=== PATIENT | female | born 1940 | race Caucasian/White ===

== ENCOUNTER 2023-04-19 15:47 | Outpatient (REF) | payer MEDICARE, SELFPAY ==
--- OUTSIDE RECORDS SUMMARY | 2023-04-19 15:51 | XMS_ITS | Continuity of Care Document ---
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 Discharge Disposition: Home or Self Care Attending Physician: KAILEY Mason Allergies, Adverse Reactions, Alerts Substance Reaction Severity Status Adhesive Bandage Rash Moderate Active copper containing compounds Rash Mild Active Dust Unknown Active Bee Stings Unknown Unknown Active Assessment and Plan Future Appointments Immunizations Given and Recorded Vaccine Date Status Refusal Reason pneumococcal 13-valent conjugate vaccine 1 08/27/21 Recorded pneumococcal 13-valent conjugate vaccine 2 09/28/15 Recorded SARS-CoV-2 (COVID-19) mRNA-1273 vaccine 3 04/09/21 Recorded zoster vaccine, inactivated 05/07/20 Recorded zoster vaccine, inactivated 4 02/20/20 Recorded influenza, unspecified formulation 5 03/19/20 Marcello rded influenza virus vaccine, inactivated 03/19/19 Marcello rded tetanus/diphth/pertuss (Tdap) adult/adol 09/28/15 Recorded zoster vaccine live 6 10/02/12 Recorded pneumococcal 23-polyvalent vaccine 7 09/27/12 Marcello rded pneumococcal 23-polyvalent vaccine 8 2/16/06 Marcello rded Novel [id number], all formulation 9 06/03/09 Recorded Td(adult) unspecified formulation 11/04/08 Recorde d 1Result Comment: Unit: Unknown 2Result Comment: Unit: Unknown 3Result Comment: Unit: Unknown 4Result Comment: Unit: Unknown 5Result Comment: Unit: Unknown 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: [employer] 6Result Comment: Unit: Unknown 7Result Comment: Unit: Unknown 8Result Comment: Unit: Unknown 9Result Comment: Unit: Unknown Medications amLODIPine 10 mg oral tablet 10 mg = 1 tab, Oral, Daily, # 90 tab, 3 Refill(s), Pharmacy: [facility] #[id number], 162.56, cm, 07/15/22 17:52:00 EST, Height/Length Dosing, 95.71, kg, 07/15/22 17:52:00 EST, Weight Dosing Start Date: 08/18/22 Stop Date: 08/13/23 Status: Ordered aspirin 81 mg oral delayed release tablet 81 mg = 1 tab, Oral, Daily, PRN stroke prevention, # 90 tab, 0 Refill(s) Start Date: 07/20/22 Stop Date: 10/18/22 Status: Ordered atenolol 50 mg oral tablet 50 mg = 1 tab, Oral, Daily, # 90 tab, 0 Refill(s) Start Date: 06/05/22 Stop Date: 09/03/22 Status: Ordered atorvastatin 80 mg oral tablet See Instructions, take 1 tablet by mouth Once a day at supper for cholesterol, # 90 tab, 3 Refill(s), Pharmacy: [facility] #[id number], 165, cm, 01/12/23 7:52:00 EDT, Height/Length Dosing, 94, kg, 01/12/23 7:52:00 EDT, Weight Dosing Start Date: 01/18/23 Status: Ordered Bd Pen Needle/Milena/Ultra-Fine/32g X 4mm Mis Embe Bd Pen Needle/Milena/Ultra-Fine/32g X 4mm Mis Embe, See Instructions, use one needle once daily, # 100 unknown unit, 3 Refill(s), Pharmacy: [facility] #[id number], E11.9, KX, 165.1, cm, 10/26/22 10:20:00 EDT, Height/Length Dosing, 93.44, kg, 10/26/22 10:20:00 EDT, Weight Dosing Start Date: 12/08/22 Status: Ordered Centrum Silver oral tablet 1 tab, Oral, Daily, # 90 tab, 0 Refill(s) Start Date: 09/03/22 Stop Date: 12/02/22 Status: Ordered clopidogrel 75 mg oral tablet See Instructions, take one tablet by mouth one time daily, # 90 tab, 3 Refill(s), Pharmacy: [facility] #[id number], 162.56, cm, 07/15/22 17:52:00 EST, Height/Length Dosing, 95.71, kg, 07/15/22 17:52:00 EST, Weight Dosing Start Date: 10/25/22 Status: Ordered colchicine 0.6 mg oral tablet 1/2 tab, Oral, Daily, PRN not specified, # 45 tab, 0 Refill(s) Start Date: 09/03/22 Stop Date: 12/02/22 Status: Ordered DME Oxygen Therapy pt uses as needed for ALMARAZ@ 2lpm, Supply, See instructions, # 1 EA, 0 Refill(s) Start Date: 10/26/22 Status: Ordered DULoxetine 60 mg oral delayed release capsule 60 mg = 1 cap, Oral, Daily, # 90 cap, 3 Refill(s), Pharmacy: [facility] #[id number], 162.56, cm, 07/15/22 17:52:00 EST, Height/Length Dosing, 95.71, kg, 07/15/22 17:52:00 EST, Weight Dosing Start Date: 07/25/22 Stop Date: 07/20/23 Status: Ordered furosemide 20 mg oral tablet 20 mg = 1 tab, Oral, BID, # 180 tab, 0 Refill(s) Start Date: 06/05/22 Stop Date: 09/03/22 Status: Ordered gabapentin 400 mg oral capsule 400 mg = 1 cap, Oral, TID, # 270 cap, 0 Refill(s) Start Date: 06/05/22 Stop Date: 12/02/22 Status: Ordered Glucagon Emergency Kit for Low Blood Sugar 1 mg injection See Instructions, 0 Refill(s) Start Date: 09/03/22 Status: Ordered GoLYTELY oral powder for reconstitution 240 mL, Oral, every 10 min, # 4,000 mL, 0 Refill(s), Pharmacy: [facility] #[id number], 163, cm, 06/11/22 9:55:00 EST, Height/Length Dosing, 93.89, kg, 06/11/22 9:55:00 EST, Weight Dosing Start Date: 07/12/22 Stop Date: 07/13/22 Status: Ordered lactulose 10 g/15 mL oral syrup See Instructions, PRN as needed for constipation, 15-30 mL Oral Daily 30 days, # 500 mL, 3 Refill(s), Pharmacy: [facility], 163, cm, 06/11/22 9:55:00 EST, Height/Length Dosing, 93.89, kg,06/11/22 9:55:00 EST, Weight Dosing Start Date: 06/24/22 Status: Ordered Lantus Solostar Pen 100 units/mL subcutaneous solution 28 units, Subcutaneous, Daily, # 3 mL, 0 Refill(s) Start Date: 10/24/22 Status: Ordered lisinopril 40 mg oral tablet 40 mg = 1 tab, Oral, every evening, # 90 tab, 3 Refill(s), Pharmacy: [id number], 163, cm, 06/11/22 9:55:00 EST, Height/Length Dosing, 93.89, kg, 06/11/22 9:55:00 EST, Weight Dosing Start Date: 07/11/22 Stop Date: 07/06/23 Status: Ordered MetFORMIN (Eqv-Glucophage XR) 500 mg oral tablet, extended release See Instructions, TAKE ONE TABLET BY MOUTH TWICE DAILY, # 180 tab, 3 Refill(s), Pharmacy: [facility] #[id number], 162.56, cm, 07/15/22 17:52:00 EST, Height/Length Dosing, 95.71, kg, 07/15/22 17:52:00 EST, Weight Dosing Start Date: 08/24/22 Status: Ordered nitroglycerin 0.3 mg sublingual tablet See Instructions, 0 Refill(s) Start Date: 09/03/22 Status: Ordered OneTouch Delica Lanceta Fine - Miscellaneous OneTouch Delica Lanceta Fine - Miscellaneous, Supply, See instructions, # 1 EA, 0 Refill(s) Start Date: 09/03/22 Status: Ordered ONETOUCH ULTRA STRP ONETOUCH ULTRA STRP, See Instructions, Check blood glucose bid and as needed, # 200 strip, 0 Refill(s) Start Date: 06/05/22 Status: Ordered OneTouch Ultra Blue - Strip OneTouch Ultra Blue - Strip, Supply, See instructions, # 1 EA, 0 Refill(s) Start Date: 09/03/22 Status: Ordered Oxygen Therapy 2 liters by nasal cannula continuous concentrator / portable gas Start Date: 09/09/2020, Notes: Dx codes : R06.81 and Z86.73, Supply, See instructions, # 1 EA, 0 Refill(s) Start Date: 09/03/22 Status: Ordered PEN NEEDLES MIS [id number] PEN NEEDLES MIS [id number], See Instructions, BID with insulin, 0 Refill(s) Start Date: 06/05/22 Status: Ordered ProAir HFA 90 mcg/inh inhalation aerosol 2 puffs, Inhale, every 6 hr, PRN as needed for wheezing, # 8.5 g, 0 Refill(s) Start Date: 09/03/22 Status: Ordered traZODone 100 mg oral tablet 100 mg = 1 tab, Oral, every night at bedtime, # 90 tab, 0 Refill(s) Start Date: 06/05/22 Stop Date: 09/02/22 Status: Ordered Tylenol Extra Strength 500 mg oral tablet 500 mg = 1 tab, Oral, every 6 hr, PRN not specified, # 360 tab, 0 Refill(s) Start Date: 09/03/22 Stop Date: 12/02/22 Status: Ordered Problem List Condition Confirmation Course Effective Dates Status H ealth Status Informant Change in bowel habit Confirmed Active Anal fissure Confirmed Active Atypical chest pain Confirmed Active Bilateral sensory hearing loss Confirmed Active Carpal tunnel syndrome of right wrist Confirmed Active Cervical spondylosis with radiculopathy Confirmed Active Chronic kidney disease, stage 3 unspecified Confirmed Active Stage 3 chronic kidney disease Confirmed Active Chronic pain Confirmed Active Colonic polyp Confirmed Active Full incontinence of feces Confirmed Active Constipation Confirmed Active Deafness in right ear Confirmed Active Depression Confirmed Active Diverticulitis Confirmed Active Diverticulosis of colon Confirmed Active Dyspnea on exertion 1 Confirmed Active Lesion of ear Confirmed Active Other fatigue Confirmed Active H/O: gout Confirmed Active Headache Confirmed Active Hematochezia Confirmed Active High cholesterol Confirmed Active Hx of ischemic left MCA stroke Confirmed Active History of operative procedure on knee Confirmed Active History of polyp of colon Confirmed Active History of ear surgery Confirmed Active HTN (hypertension) Confirmed Active Cerumen impaction Confirmed Active Cognitive impairment Confirmed Active Stool incontinence Confirmed Active Insomnia Confirmed Active Kidney disease Confirmed Active Long-term current use of insulin Confirmed Active Lumbar post-laminectomy syndrome Confirmed Active Failed back syndrome of lumbar spine Confirmed Active Lumbosacral spondylosis without myelopathy Confirmed Active 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 Osteoarthritis of right knee joint Confirmed Active Otorrhea of right ear Confirmed Active Polyneuropathy due to type 2 diabetes mellitus Confirmed Active Situational depression Confirmed Active Transient neurological symptoms Confirmed Active Type 2 diabetes mellitus Confirmed Active Type 2 diabetes mellitus with hypoglycemia Confirmed Active Uncontrolled type 2 diabetes mellitus with hyperglycemia Confirmed Active UI (urinary incontinence) Confirmed Active Vitamin D deficiency Confirmed Active Word finding difficulty Confirmed Active 1home O2 for ALMARAZ Procedures Procedure Date Related Diagnosis Body Site Status Colonoscopy Biopsy 1 11/02/22 Comp leted Colonoscopy 01/20/19 Completed Back class 2 Completed Bladder care 3 Completed Mastoidectomy Completed Surgery 4 Completed Surgical manipulation of joint of knee Completed 1auto-populated from documented surgical case 2surgery lower back 3surgery 4shoulder and elbow Social History Social History Type Response Tobacco Never tobacco user T obacco Use:. Sex Physician Outpatient Note * KAILEY Mason: PERFORM, MODIFY, MODIFY Gil Escobar, PA: MODIFY, MODIFY Gil Escobar, PA: MODIFY, MODIFY Gil Escobar, PA: MODIFY Garima Lira: MODIFY, MODIFY Garima Lira: MODIFY Event Display: Office Clinic Note Physician Authored Date: [id number] MICHELLE HOLLEY :1940 Age:82 years Sex:Female Visit Date:02/09/2023 Primary Care Physician: Wilmar Licea DO Chief Complaint Established- Recheck ear, path results History of Present Illness Established patient in the office today to have her biopsy site checked and review pathology results. Patient was given results over the phone. 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 She was still having?? pain after the biopsy.?? She has history of mastoid surgery of the right ear and is here today for??debridement of the mastoid??cavity. Patient notesthat she is still having some pain and it is tender to the touch. She notes it is a bit better though. Patient notes no drainage and has no major concerns but would like it checked today. Patient notes that the helix is healing well but slowly. Review of Systems Negative for: no new cardiac, respiratory, GI, , hematologic, neurologic, psychological, allergic, traumatic or endocrine problems except as listed above Physical Exam GENERAL APPEARANCE:??The patient is awake, alert, and oriented and in no acute distress, Appears nutritionally sound, Healthy in appearance, Voice is strong, with no stridor or stertor, Handling secretions without difficulty.?PSYCH:??affect normal, good eye contact, oriented to person, oriented to place, oriented to time.?NEURO:??CN's II-XII grossly intact, Gait is normal,?HEENT:??The patient is normocephalic with a normal facies with cranial nerves 2 through 12 bilaterally equal and intact. Pupils are equal and reactive to light with extraocular movements bilaterally equal and intact. There is no proptosis or enophthalmos,??EARS:, Ear exam reveals normal appearing pinna bilaterally. Mastoids are normal to palpation and nontender bilaterally. the ext ernal canal are patent following removal of cerumen and debris with scant otorrhea posteriorly on the right s/p mastoid wall down surgery, with left TM's mobile with no evidence of middle ear fluid, middle ear masses, or retraction pockets.?NECK:??There is no palpable lymphadenopathy.?HEART:??regular rate and rhythm.?LUNGS:??clear to auscultation bilaterally, no wheezes/rhonchi/rales.?SKIN:??biopsy site left antihelix without evidence of infection healing by secondary intention. No recurrence. ?MUSCULOSKELETAL:??normal gait and station.?? Procedure A combination of otoscope and operative microscope were used to debride the right external auditorycanal and mastoid bowl??with forceps ,day hook and suction as needed secondary to otorrhea/debris. This was performed in order to complete the physical exam and provide proper visualization of the tympanic membrane and middle ear structures. All debris was removed without incident. There were no complications Assessment/Plan 1.??Cerumen impaction??H61.20 Significant??of the right??mastoid bowl which was treated today with cerumenectomy and application of boric acid following??cerumen removal and removal of otorrhea debris.?? Counseled on dry ear precautions. ??Follow-up in 3 months and sooner as needed. 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 Counseled on avoiding sleeping on the side.?? She does note that pain has been improving with time.?? We will recheck in 3 months at time for recheck of mastoid bowl. Problem List/Past Medical History Ongoing Anal fissure Atypical chest pain Bilateral sensory hearing loss Carpal tunnel syndrome of right wrist Cerumen impaction Cervical spondylosis with radiculopathy Change in bowel habit Chronic kidney disease, stage 3 unspecified Chronic pain Cognitive impairment Colonic polyp Constipation Deafness in right ear Depression Diverticulitis Diverticulosis of colon Dyspnea on exertion Failed back syndrome of lumbar spine Full incontinence of feces H/O: gout Headache Hematochezia High cholesterol History of ear surgery History of operative procedure on knee History of polyp of colon HTN (hypertension) Hx of ischemic left MCA stroke Insomnia Kidney disease Lesion of ear Long-term current use of insulin Lumbar post-laminectomy syndrome Lumbosacral spondylosis without myelopathy Mixed conductive AND sensorineural hearing loss Osteoarthritis of right knee joint Other fatigue Otorrhea of right ear Polyneuropathy due to type 2 diabetes mellitus Situational depression Stage 3 chronic kidney disease Stool incontinence Transient neurological symptoms Type 2 diabetes mellitus Type 2 diabetes mellitus with hypoglycemia UI (urinary incontinence) Uncontrolled type 2 diabetes mellitus with hyperglycemia Vitamin D deficiency Word finding difficulty Historical Acute ischemic left MCA stroke Acute renal failure superimposed on stage 3 chronic kidney disease Carpal tunnel syndrome Cervical radiculopathy Cervical radiculopathy Disorder of cervical spine History of vitamin D deficiency Other chronic pain Type 2 diabetes mellitus with unspecified complications Procedure/Surgical History ???Colonoscopy Biopsy (11/02/2022)???Colonoscopy (01/21/2019)???Back class???Bladder care???Mastoidectomy???Surgery???Surgical manipulation of joint of knee Medications amLODIPine 10 mg oral tablet, 10 mg= 1 tab, Oral, Daily, 3 refills aspirin 81 mg oral delayed release tablet, 81 mg= 1 tab, Oral, Daily, PRN atenolol 50 mg oral tablet, 50 mg= 1 tab, Oral, Daily atorvastatin 80 mg oral tablet, See Instructions, 3 refills Bd Pen Needle/Milena/Ultra-Fine/32g X 4mm Mis Embe, See Instructions, 3 refills Centrum Silver oral tablet, 1 tab, Oral, Daily clopidogrel 75 mg oral tablet, See Instructions, 3 refills colchicine 0.6 mg oral tablet, 1/2 tab, Oral, Daily, PRN DME Oxygen Therapy, See instructions DULoxetine 60 mg oral delayed release capsule, 60 mg= 1 cap, Oral, Daily, 3 refills furosemide 20 mg oral tablet, 20 mg= 1 tab, Oral, BID gabapentin 400 mg oral capsule, 400 mg= 1 cap, Oral, TID Glucagon Emergency Kit for Low Blood Sugar 1 mg injection, See Instructions GoLYTELY oral powder for reconstitution, 240 mL, Oral, every 10 min lactulose 10 g/15 mL oral syrup, See Instructions, PRN, 3 refills Lantus Solostar Pen 100 units/mL subcutaneous solution, 28 units, Subcutaneous, Daily lisinopril 40 mg oral tablet, 40 mg= 1 tab, Oral, every evening, 3 refills MetFORMIN (Eqv-Glucophage XR) 500 mg oral tablet, extended release, See Instructions nitroglycerin 0.3 mg sublingual tablet, See Instructions OneTouch Delica Lanceta Fine - Miscellaneous, See instructions ONETOUCH ULTRA STRP, See Instructions OneTouch Ultra Blue - Strip, See instructions Oxygen Therapy, See instructions PEN NEEDLES MIS [id number], See Instructions ProAir HFA 90 mcg/inh inhalation aerosol, 2 puffs, Inhale, every 6 hr, PRN traZODone 100 mg oral tablet, 100 mg= 1 tab, Oral, every night at bedtime Tylenol Extra Strength 500 mg oral tablet, 500 mg= 1 tab, Oral, every 6 hr, PRN Allergies Adhesive Bandage??(Rash) copper containing compounds??(Rash) Bee Stings??(Unknown) Dust Social History Alcohol Current, 1-2 times per week Electronic Cigarette/Vaping Electronic Cigarette Use: Never. Substance Use Never Tobacco Never tobacco user Tobacco Use:. Family History Cancer: Mother. Cardiovascular disease: Father. Diabetes mellitus: Sister. Hypertension: Father. Ovarian cancer: Mother. Stroke: Sister. 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: [employer] zoster vaccine, inactivated 02/20/2020 Recorded Comments : Unit: Unknown influenza virus vaccine, inactivated 03/19/2019 Recorded tetanus/diphth/pertuss (Tdap) adult/adol 09/28/2015 Recorded pneumococcal 13-valent conjugate vaccine 09/28/2015 Recorded Comments : Unit: Unknown zoster vaccine live 10/02/2012 Recorded Comments : Unit: Unknown pneumococcal 23-polyvalent vaccine 09/27/2012 Recorded Comments : Unit: Unknown Novel [id number], all formulation 06/03/2009 Recorded Comments : Unit: Unknown Td(adult) unspecified formulation 11/04/2008 Recorded pneumococcal 23-polyvalent vaccine 07/21/2005 Recorded Comments : Unit: Unknown Electronically Signed on 02/09/23 02:32 PM KAILEY Mason Patient Care team information Care Team Personnel Name: Wilmar Licea DO Position: Physician Member Role: Primary Care Physician Address: Address: [address] [place] [id number] [place] Care Team Related Persons Name: DAVE DOWNING Address: Home
--- OUTSIDE RECORDS SUMMARY | 2023-04-19 15:51 | XMS_ITS | Continuity of Care Document ---
Author Name Unknown Organization [facility] Address [address] [place] [id number] Care Team Providers Care Repair Clerk Name Role Phone Keo Cruz DO Primary Care Physician Encounter [facility] NBR [id number] Date(s): 07/15/22 - 07/16/[address] [address] Encounter Diagnosis Constipation(Discharge Diagnosis) - 07/16/22 Hematochezia(Discharge Diagnosis) - 07/16/22 Discharge Disposition: Home or Self Care Attending Physician: Navjot Boswell APRN Admitting Physician: Navjot Boswell APRN Allergies, Adverse Reactions, Alerts No Known Medication Allergies Substance Reaction Severity Status Adhesive Bandage Unknown Unknown Active Bee Stings Unknown Unknown Active Dust Unknown Active Functional Status 07/16/22 Lunch Percent 100 07/16/22 Personal Care Provided Other: pt was inc ontinent of stool, helped her clean up and change. 07/16/22 Activity Status ADL Other: resting 07/16/22 Breakfast Percent 100 07/15/22 Living Environment No Living Environmen t Information Available Lives In Single level home Living Situation Home independently Home Barriers None 07/15/22 Current Home Treatments Oxygen therapy ADLs Minimal assistance Home Equipment Cane Recent Travel History No recent travel Other exposure to Infectious Disease Non e Immunizations Given and Recorded Vaccine Date Status [...] 09/27/12 Marcello rded pneumococcal 23-polyvalent vaccine 8 07/21/05 Marcello rded Novel [id number], all formulation 9 06/03/09 Recorded Td(adult) unspecified formulation 11/04/08 Recorde d 1Result Comment: Unit: Unknown 2Result Comment: Unit: Unknown 3Result Comment: Unit: Unknown 4Result Comment: Unit: Unknown 5Result Comment: Unit: Unknown 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[employer] 6Result Comment: Unit: Unknown 7Result Comment: Unit: Unknown 8Result Comment: Unit: Unknown 9Result Comment: Unit: Unknown Medications amLODIPine 5 mg oral tablet 5 mg = 1 tab, Oral, Daily, # 90 tab, 3 Refill(s), Pharmacy: [facility] #[id number], 163, cm, 06/11/22 9:55:00 EST, Height/Length Dosing, 93.89, kg, 06/11/22 9:55:00 EST, Weight Dosing Start Date: 07/11/22 Stop Date: 07/06/23 Status: Ordered atenolol 50 mg oral tablet 50 mg = 1 tab, Oral, Daily, # 90 tab, 0 Refill(s) Start Date: 06/05/22 Stop Date: 09/03/22 Status: Ordered atorvastatin 80 mg oral tablet 80 mg = 1 tab, Oral, Daily, take 1 tablet by mouth Once a day at supper for cholesterol, X 90 days,# 90 tab, 09/03/22 8:59:00 EDT Start Date: 06/05/22 Stop Date: 09/03/22 Status: Ordered clopidogrel 75 mg oral tablet 75 mg = 1 tab, Oral, Daily, 0 Refill(s) Start Date: 07/16/22 Status: Ordered DULoxetine 60 mg oral delayed release capsule 60 mg = 1 cap, Oral, Daily, X 90 days, # 90 cap, 09/03/22 8:59:00 EDT Start Date: 06/05/22 Stop Date: 09/03/22 Status: Ordered furosemide 20 mg oral tablet 20 mg = 1 tab, Oral, BID, # 180 tab, 0 Refill(s) Start Date: 06/05/22 Stop Date: 09/03/22 Status: Ordered gabapentin 400 mg oral capsule 400 mg = 1 cap, Oral, TID, # 120 cap, 0 Refill(s) Start Date: 06/05/22 Status: Ordered GoLYTELY oral powder for reconstitution 240 mL, Oral, every 10 min, # 4,000 mL, 0 Refill(s), Pharmacy: [facility] #[id number], 163, cm, 06/11/22 9:55:00 EST, Height/Length Dosing, 93.89, kg, 06/11/22 9:55:00 EST, Weight Dosing Start Date: 07/12/22 Stop Date: 07/13/22 Status: Ordered indomethacin 50 mg oral capsule 50 mg = 1 cap, Oral, TID, with food or milk, # 90 cap, 0 Refill(s), Pharmacy: [facility] #[id number], 163, cm, 06/11/22 9:55:00 EST, Height/Length Dosing, 93.89, kg, 06/11/22 9:55:00 EST, Weight Dosing Start Date: 07/07/22 Stop Date: 08/06/22 Status: Ordered lactulose 10 g/15 mL oral syrup See Instructions, PRN as needed for constipation, 15-30 mL Oral Daily 30 days, # 500 mL, 3 Refill(s), Pharmacy: [facility], 163, cm, 06/11/22 9:55:00 EST, Height/Length Dosing, 93.89, kg,06/11/22 9:55:00 EST, Weight Dosing Start Date: 06/24/22 Status: Ordered Lantus Solostar Pen 100 units/mL subcutaneous solution 32 units =, Subcutaneous, Daily, X 90 days, # 15 mL, 09/03/22 8:59:00 EDT Start Date: 06/05/22 Stop Date: 09/03/22 Status: Ordered lisinopril 40 mg oral tablet 40 mg = 1 tab, Oral, every evening, # 90 tab, 3 Refill(s), Pharmacy: [facility] #[id number], 163, cm, 06/11/22 9:55:00 EST, Height/Length Dosing, 93.89, kg, 06/11/22 9:55:00 EST, Weight Dosing Start Date: 07/11/22 Stop Date: 07/06/23 Status: Ordered MetFORMIN (Eqv-Glucophage XR) 500 mg oral tablet, extended release 500 mg = 1 tab, Oral, BID, # 180 tab, 0 Refill(s) Start Date: 06/05/22 Stop Date: 09/03/22 Status: Ordered ONETOUCH ULTRA STRP ONETOUCH ULTRA STRP, See Instructions, Check blood glucose bid and as needed, # 200 strip, 0 Refill(s) Start Date: 06/05/22 Status: Ordered PEN NEEDLES MIS [id number] PEN NEEDLES MIS [id number], See Instructions, BID with insulin, 0 Refill(s) Start Date: 06/05/22 Status: Ordered traZODone 100 mg oral tablet 100 mg = 1 tab, Oral, every night at bedtime, # 90 tab, 0 Refill(s) Start Date: 06/05/22 Stop Date: 09/02/22 Status: Ordered Mental Status 07/15/22 Eye Opening Response Yoko Spontaneous ly Best Verbal Response Yoko Oriented Best Motor Response [place] Obeys comman ds [place] Coma Score 15 Problem List Condition Confirmation Course Effective Dates Status H ealth Status Informant Change in bowel habit Confirmed Active Atypical chest pain Confirmed Active Bilateral sensory hearing loss Confirmed Active Carpal tunnel syndrome of right wrist Confirmed Active Cervical spondylosis with radiculopathy Confirmed Active Chronic kidney disease, stage 3 unspecified Confirmed Active Chronic pain Confirmed Active Constipation Confirmed Active Constipation Confirmed Active Deafness in right ear Confirmed Active Diverticulitis Confirmed Active H/O: gout Confirmed Active Hematochezia Confirmed Active Hx of ischemic left MCA stroke Confirmed Active History of operative procedure on knee Confirmed Active History of polyp of colon Confirmed Active HTN (hypertension) Confirmed Active Cognitive impairment Confirmed Active Stool incontinence Confirmed Active Insomnia Confirmed Active Long-term current use of insulin Confirmed Active Lumbar post-laminectomy syndrome Confirmed Active Lumbosacral spondylosis without myelopathy Confirmed Active 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 Osteoarthritis of right knee joint Confirmed Active Otorrhea of right ear Confirmed Active Transient neurological symptoms Confirmed Active Type 2 diabetes mellitus Confirmed Active UI (urinary incontinence) Confirmed Active Vitamin D deficiency Confirmed Active Word finding difficulty Confirmed Active Procedures Procedure Date Related Diagnosis Body Site Status Colonoscopy 01/20/19 Completed Back class 1 Completed Bladder care 2 Completed Mastoidectomy Completed Surgery 3 Completed Surgical manipulation of joint of knee Completed 1surgery lower back 2surgery 3shoulder and elbow Results Laboratory List Name Date Basic Metabolic Panel (BMP) 07/16/22 CBC w/ Diff 07/16/22 Automated Diff 07/16/22 SARS-CoV-2 (COVID-19) PCR (GeneXpert) 03/27 Urinalysis Microscopic 07/15/22 Urinalysis with Microscopic if Indicated 07/15/22 BNP 07/15/22 CBC w/ Diff 07/15/22 Comprehensive Metabolic Panel (CMP) 07/15 Troponin-I 07/15/22 Automated Diff 07/15/22 Most recent to oldest [Reference Range]: 1 2 WBC [4.8-10.8 K/mcL] 9.1 K/mcL (07/16/22 5:21 AM) 10.0 K/mcL (07/15/22 6:07 PM) RBC [4.20-6.10 Million/mcL] 3.51 Million /mcL *LOW* (07/16/22 5:21 AM) 3.92 Million/mcL *LOW* (07/15/22 6:07 PM) Neutro Auto [42.2-75.2 %] 59.0 % (07/16/22 5:21 AM) 59.7 % (07/15/22 6:07 PM) Lymph Auto [20.5-51.1 %] 31.0 % (07/16/22 5:21 AM) 30.7 % (07/15/22 6:07 PM) [place] Auto [1.7-9.3 %] 7.0 % (07/16/22 5:21 AM) 6.8 % (07/15/22 6:07 PM) Basophil Auto [0.0-0.8 %] 0.3 % (07/16/22 5:21 AM) 0.4 % (07/15/22 6:07 PM) BUN [8-26 mg/dL] 42 mg/dL *HI* (07/16/22 5:28 AM) 47 mg/dL *HI* (07/15/22 6:07 PM) UA Color [Yellow] Yellow (07/15/22 6:18 PM) UA WBC [0-3] 0-3 (07/15/22 6:18 PM) Glucose Level [74-106 mg/dL] 159 mg/dL *HI* (2/11/23 5:28 AM) 88 mg/dL (07/15/22 6:07 PM) Potassium Level [3.5-5.1 mmol/L] 4.5 mmo l/L (07/16/22 AM) 4.5 mmol/L (07/15/22 6:07 PM) Baso Absolute [0.0-0.2 K/mcL] 0.0 K/mcL (07/16/22: AM) 0.0 K/mcL (07/15/22 6:07 PM) MCV [80.0-99.0 fL] 96.6 fL (07/16/22: AM) 94.4 fL (07/15/22 6:07 PM) UA Urobilinogen [0.2] 0.2 (07/15/22:18 PM) UA Bili [Negative] Negative (07/15/22 6:18 PM) UA Ketones [Negative] Negative (07/15/22 6:18 PM) AST [15-41 IntlUnit/L] 18 IntlUnit/L (07/15/22 6:07 PM) ALT [14-54 IntlUnit/L] 17 IntlUnit/L (07/15/22 6:07 PM) MCHC [32.0-36.0 g/dL] 33.0 g/dL (07/16/22: AM) 33.8 g/dL (07/15/22 6:07 PM) Osmolality [275-295 mOsm/kg] 291 mOsm/kg (07/16/22: AM) 289 mOsm/kg (07/15/22 6:07 PM) Troponin-I [<=0.05 ng/mL] 0.01 ng/mL (07/15/22 6:07 PM) Sodium Level [134-143 mmol/L] 139 mmol/L (07/16/22: AM) 139 mmol/L (07/15/22 6:07 PM) UA RBC [0-3] 0-3 (07/15/22 6:18 PM) UA Leuk Est [Negative] Trace *ABN* (07/15/22 6:18 PM) Lymph Absolute [1.2-3.4 K/mcL] 2.8 K/mcL (2/11/23 5:21 AM) 3.1 K/mcL (07/15/22 6:07 PM) UA Nitrite [Negative] Negative (07/15/22 6:18 PM) UA Glucose [Negative] Negative (07/15/22 6:18 PM) Hct [37.0-52.0 %] 33.9 % *LOW* (07/16/22 5:21 AM) 37.0 % (07/15/22 6:07 PM) UA Bacteria Rare *NA* (07/15/22 6:18 PM) Calcium Level [8.9-10.3 mg/dL] 8.5 mg/dL *LOW* (07/16/22 5:28 AM) 9.0 mg/dL (07/15/22 6:07 PM) [place] Absolute [0.1-0.6 K/mcL] 0.6 K/mcL (07/16/22 5:21 AM) 0.7 K/mcL *HI* (07/15/22 6:07 PM) Albumin Level [3.5-5.0 g/dL] 3.4 g/dL *LOW* (07/15/22 6:07 PM) Protein Total [6.5-8.1 g/dL] 6.5 g/dL (07/15/22 6:07 PM) UA Protein [Negative] Negative (07/15/22 6:18 PM) MCH [27.0-31.0 pg] 31.9 pg *HI* (07/16/22 5:21 AM) 31.9 pg *HI* (07/15/22 6:07 PM) Neutro Absolute [1.4-6.5 K/mcL] 5.4 K/mc L (07/16/22 5:21 AM) 6.0 K/mcL (07/15/22 6:07 PM) Bilirubin Total [0.2-1.2 mg/dL] 0.5 mg/d L (07/15/22 6:07 PM) Hgb [12.0-18.0 g/dL] 11.2 g/dL *LOW* (07/16/22 5:21 AM) 12.5 g/dL (07/15/22 6:07 PM) Alk Phos [38-130 IntlUnit/L] 87 IntlUnit /L (07/15/22 6:07 PM) UA Blood [Negative] Trace *ABN* (07/15/22 6:18 PM) MPV [7.4-10.4 fL] 10.4 fL (07/16/22 5:21 AM) 10.2 fL (07/15/22 6:07 PM) UA Spec Grav 1.015 *NA* (07/15/22 6:18 PM) Platelets [130-400 K/mcL] 197 K/mcL (07/16/22 5:21 AM) 227 K/mcL (07/15/22 6:07 PM) CO2 [22-32 mmol/L] 29 mmol/L (07/16/22 5:28 AM) 27 mmol/L (07/15/22 6:07 PM) Eos Absolute [0.0-0.2 K/mcL] 0.2 K/mcL (07/16/22 5:21 AM) 0.2 K/mcL (07/15/22 6:07 PM) UA Squam Epithelial [0-3] 0-3 (07/15/22 6:18 PM) UA pH 6.00 *NA* (07/15/22 6:18 PM) BNP [<=100 pg/mL] 72 pg/mL (07/15/22 6:07 PM) UA Appear [Clear] Clear (07/15/22 6:18 PM) Chloride Level [98-111 mmol/L] 103 mmol/ L (07/16/22 5:28 AM) 101 mmol/L (07/15/22 6:07 PM) RDW-CV [11.5-14.5 %] 12.5 % (07/16/22 5:21 AM) 12.3 % (07/15/22 6:07 PM) A/G Ratio 1.1 *NA* (07/15/22 6:07 PM) BUN/Creat Ratio [8.0-20.0] 31.6 *HI* (07/16/22 5:28 AM) 36.7 *HI* (07/15/22 6:07 PM) Globulin 3.1 *NA* (07/15/22 6:07 PM) Imm Gran Absolute 0.04 *NA* (07/16/22 5:21 AM) 0.02 *NA* (07/15/22 6:07 PM) Imm Gran Auto [0.0-0.5 %] 0.4 % (07/16/22 5:21 AM) 0.2 % (07/15/22 6:07 PM) UA Culture Ind?. [No] No (07/15/22 6:18 PM) Urine Srce Clean Catch (07/15/22 6:18 PM) SARS-CoV-2 (COVID-19) PCR (G eneXpert) [Negative] Negative (07/15/22 7:51 PM) Creatinine Level [0.44-1.00 mg/dL] 1.33 mg/dL *HI* (07/16/22 5:28 AM) 1.28 mg/dL *HI* (07/15/22 6:07 PM) Employed in healthcare? No *NA* (07/15/22 7:51 PM) Symptomatic as defined by CDC? Unknown *NA* (07/15/22 7:51 PM) Hospitalized due to COVID-19? No *NA* (07/15/22 7:51 PM) In ICU? No *NA* (07/15/22 7:51 PM) Group care resident? No *NA* (07/15/22 7:51 PM) status? Not *NA* (07/15/22 7:51 PM) Anion Gap [3.0-12.0] 7.0 (07/16/22 5:28 AM) 11.0 (07/15/22 6:07 PM) Eos, Auto [0.00-3.00 %] 2.30 % (07/16/22 5:21 AM) 2.20 % (07/15/22 6:07 PM) eGFR CKD-EPI [>=60 mL/min/1.73 m2] 40 mL /min/1.73 m2 *LOW* (07/16/22 5:28 AM) 42 mL/min/1.73 m2 *LOW* (07/15/22 6:07 PM) Radiology Reports * Exam Date Time Procedure Performing Provider Status 07/15/22 6:30 PM XR Chest 1 View Ruba Kapoor; Aut h (Verified) Notes: (XR Chest 1 View) Reason For Exam: dyspnea XR Chest 1 View EXAM DESCRIPTION: XR Chest 1 View 07/15/2022 INDICATION: DYSPNEA COMPARISON: 2020 IMPRESSION: Clear lungs with no focal infiltrate or pulmonary edema. Stable minimal scarring in the left lung base. Stable dense nodule in the right lower lung field without significant change from studies dating back to 03/28/2020 consistent with benign etiology, likely granuloma Normal cardiomediastinal contour. No significant pleural effusion or pneumothorax. JOB #: [id number] Final Signed by: Alverto Xiao MD Signed (Electronic Signature): 07/16/2022 9:31 am Vital Signs Most recent to oldest [Reference Range]: 1 2 3 Temperature Temporal Artery [36-38 Deg C] 37.3 Deg C (07/16/22 12:02 PM) 36.7 Deg C (07/16/22 7:38 AM) 36.7 Deg C (07/16/22 4:23 AM) Temperature Temporal Artery (DegF) [97.3-100 Deg F] 99.14 Deg F (07/16/22 12:02 PM) 98.06 Deg F (07/16/22 7:38 AM) 98.06 Deg F (07/16/22 4:23 AM) Peripheral Pulse Rate [60-100 bpm] 64 bpm (07/16/22 4:23 AM) 69 bpm (07/15/22 8:56 PM) 67 bpm (07/15/22 5:38 PM) Heart Rate Monitored [60-100 bpm] 71 bpm (07/16/22 12:02 PM) 63 bpm (07/16/22 7:38 AM) Respiratory Rate [12-24 br/min] 18 br/min (07/16/22 12:02 PM) 16 br/min (07/16/22 7:38 AM) 16 br/min (07/16/22 4:23 AM) Blood Pressure [90-140/60-90 mmHg] 155/60mmHg *HI* (07/16/22 12:26 PM) 195/86mmHg *HI* (07/16/22 12:02 PM) 159/76mmHg *HI* (07/16/22 7:38 AM) Mean Arterial Pressure, Cuff [65-140 mmHg] 92 mmHg (07/16/22 12:26 PM) 122 mmHg (07/16/22 12:02 PM) 104 mmHg (07/16/22 7:38 AM) Blood Pressure Location Right arm (07/15/22 8:56 PM) Blood Pressure Method Automatic (07/15/22 8:56 PM) Weight Dosing 95.71 kg (07/15/22 5:52 PM) Weight Estimated 95.71 kg (07/15/22 5:38 PM) Height/Length Dosing 162.560 cm (07/15/22 5:52 PM) Height/Length Estimated 162.560 cm (07/15/22 5:38 PM) Social History Social History Type Response Tobacco Never tobacco user T obacco Use:. Sex Hospital Discharge Instructions Patient Education 07/16/2022 09:44:47 Chronic Constipation Chronic Constipation Chronic constipation is a condition in which a person has three or fewer bowel movements a week, for 3 months or longer. This condition is especially common in older adults. What are the causes? Causes of chronic constipation may include: ??? Not drinking enough fluid, eating enough food or fiber, or getting enough physical activity. ??? . ??? A tear in the anus (anal fissure). ??? Blockage in the bowel (bowel obstruction). ??? Narrowing of the bowel (bowel stricture). ??? Having a long-term medical condition, such as: ??? Diabetes, hypothyroidism, or iron-deficiency anemia. ??? Stroke or spinal cord injury. ??? Multiple sclerosis or Parkinson's disease. ??? Colon cancer. ??? Dementia. ??? Inflammatory bowel disease (IBD), outward collapse of the rectum (rectal prolapse), or hemorrhoids. ??? Taking certain medicines, including: ??? Narcotics. These are a certain type of prescription pain medicine. ??? Antacids or iron supplements. ??? Water pills (diuretics). ??? Certain blood pressure medicines. ??? Anti-seizure medicines. ??? Antidepressants. ??? Medicines for Parkinson's disease. Other causes of this condition may include: ??? Stress. ??? Problems in the nerves and muscles that control the movement of stool. ??? Weak or impaired pelvic floor muscles. What increases the risk? You may be at higher risk for chronic constipation if: ??? You are older than age 70. ??? You are female. ??? You live in a long-term care facility. ??? You have a long-term disease. ??? You have a mental health disorder or eating disorder. What are the signs or symptoms? The main symptom of chronic constipation is having three or fewer bowel movements a week for several weeks. Other signs and symptoms may vary from person to person. These include: ??? Pushing hard (straining) to pass stool, or having hard or lumpy stools. ??? Painful bowel movements. ??? Having lower abdominal discomfort, such as cramps or bloating. ??? Being unable to have a bowel movement when you feel the urge, or feeling like you still need topass stool after a bowel movement. ??? Feeling that you have something in your rectum that is blocking or preventing bowel movements. ??? Seeing blood on the toilet paper or in your stool. ??? Worsening confusion (in older adults). How is this diagnosed? This condition may be diagnosed based on: ??? Your symptoms and medical history. You will be asked about your symptoms, lifestyle, diet, and any medicines that you are taking. ??? A physical exam. ??? Your abdomen will be examined. ??? A digital rectal exam may be done. For this exam, a health care provider places a lubricated, gloved finger into the rectum. ??? Tests to check for any underlying causes of your constipation. These may be ordered if you havebleeding in your rectum, weight loss, or a family history of colon cancer. In these cases, you may have: ??? Imaging studies of the colon. These may include X-ray, ultrasound, or a CT scan. ??? Blood tests. ??? A procedure to examine the inside of your colon (colonoscopy). ??? More specialized tests to check: ??? Whether your anal sphincter works well. This is a ring-shaped muscle that controls the closing of the anus. ??? How well food moves through your colon. ??? Tests to measure the nerve signal in your pelvic floor muscles (electromyography). How is this treated? Treatment for chronic constipation depends on the cause. Most often, treatment starts with: ??? Being more active and getting regular exercise. ??? Drinking more fluids. ??? Adding fiber to your diet. Sources of fiber include fruits, vegetables, whole grains, and fibersupplements. ??? Using medicines such as stool softeners or medicines that increase contractions in your digestive system (pro-motility agents). ??? Training your pelvic muscles with biofeedback. ??? Surgery, if there is obstruction. Treatment may also include: ??? Stopping or changing some medicines if they cause constipation. ??? Using a fiber supplement (bulk laxative) or stool softener. ??? Using a prescription laxative. This works by absorbing water into your colon (osmotic laxative). You may also need to see a specialist who treats conditions of the digestive system (recording studio internship). Follow these instructions at home: Medicines ??? Take idur-kys-fenwwnt and prescription medicines only as told by your health care provider. ??? If you are taking a laxative, take it as told by your health care provider. Eating and drinking ??? Eat a balanced diet that includes enough fiber. Ask your health care provider to recommend a diet that is right for you. ??? Drink clear fluids, especially water. Avoid drinking alcohol, caffeine, and soda. These can make constipation worse. ??? Drink enough fluid to keep your urine pale yellow. General instructions ??? Get some physical activity every day. Ask your health care provider what activities are safe for you. ??? Get colon cancer screenings as told by your health care provider. ??? Keep all follow-up visits as told by your health care provider. This is important. Contact a health care provider if you have: ??? Three or fewer bowel movements a week. ??? Stools that are hard or lumpy. ??? Blood on the toilet paper or in your stool after you have a bowel movement. ??? Unexplained weight loss. ??? Rectum (rectal) pain. ??? Stool leakage. ??? Nausea or vomiting. Get help right away if you have: ??? Rectal bleeding or you pass blood clots. ??? Severe rectal pain. ??? Body tissue that pushes out (protrudes) from your anus. ??? Severe pain or bloating (distension) in your abdomen. ??? Vomiting that you cannot control. Summary ??? Chronic constipation is a condition in which a person has three or fewer bowel movements a week, for 3 months or longer. ??? You may have a higher risk for this condition if you are an older adult, you are female, or youhave a long-term disease. ??? Treatment for this condition depends on the cause. Most treatments for chronic constipation include adding fiber to your diet, drinking more fluids, and getting more physical activity. You may also need to treat any underlying medical conditions or stop or change certain medicines if they cause constipation. ??? If lifestyle changes do not relieve constipation, your health care provider may recommend taking a laxative. This information is not intended to replace advice given to you by your health care provider. Make sure you discuss any questions you have with your health care provider. Document Revised: 04/08/2020 Document Reviewed: 04/08/2020 Elsevier Patient Education ?? 2021 [employer]. Follow Up Care 07/15/2022 17:38:50 With:Keo Cruz DO Address: [address] [place] [id number] When:1 month Discharge instructions * Geni Boyce: PERFORM Event Display: Discharge Instructions Authored Date: [id number] LEWIS MICHELLE HUBBARD :1940 Age:81 years Sex:Female Visit Date:07/15/2022 Primary Care Physician: Keo Cruz DO Hospital Discharge Instructions We would like to thank you for allowing us to assist you with your healthcare needs. The following includes patient education materials and information regarding your injury/illness. After you leave the hospital, you may get your health information including your test results, physician notes and discharge information by accessing your Patient Portal. Your Next Steps Follow Up Appointments Follow Up with??Keo Cruz DO When:??Within 1 month Where: [address] [place] [address] [phone] The Following Equipment Has Been Ordered for You Home Equipment - Cane The Following Treatments Have Been Arranged for You Current Home Treatments - Oxygen therapy Medications What How Much When Why Instructions Next Dose Changed clopidogrel (clopidogrel 75 mg oral tablet) 1 tab Oral (given by mouth) Every day Changed lisinopril (lisinopril 40 mg oral tablet) 1 tab Oral (given by mouth) Every evening Duration: 90 Days Unchanged amLODIPine (amLODIPine 5 mg oral tablet) 1 tab Oral (given by mouth) Every day Duration: 90 Days Unchanged atenolol (atenolol 50 mg oral tablet) 1 tab Oral (given by mouth) Every day Duration: 90 Days Unchanged atorvastatin (atorvastatin 80 mg oral tablet) 1 tab Oral (given by mouth) Every day Duration: 90 Days take 1 tablet by mouth Once a day at supper for cholesterol ?? Unchanged DULoxetine (DULoxetine 60 mg oral delayed release capsule) 1 Capsules Oral (given by mouth) Every day Duration: 90 Days Unchanged furosemide (furosemide 20 mg oral tablet) 1 tab Oral (given by mouth) 2 times a day Duration: 90 Days Unchanged gabapentin (gabapentin 400 mg oral capsule) 1 Capsules Oral (given by mouth) 3 times a day Unchanged indomethacin (indomethacin 50 mg oral capsule) 1 Capsules Oral (given by mouth) 3 times a day Gout Duration: 30 Days with food or milk ?? Unchanged insulin glargine (Lantus Solostar Pen 100 units/ mL subcutaneous solution) 32 Units Subcutaneous (under the skin) Every day Duration: 90 Days Unchanged lactulose (lactulose 10 g/ 15 mL oral syrup) See instructions 15-30 mL Oral Daily 30 days, As needed for as needed for constipation ?? Unchanged metFORMIN (MetFORMIN (Eqv-Glucophage XR) 500 mg oral tablet, extended release) 1 tab Oral (given by mouth) 2 times a day Duration: 90 Days Unchanged Other Prescription (ONETOUCH ULTRA STRP) See instructions Check blood glucose bid and as needed ?? Unchanged Other Prescription (PEN NEEDLES MIS [id number]) See instructions BID with insulin ?? Unchanged polyethylene glycol 3350 with electrolytes (GoLYTELY oral powder for reconstitution) 240 Milliliters Oral (given by mouth) Every 10 minutes Diverticulitis Constipation Hematochezia Change in bowel habit Duration: 1 Days Unchanged traZODone (traZODone 100 mg oral tablet) 1 tab Oral (given by mouth) Every night at bedtime Duration: 90 Days ?? What How Much When Comments Stop Taking ciprofloxacin (Cipro 500 mg oral tablet) 1 tab Oral (given by mouth) Every 12 hours Duration: 10 Days Stop Taking metroNIDAZOLE (metroNIDAZOLE 500 mg oral tablet) 1 tab Oral (given by mouth) 3 times a day Duration: 10 Days Your Summary Your Care Team Admitting Physician - Navjot Boswell APRN Attending Physician - Navjot Boswell APRN Primary Care Physician - Keo Cruz, DO Your Diagnosis Constipation Hematochezia Problems Ongoing - Any problem that you are currently receiving treatment for. Atypical chest pain Bilateral sensory hearing loss Carpal tunnel syndrome of right wrist Cervical spondylosis with radiculopathy Change in bowel habit Chronic kidney disease, stage 3 unspecified Chronic pain Cognitive impairment Constipation Constipation Deafness in right ear Diverticulitis H/O: gout Hematochezia History of operative procedure on knee History of polyp of colon HTN (hypertension) Hx of ischemic left MCA stroke Insomnia Long-term current use of insulin Lumbar post-laminectomy syndrome Lumbosacral spondylosis without myelopathy Mixed conductive AND sensorineural hearing loss Osteoarthritis of right knee joint Otorrhea of right ear Stool incontinence Transient neurological symptoms Type 2 diabetes mellitus UI (urinary incontinence) Vitamin D deficiency Word finding difficulty Historical - Any problem that you are no longer receiving treatment for. Acute renal failure superimposed on stage 3 chronic kidney disease Carpal tunnel syndrome Cervical radiculopathy Cervical radiculopathy Disorder of cervical spine History of vitamin D deficiency Other chronic pain Sensory hearing loss, bilateral Spondylosis of lumbosacral region without myelopathy or radiculopathy Type 2 diabetes mellitus with unspecified complications Tests Performed/Pending Automated Diff BMP BNP CBC w/ Diff CMP SARS-CoV-2 (COVID-19) PCR (GeneXpert) Troponin-I Urinalysis Microscopic Urinalysis with Microscopic if Indicated XR Chest 1 View Discharge Vitals Temperature??(Temporal Artery) 98.1 ??F (36.7 ??C) Heart Rate??(Monitored) 63 Respiratory Rate?? 16 Blood Pressure?? 159/76?? Height?? 64.00 in (162.560 cm) Weight??(Estimated) 211.04 lb (95.71 kg) Allergies Adhesive Bandage??(Unknown) Bee Stings??(Unknown) Dust No Known Medication Allergies Education Materials Chronic Constipation Chronic constipation is a condition in which a person has three or fewer bowel movements a week, for 3 months or longer. This condition is especially common in older adults. What are the causes? Causes of chronic constipation may include: ? Not drinking enough fluid, eating enough food or fiber, or getting enough physical activity. ? . ? A tear in the anus (anal fissure). ? Blockage in the bowel (bowel obstruction). ? Narrowing of the bowel (bowel stricture). ? Having a long-term medical condition, such as: ? Diabetes, hypothyroidism, or iron-deficiency anemia. ? Stroke or spinal cord injury. ? Multiple sclerosis or Parkinson's disease. ? Colon cancer. ? Dementia. ? Inflammatory bowel disease (IBD), outward collapse of the rectum (rectal prolapse), or hemorrhoids. ? Taking certain medicines, including: ? Narcotics. These are a certain type of prescription pain medicine. ? Antacids or iron supplements. ? Water pills (diuretics). ? Certain blood pressure medicines. ? Anti-seizure medicines. ? Antidepressants. ? Medicines for Parkinson's disease. Other causes of this condition may include: ? Stress. ? Problems in the nerves and muscles that control the movement of stool. ? Weak or impaired pelvic floor muscles. What increases the risk? You may be at higher risk for chronic constipation if: ? You are older than age 70. ? You are female. ? You live in a long-term care facility. ? You have a long-term disease. ? You have a mental health disorder or eating disorder. What are the signs or symptoms? The main symptom of chronic constipation is having three or fewer bowel movements a week for several weeks. Other signs and symptoms may vary from person to person. These include: ? Pushing hard (straining) to pass stool, or having hard or lumpy stools. ? Painful bowel movements. ? Having lower abdominal discomfort, such as cramps or bloating. ? Being unable to have a bowel movement when you feel the urge, or feeling like you still need to pass stool after a bowel movement. ? Feeling that you have something in your rectum that is blocking or preventing bowel movements. ? Seeing blood on the toilet paper or in your stool. ? Worsening confusion (in older adults). How is this diagnosed? This condition may be diagnosed based on: ? Your symptoms and medical history. You will be asked about your symptoms, lifestyle, diet, and any medicines that you are taking. ? A physical exam. ? Your abdomen will be examined. ? A digital rectal exam may be done. For this exam, a health care provider places a lubricated, gloved finger into the rectum. ? Tests to check for any underlying causes of your constipation. These may be ordered if you have bleeding in your rectum, weight loss, or a family history of colon cancer. In these cases, you may have: ? Imaging studies of the colon. These may include X-ray, ultrasound, or a CT scan. ? Blood tests. ? A procedure to examine the inside of your colon (colonoscopy). ? More specialized tests to check: ? Whether your anal sphincter works well. This is a ring-shaped muscle that controls the closing of the anus. ? How well food moves through your colon. ? Tests to measure the nerve signal in your pelvic floor muscles (electromyography). How is this treated? Treatment for chronic constipation depends on the cause. Most often, treatment starts with: ? Being more active and getting regular exercise. ? Drinking more fluids. ? Adding fiber to your diet. Sources of fiber include fruits, vegetables, whole grains, and fiber supplements. ? Using medicines such as stool softeners or medicines that increase contractions in your digestive system (pro-motility agents). ? Training your pelvic muscles with biofeedback. ? Surgery, if there is obstruction. Treatment may also include: ? Stopping or changing some medicines if they cause constipation. ? Using a fiber supplement (bulk laxative) or stool softener. ? Using a prescription laxative. This works by absorbing water into your colon (osmotic laxative). You may also need to see a specialist who treats conditions of the digestive system (recording studio internship). Follow these instructions at home: Medicines ? Take [id number] and prescription medicines only as told by your health care provider. ? If you are taking a laxative, take it as told by your health care provider. Eating and drinking ? Eat a balanced diet that includes enough fiber. Ask your health care provider to recommend a diet that is right for you. ? Drink clear fluids, especially water. Avoid drinking alcohol, caffeine, and soda. These can make constipation worse. ? Drink enough fluid to keep your urine pale yellow. General instructions ? Get some physical activity every day. Ask your health care provider what activities are safe for you. ? Get colon cancer screenings as told by your health care provider. ? Keep all follow-up visits as told by your health care provider. This is important. Contact a health care provider if you have: ? Three or fewer bowel movements a week. ? Stools that are hard or lumpy. ? Blood on the toilet paper or in your stool after you have a bowel movement. ? Unexplained weight loss. ? Rectum (rectal) pain. ? Stool leakage. ? Nausea or vomiting. Get help right away if you have: ? Rectal bleeding or you pass blood clots. ? Severe rectal pain. ? Body tissue that pushes out (protrudes) from your anus. ? Severe pain or bloating (distension) in your abdomen. ? Vomiting that you cannot control. Summary ? Chronic constipation is a condition in which a person has three or fewer bowel movements a week, for 3 months or longer. ? You may have a higher risk for this condition if you are an older adult, you are female, or you have a long-term disease. ? Treatment for this condition depends on the cause. Most treatments for chronic constipation includeadding fiber to your diet, drinking more fluids, and getting more physical activity. You may also need to treat any underlying medical conditions or stop or change certain medicines if they cause constipation. ? If lifestyle changes do not relieve constipation, your health care provider may recommend taking a laxative. This information is not intended to replace advice given to you by your health care provider. Make sure you discuss any questions you have with your health care provider. Document Revised: 04/08/2020 Document Reviewed: 04/08/2020 Elsevier Patient Education ?? 2021 [employer] Patient Name:MICHELLE HOLLEY I have received this information and my questions have been answered. Patient/Squeak Rattle And Leak Repairer Name: Patient/Squeak Rattle And Leak Repairer Signature: Relationship to Patient: Witness Name/Signature: Date: Electronically Signed on: 07/16/2022 11:00 ESTSigned by:AF Physician Emergency department Note * Manuel Mckeon MD: PERFORM Event Display: ED Note Physician Authored Date: [id number] MICHELLE HOLLEY :1940 Age:81 years Sex:Female Visit Date:07/15/2022 Primary Care Physician: Keo Cruz DO Basic Information Time Seen: Manuel Mckeon MD / 07/15/2022 17:44 Chief Complaint Generalized fatigue w/ SOB and dark stools for 3 days. History Of Present Illness: Patient states that she has been feeling fatigued for several weeks. ??She??states that she was constipated??for the past week but then 3 days after laxatives did have??a large bowel movement but then??began to note some??darkness to the stool. ??She??denies any abdominal pain denies fever chills cough??dysuria??or any other problems other than the??weakness. ??She also states that there has beensome increased??shortness of breath with exertion. ??She does wear oxygen at home??as needed but has been using a little more than usual. Review of Systems: Review of systems negative other than that stated above Physical Exam Vitals & Measurements T:??36.6?C ??(Temporal Artery)?? HR:??67??(Peripheral)?? RR:??18?? BP:??173/73?? SpO2:??95%?? HT:??162.560??cm?? WT:??95.71??kg??(Estimated)?? O2 Flow Rate:??0?? General: Alert and oriented, well nourished, no acute distress. Eye: PERRL, EOMI, normal conjunctiva. HENT: Normocephalic,??normal hearing, moist oral mucosa, no scleral icterus, . Neck: Supple, non-tender, no carotid bruits, no JVD, no lymphadenopathy. No rigidity Lungs: Clear to auscultation and percussion, non-labored respiration. Heart: Normal rate, regular rhythm, no murmur, gallop or edema. Abdomen: Soft, non-tender, non-distended, normal bowel sounds, no masses. ??Hemoccult??as per nursehas??quite positive but stool is not??black but rather??dark brown. ??No active bleeding Musculoskeletal: Normal range of motion and strength, no tenderness or swelling. Skin: Skin is warm, dry and appropriate for ethnicity, no rashes or lesions. Neurologic: Awake, alert and oriented X4, CN II-XII intact. Psychiatric: Cooperative, appropriate mood and affect. Procedure No Qualifying Data Reexamination/Reevaluation Patient remains hemodynamically stable with blood pressure of 166/80 on last??evaluation. ??She is still resting comfortably. ??No active bleeding.?? Patient has been given IV fluids. ??Protonix was also given??I told her she does have evidence of dehydration??but??her hemoglobin is stable since blood work from about a month ago. ??I recommended??hydration overnight and repeated??blood counts??overnight. ??Patient agreed??and I spoke with hospitalist and patient was admitted Assessment/Plan Ordered: Sodium Chloride 0.9% 1,000 mL, Total Volume (mL): 1,000, 1,000 mL, Soln-IV, IV, 250 mL/hr, Order Duration: 30 days, Start Date: 07/15/22 19:18:00 EST, Stop Date: 08/14/22 19:17:00 EDT, 95.71 kg, Populate Charting Weight From Order, 2.08, m2 SARS-CoV-2 (COVID-19) PCR (GeneXpert), Nasal Swab, Stat Collect, 07/15/22 19:18:00 EST, Once, Nursecollect, Print Label, No, Unknown, No, No, No, Not XR Chest 1 View, 07/15/22 18:01:00 EST, Stat, Reason: dyspnea, Transport Mode: Stretcher Medication Reconciliation Unchanged amLODIPine (amLODIPine 5 mg oral tablet)1 tab Oral (given by mouth) every day for 90 Days. Refills:3. ?? atenolol (atenolol 50 mg oral tablet)1 tab Oral (given by mouth) every day for 90 Days. ?? atorvastatin (atorvastatin 80 mg oral tablet)1 tab Oral (given by mouth) every day for 90 Days. take 1 tablet by mouth Once a day at supper for cholesterol. ?? ciprofloxacin (Cipro 500 mg oral tablet)1 tab Oral (given by mouth) every 12 hours for 10 Days. Refills: 0. ?? clopidogrel (clopidogrel 75 mg oral tablet)1 tab Oral (given by mouth) every day for 90 Days. ?? DULoxetine (DULoxetine 60 mg oral delayed release capsule)1 Capsules Oral (given by mouth) every day for 90 Days. ?? furosemide (furosemide 20 mg oral tablet)1 tab Oral (given by mouth) 2 times a day for 90 Days. ?? gabapentin (gabapentin 400 mg oral capsule)1 Capsules Oral (given by mouth) 3 times a day. ?? indomethacin (indomethacin 50 mg oral capsule)1 Capsules Oral (given by mouth) 3 times a day for 30Days. with food or milk. Refills: 0. ?? insulin glargine (Lantus Solostar Pen 100 units/mL subcutaneous solution)32 Units Subcutaneous (under the skin) every day for 90 Days. ?? lactulose (lactulose 10 g/15 mL oral syrup)15-30 mL Oral Daily 30 days; as needed as needed for constipation. Refills: 3. ?? lisinopril (lisinopril 40 mg oral tablet)1 tab Oral (given by mouth) every day for 90 Days. Refills: 3. ?? metFORMIN (MetFORMIN (Eqv-Glucophage XR) 500 mg oral tablet, extended release)1 tab Oral (given by mouth) 2 times a day for 90 Days. ?? metroNIDAZOLE (metroNIDAZOLE 500 mg oral tablet)1 tab Oral (given by mouth) 3 times a day for 10 Days. Refills: 0. ?? Other Prescription (LignolUCH ULTRA STRP)Check blood glucose bid and as needed. ?? Other Prescription (PEN NEEDLES MIS [id number])BID with insulin. ?? polyethylene glycol 3350 with electrolytes (GoLYTELY oral powder for reconstitution)240 MillilitersOral (given by mouth) every 10 minutes for 1 Days. Refills: 0. ?? traZODone (traZODone 100 mg oral tablet)1 tab Oral (given by mouth) every night at bedtime for 90 Days. Problem List/Past Medical History Ongoing Atypical chest pain Bilateral sensory hearing loss Carpal tunnel syndrome of right wrist Cervical spondylosis with radiculopathy Change in bowel habit Chronic kidney disease, stage 3 unspecified Chronic pain Cognitive impairment Constipation Deafness in right ear Diverticulitis H/O: gout Hematochezia History of operative procedure on knee History of polyp of colon HTN (hypertension) Hx of ischemic left MCA stroke Insomnia Long-term current use of insulin Lumbar post-laminectomy syndrome Lumbosacral spondylosis without myelopathy Mixed conductive AND sensorineural hearing loss Osteoarthritis of right knee joint Otorrhea of right ear Stool incontinence Transient neurological symptoms Type 2 diabetes mellitus UI (urinary incontinence) Vitamin D deficiency Word finding difficulty Historical Acute renal failure superimposed on stage 3 chronic kidney disease Carpal tunnel syndrome Cervical radiculopathy Cervical radiculopathy Constipation Disorder of cervical spine History of vitamin D deficiency Other chronic pain Sensory hearing loss, bilateral Spondylosis of lumbosacral region without myelopathy or radiculopathy Type 2 diabetes mellitus with unspecified complications Procedure/Surgical History ???Colonoscopy (01/21/2019)???Back class???Bladder care???Mastoidectomy???Surgery???Surgical manipulation of joint of knee Medication Administration Given Sodium Chloride 0.9%, 1000 mL, IV Protonix, 40 mg, IV Push Allergies Adhesive Bandage??(Unknown) Bee Stings??(Unknown) Dust No Known Medication Allergies Social History Alcohol Current, 1-2 times per week Electronic Cigarette/Vaping Electronic Cigarette Use: Never. Substance Use Never Tobacco Never tobacco user Tobacco Use:. Family History Cancer: Mother. Cardiovascular disease: Father. Hypertension: Father. Daughter: History is negative Daughter: History is negative Son: History is negative Diagnostic Results ECG Sinus rhythm at 66 without acute changes Diagnostic Study Interpretation: Chest x-ray negative for any acute process Lab Results CBC and Differential?? LATEST RESULTS?? HISTORICAL RESULTS?? WBC?? 07/15/22 18:07?? 10.0?? 06/11/22?? 7.6?? RBC?? 07/15/22 18:07?? 3.92 ??Low?? 06/11/22?? 4.20?? Hgb?? 07/15/22 18:07?? 12.5?? 06/11/22?? 12.9?? Hct?? 07/15/22 18:07?? 37.0?? 06/11/22?? 40.5?? MCV?? 07/15/22 18:07?? 94.4?? 06/11/22?? 96.4?? MCH?? 07/15/22 18:07?? 31.9 ??High?? 06/11/22?? 30.7?? MCHC?? 07/15/22 18:07?? 33.8?? 06/11/22?? 31.9 ??Low?? RDW-CV?? 07/15/22 18:07?? 12.3?? 06/11/22?? 12.3?? Platelets?? 07/15/22 18:07?? 227?? 06/11/22?? 334?? MPV?? 07/15/22 18:07?? 10.2?? 06/11/22?? 9.3?? Neutro Auto?? 07/15/22 18:07?? 59.7?? 06/11/22?? 66.0?? Lymph Auto?? 07/15/22 18:07?? 30.7?? 06/11/22?? 23.7?? [place] Auto?? 07/15/22 18:07?? 6.8?? 06/11/22?? 7.3?? Eos, Auto?? 07/15/22 18:07?? 2.20?? 06/11/22?? 2.20?? Basophil Auto?? 07/15/22 18:07?? 0.4?? 06/11/22?? 0.5?? Imm Gran Auto?? 07/15/22 18:07?? 0.2?? 06/11/22?? 0.3?? Neutro Absolute?? 07/15/22 18:07?? 6.0?? 06/11/22?? 5.0?? Lymph Absolute?? 07/15/22 18:07?? 3.1?? 06/11/22?? 1.8?? [place] Absolute?? 07/15/22 18:07?? 0.7 ??High?? 06/11/22?? 0.6?? Eos Absolute?? 07/15/22 18:07?? 0.2?? 06/11/22?? 0.2?? Baso Absolute?? 07/15/22 18:07?? 0.0?? 06/11/22?? 0.0?? Imm Gran Absolute?? 07/15/22 18:07?? 0.02?? 06/11/22?? 0.02? Routine Chemistry?? LATEST RESULTS?? HISTORICAL RESULTS?? Sodium Level?? 07/15/22 18:07?? 139?? 06/11/22?? 133 ??Low?? Potassium Level?? 07/15/22 18:07?? 4.5?? 06/11/22?? 4.2?? Chloride Level?? 07/15/22 18:07?? 101?? 06/11/22?? 99?? CO2?? 07/15/22 18:07?? 27?? 06/11/22?? 25?? Alk Phos?? 07/15/22 18:07?? 87?? 06/11/22?? 68?? AST?? 07/15/22 18:07?? 18?? 06/11/22?? 47 ??High?? ALT?? 07/15/22 18:07?? 17?? 06/11/22?? 62 ??High?? BUN?? 07/15/22 18:07?? 47 ??High?? 06/11/22?? 23?? Glucose Level?? 07/15/22 18:07?? 88?? 06/11/22?? 188 ??High?? Creatinine Level?? 07/15/22 18:07?? 1.28 ??High?? 06/11/22?? 1.32 ??High?? BUN/Creat Ratio?? 07/15/22 18:07?? 36.7 ??High?? 06/11/22?? 17.4?? Calcium Level?? 07/15/22 18:07?? 9.0?? 06/11/22?? 9.0?? Protein Total?? 07/15/22 18:07?? 6.5?? 06/11/22?? 6.8?? Albumin Level?? 07/15/22 18:07?? 3.4 ??Low?? 06/11/22?? 3.5?? Globulin?? 07/15/22 18:07?? 3.1?? 06/11/22?? 3.3?? A/G Ratio?? 07/15/22 18:07?? 1.1?? 06/11/22?? 1.1?? Bilirubin Total?? 07/15/22 18:07?? 0.5?? 06/11/22?? 0.5?? Anion Gap?? 07/15/22 18:07?? 11.0?? 06/11/22?? 9.0?? Osmolality?? 07/15/22 18:07?? 289?? 06/11/22?? 275?? eGFR CKD-EPI?? 07/15/22 18:07?? 42 ??Low? Cardiac Isoenzymes?? LATEST RESULTS?? Troponin-I?? 07/15/22 18:07?? 0.01?? BNP?? 07/15/22 18:07?? 72? UA Macroscopic?? LATEST RESULTS?? Urine Srce?? 07/15/22 18:18?? Clean Catch?? UA Color?? 07/15/22 18:18?? Yellow?? UA Appear?? 07/15/22 18:18?? Clear?? UA Glucose?? 07/15/22 18:18?? Negative?? UA Bili?? 07/15/22 18:18?? Negative?? UA Ketones?? 07/15/22 18:18?? Negative?? UA Spec Grav?? 07/15/22 18:18?? 1.015?? UA Blood?? 07/15/22 18:18?? Trace Abnormal?? UA pH?? 07/15/22 18:18?? 6.00?? UA Protein?? 07/15/22 18:18?? Negative?? UA Urobilinogen?? 07/15/22 18:18?? 0.2?? UA Nitrite?? 07/15/22 18:18?? Negative?? UA Leuk Est?? 07/15/22 18:18?? Trace Abnormal?? UA Culture Ind?.?? 07/15/22 18:18?? No? UA Microscopic?? LATEST RESULTS?? UA WBC?? 07/15/22 18:18?? 0-3?? UA RBC?? 07/15/22 18:18?? 0-3?? UA Squam Epithelial?? 07/15/22 18:18?? 0-3?? UA Bacteria?? 07/15/22 18:18?? Rare? Electronically Signed on 07/15/22 08:24 PM Manuel Mckeon MD History and physical note * Navjot Elbert, AUTO BODY REPAIRMAN: PERFORM, MODIFY, MODIFY, MODIFY, MODIFY Event Display: History and Physical Authored Date: [id number] LEWIS MICHELLE HUBBARD :1940 Age:81 years Sex:Female Visit Date:07/15/2022 Primary Care Physician: Keo Cruz DO Chief Complaint Generalized fatigue w/ SOB and dark stools for 3 days. History of Present Illness 81 yr old female with pmhx of COPD on 2lpm O2 baseline, HTN, DM2, rectal bleed, no hx of GI bleed, CVA on plavix coming in for worsening fatigue and dark stools x 3 days. Pt had been constipated for about a week and has been prescribed miralax and lactulose. She had CT of the abdomen in May 2022 showing diverticulitis with no abscess or perforation was tx with abx,. Last month was seen at ED for constipation sent home with miralax and advised Gi consult. GI tele consult jun 24 2022 and follow up jul 12, pt on lactulose prn and miralax?? noted with daily bm, diverticulitis improved, no abd pain, no melena but with hematochezia still ongoing. Patient had a colonoscopy in??2018 showing??extensiv e left-sided diverticulosis??and internal hemorrhoids. GI advised pt for rpt colonoscopy but has not been scheduled yet. Pt thinks GI office will call. At the ED, provider did note positive guiac test with rectal exam, stool is brown, no melena. She was given 1 liter bolus of LR. Other labs: wbc 10, Hgb 12.5, Hct 37, plt 227, Na, 139 K 4.5, BUN 47, Crea 1.28, gluc 88 trop 0.01,UA negative for UTI. Pt denies fever, chills, nausea, vomiting , chest pain, YOUNG, lightheadedness, sob, abd pain, anxiety Review of Systems Constitutional: No fevers, chills, sweats Eye: No recent visual problems ENT: No ear pain, nasal congestion, sore throat Respiratory: No shortness of breath, cough Cardiovascular: No Chest pain, palpitations, syncope Gastrointestinal: No nausea, vomiting, soft stools Genitourinary: No hematuria Samir/Lymph: Negative for bruising tendency, swollen lymph glands Endocrine: Negative for excessive thirst, excessive hunger Musculoskeletal: No back pain, neck pain, joint pain, muscle pain, decreased range of motion Integumentary: No rash, pruritus, abrasions Neurologic: Alert & oriented X 4 Psychiatric: No anxiety Physical Exam Vitals & Measurements T:??36.6?C ??(Temporal Artery)?? HR:??67??(Peripheral)?? RR:??18?? BP:??173/73?? SpO2:??95%?? HT:??162.560??cm?? WT:??95.71??kg??(Estimated)?? O2 Flow Rate:??0?? General: Alert and oriented, well nourished,?No??acute distress Eye: PERRL, EOMI,?Normal??conjunctiva HENT: Normocephalic, atraumatic Neck:?No??lymphadenopathy Lungs:??Clear??to auscultation ,?Non-labored?? respiration Heart:?Normal?? rate,?Regular??rhythm Abdomen: Soft, non-tender, non-distended,?Normal?? bowel sounds,?? Musculoskeletal:?Normal?? range of motion and strength,?No??tenderness,?No??swelling Skin: Skin is warm, dry and pink,?No??rashes,?No??lesions Neurologic: Awake, alert and oriented X4, CN II-XII intact Psychiatric: Cooperative, appropriate mood and affect Assessment/Plan Ordered: amLODIPine, 5 mg = 1 tab, Oral, Tab, Daily, First Dose: 07/16/22 9:00:00 EST, Routine atenolol, 50 mg = 2 tab, Oral, Tab, Daily, First Dose: 07/16/22 9:00:00 EST, Routine atorvastatin, 80 mg = 4 tab, Oral, Tab, Daily, First Dose: 07/16/22 9:00:00 EST, Routine clopidogrel, 75 mg = 1 tab, Oral, Tab, Daily, First Dose: 07/16/22 9:00:00 EST, Routine gabapentin, 400 mg = 1 cap, Oral, Cap, TID, First Dose: 07/15/22 21:00:00 EST, Routine insulin glargine, 32 units = 0.32 mL, Subcutaneous, Soln, Daily, First Dose: 07/16/22 9:00:00 EST, Routine lisinopril, 40 mg = 2 tab, Oral, Tab, Daily, First Dose: 07/16/22 9:00:00 EST, Routine metFORMIN, 500 mg = 1 tab, Oral, Tab-ER, BID, First Dose: 07/15/22 21:00:00 EST, Routine ondansetron, 4 mg = 2 mL, IV Push, Vial, every 6 hr for 30 days, PRN nausea/vomiting, First Dose: 07/15/22 20:09:00 EST, Stop Date: 08/14/22 20:08:00 EDT, Physician Stop, Routine traZODone, 100 mg = 2 tab, Oral, Tab, every night at bedtime, First Dose: 07/15/22 21:00:00 EST, Routine Basic Metabolic Panel, Blood, Routine, 07/16/22 5:00:00 EST, Once, Lab Collect CBC w/ Diff, Blood, Routine, 07/16/22 5:00:00 EST, Once, Lab Collect Diet Order, 07/15/22:03:00 EST, Regular Oxygen Therapy, SpO2 goal 92% or greater, Stop date 07/15/22 20:03:00 EST Patient Condition, 07/15/22:03:00 EST, Condition Guarded PSO Place in Observation, Observation, Observation, 07/15/22:01:00 EST, 07/15/22::00 EST, 07/15/22:01:00 EST, 2 midnights or more Resuscitation Status, 07/15/22 20:03:00 EST, Full Code Up ad Becka, 07/15/22:03:00 EST, Constant Order, at nurse's discretion Vital Signs, 07/15/22 20:03:00 EST, every 4 hr ([facility]) 1. Dark brown stools-- admit patient to med surgical floor observation.??rule out GI bleed though pt has no melena. might still be from hemorrhoids(?) ? Patient also on plavix daily had CVA about 2 yrs ago. continue current medication. check cbcin am. ?? 2. HTN- continue??amlodipine, atenolol. will hold lisinopril and lasix for elevated creatinine ?? 3. JONN- crea 1.2 was 0.99 in??May 2022. ? holding lasix and lisinopril, avoid nephrotoxic agents ??had fluid bolus in ED 1 Liter LR and about 250 -300 cc NS. ??encourage po fluid intake. ?4. DM2-? cont home?? lantus and metformin ? regular diet for now ?? 5. constipation recurrent- now appears resolved with daily bm though pt still saying she fills she??had only had small amts of multiple soft stools and feels she hasnt really emptied yet.??holding laxatives and stool softeners for now. ?? 6. DVT prophylaxis: on plavix ?? 7. code status: full code Problem List/Past Medical History Ongoing Atypical chest pain Bilateral sensory hearing loss Carpal tunnel syndrome of right wrist Cervical spondylosis with radiculopathy Change in bowel habit Chronic kidney disease, stage 3 unspecified Chronic pain Cognitive impairment Constipation Deafness in right ear Diverticulitis H/O: gout Hematochezia History of operative procedure on knee History of polyp of colon HTN (hypertension) Hx of ischemic left MCA stroke Insomnia Long-term current use of insulin Lumbar post-laminectomy syndrome Lumbosacral spondylosis without myelopathy Mixed conductive AND sensorineural hearing loss Osteoarthritis of right knee joint Otorrhea of right ear Stool incontinence Transient neurological symptoms Type 2 diabetes mellitus UI (urinary incontinence) Vitamin D deficiency Word finding difficulty Historical Acute renal failure superimposed on stage 3 chronic kidney disease Carpal tunnel syndrome Cervical radiculopathy Cervical radiculopathy Constipation Disorder of cervical spine History of vitamin D deficiency Other chronic pain Sensory hearing loss, bilateral Spondylosis of lumbosacral region without myelopathy or radiculopathy Type 2 diabetes mellitus with unspecified complications Procedure/Surgical History ???Colonoscopy (01/21/2019)???Back class???Bladder care???Mastoidectomy???Surgery???Surgical manipulation of joint of knee Medications Inpatient amLODIPine, 5 mg= 1 tab, Oral, Daily atenolol, 50 mg= 2 tab, Oral, Daily atorvastatin, 80 mg= 4 tab, Oral, Daily clopidogrel, 75 mg= 1 tab, Oral, Daily gabapentin, 400 mg= 1 cap, Oral, TID insulin glargine, 32 units= 0.32 mL, Subcutaneous, Daily lisinopril, 40 mg= 2 tab, Oral, Daily metFORMIN, 500 mg= 1 tab, Oral, BID ondansetron, 4 mg= 2 mL, IV Push, every 6 hr, PRN Sodium Chloride 0.9% 1,000 mL, 1000 mL, IV traZODone, 100 mg= 2 tab, Oral, every night at bedtime Home amLODIPine 5 mg oral tablet, 5 mg= 1 tab, Oral, Daily, 3 refills atenolol 50 mg oral tablet, 50 mg= 1 tab, Oral, Daily atorvastatin 80 mg oral tablet, 80 mg= 1 tab, Oral, Daily Cipro 500 mg oral tablet, 500 mg= 1 tab, Oral, every 12 hr clopidogrel 75 mg oral tablet, 75 mg= 1 tab, Oral, Daily DULoxetine 60 mg oral delayed release capsule, 60 mg= 1 cap, Oral, Daily furosemide 20 mg oral tablet, 20 mg= 1 tab, Oral, BID gabapentin 400 mg oral capsule, 400 mg= 1 cap, Oral, TID GoLYTELY oral powder for reconstitution, 240 mL, Oral, every 10 min indomethacin 50 mg oral capsule, 50 mg= 1 cap, Oral, TID lactulose 10 g/15 mL oral syrup, See Instructions, PRN, 3 refills Lantus Solostar Pen 100 units/mL subcutaneous solution, 32 units, Subcutaneous, Daily lisinopril 40 mg oral tablet, 40 mg= 1 tab, Oral, Daily, 3 refills MetFORMIN (Eqv-Glucophage XR) 500 mg oral tablet, extended release, 500 mg= 1 tab, Oral, BID metroNIDAZOLE 500 mg oral tablet, 500 mg= 1 tab, Oral, TID ONETOUCH ULTRA STRP, See Instructions PEN NEEDLES MIS [id number], See Instructions traZODone 100 mg oral tablet, 100 mg= 1 tab, Oral, every night at bedtime Allergies Adhesive Bandage??(Unknown) Bee Stings??(Unknown) Dust No Known Medication Allergies Social History Alcohol Current, 1-2 times per week Electronic Cigarette/Vaping Electronic Cigarette Use: Never. Substance Use Never Tobacco Never tobacco user Tobacco Use:. Family History Cancer: Mother. Cardiovascular disease: Father. Hypertension: Father. 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: [employer] zoster vaccine, inactivated 02/20/2020 Recorded Comments : Unit: Unknown influenza virus vaccine, inactivated 03/19/2019 Recorded tetanus/diphth/pertuss (Tdap) adult/adol 09/28/2015 Recorded pneumococcal 13-valent conjugate vaccine 09/28/2015 Recorded Comments : Unit: Unknown zoster vaccine live 10/02/2012 Recorded Comments : Unit: Unknown pneumococcal 23-polyvalent vaccine 09/27/2012 Recorded Comments : Unit: Unknown Novel [id number], all formulation 06/03/2009 Recorded Comments : Unit: Unknown Td(adult) unspecified formulation 11/04/2008 Recorded pneumococcal 23-polyvalent vaccine 07/21/2005 Recorded Comments : Unit: Unknown Electronically Signed on 07/16/22 06:27 AM Navjot Boswell APRN Discharge summary * Wu Blanca MD: MODIFY, PERFORM Event Display: Discharge Summary Authored Date: [id number] MICHELLE HOLLEY :1940 Age:81 years Sex:Female Visit Date:07/15/2022 Primary Care Physician: Keo Cruz, DO Hospital Course 81-year-old female dealing with constipation for prolonged. ??On MiraLAX??lactulose??presented with??continued constipation and some concern for dark tarry stools.?? She was admitted observation to monitor vital signs as well as any??tarry stools or??significant drop in her hemoglobin. ?? 1??concern for GI bleed?she has no evidence after??negative observation of having a significant gastrointestinal bleed with no hypotension no tarry stools no bowel movements.?? Her hemoglobin dropped one-point but this is in the setting of??a bolus??of IV fluids in the emergency department.?? At this point??she does not appear to be having a significant GI bleed and can be safely discharged home. ?? #2 chronic constipation?she will continue her home regimen of??as needed lactulose MiraLAX Corinna have instructed her to try to add a little bit of citrus food as??well is??a lot of spinach and other green leafy vegetables. ?? She is working with gastroenterology and is??tentatively scheduled to have a colonoscopy in the near term. ?? We did not make any changes to her home medications. ??Note there is a little bit of??uncertainty whether she is taking Plavix or a different blood thinner??but either way it is a weekend and it is hard to figure this out with certainty and we are not changing any of her medicines or writing the new prescription or stopping any of her home. Physical Exam Vitals & Measurements T:??36.7?C ??(Temporal Artery)?? TMIN:??36.5?C ??(Temporal Artery)?? TMAX:??36.7?C ??(Temporal Artery)?? HR:??63??(Monitored)?? RR:??16?? BP:??159/76?? SpO2:??95%?? HT:??162.560??cm?? WT:??95.71??kg??(Estimated)?? Pain Score:??6?? O2 Flow Rate:??2?? O2 Therapy:??Nasal cannula?? General:??Alert and oriented, well nourished, No acute distress Eye:??PERRL, EOMI, normal conjunctiva Lungs:??Clear to auscultation and percussion, Non-labored respiration Heart:??Normal rate, Normal rhythm, No murmur, No gallop Abdomen:??Soft, non-tender, non-distended, normal bowel sounds, no masses Left inner labia area with small??half centimeter area??healing ulceration without surrounding infection no pus no abscess??very minimally tender. Medications Inpatient amLODIPine, 5 mg= 1 tab, Oral, Daily atenolol, 50 mg= 2 tab, Oral, Daily atorvastatin, 80 mg= 4 tab, Oral, Daily clopidogrel, 75 mg= 1 tab, Oral, Daily gabapentin, 400 mg= 1 cap, Oral, TID insulin detemir, 32 units= 0.32 mL, Subcutaneous, Daily metFORMIN, 500 mg= 1 tab, Oral, BID MiraLax, 17 g= 1 EA, Oral, Once ondansetron, 4 mg= 2 mL, IV Push, every 6 hr, PRN traZODone, 100 mg= 2 tab, Oral, every night at bedtime Tylenol, 500 mg= 1 tab, Oral, every 6 hr, PRN Home amLODIPine 5 mg oral tablet, 5 mg= 1 tab, Oral, Daily, 3 refills atenolol 50 mg oral tablet, 50 mg= 1 tab, Oral, Daily atorvastatin 80 mg oral tablet, 80 mg= 1 tab, Oral, Daily DULoxetine 60 mg oral delayed release capsule, 60 mg= 1 cap, Oral, Daily furosemide 20 mg oral tablet, 20 mg= 1 tab, Oral, BID gabapentin 400 mg oral capsule, 400 mg= 1 cap, Oral, TID GoLYTELY oral powder for reconstitution, 240 mL, Oral, every 10 min indomethacin 50 mg oral capsule, 50 mg= 1 cap, Oral, TID lactulose 10 g/15 mL oral syrup, See Instructions, PRN, 3 refills Lantus Solostar Pen 100 units/mL subcutaneous solution, 32 units, Subcutaneous, Daily lisinopril 40 mg oral tablet, 40 mg= 1 tab, Oral, every evening, 3 refills MetFORMIN (Eqv-Glucophage XR) 500 mg oral tablet, extended release, 500 mg= 1 tab, Oral, BID ONETOUCH ULTRA STRP, See Instructions PEN NEEDLES MIS [id number], See Instructions traZODone 100 mg oral tablet, 100 mg= 1 tab, Oral, every night at bedtime Procedure/Surgical History ???Colonoscopy (01/21/2019)???Back class???Bladder care???Mastoidectomy???Surgery???Surgical manipulation of joint of knee Social History Alcohol Current, 1-2 times per week Electronic Cigarette/Vaping Electronic Cigarette Use: Never. Substance Use Never Tobacco Never tobacco user Tobacco Use:. Discharge Plan 1.??Constipation??K59.00 Ordered: Discharge Patient, 07/16/22 10:44:00 EST ?? 2.??Hematochezia??K92.1 Ordered: Discharge Patient, 07/16/22 10:44:00 EST ?? Orders: Tylenol, 500 mg = 1 tab, Oral, Tab, every 6 hr for 30 days, PRN pain, First Dose: 07/16/22 9:38:00 EST, Stop Date: 08/15/22 9:37:00 EDT, Physician Stop, Routine insulin detemir, 32 units = 0.32 mL, Subcutaneous, Soln, Daily, First Dose: 07/16/22 9:00:00 EST lisinopril 40 mg oral tablet, 40 mg = 1 tab, Oral, every evening, # 90 tab, 3 Refill(s), Pharmacy: [facility] #[id number], 163, cm, 06/11/22 9:55:00 EST, Height/Length Dosing, 93.89, kg, 06/11/22 9:55:00 EST, Weight Dosing MiraLax, 17 g = 1 EA, Oral, Powder-Recon, Once, First Dose: 07/16/22 10:00:00 EST, Stop Date: 07/16/22 10:00:00 EST, Physician Stop, Routine All Diagnoses This Visit Constipation Hematochezia Patient Education Chronic Constipation Follow Up With When Contact Information Keo Cruz DO Within 1 month [address] [place] [address] [phone] Additional Instructions: Medication Reconciliation Changed lisinopril (lisinopril 40 mg oral tablet)1 tab Oral (given by mouth) every evening for 90 Days. Refills: 3. ?? Unchanged amLODIPine (amLODIPine 5 mg oral tablet)1 tab Oral (given by mouth) every day for 90 Days. Refills:3. ?? atenolol (atenolol 50 mg oral tablet)1 tab Oral (given by mouth) every day for 90 Days. ?? atorvastatin (atorvastatin 80 mg oral tablet)1 tab Oral (given by mouth) every day for 90 Days. take 1 tablet by mouth Once a day at supper for cholesterol. ?? DULoxetine (DULoxetine 60 mg oral delayed release capsule)1 Capsules Oral (given by mouth) every day for 90 Days. ?? furosemide (furosemide 20 mg oral tablet)1 tab Oral (given by mouth) 2 times a day for 90 Days. ?? gabapentin (gabapentin 400 mg oral capsule)1 Capsules Oral (given by mouth) 3 times a day. ?? indomethacin (indomethacin 50 mg oral capsule)1 Capsules Oral (given by mouth) 3 times a day for 30Days. with food or milk. Refills: 0. ?? insulin glargine (Lantus Solostar Pen 100 units/mL subcutaneous solution)32 Units Subcutaneous (under the skin) every day for 90 Days. ?? lactulose (lactulose 10 g/15 mL oral syrup)15-30 mL Oral Daily 30 days; as needed as needed for constipation. Refills: 3. ?? metFORMIN (MetFORMIN (Eqv-Glucophage XR) 500 mg oral tablet, extended release)1 tab Oral (given by mouth) 2 times a day for 90 Days. ?? Other Prescription (Junk4Junk ULTRA STRP)Check blood glucose bid and as needed. ?? Other Prescription (PEN NEEDLES MIS [id number])BID with insulin. ?? polyethylene glycol 3350 with electrolytes (GoLYTELY oral powder for reconstitution)240 MillilitersOral (given by mouth) every 10 minutes for 1 Days. Refills: 0. ?? traZODone (traZODone 100 mg oral tablet)1 tab Oral (given by mouth) every night at bedtime for 90 Days. ?? Discontinued ciprofloxacin (Cipro 500 mg oral tablet)1 tab Oral (given by mouth) every 12 hours for 10 Days. Refills: 0. ?? clopidogrel (clopidogrel 75 mg oral tablet)1 tab Oral (given by mouth) every day for 90 Days. ?? metroNIDAZOLE (metroNIDAZOLE 500 mg oral tablet)1 tab Oral (given by mouth) 3 times a day for 10 Days. Refills: 0. Electronically Signed on 07/16/22 12:01 PM Wu Blanca MD XR Chest Single view * Alverto Xiao MD: VERIFY, VERIFY Event Display: Report EXAM DESCRIPTION: XR Chest 1 View 07/15/2022 INDICATION: DYSPNEA COMPARISON: 2020 IMPRESSION: Clear lungs with no focal infiltrate or pulmonary edema. Stable minimal scarring in the left lung base. Stable dense nodule in the right lower lung field without significant change from studies dating back to 03/28/2020 consistent with benign etiology, likely granuloma Normal cardiomediastinal contour. No significant pleural effusion or pneumothorax. JOB #: [id number] Final Signed by: Alverto Xiao MD Signed (Electronic Signature): 07/16/2022 9:31 am Patient Care team information Care Team Personnel Name: Keo Cruz DO Position: Physician Member Role: Primary Care Physician Address: Address: [address] [place], [place] [id number] [place] Name: Manuel Mckeon MD Position: Physician Member Role: ED Physician Address: Address: [address] [place] [address] [place] Name: Michell Del Real Position: Nurse Member Role: ED Nurse Care Team Related Persons Name: DAVE DOWNING
--- OUTSIDE RECORDS SUMMARY | 2023-04-19 15:51 | XMS_ITS | Continuity of Care Document ---
Author Name Unknown Organization [facility] Ambulatory Clinics Address [address] [place] [address] Care Team Providers Care Refrigeration Service Technician Name Role Phone Bianca Morris Primary Care Physician [phone] Encounter [facility] FIN NBR [id number] Date(s): 09/28/22 - 09/28/22 [facility] Ambulatory Clinics [address], [place] [address] Encounter Diagnosis Chronic kidney disease, stage 3 unspecified(Discharge Diagnosis) - 09/27/22 HTN (hypertension)(Discharge Diagnosis) - 09/27/22 Discharge Disposition: Home or Self Care Attending Physician: Bianca Morris APRN Allergies, Adverse Reactions, Alerts No Known Medication Allergies Substance Reaction Severity Status Adhesive Bandage Unknown Unknown Active Bee Stings Unknown Unknown Active Dust Unknown Active Assessment and Plan Future Appointments Functional Status 09/28/22 Other exposure to Infectious Disease Non e [...] 23-polyvalent vaccine 8 07/21/05 Marcello rded Novel [id number], all formulation 9 06/03/09 Recorded Td(adult) unspecified formulation 11/04/08 Recorde d 1Result Comment: Unit: Unknown 2Result Comment: Unit: Unknown 3Result Comment: Unit: Unknown 4Result Comment: Unit: Unknown 5Result Comment: Unit: Unknown 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: [employer] 6Result Comment: Unit: Unknown 7Result Comment: Unit: Unknown 8Result Comment: Unit: Unknown 9Result Comment: Unit: Unknown Medications amLODIPine 10 mg oral tablet 10 mg = 1 tab, Oral, Daily, # 90 tab, 3 Refill(s), Pharmacy: [facility] #[id number], 162.56, cm, 07/15/22 17:52:00 EST, [...] 80 mg = 1 tab, Oral, Daily, # 90 tab, 0 Refill(s) Start Date: 09/28/22 Status: Ordered Centrum Silver oral tablet 1 tab, Oral, Daily, # 90 tab, 0 Refill(s) Start Date: 09/03/22 Stop Date: 12/02/22 Status: Ordered ciprofloxacin 500 mg oral tablet 20 EA, TAKE ONE TABLET BY MOUTH EVERY TWELVE HOURS, 0 Refill(s) Start Date: 09/03/22 Status: Ordered clopidogrel 75 mg oral tablet 75 mg = 1 tab, Oral, Daily, # 90 tab, 0 Refill(s) Start Date: 07/16/22 Stop Date: 12/02/22 Status: Ordered colchicine 0.6 mg oral tablet 1/2 tab, Oral, Daily, PRN not specified, # 45 tab, 0 Refill(s) Start Date: 09/03/22 Stop Date: 12/02/22 Status: Ordered docusate sodium 250 mg oral capsule 250 mg = 1 cap, Oral, BID, PRN as needed for constipation, # 20 cap, 0 Refill(s) Start Date: 07/20/22 Stop Date: 08/19/22 Status: Ordered DULoxetine 60 mg oral delayed release capsule 60 mg = 1 cap, Oral, Daily, # 90 cap, 3 Refill(s), Pharmacy: [facility] #[id number], 162.56, cm, 07/15/22 17:52:00 EST, [...] min, # 4,000 mL, 0 Refill(s), Pharmacy: [facility] #[id number], 163, cm, 06/11/22 9:55:00 EST, Height/Length Dosing, 93.89, kg, 06/11/22 9:55:00 EST, Weight Dosing Start Date: 07/12/22 Stop Date: 07/13/22 Status: Ordered indomethacin 50 mg oral capsule 50 mg = 1 cap, Oral, TID, with food or milk, # 90 cap, 0 Refill(s), Pharmacy: [facility] #[id number], 163, cm, 06/11/22 9:55:00 EST, Height/Length Dosing, 93.89, kg, 06/11/22 9:55:00 EST, Weight Dosing Start Date: 07/07/22 Stop Date: 08/06/22 Status: Ordered lactulose 10 g/15 mL oral syrup See Instructions, PRN as needed for constipation, 15-30 mL Oral Daily 30 days, # 500 mL, 3 Refill(s), Pharmacy: [facility], 163, cm, 06/11/22 9:55:00 EST, Height/Length Dosing, 93.89, kg,06/11/22 9:55:00 EST, Weight Dosing Start Date: 06/24/22 Status: Ordered lisinopril 40 mg oral tablet 40 mg = 1 tab, Oral, every evening, # 90 tab, 3 Refill(s), Pharmacy: [facility] #[id number], 163, cm, 06/11/22 9:55:00 EST, Height/Length Dosing, 93.89, kg, 06/11/22 9:55:00 EST, Weight Dosing Start Date: 07/11/22 Stop Date: 07/06/23 Status: Ordered MetFORMIN (Eqv-Glucophage XR) 500 mg oral tablet, extended release See Instructions, TAKE ONE TABLET BY MOUTH TWICE DAILY , # 180 tab, 3 Refill(s), Pharmacy: [facility] #[id number], 162.56, cm, 07/15/22 17:52:00 EST, Height/Length Dosing, 95.71, kg, 07/15/22 17:52:00 EST, Weight Dosing Start Date: 08/24/22 Status: Ordered metroNIDAZOLE 500 mg oral tablet 30 EA, TAKE ONE TABLET BY MOUTH THREE TIMES DAILY, 0 Refill(s) Start Date: 09/03/22 Status: Ordered nitroglycerin 0.3 mg sublingual tablet [...] Date: 09/03/22 Status: Ordered PEN NEEDLES MIS [id number] PEN NEEDLES MIS [id number], See Instructions, BID with insulin, 0 Refill(s) [...] Date: 09/03/22 Stop Date: 12/02/22 Status: Ordered Vitamin D3 2000 intl units oral tablet 50 mcg = 1 tab, Oral, Daily, # 100 tab, 0 Refill(s) Start Date: 07/20/22 Stop Date: 08/19/22 Status: Ordered Problem List Condition Confirmation Course [...] disease Confirmed Active Chronic pain Confirmed Active Full incontinence of feces Confirmed Active Constipation Confirmed Active Constipation Confirmed Active Deafness in right ear Confirmed Active Depression Confirmed Active Diverticulitis Confirmed Active H/O: gout Confirmed Active Headache Confirmed Active Hematochezia Confirmed Active High cholesterol Confirmed Active Hx of ischemic left MCA stroke Confirmed Active History of operative procedure on knee Confirmed Active History of polyp of colon Confirmed Active History of ear surgery Confirmed Active HTN (hypertension) Confirmed Active Cognitive impairment Confirmed Active Stool incontinence Confirmed Active Insomnia Confirmed Active Acute ischemic left MCA stroke Confirmed Active Kidney disease Confirmed Active Long-term current use of insulin Confirmed Active Lumbar post-laminectomy syndrome Confirmed Active Failed back syndrome of lumbar spine Confirmed Active Lumbosacral spondylosis without myelopathy Confirmed Active 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 Osteoarthritis of right knee joint Confirmed Active Otorrhea of right ear Confirmed Active Situational depression Confirmed Active Transient neurological symptoms Confirmed Active Type 2 diabetes mellitus Confirmed Active Uncontrolled type 2 diabetes mellitus [...] 1surgery lower back 2surgery 3shoulder and elbow Vital Signs Most recent to oldest [Reference Range]: 1 Temperature Temporal Artery [36-38 Deg C ] 36.2 Deg C (09/28/22 10:50 AM) Peripheral Pulse Rate [60-100 bpm] 70 bp m (09/28/22 10:50 AM) Blood Pressure [90-140/60-90 mmHg] 128/6 4mmHg (09/28/22 10:50 AM) Weight 92.8 kg (09/28/22 10:50 AM) Weight Measured (lbs) 204.589 lb (09/28/22 10:50 AM) Social History Social History Type Response Tobacco Never tobacco user T obacco Use:. Sex Patient Care team information Care Team Personnel Name: Bianca Morris APRN Position: Physician Member Role: Primary Care Physician Address: Address: [address] [place] [address] [address] Care Team Related Persons Name: DAVE DOWNING Address: Home
--- OUTSIDE RECORDS SUMMARY | 2023-04-19 15:51 | XMS_ITS | Continuity of Care Document ---
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 Name Role Phone Wilmar Lieca DO Primary Care Physician [phone] [facility] NBR [phone] Date(s): 02/15/23 - 02/15/23 [facility] Ambulatory Clinics [address], [place] [address] Encounter Diagnosis Cloudy urine(Discharge Diagnosis) - 02/15/23 Dysuria(Discharge Diagnosis) - 02/15/23 Urge incontinence of urine(Discharge Diagnosis) - 02/15/23 Discharge Disposition: Home or Self Care Attending Physician: Perla Still PA-C Allergies, Adverse Reactions, Alerts Substance Reaction Severity Status Adhesive Bandage Rash Moderate Active Bee Stings Unknown Unknown Active copper containing compounds Rash Mild Active Dust Unknown Active Assessment and Plan Future Appointments Functional Status 02/15/23 Other exposure to Infectious Disease Non e [...] 23-polyvalent vaccine 8 07/21/05 Marcello rded Novel [id number], all formulation 9 06/03/09 Recorded Td(adult) unspecified formulation 6/2/09 Recorde d 1Result Comment: Unit: Unknown 2Result Comment: Unit: Unknown 3Result Comment: Unit: Unknown 4Result Comment: Unit: Unknown 5Result Comment: Unit: Unknown 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: [employer] 6Result Comment: Unit: Unknown 7Result Comment: Unit: Unknown 8Result Comment: Unit: Unknown 9Result Comment: Unit: Unknown Medications amLODIPine 10 mg oral tablet 10 mg = 1 tab, Oral, Daily, # 90 tab, 3 Refill(s), Pharmacy: [id number], 162.56, cm, 07/15/22 17:52:00 EST, [...] cholesterol, # 90 tab, 3 Refill(s), Pharmacy: [facility] #[id number], 165, cm, 01/12/23 7:52:00 EDT, Height/Length Dosing, 94, kg, 01/12/23 7:52:00 EDT, Weight Dosing Start Date: 01/18/23 Status: Ordered Bd Pen Needle/Milena/Ultra-Fine/32g X 4mm Mis Embe Bd Pen Needle/Milena/Ultra-Fine/32g X 4mm Mis Embe, See Instructions, use one needle once daily, # 100 unknown unit, 3 Refill(s), Pharmacy: [facility] #[id number], E11.9, KX, 165.1, cm, 10/26/22 10:20:00 EDT, Height/Length Dosing, 93.44, kg, 10/26/22 10:20:00 EDT, Weight Dosing Start Date: 12/08/22 Status: Ordered Centrum Silver oral tablet 1 tab, Oral, Daily, # 90 tab, 0 Refill(s) Start Date: 09/03/22 Stop Date: 12/02/22 Status: Ordered cephalexin 500 mg oral capsule 500 mg = 1 cap, Oral, every 8 hr, # 15 cap, 0 Refill(s), Pharmacy: [id number], 165, cm, 01/12/23 7:52:00 EDT, Height/Length Dosing, 94, kg, 01/12/23 7:52:00 EDT, Weight Dosing Start Date: 02/16/23 Stop Date: 02/21/23 Status: Ordered clopidogrel 75 mg oral tablet See Instructions, take one tablet by mouth one time daily, # 90 tab, 3 Refill(s), Pharmacy: [id number], 162.56, cm, 07/15/22 17:52:00 EST, [...] Daily, # 90 cap, 3 Refill(s), Pharmacy: [id number], 162.56, cm, 07/15/22 17:52:00 EST, [...] min, # 4,000 mL, 0 Refill(s), Pharmacy: [id number], 163, cm, 06/11/22 9:55:00 EST, Height/Length Dosing, 93.89, kg, 06/11/22 9:55:00 EST, Weight Dosing Start Date: 07/12/22 Stop Date: 07/13/22 Status: Ordered lactulose 10 g/15 mL oral syrup See Instructions, PRN as needed for constipation, 15-30 mL Oral Daily 30 days, # 500 mL, 3 Refill(s), Pharmacy: [facility], 163, cm, 06/11/22 9:55:00 EST, Height/Length Dosing, 93.89, kg,06/11/22 9:55:00 EST, Weight Dosing Start Date: 06/24/22 Status: Ordered Lantus Solostar Pen 100 units/mL subcutaneous solution 28 units, Subcutaneous, Daily, # 3 mL, 0 Refill(s) Start Date: 10/24/22 Status: Ordered lisinopril 40 mg oral tablet 40 mg = 1 tab, Oral, every evening, # 90 tab, 3 Refill(s), Pharmacy: [id number], 163, cm, 06/11/22 9:55:00 EST, Height/Length Dosing, 93.89, kg, 06/11/22 9:55:00 EST, Weight Dosing Start Date: 07/11/22 Stop Date: 07/06/23 Status: Ordered MetFORMIN (Eqv-Glucophage XR) 500 mg oral tablet, extended release See Instructions, TAKE ONE TABLET BY MOUTH TWICE DAILY, # 180 tab, 3 Refill(s), Pharmacy: [id number], 162.56, cm, 07/15/22 17:52:00 EST, [...] Date: 09/03/22 Status: Ordered PEN NEEDLES MIS [id number] PEN NEEDLES MIS [id number], See Instructions, BID with insulin, 0 Refill(s) [...] 2 diabetes mellitus with hyperglycemia Confirmed Active Urge incontinence of urine Confirmed Active UI (urinary incontinence) Confirmed Active [...] 2surgery lower back 3surgery 4shoulder and elbow Results Most recent to oldest [Reference Range]: 1 Protein Urine Dipstick POC Negative (02/15/23 11:34 AM) Ketones Urine Dipstick POC Negative (02/15/23 11:34 AM) Leukocytes Urine Dipstick Small (02/15/23 11:34 AM) Nitrite Urine Dipstick Negative (02/15/23 11:34 AM) Urobilinogen Urine Dipstick 0.2 mg/dl (02/15/23 11:34 AM) pH Urine Dipstick 6.5 (02/15/23 11:34 AM) Blood Urine Dipstick Negative (02/15/23 11:34 AM) Specific [place] Urine Dipstick 1.015 (02/15/23 11:34 AM) Bilirubin Urine Dipstick Negative (02/15/23 11:34 AM) Glucose Urine Dipstick Negative (02/15/23 11:34 AM) Urine Color Urine Dipstick Yellow (02/15/23 11:34 AM) Urine Appearance Urine Dipstick Slightly cloudy (02/15/23 11:34 AM) Vital Signs Most recent to oldest [Reference Range]: 1 Peripheral Pulse Rate [60-100 bpm] 107 b pm *HI* (02/15/23 11:20 AM) Blood Pressure [90-140/60-90 mmHg] 130/6 0mmHg (02/15/23 11:20 AM) Weight 92.7 kg (02/15/23 11:20 AM) Weight Measured (lbs) 204.368 lb (02/15/23 11:20 AM) Social History Social History Type Response Tobacco Never tobacco user T obacco Use:. Sex Physician Outpatient Note * Perla Still PA-C: PERFORM Event Display: Office Clinic Note Physician Authored Date: [id number] LEWIS KELLY HUBBARD :1940 Age:82 years Sex:Female Visit Date:02/15/2023 Primary Care Physician: Wilmar Licea DO Chief Complaint cloudy urine/kidney disease, sometimes lower bladder hurts, today urine was not as cloudy. History of Present Illness Kelly is an 82 year old female with urge incontinence with 1 week of burning with urination, pelvic pressure, cloudy urine, low back pain. Improvement in symptoms with increased water intake.??No hematuria, nausea, vomiting, dizziness, vaginal itching/odor/discharge. Last UTI > 1 year ago. No new medications. No recent antibiotics. Hx hysterectomy with bladder sling, did not improve her urinary incontinence. Has not tried any medications in the past. Review of Systems No fever, chills, abdominal pain, vomiting, diarrhea. Physical Exam Vitals & Measurements HR:??107??(Peripheral)?? BP:??130/60?? SpO2:??93%?? WT:??92.7??kg?? Appears stated age, pleasant, reliable historian. Normal heart rate. Lung sounds are clear. Abdomen is soft, non-tender, no rebound or guarding. No CVA tenderness. Medical Decision Making: Acute urinary symptoms: 82-year-old female??with??incontinence??experiencing acute urinary symptoms.?? Vital signs stable, afebrile without systemic symptoms. ??Urinalysis positive for small leukocytes, pending urine culture.?? She wishes??to defer empiric antibiotics until culture returns. DDx: bladder calculus, neoplasm, dehydration. Assessment/Plan 1.??Cloudy urine??R82.90 Urinalysis positive for small leukocytes.?? Pending urine culture. I did offer??to start??empiric antibiotics but she had declined, wishes??to wait for urine culture to return. We will choose antibiotic based on sensitivity - cephalexin would be appropriate with renal dosing. Ordered: Urine Culture, Urine, Routine collect, RT - Routine, 02/15/23, Once, Nurse collect, Cloudy urine, Order for future visit, Not Required ?? 2.??Dysuria??R30.0 ?? 3.??Urge incontinence of urine??N39.41 Chronic. Wears pads. ?? 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: [employer] Pasteur zoster vaccine, inactivated 02/20/2020 Recorded Comments : Unit: Unknown influenza virus vaccine, inactivated 03/19/2019 Recorded tetanus/diphth/pertuss (Tdap) adult/adol 09/28/2015 Recorded pneumococcal 13-valent conjugate vaccine 09/28/2015 Recorded Comments : Unit: Unknown zoster vaccine live 10/02/2012 Recorded Comments : Unit: Unknown pneumococcal 23-polyvalent vaccine 09/27/2012 Recorded Comments : Unit: Unknown Novel [id number], all formulation 06/03/2009 Recorded Comments : Unit: Unknown Td(adult) unspecified formulation 11/04/2008 Recorded pneumococcal 23-polyvalent vaccine 07/21/2005 Recorded Comments : Unit: Unknown Lab Results Test Name Test Result Date/Time Urine Color Urine Dipstick Yellow 02/15/2023 11:34 EDT Urine Appearance Urine Dipstick Slightly cloudy 02/15/2023 11:34 EDT pH Urine Dipstick 6.5 02/15/2023 11:34 EDT Specific [place] Urine Dipstick 1.015 02/15/2023 11:34 EDT Blood Urine Dipstick Negative 02/15/2023 11:34 EDT Protein Urine Dipstick POC Negative 02/15/2023 11:34 EDT Nitrite Urine Dipstick Negative 02/15/2023 11:34 EDT Leukocytes Urine Dipstick 1+ Small 02/15/2023 11:34 EDT Bilirubin Urine Dipstick Negative 02/15/2023 11:34 EDT Urobilinogen Urine Dipstick 0.2 mg/dl 02/15/2023 11:34 EDT Ketones Urine Dipstick POC Negative 02/15/2023 11:34 EDT Glucose Urine Dipstick Negative 02/15/2023 11:34 EDT Electronically Signed on 02/15/23 12:06 PM Perla Still PA-C Patient Care team information Care Team Personnel Name: Wilmar Licea DO Position: Physician Member Role: Primary Care Physician Address: Address: [address] [place] [id number] [place] Care Team Related Persons Name: DAVE DOWNING
--- OUTSIDE RECORDS SUMMARY | 2023-04-19 15:51 | XMS_ITS | Continuity of Care Document ---
Author Name Unknown Address [address] [place] [address] Phone [facility] Address [address] [place] [address] Phone Care Team Providers Care Mill Tender Name Role Phone SOLEDAD Mcintyre Attending Provider [phone] Care Teams Visit Care Team Team Status: Inactive Member Role Status Dates Talha Mcintyre DPM Attending Provider Active Chief Complaint and Reason for Visit Chief Complaint 1 year DM f/u Reason for Visit Diabetes with neurol ogic complications Hallux rigidus of left foot Onychodystrophy Encounter for comprehensive diabetic foot examination, type 2 diabetes mellitus Muscle weakness of lower extremity Allergies, Adverse Reactions, Alerts Allergen Type Severity Reaction Last Updated Verified Status adhesive tape Allergy Unknown - January 03, 2023 2:09pm Ye s Active XX Bee Venom Allergy Unknown - January 03, 2023 2:09pm Yes Active dust Allergy Unknown - January 03, 2023 2:09pm No Active Social History Smoking Status Status Start Date End Date Date of Observa tion Unknown if ever smoked Augus t 2022 11:35am Additional Data Assigned Sex Female Family History Relationship Condition Age at Onset Recorded Date/T jannet Other or Unknown Hypertension Unknown Heart disease Unknown Problems Active Problems Medical Problem Onset Date Status Onychodystrophy Active Hallux rigidus of left foot Acti ve Encounter for comprehensive diabetic foot examination, type 2 diabetes mellitus Active Diabetes with neurologic complications Active Gout Active Hearing loss Active Muscle weakness of lower extremity Active High cholesterol Active Depression Active Rash and nonspecific skin eruption Active Fibromyalgia Active Kidney disease Active Hypertension Active Inactive/Resolved Problems Medical Problem Onset Date Status Carpal tunnel syndrome Resolved Chronic pain Resolved Generalized headaches Resolved Arthritis Resolved History of surgery Resolved Small bowel problem Resolved Medications Medication Status Dose Units Route Directions Qty Days St art Date End Date Instructions Acetaminophen (Tylenol Extra Strength) 500 mg tablet Active 500 MG PO Q6H January 05, 2021 12:00am Atenolol Active 50 MG PO daily January 05, 2021 12:00am Atorvastatin Active 40 MG PO daily 2020 12:00am [id number] Acid-Lutein (Centrum Silver) 400-250 mcg tablet,chewab le Active 1 TAB PO daily January 05, 2021 12:00am Glucagon Hcl (Glucagon (Hcl) Emergency Kit) 1 mg recon soln Active 1 MG SC Q20M January 05, 2021 12:00am until target blood sugar attained Gabapentin Active 400 MG PO 3 times p er day January 05, 2021 12:00am Psyllium Husk (Metamucil) 3.4 gram/5.4 gram powder Active 1 tbsp PO daily January 05, 2021 12:00am mix into at least 8 oz of water or juice before administering Nitroglycerin Active 0.3 MG SL Q5M Jan 12:00am do not exceed 3 doses per episode Albuterol Sulfate (Proair Hfa) 90 mcg/actuation HFA aerosol inhaler Active 1 INH INHALATI ON Once January 05, 2021 12:00am Trazodone Active 100 MG PO daily January 05, 2021 12:00am Aspirin (Ecotrin) 325 mg tablet,delaye d release (DR/EC) Active 325 MG PO daily January 05, 2021 12:00am Clopidogrel Active 75 MG PO daily 2020 12:00am Lisinopril Active 40 MG PO daily January 05, 2021 12:00am Insulin Glargine (Lantus Solostar U-100 Insulin) 100 unit/mL (3 mL) insulin pen Active 32 UNIT SC daily January 05, 2021 12:00am Metformin Active 1000 MG PO daily January 05, 2021 12:00am Duloxetine Active 60 MG PO daily January 05, 2021 12:00am Relevant Diagnostic Tests and/or Laboratory Data Diagnostic Imaging Reports Author Talha [facility] January 03, 2023 2:37pm Report Date/Time January 03, 2023 2:[address] [address] Podiatry Clinic Note 01/03/23 Patient Name: MICHELLE HOLLEY Date of : 1940 Age: 82 F Record #: [id number] Acct: [id number] Loc: W.NONRHCPO Visit Provider: Talha Mcintyre DPM Assessment and Plan (1) Onychodystrophy: L60.3 - Nail dystrophy Reduced today. (2) Diabetes with neurologic complications: Diabetes mellitus type: type 2 Diabetes mellitus watermaster insulin use: with retirement use Diabetes mellitus complication detail: with polyneuropathy Qualified Code(s): E11.42 - Type 2 diabetes mellitus with diabetic polyneuropathy; Z79.4 - [facility] (current) use of insulin E11.49 - Type 2 diabetes mellitus with other diabetic neurological complication Advise twice a day foot inspection. Be careful on uneven ground. Recommend walking stick/cane/trekking pole to provide added stability. (3) Hallux rigidus of left foot: M20.22 - Hallux rigidus, left foot Long-standing condition. Consistent with degenerative joint disease. Likely gout-related. (4) Muscle weakness of lower extremity: M62.81 - Muscle weakness (generalized) We reviewed this condition. Trip and fall risk. Please be careful. Recommend cane/walking stick to assist. (5) Encounter for comprehensive diabetic foot examination, type 2 diabetes mellitus: E11.9 - Type 2 diabetes mellitus without complications Pt's feet were examined today. Diabetic footcare was discussed with pt in detailand questions were answered. Pt advised on proper foot wear and protection and to inspect feet daily. Pt also advised to not attempt self tx in event of injury, infection, etc. and to call with any questions or concerns. Follow Up: 6 months at patient's request Patient Details Height 5 ft 4 in 01/03/23 Weight 207 lb 01/03/23 Body Mass Index (BMI) 35.5 01/03/23 HPI This very pleasant 82-year-old diabetic patient presents for annual diabetic foot exam. She has some instability of gait. Some numbness in her feet as wellas some weakness left lower extremity. She has tried to trim her own nails periodically. Loss of hearing in right ear. Intake Visit reasons: 1 year DM f/u Patient type: Established Fall Risk assessment done in last 365 days?: No Is the patient able to participate in the Fall Risk Assessment?: Patient is able to participate - Assessment: patient has not fallen in last year, feels unsteady when standing/walking, doesn't worry about falling - RESULTS: Moderate Fall Risk No Data to Display Nurse/MA Note: pt states she is here for annual DM foot exam pt states she is well pt states no concerns Allergies/Adverse Reactions adhesive tape Allergy (Unknown, Verified 01/03/23 14:09) - XX Bee Venom Allergy (Unknown, Verified 01/03/23 14:09) - dust Allergy (Unknown, Uncoded 01/03/23 14:09) - Home Medications acetaminophen 500 mg tablet (Tylenol Extra Strength) 500 mg PO Q6H PRN 01/05/21 [History Confirmed 01/03/23] albuterol sulfate 90 mcg/actuation aerosol inhaler (ProAir HFA) 1 inhalation(s) inhalation ONCE 01/05/21 [History Confirmed 01/03/23] aspirin 325 mg tablet,delayed release (Ecotrin) 325 mg PO DAILY 01/05/21 [History Confirmed 01/03/23] atenolol 50 mg tablet 50 mg PO DAILY 01/05/21 [History Confirmed 01/03/23] atorvastatin 40 mg tablet 40 mg PO DAILY 01/05/21 [History Confirmed 01/03/23] clopidogrel 75 mg tablet 75 mg PO DAILY 01/05/21 [History Confirmed 01/03/23] duloxetine 60 mg capsule,delayed release 60 mg PO DAILY 01/05/21 [History Confirmed 01/03/23] gabapentin 400 mg capsule 400 mg PO TID 01/05/21 [History Confirmed 01/03/23] glucagon HCl 1 mg solution for injection (Glucagon (HCl) Emergency Kit) 1 mg subcut Q20M PRN 01/05/21 [History Confirmed 01/03/23] insulin glargine 100 unit/mL (3 mL) subcutaneous pen (Lantus Solostar U-100 Insulin) 32 unit subcut DAILY 01/05/21 [History Confirmed 01/03/23] lisinopril 40 mg tablet 40 mg PO DAILY 01/05/21 [History Confirmed 01/03/23] metformin 1,000 mg tablet 1,000 mg PO DAILY 01/05/21 [History Confirmed 01/03/23] multivit with min-folic acid-lutein 400 mcg-250 mcg chewable tablet (Centrum Silver) 1 tab PO DAILY 01/05/21 [History Confirmed 01/03/23] nitroglycerin 0.3 mg sublingual tablet 0.3 mg sublingual Q5M PRN 01/05/21 [History Confirmed 01/03/23] psyllium husk 3.4 gram/5.4 gram oral powder (Metamucil) 1 tbsp PO DAILY 01/05/21[History Confirmed 01/03/23] trazodone 100 mg tablet 100 mg PO DAILY 01/05/21 [History Confirmed 01/03/23] Vital Signs 01/03/23 14:10 Height 5 ft 4 in Weight 207 lb Body Mass Index (BMI) 35.5 Temperature 98 F Pulse 65 Respiratory Rate 18 Blood Pressure 147/74 H Pulse Oximetry (%) 98 Provider Reviewed Vital Signs? Yes Recommended Changes Based on High Blood Pressure lifestyle PCP referral BMI Screening overweight, high plan-ref Past Patient History Active Problems (Updated 01/04/22 @ 10:19 by Talha Mcintyre DPM) Encounter for comprehensive diabetic foot examination, type 2 diabetes mellitus Muscle weakness of lower extremity Fibromyalgia (Acute) Kidney disease (Acute) Hearing loss (Acute) High cholesterol (Acute) Hypertension (Acute) Depression (Acute) Rash and nonspecific skin eruption (Acute) Onychodystrophy (Acute) Diabetes with neurologic complications (Acute) Gout (Acute) Hallux rigidus of left foot (Acute) Medical History (Updated 01/04/22 @ 10:19 by Talha Mcintyre DPM) Arthritis Carpal tunnel syndrome Chronic pain Generalized headaches Small bowel problem Surgical History (Updated 01/05/21 @ 09:31 by Michelle Barron) History of surgery mastoid bladder surgeries (several) right shoulder arthroscopy Left knee arthroplasty Right TKA lower back surgery Cataract removal Lens implant right elbow x2 Family History (Updated 01/05/21 @ 09:32 by Michelle Barron) Family/Other Hypertension Heart disease Social History Tobacco Use: never Review of Systems alert and oriented, hypertension, rash, diabetes, neuropathy, hallux rigidus left, fibromyalgia, cannot hear out of right ear, gout left first MTPJ Physical Examination Vascular examination reveals +1/4 DP left and 0/4 right. +1/4 PT right and 0/4 left, capillary filling times of less than 3 seconds, varicosities are noted. Neurological examination reveals a loss of protective sensation as measured by Madison Kendra monofilament. She can feel the filament intermittently left but not consistently. More consistent right. She does have a history of low back surgery with a history of radiating pain down her left leg. Her back continues to be symptomatic periodically. Integumentary examination reveals skin temperature and color to be within normallimits as is elasticity. There is some digital hair growth. Multiple nails are thickened and dystrophic as well as elongated. Orthopedic examination reveals normal ranges of motion with the exception of decreased LEFT first MTPJ dorsiflexion. Muscle strength is intact right and mildly diminished on the left. Constitutional Alert and oriented. Diabetic Exam Hgb A1c: No Data to Display Data Reviewed Laboratory No Data to Display Coding Level of Care Code OV, EST. TIME BASED, 20-29 MIN Total minutes spent (including non [id number] time) on DOS: 25 Diagnoses Onychodystrophy L60.3 Diabetes with neurologic complications E11.42; Z79.4 Diabetes mellitus type: type 2 Diabetes mellitus retirement insulin use: with watermaster use Diabetes mellitus complication detail: with polyneuropathy Hallux rigidus of left foot M20.22 Muscle weakness of lower extremity M62.81 Encounter for comprehensive diabetic foot examination, type 2 diabetes mellitus E11.9 Recorded by: Talha Mcintyre DPM <Electronically signed by Talha Mcintyre DPM> 01/03/23 0321 CC: ~ Vital Signs Vital Reading Result Reference Range Collection Date/Time Height 64 [in_i] January 03 2:10pm Weight 207.00 [lb_av] January 03 023 2:10pm Body Temperature 98 [degF] 97.6-99.6 [place] 1st, 2023 2:10pm Heart Rate 65 /min 60-100 January 03 2:10pm Respiratory rate 18 /min 12-18 January 03, 2023 2:10pm Oxygen saturation by Pulse oximetry 98 % 92-100 January 03, 2023 2:1 0pm BP Systolic 147 mm[Hg] 90-130 January 03 2:10pm BP Diastolic 74 mm[Hg] 70-80 January 03 2:10pm BMI (Body Mass Index) 35.5 kg/m2 January 03, 2023 2:10pm Insurance Providers Guarantor MICHELLE HUBBARD Address [address] [facility] [address] Contact Info. Home Phone: Payer Policy Id Coverage Id Subscriber's Name Subscriber Id Effective Date Expiration Date MEDICARE [facility] [id number] MICHELLE HUBBARD [id number] SELF PAY Self N/A Encounters Encounter Location(s) Arrival/Admit Date Discharge/Depart Date Provider(s) Departed Physician/Prov ider Office Visit [facility] Pod[facility]ry [facility] January 03, 2023 2:00pm January 03, 2023 2:38pm Talha Mcintyre DPM Recent Diagnosis Onset Date Diabetes with neurologic complications Hallux rigidus of left foot Onychodystrophy Encounter for comprehensive diabetic foot examination, type 2 diabetes mellitus Muscle weakness of lower extremity Assessments Diagnosis Onset Date Resolution Status Diabetes with neurologic complications acute Hallux rigidus of left foot acute Onychodystrophy acute Encounter for comprehensive diabetic foot examination, type 2 diabetes mellitus no neactive Muscle weakness of lower extremity noneactive Plan of Treatment Author Talha Mcintyre [facility] Authored January 03, 2023 2:3 6pm Reduced today. Advise twice a day foot inspection. Be careful on uneven ground. Recommend walking stick/cane/trekking pole to provide added stability. Long-standing condition. Consistent with degenerative joint disease. Likely gout-related. We reviewed this condition. Trip and fall risk. Please be careful. Recommend cane/walking stick to assist. Pt's feet were examined today. Diabetic footcare was discussed with pt in detail and questions were answered. Pt advised on proper foot wear and protection and to inspect feet daily. Pt also advised to not attempt self tx in event of injury, infection, etc. and to call with any questions or concerns. Future Tests Future scheduled test information is unavailable Pending Tests Pending diagnostic test information is unavailable Future Visits Future appointment information is unavailable Referrals to Other Providers Referral information is unavailable Future Procedures Future procedure information is unavailable Future Medications Future medication information is unavailable Patient Instructions Patient instructions are unavailable
--- OUTSIDE RECORDS SUMMARY | 2023-04-19 15:51 | XMS_ITS | Continuity of Care Document ---
Author Name Unknown Organization [facility] Ambulatory Clinics Address [address] [place] [address] Care Team Providers Care Community Ambassador Name Role Phone Wilmar Licea DO Primary Care Physician Encounter [facility] NBR [id number] Date(s): 01/17/23 - 01/17/23 [facility] Ambulatory Clinics [address], [place] [address] Encounter Diagnosis Lesion of ear(Discharge Diagnosis) - 01/17/23 Cerumen impaction(Discharge Diagnosis) - 01/17/23 Discharge Disposition: Home or Self Care Attending [...] 23-polyvalent vaccine 8 07/21/05 Marcello rded Novel [id number], all formulation 9 06/03/09 Recorded Td(adult) unspecified formulation 11/04/08 Recorde d 1Result Comment: Unit: Unknown 2Result Comment: Unit: Unknown 3Result Comment: Unit: Unknown 4Result Comment: Unit: Unknown 5Result Comment: Unit: Unknown 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: [employer] 6Result Comment: Unit: Unknown 7Result Comment: Unit: Unknown 8Result Comment: Unit: Unknown 9Result Comment: Unit: Unknown Medications amLODIPine 10 mg oral tablet 10 mg = 1 tab, Oral, Daily, # 90 tab, 3 Refill(s), Pharmacy: [facility] #[id number], 162.56, cm, 07/15/22 17:52:00 EST, [...] at supper for cholesterol, # 90 tab, 0 Refill(s), Pharmacy: [facility] #[id number], 162.56, cm, 07/15/22 17:52:00 EST, Height/Length Dosing, 95.71, kg, 07/15/22 17:52:00 EST, Weight Dosing Start Date: 10/18/22 Status: Ordered Bd Pen Needle/Milena/Ultra-Fine/32g X 4mm Mis Embe Bd Pen Needle/Milena/Ultra-Fine/32g X 4mm Mis Embe, See Instructions, use one needle once daily, # 100 unknown unit, 3 Refill(s), Pharmacy: [facility] #[id number], E11.9, KX, 165.1, cm, 10/26/22 [...] daily, # 90 tab, 3 Refill(s), Pharmacy: [facility] #[id number], 162.56, cm, 07/15/22 17:52:00 EST, [...] Daily, # 90 cap, 3 Refill(s), Pharmacy: [facility] #[id number], 162.56, cm, 07/15/22 17:52:00 EST, [...] min, # 4,000 mL, 0 Refill(s), Pharmacy: [facility] #[id number], 163, cm, 06/11/22 9:55:00 EST, Height/Length Dosing, 93.89, kg, 06/11/22 9:55:00 EST, Weight Dosing Start Date: 07/12/22 Stop Date: 07/13/22 Status: Ordered lactulose 10 g/15 mL oral syrup See Instructions, PRN as needed for constipation, 15-30 mL Oral Daily 30 days, # 500 mL, 3 Refill(s), Pharmacy: [facility], 163, cm, 06/11/22 9:55:00 EST, Height/Length Dosing, 93.89, kg,06/11/22 9:55:00 EST, Weight Dosing Start Date: 06/24/22 Status: Ordered Lantus Solostar Pen 100 units/mL subcutaneous solution 28 units, Subcutaneous, Daily, # 3 mL, 0 Refill(s) Start Date: 10/24/22 Status: Ordered lisinopril 40 mg oral tablet 40 mg = 1 tab, Oral, every evening, # 90 tab, 3 Refill(s), Pharmacy: [facility] #[id number], 163, cm, 06/11/22 9:55:00 EST, Height/Length Dosing, 93.89, kg, 06/11/22 9:55:00 EST, Weight Dosing Start Date: 07/11/22 Stop Date: 07/06/23 Status: Ordered MetFORMIN (Eqv-Glucophage XR) 500 mg oral tablet, extended release See Instructions, TAKE ONE TABLET BY MOUTH TWICE DAILY, # 180 tab, 3 Refill(s), Pharmacy: [facility] #[id number], 162.56, cm, 07/15/22 17:52:00 EST, [...] Date: 09/03/22 Status: Ordered PEN NEEDLES MIS [id number] PEN NEEDLES MIS [id number], See Instructions, BID with insulin, 0 Refill(s) [...] 2surgery lower back 3surgery 4shoulder and elbow Vital Signs Most recent to oldest [Reference Range]: 1 Blood Pressure [90-140/60-90 mmHg] 100/6 2mmHg (01/17/23 11:13 AM) Social History Social History Type Response Tobacco Never tobacco user T obacco Use:. Sex Physician Outpatient Note * KAILEY Mason: PERFORM Event Display: Office Clinic Note Physician Authored Date: [id number] KELLY HOLLEY :1940 Age:82 years Sex:Female Visit Date:01/17/2023 Primary Care Physician: Wilmar Licea DO Chief Complaint lesion on left ear, cerumen impaction History of Present Illness Kelly is an 82-year-old female presenting the office with chief complaint of nonhealing skin lesion of the left antihelix. ??Is been present for couple of months. ??It is painful when she sleeps on that side.?? She did have a prior tick bite above this??which led to??your exam where this was notedby primary care. ??Has failed to improve with topical antibiotic. ??She would also like her ears examined for cerumen. 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 Denies any ear pain at this time. Review of Systems Fatigue?? Negative.?? Fever?? Negative.?? Weight Loss?? Negative.?? .?? Hoarseness?? Negative.? Cough?? Negative.??Rashes?? Negative.?? Eczema?? Negative.?? Headaches?? Negative.?? Thyroid Problems?? Negative.? Environmental allergies?? Negative.?? Hay Fever?? Negative.?? Reflux?? Negative.?? Physical Exam Vitals & Measurements BP:??100/62?? GENERAL APPEARANCE:??The patient is awake, alert, and oriented and in no acute distress, Appears nutritionally sound,?? Voice is strong, with no stridor or [...] and nontender bilaterally. the ext ernal canal on the left is pain following cerumenectomy, on the right the canal??is wide and there is??postsurgical changes consistent with canal wall down mastoidectomy??there is remaining hard crusting??along the bowl without any evidence of otorrhea,? left TM's mobile with no evidence of middle ear fluid, middle ear masses, or retraction pockets.??NOSE:, The inferior turbinates are within normal limits, The middle meati are unremarkable with no polyps, masses or purulent discharge,?NECK:??There is no palpable lymphadenopathy.?HEART:??regular rate and rhythm.?LUNGS:??clear to auscultation bilaterally, no wheezes/rhonchi/rales.?SKIN:??Nonhealing??skin lesion of the left antihelix photodocumented. ?MUSCULOSKELETAL:??normal gait and station.?? Procedure A combination of otoscope and operative microscope were used to debride the external auditory canalwith forceps, day hook and suction as needed secondary to??left-sided complete impaction. This was performed in order to complete the physical exam and provide proper visualization of the tympanic membrane and middle ear structures. All cerumen was removed without incident. There were no complications. Surgery Consent??There was a full discussion of all treatment options including conservative management, second opinion and surgical intervention. The patient and or family has opted to proceed with surgical intervention. We have discussed risks and complications as it relates to the procedure and postoperative period, including but not limited to those listed on the consent. All of their questions were answered, consent was reviewed and signed. There is no history of any bleeding disorders or anesthesia complications. We will proceed..?PFP Shave Excision??with derma blade ? Location: ()??Left antihelix ? Size: (0.8 cm) ?Prep:??Betadine used to prep site.?Consent:??The procedure was discussed, risks and complications explained and consent obtained.?Procedure:??Shave excision was performed, hemostasis was achieved and no complications.? Discharge Instructions:??Keep area moist with ointment and clean, follow up in seven days for pathology.?? Medical Decision Making: There was a full discussion of all treatment options including conservative management, second opinion and surgical intervention. The patient and or family has opted to proceed with surgical intervention. We have discussed risks and complications as it relates to the procedure and postoperative period, including but not limited to those listed on the consent. All of their questions were answered,consent was reviewed and signed. There is no history of any bleeding disorders or anesthesia complications. We will proceed. Assessment/Plan 1.??Lesion of ear??H93.90 Nonhealing skin lesion of the left ear concerning for skin cancer. ??This was biopsied today in theoffice as above.?? Postbiopsy care instructions were reviewed and provided.?? Consent for possible need for OR surgery with either wedge excision or skin grafting was also reviewed??and signed.?? We will follow- up in??2 weeks for recheck right ear??for debridement of mastoid??cavity??and review pathology at that time. 2.??Cerumen impaction??H61.20 Cerumenectomy of the left ear successful. Images 2023-01-17 11:11:48 Problem List/Past Medical History Ongoing Anal fissure [...] Daily atorvastatin 80 mg oral tablet, See Instructions Bd Pen Needle/Milena/Ultra-Fine/32g X 4mm Mis Embe, [...] Oxygen Therapy, See instructions PEN NEEDLES MIS [id number], See Instructions ProAir HFA 90 mcg/inh inhalation [...] formulation 03/19/2020 Recorded Comments : Unit: Unknown 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: [employer] zoster vaccine, inactivated 02/20/2020 Recorded Comments : Unit: Unknown influenza virus vaccine, inactivated 03/19/2019 Recorded tetanus/diphth/pertuss (Tdap) adult/adol 09/28/2015 Recorded pneumococcal 13-valent conjugate vaccine 09/28/2015 Recorded Comments : Unit: Unknown zoster vaccine live 10/02/2012 Recorded Comments : Unit: Unknown pneumococcal 23-polyvalent vaccine 09/27/2012 Recorded Comments : Unit: Unknown Novel [id number]-[id number], all formulation 06/03/2009 Recorded Comments : Unit: Unknown Td(adult) unspecified formulation 11/04/2008 Recorded pneumococcal 23-polyvalent vaccine 07/21/2005 Recorded Comments : Unit: Unknown Electronically Signed on 01/17/23 11:53 AM KAILEY Mason Patient Care team information Care Team Personnel Name: Wilmar Licea DO Position: Physician Member Role: Primary Care Physician Address: Address: [address] [place] [id number] [place] Care Team Related Persons Name: DAVE DOWNING Address: Home
--- OUTSIDE RECORDS SUMMARY | 2023-04-19 15:51 | XMS_ITS | Continuity of Care Document ---
Author Name Unknown Organization [facility] Ambulatory Clinics Address [address] [place] [address] Care Team Providers Care Mixologist Name Role Phone Bianca Morris Primary Care Physician [phone] Encounter [facility] NBR [id number] Date(s): 07/20/22 - 07/20/22 [facility] Ambulatory Clinics [address] [place], [place] [address] Discharge Disposition: Home or Self Care Attending Physician: Wilmar Licea DO Allergies, Adverse Reactions, Alerts No Known Medication Allergies Substance Reaction Severity Status Adhesive Bandage Unknown Unknown Active Bee Stings Unknown Unknown Active Dust Unknown Active Immunizations Given and Recorded Vaccine Date Status [...] 23-polyvalent vaccine 8 07/21/05 Marcello rded Novel [id number]-[id number], all formulation 9 06/03/09 Recorded Td(adult) unspecified formulation 11/04/08 Recorde d 1Result Comment: Unit: Unknown 2Result Comment: Unit: Unknown 3Result Comment: Unit: Unknown 4Result Comment: Unit: Unknown 5Result Comment: Unit: Unknown 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: [employer] 6Result Comment: Unit: Unknown 7Result Comment: Unit: Unknown 8Result Comment: Unit: Unknown 9Result Comment: Unit: Unknown Medications amLODIPine 5 mg oral tablet 5 mg = 1 tab, Oral, Daily, # 90 tab, 3 Refill(s), Pharmacy: [facility] #[id number], 163, cm, 06/11/22 9:55:00 EST, Height/Length Dosing, 93.89, kg, 06/11/22 9:55:00 EST, Weight Dosing Start Date: 07/11/22 Stop Date: 07/06/23 Status: Ordered aspirin 81 mg oral delayed [...] 0 Refill(s) Start Date: 07/16/22 Status: Ordered docusate sodium 250 mg oral [...] min, # 4,000 mL, 0 Refill(s), Pharmacy: [facility] #[id number], 163, cm, 06/11/22 9:55:00 EST, Height/Length Dosing, 93.89, kg, 06/11/22 9:55:00 EST, Weight Dosing Start Date: 07/12/22 Stop Date: 07/13/22 Status: Ordered indomethacin 50 mg oral capsule 50 mg = 1 cap, Oral, TID, with food or milk, # 90 cap, 0 Refill(s), Pharmacy: [facility] #[id number], 163, cm, 06/11/22 9:55:00 EST, Height/Length Dosing, 93.89, kg, 06/11/22 9:55:00 EST, Weight Dosing Start Date: 07/07/22 Stop Date: 08/06/22 Status: Ordered lactulose 10 g/15 mL oral syrup See Instructions, PRN as needed for constipation, 15-30 mL Oral Daily 30 days, # 500 mL, 3 Refill(s), Pharmacy: [facility], 163, cm, 06/11/22 9:55:00 [...] evening, # 90 tab, 3 Refill(s), Pharmacy: [facility] #[id number], 163, cm, 06/11/22 9:55:00 EST, [...] Date: 06/05/22 Status: Ordered PEN NEEDLES MIS [id number] PEN NEEDLES MIS [id number], See Instructions, BID with insulin, 0 Refill(s) Start Date: 06/05/22 Status: Ordered traZODone 100 mg oral tablet 100 mg = 1 tab, Oral, every night at bedtime, # 90 tab, 0 Refill(s) Start Date: 06/05/22 Stop Date: 09/02/22 Status: Ordered Vitamin D3 2000 intl units [...] Range]: 1 Peripheral Pulse Rate [60-100 bpm] 74 bp m (07/20/22 11:15 AM) Blood Pressure [90-140/60-90 mmHg] 150/6 2mmHg *HI* (07/20/22 11:15 AM) Social History Social History Type Response Tobacco Never tobacco user T obacco Use:. Sex Patient Care team information Care Team Personnel Name: Bianca Morris APRN Position: Physician Member Role: Primary Care Physician Address: Address: [address] [place] [address] [place] [address]- Care Team Related Persons Name: DAVE DOWNING
--- OUTSIDE RECORDS SUMMARY | 2023-04-19 15:52 | XMS_ITS | Continuity of Care Document ---
Author Name Unknown Organization [facility] Address [address] [place] [address] Care Team Providers Care Gynecologist Name Role Phone Bianca Morris Primary Care Physician Encounter [facility] NBR [id number] Date(s): 09/28/22 - 09/28/[address] [address]- Discharge Disposition: Home or Self Care Attending Physician: Bianca Morris APRN Admitting Physician: Bianca Morris APRN Allergies, Adverse Reactions, [...] 23-polyvalent vaccine 8 07/21/05 Marcello rded Novel [id number]-[id number], all formulation 9 06/03/09 Recorded Td(adult) unspecified formulation 11/04/08 Recorde d 1Result Comment: Unit: Unknown 2Result Comment: Unit: Unknown 3Result Comment: Unit: Unknown 4Result Comment: Unit: Unknown 5Result Comment: Unit: Unknown 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: [employer] 6Result Comment: Unit: Unknown 7Result Comment: Unit: Unknown 8Result Comment: Unit: Unknown 9Result Comment: Unit: Unknown Medications amLODIPine 10 mg oral tablet 10 mg = 1 tab, Oral, Daily, # 90 tab, 3 Refill(s), Pharmacy: [facility] #[id number], 162.56, cm, 07/15/22 17:52:00 EST, [...] Daily, # 90 cap, 3 Refill(s), Pharmacy: [facility] #[id number], 162.56, cm, 07/15/22 17:52:00 EST, [...] min, # 4,000 mL, 0 Refill(s), Pharmacy: [facility] #[id number], 163, cm, 06/11/22 9:55:00 EST, Height/Length Dosing, 93.89, kg, 06/11/22 9:55:00 EST, Weight Dosing Start Date: 07/12/22 Stop Date: 07/13/22 Status: Ordered indomethacin 50 mg oral capsule 50 mg = 1 cap, Oral, TID, with food or milk, # 90 cap, 0 Refill(s), Pharmacy: [facility] #[id number], 163, cm, 06/11/22 9:55:00 EST, Height/Length Dosing, 93.89, kg, 06/11/22 9:55:00 EST, Weight Dosing Start Date: 07/07/22 Stop Date: 08/06/22 Status: Ordered lactulose 10 g/15 mL oral syrup See Instructions, PRN as needed for constipation, 15-30 mL Oral Daily 30 days, # 500 mL, 3 Refill(s), Pharmacy: [facility], 163, cm, 06/11/22 9:55:00 EST, Height/Length Dosing, 93.89, kg,06/11/22 9:55:00 EST, Weight Dosing Start Date: 06/24/22 Status: Ordered lisinopril 40 mg oral tablet 40 mg = 1 tab, Oral, every evening, # 90 tab, 3 Refill(s), Pharmacy: [facility] #[id number], 163, cm, 06/11/22 9:55:00 EST, Height/Length Dosing, 93.89, kg, 06/11/22 9:55:00 EST, Weight Dosing Start Date: 07/11/22 Stop Date: 07/06/23 Status: Ordered MetFORMIN (Eqv-Glucophage XR) 500 mg oral tablet, extended release See Instructions, TAKE ONE TABLET BY MOUTH TWICE DAILY , # 180 tab, 3 Refill(s), Pharmacy: [facility] #[id number], 162.56, cm, 07/15/22 17:52:00 EST, [...] Date: 09/03/22 Status: Ordered PEN NEEDLES MIS [id number] PEN NEEDLES MIS [id number], See Instructions, BID with insulin, 0 Refill(s) [...] and elbow Results Laboratory List Name Date Comprehensive Metabolic Panel 09/28/22 Hgb A1c (Hemoglobin A1C) 09/28/22 Most recent to oldest [Reference Range]: 1 BUN [8-26 mg/dL] 25 mg/dL (09/28/22 11:59 AM) Glucose Level [74-106 mg/dL] 104 mg/dL (09/28/22 11:59 AM) Potassium Level [3.5-5.1 mmol/L] 4.3 mmo l/L (09/28/22 11:59 AM) AST [15-41 IntlUnit/L] 19 IntlUnit/L (09/28/22 11:59 AM) ALT [14-54 IntlUnit/L] 22 IntlUnit/L (09/28/22 11:59 AM) Osmolality [275-295 mOsm/kg] 277 mOsm/kg (09/28/22 11:59 AM) Sodium Level [134-143 mmol/L] 136 mmol/L (09/28/22 11:59 AM) Calcium Level [8.9-10.3 mg/dL] 9.3 mg/dL (09/28/22 11:59 AM) Albumin Level [3.5-5.0 g/dL] 3.7 g/dL (09/28/22 11:59 AM) Protein Total [6.5-8.1 g/dL] 7.0 g/dL (09/28/22 11:59 AM) Bilirubin Total [0.2-1.2 mg/dL] 0.5 mg/d L (09/28/22 11:59 AM) Alk Phos [38-130 IntlUnit/L] 109 IntlUni t/L (09/28/22 11:59 AM) CO2 [22-32 mmol/L] 32 mmol/L (09/28/22 11:59 AM) eAvg Glucose 151 *NA* (09/28/22 11:59 AM) Chloride Level [98-111 mmol/L] 97 mmol/L *LOW* (09/28/22 11:59 AM) A/G Ratio 1.1 *NA* (09/28/22 11:59 AM) BUN/Creat Ratio [8.0-20.0] 22.1 *HI* (09/28/22 11:59 AM) Globulin 3.3 *NA* (09/28/22 11:59 AM) Hgb A1c Percent [4.0-6.0 %] 6.9 % *HI* (09/28/22 11:59 AM) .Hb 13.6 g/dL *NA* (09/28/22 11:59 AM) .Hgb A1c 0.7 g/dL *NA* (09/28/22 11:59 AM) Creatinine Level [0.44-1.00 mg/dL] 1.13 mg/dL *HI* (09/28/22 11:59 AM) Anion Gap [3.0-12.0] 7.0 (09/28/22 11:59 AM) eGFR CKD-EPI [>=60 mL/min/1.73 m2] 48 mL /min/1.73 m2 *LOW* (09/28/22 11:59 AM) Social History Social History Type Response Tobacco Never tobacco user T obacco Use:. Sex Patient Care team information Care Team Personnel Name: Bianca Morris APRN Position: Physician Member Role: Primary Care Physician Address: Address: [address] [place] [address] [address] [place] [id number] Care Team Related Persons Name: SALINA, DAVE Address: Home
--- OUTSIDE RECORDS SUMMARY | 2023-04-19 15:52 | XMS_ITS | Continuity of Care Document ---
Author Name Unknown Organization [facility] Ambulatory Clinics Address [address] [place] [address] Care Team Providers Care Stacker Tender Name Role Phone Keo Cruz DO Primary Care Physician Encounter [facility] [facility] NBR [id number] Date(s): 06/07/22 - 06/07/22 [facility] Ambulatory Clinics [address] [place], [place] [address] Encounter Diagnosis Diverticulitis(Discharge Diagnosis) - 06/07/22 Constipation in female(Discharge Diagnosis) - 06/07/22 Discharge Disposition: Home or Self Care Attending Physician: Keo Cruz DO Allergies, Adverse Reactions, Alerts No Known Medication Allergies Substance Reaction Severity Status Adhesive Bandage Unknown Unknown Active Bee Stings Unknown Unknown Active Dust Unknown Active Functional Status 06/07/22 Family Member Travel History No recent t ravel Recent Travel History No recent travel Other [...] 23-polyvalent vaccine 8 07/21/05 Marcello rded Novel [id number], all formulation 9 06/03/09 Recorded Td(adult) unspecified formulation 11/04/08 Recorde d 1Result Comment: Unit: Unknown 2Result Comment: Unit: Unknown 3Result Comment: Unit: Unknown 4Result Comment: Unit: Unknown 5Result Comment: Unit: Unknown Cooker Cleaner: [employer] 6Result Comment: Unit: Unknown 7Result Comment: Unit: Unknown 8Result Comment: Unit: Unknown 9Result Comment: Unit: Unknown Medications amLODIPine 5 mg oral tablet 5 mg = 1 tab, Oral, Daily, X 90 days, # 90 tab, 09/03/22 8:59:00 EDT Start Date: 06/05/22 Stop Date: 09/03/22 Status: Ordered atenolol 50 mg oral tablet [...] Date: 06/05/22 Stop Date: 09/03/22 Status: Ordered Cipro 500 mg oral tablet 500 mg = 1 tab, Oral, every 12 hr, # 20 tab, 0 Refill(s), Pharmacy: [facility] #[id number], 162.65, cm, 05/30/22 8:22:00 EST, Height/Length Dosing, 97.52, kg, 05/30/22 8:23:00 EST, Weight Dosing Start Date: 05/30/22 Stop Date: 06/09/22 Status: Ordered clopidogrel 75 mg oral tablet 75 mg = 1 tab, Oral, Daily, # 90 tab, 0 Refill(s) Start Date: 06/05/22 Stop Date: 09/03/22 Status: Ordered DULoxetine 60 mg oral delayed [...] 0 Refill(s) Start Date: 06/05/22 Status: Ordered Lantus Solostar Pen 100 units/mL subcutaneous solution 32 units =, Subcutaneous, Daily, X 90 days, # 15 mL, 09/03/22 8:59:00 EDT Start Date: 06/05/22 Stop Date: 09/03/22 Status: Ordered lisinopril 40 mg oral tablet 40 mg = 1 tab, Oral, Daily, # 90 tab, 0 Refill(s) Start Date: 06/05/22 Status: Ordered MetFORMIN (Eqv-Glucophage XR) 500 mg oral tablet, extended release 500 mg = 1 tab, Oral, BID, # 180 tab, 0 Refill(s) Start Date: 06/05/22 Stop Date: 09/03/22 Status: Ordered metroNIDAZOLE 500 mg oral tablet 500 mg = 1 tab, Oral, TID, # 30 tab, 0 Refill(s), Pharmacy: [facility] #[id number], 162.65, cm, 05/30/22 8:22:00 EST, Height/Length Dosing, 97.52, kg, 05/30/22 8:23:00 EST, Weight Dosing Start Date: 05/30/22 Stop Date: 06/09/22 Status: Ordered ONETOUCH ULTRA STRP ONETOUCH ULTRA STRP, See Instructions, Check blood glucose bid and as needed, # 200 strip, 0 Refill(s) Start Date: 06/05/22 Status: Ordered PEN NEEDLES MIS [id number] PEN NEEDLES MIS [id number], See Instructions, BID with insulin, 0 Refill(s) Start Date: 06/05/22 Status: Ordered traZODone 100 mg oral tablet 100 mg = 1 tab, Oral, every night at bedtime, # 90 tab, 0 Refill(s) Start Date: 06/05/22 Stop Date: 09/02/22 Status: Ordered Problem List Condition Confirmation Course Effective Dates Status H ealth Status Informant Atypical chest pain Confirmed Active Bilateral sensory hearing loss Confirmed Active Carpal tunnel syndrome of right wrist Confirmed Active Cervical spondylosis with radiculopathy Confirmed Active Chronic kidney disease, stage 3 unspecified Confirmed Active Chronic pain Confirmed Active Constipation Confirmed Active Deafness in right ear Confirmed Active Diverticulitis Confirmed Active H/O: gout Confirmed Active Hx of ischemic left MCA [...] Confirmed Active Word finding difficulty Confirmed Active Vital Signs Most recent to oldest [Reference Range]: 1 Temperature Temporal Artery [36-38 Deg C ] 36.3 Deg C (06/07/22 11:24 AM) Peripheral Pulse Rate [60-100 bpm] 73 bp m (06/07/22 11:24 AM) Respiratory Rate [12-24 br/min] 18 br/mi n (06/07/22 11:24 AM) Blood Pressure [90-140/60-90 mmHg] 134/6 6mmHg (06/07/22 11:24 AM) Weight 94.2 kg (06/07/22 11:24 AM) Weight Measured (lbs) 207.675 lb (06/07/22 11:24 AM) Social History Social History Type Response Tobacco Never tobacco user T obacco Use:. Sex Physician Outpatient Note * Keo Cruz DO: PERFORM Event Display: Office Clinic Note Physician Authored Date: [id number] MICHELLE HOLLEY :1940 Age:81 years Sex:Female Visit Date:06/07/2022 Primary Care Physician: Keo Cruz DO Chief Complaint ER f/u diverticulitis Additional Information still having pain despite abx , still not having BM History of Present Illness 81-year-old female coming in today with constipation.?? She was seen on 05/30/[address] showed diverticulitis as well as significant mount of stool in the large bowel..?? She was given MiraLAX which has produced only a small amount of feces.?? She has been eating regular food.?? She did nottry an enema.?? She is not in a lot of pain but she is uncomfortable.?? Patient states with stool she is able to get out is dark brown almost black Review of Systems Constitutional: No fevers, chills, sweats Respiratory: No shortness of breath, cough Cardiovascular: No Chest pain, palpitations, syncope Gastrointestinal: No nausea, vomiting, diarrhea,painful lower abd Integumentary: No rash, pruritus, abrasions Neurologic: Alert & oriented X 4 Psychiatric: No anxiety, depression Physical Exam Vitals & Measurements T:??36.3?C ??(Temporal Artery)?? HR:??73??(Peripheral)?? RR:??18?? BP:??134/66?? SpO2:??94%?? WT:??94.2??kg?? General: Alert and oriented, well nourished, no acute distress. Lungs: Clear to auscultation and percussion, non-labored respiration. Heart: Normal rate, regular rhythm, no murmur, gallop or edema. Abdomen: Soft,??Tender with palpation of the large intestine, normal bowel sounds, no masses. Skin: Skin is warm, dry and appropriate for ethnicity, no rashes or lesions. Neurologic: Awake, alert and oriented X4, CN II-XII intact. Psychiatric: Cooperative, appropriate mood and affect. Assessment/Plan Constipation in female??K59.00 Diverticulitis??K57.92 Diverticulitis ?Referred to GI Constipation ?Liquid/soft diet ?Increase water intake to least 48 ounces per day ?Can consider a fleets enema ? Call us on Monday to see how she is doing ?? Patient agrees with plan Problem List/Past Medical History Ongoing Atypical chest pain Bilateral sensory hearing loss Carpal tunnel syndrome of right wrist Cervical spondylosis with radiculopathy Chronic kidney disease, stage 3 unspecified Chronic pain Cognitive impairment Constipation Deafness in right ear Diverticulitis H/O: gout History of operative procedure on knee History [...] Type 2 diabetes mellitus with unspecified complications Medications amLODIPine 5 mg oral tablet, 5 mg= 1 tab, Oral, Daily atenolol 50 mg oral tablet, 50 mg= [...] capsule, 400 mg= 1 cap, Oral, TID Lantus Solostar Pen 100 units/mL subcutaneous solution, 32 units, Subcutaneous, Daily lisinopril 40 mg oral tablet, 40 mg= 1 tab, Oral, Daily MetFORMIN (Eqv-Glucophage XR) 500 mg oral tablet, extended release, 500 mg= 1 tab, Oral, BID metroNIDAZOLE 500 mg oral tablet, 500 mg= 1 tab, Oral, TID ONETOUCH ULTRA STRP, See Instructions PEN NEEDLES MIS [id number], See Instructions traZODone 100 mg oral tablet, 100 mg= 1 tab, Oral, every night at bedtime Allergies Adhesive Bandage??(Unknown) Bee Stings??(Unknown) Dust No Known Medication Allergies Social History Electronic Cigarette/Vaping Electronic Cigarette Use: Never. Tobacco Never tobacco user Tobacco Use:. Immunizations Vaccine Date Status pneumococcal 13-valent conjugate vaccine 08/27/2021 Recorded Comments : Unit: Unknown SARS-CoV-2 (COVID-19) mRNA-1273 vaccine 04/09/2021 Recorded Comments : Unit: Unknown zoster vaccine, inactivated 05/07/2020 Recorded influenza, unspecified formulation 03/19/2020 Recorded Comments : Unit: Unknown Cooker Cleaner: Sanofi Pasteur zoster vaccine, inactivated 02/20/2020 Recorded Comments : Unit: Unknown influenza virus vaccine, inactivated 03/19/2019 Recorded tetanus/diphth/pertuss (Tdap) adult/adol 09/28/2015 Recorded pneumococcal 13-valent conjugate vaccine 09/28/2015 Recorded Comments : Unit: Unknown zoster vaccine live 10/02/2012 Recorded Comments : Unit: Unknown pneumococcal 23-polyvalent vaccine 09/27/2012 Recorded Comments : Unit: Unknown Novel [id number], all formulation 06/03/2009 Recorded Comments : Unit: Unknown Td(adult) unspecified formulation 11/04/2008 Recorded pneumococcal 23-polyvalent vaccine 07/21/2005 Recorded Comments : Unit: Unknown Electronically Signed on 06/07/22 12:35 PM Keo Cruz DO Patient Care team information Personnel Name: Keo Cruz DO Address: Address: [address] [place] [id number]
--- OUTSIDE RECORDS SUMMARY | 2023-04-19 15:52 | XMS_ITS | Continuity of Care Document ---
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) - 03/09/23 Stage 3 chronic kidney disease(Discharge Diagnosis) - 03/09/23 Constipation(Discharge Diagnosis) - 03/09/23 Discharge Disposition: Home or Self Care Attending Physician: Wilmar Licea DO Allergies, Adverse Reactions, Alerts Substance Reaction Severity Status Adhesive Bandage Rash Moderate Active Bee Stings Unknown Unknown Active Dust Unknown Active copper containing compounds Rash Mild Active Assessment and Plan Future Appointments Future Scheduled Tests Laboratory* Comprehensive Metabolic Panel 09/08/23 * Lipid Panel 09/08/23 * Hgb A1c 09/08/23 Functional Status 03/09/23 Other exposure to Infectious Disease Non e [...] 23-polyvalent vaccine 8 07/21/05 Marcello rded Novel [id number], all formulation 9 06/03/09 Recorded Td(adult) unspecified formulation 11/04/08 Recorde d 1Result Comment: Unit: Unknown 2Result Comment: Unit: Unknown 3Result Comment: Unit: Unknown 4Result Comment: Unit: Unknown 5Result Comment: Unit: Unknown Press Set Up: [facility] 6Result Comment: Unit: Unknown 7Result Comment: Unit: Unknown 8Result Comment: Unit: Unknown 9Result Comment: Unit: Unknown Medications amLODIPine 5 mg oral tablet 5 mg = 1 tab, Oral, Daily, # 90 tab, 0 Refill(s) Start Date: 03/09/23 Status: Ordered aspirin 81 mg oral delayed [...] cholesterol, # 90 tab, 3 Refill(s), Pharmacy: [facility] #[id number], 165, cm, 01/12/23 7:52:00 EDT, Height/Length Dosing, 94, kg, 01/12/23 7:52:00 EDT, Weight Dosing Start Date: 01/18/23 Status: Ordered Bd Pen Needle/Milena/Ultra-Fine/32g X 4mm Mis Embe Bd Pen Needle/Milena/Ultra-Fine/32g X 4mm Mis Embe, See Instructions, use one needle once daily, # 100 unknown unit, 3 Refill(s), Pharmacy: [facility] #[id number], E11.9, KX, 165.1, cm, 10/26/22 10:20:00 EDT, Height/Length Dosing, 93.44, kg, 10/26/22 10:20:00 EDT, Weight Dosing Start Date: 12/08/22 Status: Ordered calcitriol 0.25 mcg oral capsule 0.25 mcg = 1 cap, Oral, Daily, # 30 cap, 0 Refill(s) Start Date: 03/09/23 Status: Ordered Centrum Silver oral tablet 1 tab, Oral, Daily, # 90 tab, 0 Refill(s) Start Date: 09/03/22 Stop Date: 12/02/22 Status: Ordered clopidogrel 75 mg oral tablet See Instructions, take one tablet by mouth one time daily, # 90 tab, 3 Refill(s), Pharmacy: [facility] #[id number], 162.56, cm, 07/15/22 17:52:00 EST, [...] Daily, # 90 cap, 3 Refill(s), Pharmacy: [facility] #[id number], 162.56, cm, 07/15/22 17:52:00 EST, Height/Length Dosing, 95.71, kg, 07/15/22 17:52:00 EST, Weight Dosing Start Date: 07/25/22 Stop Date: 07/20/23 Status: Ordered furosemide 20 mg oral tablet 20 mg = 1 tab, Oral, BID, # 180 tab, 0 Refill(s) Start Date: 06/05/22 Stop Date: 09/03/22 Status: Ordered gabapentin 400 mg oral capsule 400 mg = 1 cap, Oral, TID, # 90 cap, 0 Refill(s), Pharmacy: [facility] #[id number], 165, cm, 01/12/23 7:52:00 EDT, Height/Length Dosing, 94, kg, 01/12/23 7:52:00 EDT, Weight Dosing Start Date: 03/06/23 Status: Ordered Glucagon Emergency Kit for Low Blood Sugar 1 mg injection See Instructions, 0 Refill(s) Start Date: 09/03/22 Status: Ordered GoLYTELY oral powder for reconstitution 240 mL, Oral, every 10 min, # 4,000 mL, 0 Refill(s), Pharmacy: [facility] #[id number], 163, cm, 06/11/22 9:55:00 EST, Height/Length Dosing, 93.89, kg, 06/11/22 9:55:00 EST, Weight Dosing Start Date: 07/12/22 Stop Date: 07/13/22 Status: Ordered lactulose 10 g/15 mL oral syrup See Instructions, PRN as needed for constipation, 15-30 mL Oral Daily 30 days, # 500 mL, 3 Refill(s), Pharmacy: [facility], 163, cm, 06/11/22 9:55:00 EST, Height/Length Dosing, 93.89, kg,06/11/22 9:55:00 EST, Weight Dosing Start Date: 06/24/22 Status: Ordered Lantus Solostar Pen 100 units/mL subcutaneous solution 28 units, Subcutaneous, Daily, # 3 mL, 0 Refill(s) Start Date: 10/24/22 Status: Ordered lisinopril 40 mg oral tablet 40 mg = 1 tab, Oral, every evening, # 90 tab, 3 Refill(s), Pharmacy: [facility] #[id number], 163, cm, 06/11/22 9:55:00 EST, Height/Length Dosing, 93.89, kg, 06/11/22 9:55:00 EST, Weight Dosing Start Date: 07/11/22 Stop Date: 07/06/23 Status: Ordered MetFORMIN (Eqv-Glucophage XR) 500 mg oral tablet, extended release See Instructions, TAKE ONE TABLET BY MOUTH TWICE DAILY, # 180 tab, 3 Refill(s), Pharmacy: [facility] #[id number], 162.56, cm, 07/15/22 17:52:00 EST, [...] Date: 09/03/22 Status: Ordered PEN NEEDLES MIS [id number] PEN NEEDLES MIS [id number], See Instructions, BID with insulin, 0 Refill(s) Start Date: 06/05/22 Status: Ordered ProAir HFA 90 mcg/inh inhalation aerosol 2 puffs, Inhale, every 6 hr, PRN as needed for wheezing, # 8.5 g, 0 Refill(s) Start Date: 09/03/22 Status: Ordered traZODone 100 mg oral tablet 100 mg = 1 tab, Oral, every night at bedtime, # 90 tab, 4 Refill(s), Pharmacy: [facility] #[id number],165, cm, 01/12/23 7:52:00 EDT, Height/Length Dosing, 94, kg, 01/12/23 7:52:00 EDT, Weight Dosing Start Date: 03/09/23 Status: Ordered Tylenol Extra Strength 500 mg [...] recent to oldest [Reference Range]: 1 Temperature Tympanic [36.6-37.9 Deg C] 3 7.1 Deg C (03/09/23 10:52 AM) Peripheral Pulse Rate [60-100 bpm] 62 bp m (03/09/23 10:52 AM) Blood Pressure [90-140/60-90 mmHg] 118/5 8mmHg (03/09/23 10:52 AM) Weight 92.1 kg (03/09/23 10:52 AM) Weight Measured (lbs) 203.046 lb (03/09/23 10:52 AM) Social History Social History Type Response Tobacco Never tobacco user T obacco Use:. Sex Hospital Discharge Instructions Follow Up Care 12/08/2022 11:30:05 With:Wilmar Licea DO Address: [address] [place] [phone] When:6 Months Physician Outpatient Note * Wilmar Licea DO: PERFORM Event Display: Office Clinic Note Physician Authored Date: [id number] LEWIS MICHELLE HUBBARD :1940 Age:82 years Sex:Female Visit Date:03/09/2023 Primary Care Physician: Wilmar Licea DO Chief Complaint PC- Med f/u Additional Information Problems with bowels History of Present Illness Patient is a 82-year-old female who comes in today for follow-up. Endocrine: Sees Dr. Briggs.?? Taking medication as prescribed. ??Feels that her sugars have been reasonably well controlled. Cardiovascular: Taking medication as prescribed, except for her amlodipine. ??According to the bottle??that she has with her at the visit she is taking the 5 mg tablet??once a day.?? According to ourmed list and previous telephone encounters??we had titrated her amlodipine up to 10 mg.?? She insists that she is taking??the dose??according to the bottle is here at the visit.?? It looks like this 5 mg??dose was??dispensed in January. GI:??Continues to struggle with constipation. ??Has seen GI.?? Has had lactulose at home, but does not take it??when she has to go out because she is worried about??accidents. Review of Systems See HPI otherwise negative. Physical Exam Vitals & Measurements T:??37.1?C ??(Tympanic)?? HR:??62??(Peripheral)?? BP:??118/58?? SpO2:??90%?? WT:??92.1??kg?? General: Alert and oriented, well nourished,?No??acute distress Lungs: Clear to auscultation and percussion,?Non-labored?? respiration Heart:?Normal? rate,?Regular??rhythm,?No??murmur,?No??gallop,?No??edema Abdomen: Soft, non-tender, non-distended,?Normal? bowel sounds,?No??masses Musculoskeletal:?Normal? range of motion and strength,?No??tenderness,?No??swelling Psychiatric: Cooperative, appropriate mood and affect Assessment/Plan 1.??HTN (hypertension)??I10 Blood pressure today is good. ??We need to clarify??what dose of amlodipine she is actually taking because there seems to be some discrepancy with??the med list??compared to what was dispensed in January by the pharmacy.?? We will send a message to care management to touch base with the patient thisafternoon??to better clarify??where she is at.?? Bottom line, what ever she is taking right now??appears to be??the correct dose??to keep her blood pressure well controlled. Ordered: Comprehensive Metabolic Panel, Blood, Routine, *Est. 0424 +/- 28 days, Once, Lab Collect, HTN (hypertension) Type 2 diabetes mellitus Stage 3 chronic kidney disease, Order for future visit Lipid Panel, Blood, Routine, *Est. 0424 +/- 28 days, Once, Lab Collect, HTN (hypertension) Type 2 diabetes mellitus, Order for future visit ?? 2.??Type 2 diabetes mellitus??E11.9 Last A1c was okay. ??We will continue current regimen. Ordered: Comprehensive Metabolic Panel, Blood, Routine, *Est. 0424 +/- 28 days, Once, Lab Collect, HTN (hypertension) Type 2 diabetes mellitus Stage 3 chronic kidney disease, Order for future visit Hgb A1c, Blood, Routine, *Est. 04/24 +/- 28 days, Once, Lab Collect, Type 2 diabetes mellitus, Order for future visit Lipid Panel, Blood, Routine, *Est. 04/24 +/- 28 days, Once, Lab Collect, HTN (hypertension) Type 2 diabetes mellitus, Order for future visit ?? 3.??Polyneuropathy due to type 2 diabetes mellitus??E11.42 Continue current regimen. ?? 4.??Stage 3 chronic kidney disease??N18.30 Recheck labs prior to next visit. Ordered: Comprehensive Metabolic Panel, Blood, Routine, *Est. 09/08/23 +/- 28 days, Once, Lab Collect, HTN (hypertension) Type 2 diabetes mellitus Stage 3 chronic kidney disease, Order for future visit ?? 5.??Constipation??K59.00 We discussed her constipation. ??No abdominal pain or fever.?? We will try and get back on her bowel regimen??if her schedule will permit. ?? Orders: traZODone 100 mg oral tablet, 100 mg = 1 tab, Oral, every night at bedtime, # 90 tab, 4 Refill(s), Pharmacy: [facility] #[id number], 165, cm, 01/12/23 7:52:00 EDT, Height/Length Dosing, 94, kg, 237:52:00 EDT, Weight Dosing Future Orders Comprehensive Metabolic Panel, Blood, Routine, *Est. 09/08/23 +/- 28 days, Once, Lab Collect, HTN (hypertension) Type 2 diabetes mellitus Stage 3 chronic kidney disease, Order for future visit Hgb A1c, Blood, Routine, *Est. 09/07/24 +/- 28 days, Once, Lab Collect, Type 2 diabetes mellitus, Order for future visit Lipid Panel, Blood, Routine, *Est. 09/08/23 +/- 28 days, Once, Lab Collect, HTN (hypertension) Type 2 diabetes mellitus, Order for future visit Follow Up Instructions With When Contact Information Wilmar Licea, DO Within 6 Months [address] [place] [address] Additional Instructions: Problem List/Past Medical History Ongoing Anal fissure [...] Oxygen Therapy, See instructions PEN NEEDLES MIS [id number], See Instructions ProAir HFA 90 mcg/inh inhalation aerosol, 2 puffs, Inhale, every 6 hr, PRN traZODone 100 mg oral tablet, 100 mg= 1 tab, Oral, every night at bedtime, 4 refills Tylenol Extra Strength 500 mg oral tablet, [...] formulation 03/19/2020 Recorded Comments : Unit: Unknown Press Set Up: San[employer] P[employer]ur zoster vaccine, inactivated 02/20/2020 Recorded Comments : Unit: Unknown influenza virus vaccine, inactivated 03/19/2019 Recorded tetanus/diphth/pertuss (Tdap) adult/adol 09/28/2015 Recorded pneumococcal 13-valent conjugate vaccine 09/28/2015 Recorded Comments : Unit: Unknown zoster vaccine live 10/02/2012 Recorded Comments : Unit: Unknown pneumococcal 23-polyvalent vaccine 09/27/2012 Recorded Comments : Unit: Unknown Novel [id number], all formulation 06/03/2009 Recorded Comments : Unit: Unknown Td(adult) unspecified formulation 11/04/2008 Recorded pneumococcal 23-polyvalent vaccine 07/21/2005 Recorded Comments : Unit: Unknown Electronically Signed on 03/09/23 12:21 PM Wilmar Licea DO Patient Care team information Care Team Personnel Name: Wilmar Licea DO Position: Physician Member Role: Primary Care Physician Address: Address: [address] [place] [phone] [place] Care Team Related Persons Name: DAVE DOWNING
--- OUTSIDE RECORDS SUMMARY | 2023-04-19 15:52 | XMS_ITS | Continuity of Care Document ---
Author Name Unknown [facility] [address] [place] [address] Encounter LTTL_WA FIN NBR [id number] Date(s): 05/30/22 - 05/30/22 [facility] [address] [place], [place] [address] Encounter Diagnosis Diverticulitis(Discharge Diagnosis) - 05/30/22 Discharge Disposition: Home or Self Care Attending Physician: Wilmar Rodarte MD Admitting Physician: Wilmar Rodarte MD Allergies, Adverse Reactions, Alerts No Known Medication Allergies Assessment and Plan Extracted from: Title:Clinical Document Author:Manuel Mckeon MD Date:05/30/22 Patient originally seen by Edu Rodarte. CT of abdomen pelvis comes back showing diverticulitis without perforation or abscess. There is large stool in the abdomen as well. No sign of obstruction. Patient states that Tylenol that she was given has helped with the pain. She will be discharged with diverticulitis and was prescribed Cipro and Flagyl. She will continue MiraLAX for constipation per the nurse here states that she did pass several small bowel movements. Patient will follow-up with regular doctor to ensure improvement within a week and return for worsening symptoms Functional Status 05/30/22 Family Member Travel History No recent t ravel Recent Travel History No recent travel Other exposure to Infectious Disease Non e Medications Cipro 500 mg oral tablet 500 mg = 1 tab, Oral, every 12 hr, # 20 tab, 0 Refill(s), Pharmacy: [id number], 162.65, cm, 05/30/22 8:22:00 EST, Height/Length Dosing, 97.52, kg, 05/30/22 8:23:00 EST, Weight Dosing Start Date: 05/30/22 Stop Date: 06/09/22 Status: Ordered metroNIDAZOLE 500 mg oral tablet 500 mg = 1 tab, Oral, TID, # 30 tab, 0 Refill(s), Pharmacy: [id number], 162.65, cm, 05/30/22 8:22:00 EST, Height/Length Dosing, 97.52, kg, 05/30/22 8:23:00 EST, Weight Dosing Start Date: 05/30/22 Stop Date: 06/09/22 Status: Ordered Mental Status 05/30/22 Eye Opening Response Talmage Spontaneous ly Best Verbal Response Yoko Oriented Best Motor Response Talmage Obeys comman ds Talmage Coma Score 15 Results Laboratory List Name Date Automated Diff 05/30/22 CBC w/ Diff 05/30/22 Comprehensive Metabolic Panel (CMP) 05/06 11/24 Most recent to oldest [Reference Range]: 1 WBC [4.8-10.8 K/mcL] 16.0 K/mcL *HI* (05/30/22 8:34 AM) RBC [4.20-6.10 Million/mcL] 4.37 Million /mcL (05/30/22 8:34 AM) Neutro Auto [42.2-75.2 %] 77.5 % *HI* (05/30/22 8:34 AM) Lymph Auto [20.5-51.1 %] 14.5 % *LOW* (05/30/22 8:34 AM) Essex Auto [1.7-9.3 %] 7.1 % (05/30/22 8:34 AM) Basophil Auto [0.0-0.8 %] 0.2 % (05/30/22 8:34 AM) BUN [8-26 mg/dL] 25 mg/dL (05/30/22 8:34 AM) Glucose Level [74-106 mg/dL] 191 mg/dL *HI* (05/30/22 8:34 AM) Potassium Level [3.5-5.1 mmol/L] 4.4 mmo l/L (05/30/22 8:34 AM) Baso Absolute [0.0-0.2 K/mcL] 0.0 K/mcL (05/30/22 8:34 AM) MCV [80.0-99.0 fL] 95.7 fL (05/30/22 8:34 AM) AST [15-41 IntlUnit/L] 34 IntlUnit/L (05/30/22 8:34 AM) ALT [14-54 IntlUnit/L] 35 IntlUnit/L (05/30/22 8:34 AM) MCHC [32.0-36.0 g/dL] 33.0 g/dL (05/30/22 8:34 AM) Osmolality [275-295 mOsm/kg] 278 mOsm/kg (05/30/22 8:34 AM) Sodium Level [134-143 mmol/L] 134 mmol/L (05/30/22 8:34 AM) Lymph Absolute [1.2-3.4 K/mcL] 2.3 K/mcL (05/30/22 8:34 AM) Hct [37.0-52.0 %] 41.8 % (05/30/22 8:34 AM) Calcium Level [8.9-10.3 mg/dL] 9.4 mg/dL (05/30/22 8:34 AM) Essex Absolute [0.1-0.6 K/mcL] 1.1 K/mcL *HI* (05/30/22 8:34 AM) Albumin Level [3.5-5.0 g/dL] 3.4 g/dL *LOW* (05/30/22 8:34 AM) Protein Total [6.5-8.1 g/dL] 7.4 g/dL (05/30/22 8:34 AM) MCH [27.0-31.0 pg] 31.6 pg *HI* (05/30/22 8:34 AM) Neutro Absolute [1.4-6.5 K/mcL] 12.4 K/m cL *HI* (05/30/22 8:34 AM) Bilirubin Total [0.2-1.2 mg/dL] 0.9 mg/d L (05/30/22 8:34 AM) Hgb [12.0-18.0 g/dL] 13.8 g/dL (05/30/22 8:34 AM) Alk Phos [38-130 IntlUnit/L] 87 IntlUnit /L (05/30/22 8:34 AM) MPV [7.4-10.4 fL] 9.8 fL (05/30/22 8:34 AM) Platelets [130-400 K/mcL] 285 K/mcL (05/30/22 8:34 AM) CO2 [22-32 mmol/L] 25 mmol/L (05/30/22 8:34 AM) Eos Absolute [0.0-0.2 K/mcL] 0.0 K/mcL (05/30/22 8:34 AM) eGFR Non-AA 57 *NA* (05/30/22 8:34 AM) eGFR AA 57 *NA* (05/30/22 8:34 AM) Chloride Level [98-111 mmol/L] 97 mmol/L *LOW* (05/30/22 8:34 AM) RDW-CV [11.5-14.5 %] 12.3 % (05/30/22 8:34 AM) A/G Ratio 0.8 *NA* (05/30/22 8:34 AM) BUN/Creat Ratio [8.0-20.0] 25.3 *HI* (05/30/22 8:34 AM) Globulin 4.0 *NA* (05/30/22 8:34 AM) Imm Gran Absolute 0.07 *NA* (05/30/22 8:34 AM) Imm Gran Auto [0.0-0.5 %] 0.4 % (05/30/22 8:34 AM) Creatinine Level [0.44-1.00 mg/dL] 0.99 mg/dL (05/30/22 8:34 AM) Anion Gap [3.0-12.0] 12.0 (05/30/22 8:34 AM) Eos, Auto [0.00-3.00 %] 0.30 % (05/30/22 8:34 AM) Radiology Reports * Exam Date Time Procedure Performing Provider Status 05/30/22 10:[address] Abdomen and Pelvi s w/ Contrast Hanna Ivan; Auth (Verified) Notes: (CT Abdomen and Pelvis w/ Contrast) Reason For Exam: abdominal pain CT Abdomen and Pelvis w/ Contrast PROCEDURE INFORMATION: Exam: CT Abdomen And Pelvis With Contrast Exam date and time: 05/30/2022 9:47 AM Age: 81 years old Clinical indication: Patient HX: PT C/O constipation & left-sided pain, PT only having small diarrhea 4-5times a day; Additional info: Abdominal pain TECHNIQUE: Imaging protocol: Computed tomography of the abdomen and pelvis with contrast. Radiation optimization: All CT scans at this facility use at least one of these dose optimization techniques: automated exposure control; mA and/or kV adjustment per patient size (includes targeted exams where dose is matched to clinical indication); or iterative reconstruction. Contrast material: [id number]; Contrast volume: 100 ml; Contrast route: INTRAVENOUS (IV); COMPARISON: CT ABD/PELVIS WO CONTRAST 03/28/2020 10:48 AM FINDINGS: Lungs: Mild atelectasis within the lung bases Pleural spaces: Pleural calcifications right hemithorax Liver: Mild nodularity of the liver is present. Correlate regarding risk factors for hepatocellular disease. Gallbladder and bile ducts: Normal. No calcified stones. No ductal dilation. Pancreas: Normal. No ductal dilation. Spleen: Normal. No splenomegaly. Adrenal glands: Normal. No mass. Kidneys and ureters: Mild prominence of the collecting system bilaterally. No obstructing calculus. Stomach and bowel: Periampullary diverticulum. Large amount of stool throughout the large bowel. Appendix: The appendix is not visualized. Intraperitoneal space: Unremarkable. No free air. No significant fluid collection. Vasculature: Calcification of the aorta. Lymph nodes: Unremarkable. No enlarged lymph nodes. Urinary bladder: Unremarkable as visualized. Reproductive: Unremarkable as visualized. Bones/joints: Degenerative changes are present within the spine. Soft tissues: Inflammatory changes, rather extensive, in the soft tissues of the pelvis with a thickened sigmoid colon. Numerous diverticula. Diverticulitis. IMPRESSION: 1. Inflammatory changes, rather extensive, in the soft tissues of the pelvis with a thickened sigmoid colon. Numerous diverticula. Diverticulitis. No free air. No abscess. 2. Large amount of stool throughout the large bowel. THIS DOCUMENT HAS BEEN ELECTRONICALLY SIGNED BY MICK GOMEZ MD on 05/30/2022 10:41 AM Final Signed by: Mick Gomez MD Signed (Electronic Signature): 05/30/2022 10:41 am Vital Signs Most recent to oldest [Reference Range]: 1 Temperature Tympanic [36.6-37.9 Deg C] 3 6.5 Deg C *LOW* (05/30/22 8:04 AM) Peripheral Pulse Rate [60-100 bpm] 109 b pm *HI* (05/30/22 8:04 AM) Respiratory Rate [12-24 br/min] 17 br/mi n (05/30/22 8:04 AM) Blood Pressure [90-140/60-90 mmHg] 159/9 1mmHg *HI* (05/30/22 8:04 AM) Weight 97.52 kg (05/30/22 8:04 AM) Weight Dosing 97.52 kg (05/30/22 8:23 AM) Height 162.650 cm (05/30/22 8:04 AM) Height/Length Dosing 162.650 cm (05/30/22 8:22 AM) Body Mass Index 37.000 kg/m2 (05/30/22 8:04 AM) Social History Social History Type Response Tobacco Never tobacco user T obacco Use:. Sex Hospital Discharge Instructions Patient Education 05/30/2022 09:57:07 Diverticulitis Diverticulitis Diverticulitis is infection or inflammation of small pouches (diverticula) in the colon that form due to a condition called diverticulosis. Diverticula can trap stool (feces) and bacteria, causing infection and inflammation. Diverticulitis may cause severe stomach pain and diarrhea. It may lead to tissue damage in the colon that causes bleeding or blockage. The diverticula may also burst (rupture) and cause infected stool to enter other areas of the abdomen. What are the causes? This condition is caused by stool becoming trapped in the diverticula, which allows bacteria to grow in the diverticula. This leads to inflammation and infection. What increases the risk? You are more likely to develop this condition if you have diverticulosis. The risk increases if you: ??? Are overweight or obese. ??? Do not get enough exercise. ??? Drink alcohol. ??? Use tobacco products. ??? Eat a diet that has a lot of red meat such as beef, pork, or lazo. ??? Eat a diet that does not include enough fiber. High-fiber foods include fruits, vegetables, beans, nuts, and whole grains. ??? Are over 40 years of age. What are the signs or symptoms? Symptoms of this condition may include: ??? Pain and tenderness in the abdomen. The pain is normally located on the left side of the abdomen, but it may occur in other areas. ??? Fever and chills. ??? Nausea. ??? Vomiting. ??? Cramping. ??? Bloating. ??? Changes in bowel routines. ??? Blood in your stool. How is this diagnosed? This condition is diagnosed based on: ??? Your medical history. ??? A physical exam. ??? Tests to make sure there is nothing else causing your condition. These tests may include: ??? Blood tests. ??? Urine tests. ??? CT scan of the abdomen. How is this treated? Most cases of this condition are mild and can be treated at home. Treatment may include: ??? Taking uwfo-vbv-tpcdjck pain medicines. ??? Following a clear liquid diet. ??? Taking antibiotic medicines by mouth. ??? Resting. More severe cases may need to be treated at a hospital. Treatment may include: ??? Not eating or drinking. ??? Taking prescription pain medicine. ??? Receiving antibiotic medicines through an IV. ??? Receiving fluids and nutrition through an IV. ??? Surgery. When your condition is under control, your health care provider may recommend that you have a colonoscopy. This is an exam to look at the entire large intestine. During the exam, a lubricated, bendable tube is inserted into the anus and then passed into the rectum, colon, and other parts of the large intestine. A colonoscopy can show how severe your diverticula are and whether something else may be causing your symptoms. Follow these instructions at home: Medicines ??? Take suxc-ubw-uegvnoi and prescription medicines only as told by your health care provider. These include fiber supplements, probiotics, and stool softeners. ??? If you were prescribed an antibiotic medicine, take it as told by your health care provider. Donot stop taking the antibiotic even if you start to feel better. ??? Ask your health care provider if the medicine prescribed to you requires you to avoid driving or using machinery. Eating and drinking ??? Follow a full liquid diet or another diet as directed by your health care provider. ??? After your symptoms improve, your health care provider may tell you to change your diet. He or she may recommend that you eat a diet that contains at least 25 grams (25 g) of fiber daily. Fiber makes it easier to pass stool. Healthy sources of fiber include: ??? Berries. One cup contains 4???8 grams of fiber. ??? Beans or lentils. One-half cup contains 5???8 grams of fiber. ??? Green vegetables. One cup contains 4 grams of fiber. ??? Avoid eating red meat. General instructions ??? Do not use any products that contain nicotine or tobacco, such as cigarettes, e-cigarettes, andchewing tobacco. If you need help quitting, ask your health care provider. ??? Exercise for at least 30 minutes, 3 times each week. You should exercise hard enough to raise your heart rate and break a sweat. ??? Keep all follow-up visits as told by your health care provider. This is important. You may needto have a colonoscopy. Contact a health care provider if: ??? Your pain does not improve. ??? Your bowel movements do not return to normal. Get help right away if: ??? Your pain gets worse. ??? Your symptoms do not get better with treatment. ??? Your symptoms suddenly get worse. ??? You have a fever. ??? You vomit more than one time. ??? You have stools that are bloody, black, or tarry. Summary ??? Diverticulitis is infection or inflammation of small pouches (diverticula) in the colon that form due to a condition called diverticulosis. Diverticula can trap stool (feces) and bacteria, causing infection and inflammation. ??? You are at higher risk for this condition if you have diverticulosis and you eat a diet that does not include enough fiber. ??? Most cases of this condition are mild and can be treated at home. More severe cases may need mohamud treated at a hospital. ??? When your condition is under control, your health care provider may recommend that you have an exam called a colonoscopy. This exam can show how severe your diverticula are and whether something else may be causing your symptoms. ??? Keep all follow-up visits as told by your health care provider. This is important. This information is not intended to replace advice given to you by your health care provider. Make sure you discuss any questions you have with your health care provider. Document Revised: 03/02/2020 Document Reviewed: 03/02/2020 [employer] Patient Education ?? 2021 [employer]. Physician Emergency department Note * Manuel Mckeon MD: PERFORM Event Display: ED Note Physician Authored Date: [id number] Patient originally seen by Dr. Rodarte. CT of abdomen pelvis comes back showing diverticulitis without perforation or abscess. There is large stool in the abdomen as well. No sign of obstruction. Patient states that Tylenol that she was given has helped with the pain. She will be discharged with diverticulitis and was prescribed Cipro and Flagyl. She will continue MiraLAX for constipation per thenurse here states that she did pass several small bowel movements. Patient will follow-up with regular doctor to ensure improvement within a week and return for worsening symptoms Electronically Signed on 05/30/22 04:09 PM Manuel Mckeon MD * Wilmar Rodarte MD: PERFORM Event Display: ED Note Physician Authored Date: [id number] LEWIS MICHELLE HUBBARD :1940 Age:81 years Sex:Female Visit Date:05/30/2022 Basic Information Time Seen: Wilmar Rodarte MD / 05/30/2022 09:12 Chief Complaint presents c/o constipation - LQ ABD pain, per pt passing soft ??stools 4-5 times a day . uses miralax, stool softnes and pill form miralax daily . Unown daily medications- no list History Of Present Illness: 1 week of progressive abdominal discomfort??and elderly woman who denies past abdominal??surgical history of any kind.?? Eating okay, denies anorexia or vomiting, has diffuse abdominal discomfort associated with??scant watery stool; subjectively she feels like she is constipated. ??Has a history of??diabetes and hypertension.?? Denies passing any blood having any black stool, having measured fevers.?? No chest pain no shortness of breath??no exercise intolerance.?? Points to her mid and lower abdomen??bilaterally.?? She has tried??stool softeners and MiraLAX without relief. Review of Systems: Constitutional: [No fevers, chills, sweats] Eye: [No acute visual complaints] ENT: [No ear pain, nasal congestion, sore throat] Respiratory: [No shortness of breath, cough] Cardiovascular: [No Chest pain or palpitations] Gastrointestinal: [No nausea, vomiting. No blooding or melena. ??Scant stool mostly liquid??subjectively feels constipated] Genitourinary: [No dysuria or hematuria] Musculoskeletal: [No acute back pain, neck pain, joint pain, muscle pain, decreased range of motion] Integumentary: [No rash, pruritus, abrasions] Neurologic: [No focal sensory or motor complaints. Denies syncope] ? Physical Exam: General: [Beset older woman??alert and oriented, well nourished, there is uncomfortable].?? Eye: [PERRL, EOMI, normal conjunctiva]. HENT: [Normocephalic, normal hearing, moist oral mucosa, no scleral icterus, no nasal discharge].?? Neck: [Ranging neck, normal inspection].?? Lungs: [Clear to auscultation, non-labored respiration, no tachypnea].?? Heart: [Normal rate, regular rhythm, no murmur, gallop or edema]. Abdomen: [Protuberant, diffuse tenderness on exam mostly lower abdomen bilaterally, nonperitoneal].?? Musculoskeletal: [Normal range of motion and strength, no tenderness or swelling]. Skin: [Skin is warm, dry and pink, no rashes or lesions]. Neurologic: [Awake, alert and oriented X4, normal tone, moving all extremities with good strength].[Ambulation intact]. Psychiatric: [Cooperative, appropriate mood and affect]. Physical Exam Vitals & Measurements T:??36.5?C ??(Tympanic)?? HR:??109??(Peripheral)?? RR:??17?? BP:??159/91?? SpO2:??94%?? HT:??162.650??cm?? WT:??97.52??kg?? BMI:??37.000?? Procedure No Qualifying Data Assessment/Plan Labs ordered CT scan abdomen pelvis with IV contrast; signed out to next attending??pending disposition. ??Patient written for IV Tylenol 1 g pending??imaging and lab results. Ordered: Comprehensive Metabolic Panel, Blood, Stat, 05/30/22 8:50:00 EST, Once, Nurse collect CT Abdomen and Pelvis w/ Contrast, 05/30/22 9:06:00 EST, Stat, Reason: abdominal pain, Transport Mode: Stretcher Problem List/Past Medical History Ongoing No qualifying data Historical No qualifying data Allergies No Known Medication Allergies Social History Electronic Cigarette/Vaping Electronic Cigarette Use: Never. Tobacco Never tobacco user Tobacco Use:. Lab Results CBC and Differential?? LATEST RESULTS?? WBC?? 05/30/22 08:34?? 16.0 ??High?? RBC?? 05/30/22 08:34?? 4.37?? Hgb?? 05/30/22 08:34?? 13.8?? Hct?? 05/30/22 08:34?? 41.8?? MCV?? 05/30/22 08:34?? 95.7?? MCH?? 05/30/22 08:34?? 31.6 ??High?? MCHC?? 05/30/22 08:34?? 33.0?? RDW-CV?? 05/30/22 08:34?? 12.3?? Platelets?? 05/30/22 08:34?? 285?? MPV?? 05/30/22 08:34?? 9.8?? Neutro Auto?? 05/30/22 08:34?? 77.5 ??High?? Lymph Auto?? 05/30/22 08:34?? 14.5 ??Low?? [place] Auto?? 05/30/22 08:34?? 7.1?? Eos, Auto?? 05/30/22 08:34?? 0.30?? Basophil Auto?? 05/30/22 08:34?? 0.2?? Imm Gran Auto?? 05/30/22 08:34?? 0.4?? Neutro Absolute?? 05/30/22 08:34?? 12.4 ??High?? Lymph Absolute?? 05/30/22 08:34?? 2.3?? [place] Absolute?? 05/30/22 08:34?? 1.1 ??High?? Eos Absolute?? 05/30/22 08:34?? 0.0?? Baso Absolute?? 05/30/22 08:34?? 0.0?? Imm Gran Absolute?? 05/30/22 08:34?? 0.07? Routine Chemistry?? LATEST RESULTS?? Sodium Level?? 05/30/22 08:34?? 134?? Potassium Level?? 05/30/22 08:34?? 4.4?? Chloride Level?? 05/30/22 08:34?? 97 ??Low?? CO2?? 05/30/22 08:34?? 25?? Glucose Level?? 05/30/22 08:34?? 191 ??High?? Calcium Level?? 05/30/22 08:34?? 9.4?? Anion Gap?? 05/30/22 08:34?? 12.0? Electronically Signed on 05/30/22 09:39 AM Wilmar Rodarte MD Emergency department Discharge instructions * Manuel Mckeon MD: PERFORM Event Display: ED Discharge Information Authored Date: [id number] LEWIS MICHELLE HUBBARD :1940 Age:81 years Sex:Female Visit Date:05/30/2022 Discharge Instructions We would like to thank you for allowing us to assist you with your healthcare needs. The following includes patient education materials and information regarding your injury/illness. Diagnosis from Today's Visit Diverticulitis Discharge Vitals Temperature??(Tympanic) 97.7 ??F (36.5 ??C) Heart Rate??(Peripheral) 109 Respiratory Rate?? 17 Blood Pressure?? 159/91?? Height?? 64.04 in (162.650 cm) Weight?? 215.03 lb (97.52 kg) BMI?? 37.000 Allergies No Known Medication Allergies What to Do Next Instructions from Your Care Team Cipro and Flagyl as prescribed. ??Dvpl-pit-ihbmuuu medicine for pain. ??Stay hydrated. ??Use MiraLAX for??constipation. ??Follow-up with regular doctor within 1 week to ensure improvement and return to ED for worsening symptoms You were treated today on an emergency basis; it may be herman to contact your primary care provider to notify them of your visit today. You may have been referred to your regular doctor or a specialist, please follow up as instructed. If your condition worsens or you can't get in to see the doctor, contact the Emergency Department. Medications What How Much When Instructions Next Dose New ciprofloxacin (Cipro 500 mg oral tablet) 1 tab Oral (given by mouth) Every 12 hours Duration: 10 Days Pickup at [id number] New metroNIDAZOLE (metroNIDAZOLE 500 mg oral tablet) 1 tab Oral (given by mouth) 3 times a day Duration: 10 Days Pickup at [id number] Pharmacy Information [id number]: [address], [place] [id number] [phone] Education Materials Diverticulitis Diverticulitis is infection or inflammation of small pouches (diverticula) in the colon that form due to a condition called diverticulosis. Diverticula can trap stool (feces) and bacteria, causing infection and inflammation. Diverticulitis may cause severe stomach pain and diarrhea. It may lead to tissue damage in the colon that causes bleeding or blockage. The diverticula may also burst (rupture) and cause infected stool to enter other areas of the abdomen. What are the causes? This condition is caused by stool becoming trapped in the diverticula, which allows bacteria to grow in the diverticula. This leads to inflammation and infection. What increases the risk? You are more likely to develop this condition if you have diverticulosis. The risk increases if you: ? Are overweight or obese. ? Do not get enough exercise. ? Drink alcohol. ? Use tobacco products. ? Eat a diet that has a lot of red meat such as beef, pork, or lazo. ? Eat a diet that does not include enough fiber. High-fiber foods include fruits, vegetables, beans, nuts, and whole grains. ? Are over 40 years of age. What are the signs or symptoms? Symptoms of this condition may include: ? Pain and tenderness in the abdomen. The pain is normally located on the left side of the abdomen, but it may occur in other areas. ? Fever and chills. ? Nausea. ? Vomiting. ? Cramping. ? Bloating. ? Changes in bowel routines. ? Blood in your stool. How is this diagnosed? This condition is diagnosed based on: ? Your medical history. ? A physical exam. ? Tests to make sure there is nothing else causing your condition. These tests may include: ? Blood tests. ? Urine tests. ? CT scan of the abdomen. How is this treated? Most cases of this condition are mild and can be treated at home. Treatment may include: ? Taking wmiq-cij-jchyqnb pain medicines. ? Following a clear liquid diet. ? Taking antibiotic medicines by mouth. ? Resting. More severe cases may need to be treated at a hospital. Treatment may include: ? Not eating or drinking. ? Taking prescription pain medicine. ? Receiving antibiotic medicines through an IV. ? Receiving fluids and nutrition through an IV. ? Surgery. When your condition is under control, your health care provider may recommend that you have a colonoscopy. This is an exam to look at the entire large intestine. During the exam, a lubricated, bendable tube is inserted into the anus and then passed into the rectum, colon, and other parts of the large intestine. A colonoscopy can show how severe your diverticula are and whether something else may be causing your symptoms. Follow these instructions at home: Medicines ? Take ewml-pmb-wtutwur and prescription medicines only as told by your health care provider. These include fiber supplements, probiotics, and stool softeners. ? If you were prescribed an antibiotic medicine, take it as told by your health care provider. Do notstop taking the antibiotic even if you start to feel better. ? Ask your health care provider if the medicine prescribed to you requires you to avoid driving or using machinery. Eating and drinking ? Follow a full liquid diet or another diet as directed by your health care provider. ? After your symptoms improve, your health care provider may tell you to change your diet. He or she may recommend that you eat a diet that contains at least 25 grams (25 g) of fiber daily. Fiber makesit easier to pass stool. Healthy sources of fiber include: ? Berries. One cup contains 4???8 grams of fiber. ? Beans or lentils. One-half cup contains 5???8 grams of fiber. ? Green vegetables. One cup contains 4 grams of fiber. ? Avoid eating red meat. General instructions ? Do not use any products that contain nicotine or tobacco, such as cigarettes, e- cigarettes, and chewing tobacco. If you need help quitting, ask your health care provider. ? Exercise for at least 30 minutes, 3 times each week. You should exercise hard enough to raise your heart rate and break a sweat. ? Keep all follow-up visits as told by your health care provider. This is important. You may need to have a colonoscopy. Contact a health care provider if: ? Your pain does not improve. ? Your bowel movements do not return to normal. Get help right away if: ? Your pain gets worse. ? Your symptoms do not get better with treatment. ? Your symptoms suddenly get worse. ? You have a fever. ? You vomit more than one time. ? You have stools that are bloody, black, or tarry. Summary ? Diverticulitis is infection or inflammation of small pouches (diverticula) in the colon that form due to a condition called diverticulosis. Diverticula can trap stool (feces) and bacteria, causing infection and inflammation. ? You are at higher risk for this condition if you have diverticulosis and you eat a diet that does not include enough fiber. ? Most cases of this condition are mild and can be treated at home. More severe cases may need to be treated at a hospital. ? When your condition is under control, your health care provider may recommend that you have an examcalled a colonoscopy. This exam can show how severe your diverticula are and whether something elsemay be causing your symptoms. ? Keep all follow-up visits as told by your health care provider. This is important. This information is not intended to replace advice given to you by your health care provider. Make sure you discuss any questions you have with your health care provider. Document Revised: 03/02/2020 Document Reviewed: 03/02/2020 Elsevier Patient Education ?? 2021 [employer] Tests Performed Radiology CT Abdomen and Pelvis w/ Contrast 05/30/2022 10:41 EST Medications and Immunizations Administered Given acetaminophen, 1000 mg, IV Piggyback Lab Test Name Test Result Date/Time WBC 16.0 K/mcL 05/30/2022 08:34 EST RBC 4.37 Million/mcL 05/30/2022 08:34 EST Hgb 13.8 g/dL 05/30/2022 08:34 EST Hct 41.8 % 05/30/2022 08:34 EST MCV 95.7 fL 05/30/2022 08:34 EST MCH 31.6 pg 05/30/2022 08:34 EST MCHC 33.0 g/dL 05/30/2022 08:34 EST RDW-CV 12.3 % 05/30/2022 08:34 EST Platelets 285 K/mcL 05/30/2022 08:34 EST MPV 9.8 fL 05/30/2022 08:34 EST Neutro Auto 77.5 % 05/30/2022 08:34 EST Lymph Auto 14.5 % 05/30/2022 08:34 EST [place] Auto 7.1 % 05/30/2022 08:34 EST Eos, Auto 0.30 % 05/30/2022 08:34 EST Basophil Auto 0.2 % 05/30/2022 08:34 EST Imm Gran Auto 0.4 % 05/30/2022 08:34 EST Neutro Absolute 12.4 K/mcL 05/30/2022 08:34 EST Lymph Absolute 2.3 K/mcL 05/30/2022 08:34 EST [place] Absolute 1.1 K/mcL 05/30/2022 08:34 EST Eos Absolute 0.0 K/mcL 05/30/2022 08:34 EST Baso Absolute 0.0 K/mcL 05/30/2022 08:34 EST Imm Gran Absolute 0.07 05/30/2022 08:34 EST Sodium Level 134 mmol/L 05/30/2022 08:34 EST Potassium Level 4.4 mmol/L 05/30/2022 08:34 EST Chloride Level 97 mmol/L 05/30/2022 08:34 EST CO2 25 mmol/L 05/30/2022 08:34 EST Alk Phos 87 IntlUnit/L 05/30/2022 08:34 EST AST 34 IntlUnit/L 05/30/2022 08:34 EST ALT 35 IntlUnit/L 05/30/2022 08:34 EST BUN 25 mg/dL 05/30/2022 08:34 EST Glucose Level 191 mg/dL 05/30/2022 08:34 EST Creatinine Level 0.99 mg/dL 05/30/2022 08:34 EST BUN/Creat Ratio 25.3 05/30/2022 08:34 EST eGFR AA 57 05/30/2022 08:34 EST eGFR Non-AA 57 05/30/2022 08:34 EST Calcium Level 9.4 mg/dL 05/30/2022 08:34 EST Protein Total 7.4 g/dL 05/30/2022 08:34 EST Albumin Level 3.4 g/dL 05/30/2022 08:34 EST Globulin 4.0 05/30/2022 08:34 EST A/G Ratio 0.8 05/30/2022 08:34 EST Bilirubin Total 0.9 mg/dL 05/30/2022 08:34 EST Anion Gap 12.0 05/30/2022 08:34 EST Osmolality 278 mOsm/kg 05/30/2022 08:34 EST Patient/Mine Safety Engineer Signature Patient Name:MICHELLE HOLLEY I have received this information and my questions have been answered. Patient/Mine Safety Engineer Name: Patient/Mine Safety Engineer Signature: Relationship to Patient: Witness Name/Signature: Date: Electronically Signed on: 05/30/2022 10:57 ESTSigned by:ALISSA CT Abdomen and Pelvis W contrast IV * Mick Gomez MD: VERIFY, VERIFY Event Display: Report PROCEDURE INFORMATION: Exam: CT Abdomen And Pelvis With Contrast Exam date and time: 05/30/2022 9:47 AM Age: 81 years old Clinical indication: Patient HX: PT C/O constipation & left-sided pain, PT only having small diarrhea 4-5times a day; Additional info: Abdominal pain TECHNIQUE: Imaging protocol: Computed tomography of the abdomen and pelvis with contrast. Radiation optimization: All CT scans at this facility use at least one of these dose optimization techniques: automated exposure control; mA and/or kV adjustment per patient size (includes targeted exams where dose is matched to clinical indication); or iterative reconstruction. Contrast material: [id number]; Contrast volume: 100 ml; Contrast route: INTRAVENOUS (IV); COMPARISON: CT ABD/PELVIS WO CONTRAST 03/28/2020 10:48 AM FINDINGS: Lungs: Mild atelectasis within the lung bases Pleural spaces: Pleural calcifications right hemithorax Liver: Mild nodularity of the liver is present. Correlate regarding risk factors for hepatocellular disease. Gallbladder and bile ducts: Normal. No calcified stones. No ductal dilation. Pancreas: Normal. No ductal dilation. Spleen: Normal. No splenomegaly. Adrenal glands: Normal. No mass. Kidneys and ureters: Mild prominence of the collecting system bilaterally. No obstructing calculus. Stomach and bowel: Periampullary diverticulum. Large amount of stool throughout the large bowel. Appendix: The appendix is not visualized. Intraperitoneal space: Unremarkable. No free air. No significant fluid collection. Vasculature: Calcification of the aorta. Lymph nodes: Unremarkable. No enlarged lymph nodes. Urinary bladder: Unremarkable as visualized. Reproductive: Unremarkable as visualized. Bones/joints: Degenerative changes are present within the spine. Soft tissues: Inflammatory changes, rather extensive, in the soft tissues of the pelvis with a thickened sigmoid colon. Numerous diverticula. Diverticulitis.
--- OUTSIDE RECORDS SUMMARY | 2023-04-19 15:52 | XMS_ITS | Continuity of Care Document ---
Author Name Unknown Organization [facility] Ambulatory [facility] Address [address] [place] [address] Care Team Providers Care Summer Law Associate Name Role Phone Wilmar Licea DO Primary Care Physician [phone] Encounter [facility] NBR [id number] Date(s): 01/16/23 - 01/16/23 [facility] [address] [place], [place] [address] Encounter Diagnosis Tick bite of left ear(Discharge Diagnosis) - 01/13/23 Bitten or stung by nonvenomous insect and other nonvenomous arthropods, initial encounter(Discharge Diagnosis) - 01/13/23 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) - 01/16/23 Skin lesion of left ear(Discharge Diagnosis) - 01/16/23 Encounter for follow-up examination after completed treatment for conditions other than malignant neoplasm(Final) - Insect bite (nonvenomous) of left ear, subsequent encounter(Final) - Bitten or stung by nonvenomous insect and other nonvenomous arthropods, subsequent encounter(Final) - Disorder of left external ear, unspecified(Final) - Unspecified hearing loss, right ear(Final) - Other [facility] (current) drug therapy(Final) - Discharge Disposition: Home or Self Care Attending Physician: Lamar Lemon MD Allergies, Adverse Reactions, Alerts Substance Reaction Severity Status Adhesive Bandage Rash Moderate Active Bee Stings Unknown Unknown Active copper containing compounds Rash Mild Active Dust Unknown Active Assessment and Plan Future Appointments Functional Status 01/16/23 Other exposure to Infectious Disease Non e Immunizations Given and Recorded Vaccine Date Status Refusal Reason pneumococcal 13-valent conjugate vaccine 1 08/27/21 Recorded pneumococcal 13-valent conjugate vaccine 2 09/28/15 Recorded SARS-CoV-2 (COVID-19) mRNA-1273 vaccine 3 04/09/21 Recorded zoster vaccine, inactivated 12/3/20 Recorded zoster vaccine, inactivated 4 02/20/20 Recorded influenza, unspecified formulation 5 03/19/20 Marcello rded influenza virus vaccine, inactivated 03/19/19 Marcello rded tetanus/diphth/pertuss (Tdap) adult/adol 09/28/15 Recorded zoster vaccine live 6 10/02/12 Recorded pneumococcal 23-polyvalent vaccine 7 09/27/12 Marcello rded pneumococcal 23-polyvalent vaccine 8 07/21/05 Marcello rded Novel [id number], all formulation 9 06/03/09 Recorded Td(adult) unspecified formulation 11/04/08 Recorde d 1Result Comment: Unit: Unknown 2Result Comment: Unit: Unknown 3Result Comment: Unit: Unknown 4Result Comment: Unit: Unknown 5Result Comment: Unit: Unknown Health Unit Supervisor: yuilop SL 6Result Comment: Unit: Unknown 7Result Comment: Unit: Unknown 8Result Comment: Unit: Unknown 9Result Comment: Unit: Unknown Medications amLODIPine 10 mg oral tablet 10 mg = 1 tab, Oral, Daily, # 90 tab, 3 Refill(s), Pharmacy: [id number], 162.56, cm, 07/15/22 17:52:00 EST, [...] cholesterol, # 90 tab, 0 Refill(s), Pharmacy: [id number], 162.56, cm, 07/15/22 17:52:00 EST, Height/Length Dosing, 95.71, kg, 07/15/22 17:52:00 EST, Weight Dosing Start Date: 10/18/22 Status: Ordered Bd Pen Needle/Milena/Ultra-Fine/32g X 4mm Mis Embe Bd Pen Needle/Milena/Ultra-Fine/32g X 4mm Mis Embe, See Instructions, use one needle once daily, # 100 unknown unit, 3 Refill(s), Pharmacy: [id number], E11.9, KX, 165.1, cm, 10/26/22 [...] daily, # 90 tab, 3 Refill(s), Pharmacy: [id number], 162.56, cm, 07/15/22 17:52:00 EST, [...] Daily, # 90 cap, 3 Refill(s), Pharmacy: [id number], 162.56, cm, 07/15/22 17:52:00 EST, [...] min, # 4,000 mL, 0 Refill(s), Pharmacy: [id number], 163, cm, 06/11/22 9:55:00 EST, Height/Length Dosing, 93.89, kg, 06/11/22 9:55:00 EST, Weight Dosing Start Date: 07/12/22 Stop Date: 07/13/22 Status: Ordered lactulose 10 g/15 mL oral syrup See Instructions, PRN as needed for constipation, 15-30 mL Oral Daily 30 days, # 500 mL, 3 Refill(s), Pharmacy: [facility], 163, cm, 06/11/22 9:55:00 EST, Height/Length Dosing, 93.89, kg,06/11/22 9:55:00 EST, Weight Dosing Start Date: 06/24/22 Status: Ordered Lantus Solostar Pen 100 units/mL subcutaneous solution 28 units, Subcutaneous, Daily, # 3 mL, 0 Refill(s) Start Date: 10/24/22 Status: Ordered lisinopril 40 mg oral tablet 40 mg = 1 tab, Oral, every evening, # 90 tab, 3 Refill(s), Pharmacy: [id number], 163, cm, 06/11/22 9:55:00 EST, Height/Length Dosing, 93.89, kg, 06/11/22 9:55:00 EST, Weight Dosing Start Date: 07/11/22 Stop Date: 07/06/23 Status: Ordered MetFORMIN (Eqv-Glucophage XR) 500 mg oral tablet, extended release See Instructions, TAKE ONE TABLET BY MOUTH TWICE DAILY, # 180 tab, 3 Refill(s), Pharmacy: [id number], 162.56, cm, 07/15/22 17:52:00 EST, [...] Date: 09/03/22 Status: Ordered PEN NEEDLES MIS [id number] PEN NEEDLES MIS [id number], See Instructions, BID with insulin, 0 Refill(s) [...] 1 Temperature Tympanic [36.6-37.9 Deg C] 3 6.7 Deg C (01/16/23 9:45 AM) Peripheral Pulse Rate [60-100 bpm] 64 bp m (01/16/23 9:45 AM) Respiratory Rate [12-24 br/min] 20 br/mi n (01/16/23 9:45 AM) Blood Pressure [90-140/60-90 mmHg] 128/7 2mmHg (01/16/23 9:45 AM) Weight 93.4 kg (01/16/23 9:45 AM) Weight Measured (lbs) 205.912 lb (01/16/23 9:45 AM) Social History Social History Type Response Tobacco Never tobacco user T obacco Use:. Sex Physician Outpatient Note * Lamar Lemon MD: PERFORM Event Display: Office Clinic Note Physician Authored Date: [id number] MICHELLE HOLLEY :1940 Age:82 years Sex:Female Visit Date:01/16/2023 Primary Care Physician: Wilmar Licea, DO Chief Complaint F/U tick bite above left ear, seen in ED Has a sore??on her left??ear that has been bothering her for a couple??months, but doesn't think it's related to the tick bite History of Present Illness Presents for ER follow-up. Seen in [facility] ER 01/12 for tick bite of her??left ear, given doxycycline 200 mg x1. She notes all over the weekend her left ear, scalp, and neck were itchy and swollen, but this is starting to get better. She had a bee sting on her left 2nd finger yesterday - used topical Benadryl and this has improved.She enjoys getting out in her garden - had been picking raspberries at the time of the bee sting sochose to keep picking them rather than going inside to apply ice. Did not have a severe allergic reaction at any point. Unrelated, for at least??the past month, she had had a sore on her left ear.??Has been using topical Neosporin on this without relief - she presumed this was an infection due to her diabetes (A1c 6.9% in 09/2022). She has been struggling to sleep, because she usually sleeps on her left side, and could not get comfortable to fall asleep (but would not wake her from sleep). She has chronic memory impairment, but notes she can remember and recite poems, etc. Uses a medication organizer. Review of Systems as per HPI Physical Exam Vitals & Measurements T:??36.7?C ??(Tympanic)?? HR:??64??(Peripheral)?? RR:??20?? BP:??128/72?? SpO2:??94%?? WT:??93.4??kg?? Gen: obese, well-appearing, in no acute distress, ambulates independently and steadily ENT: right ear deafness with post-op appearance of TM, left ear hearing reduced, left TM normal (scant, non-obstructive wax). Edentulous, full dentures. Neck: multiple enlarged and slightly tender lymph nodes in left anterior chain. Tenderness at rightangle of mandible. CV: regular rate and rhythm, no murmurs Resp: normal respiratory effort, lungs clear to auscultation bilaterally Skin: healing but still inflamed tick bite on scalp above left ear (under glasses), without discharge or spreading redness. Ulcerated lesion on middle of left external ear/pinna, tender to touch. Psych/MSE: attentive,??normal mood, appropriate affect Assessment/Plan 1.??Tick bite of left ear??S00.462A given doxycycline 200 mg x1 in ER / advised monitoring for Lyme symptoms (fever, malaise, joint pain, rash) - if developing any Lyme symptoms in the next 6 weeks,??would treat with doxycycline x14 days??and also test for Lyme 2.??Bitten or stung by nonvenomous insect and other nonvenomous arthropods, initial encounter??W57.XXXA bite site is healing, and itching and lymphadenopathy have already noticeably improved per patient 3.??Skin lesion of left ear??H61.92 painful lesion for at least 1 month, not healing, not improving with Neosporin concerning appearance for SCC of antihelix of mid left ear referral to ENT/plastic surgery for excision use Tylenol 500 mg + Tylenol PM together at bedtime to help manage pain (which is mainly when she is lying on her left side trying to get to sleep, otherwise only hurts when pressed) 4.??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 Concern for SCC, requesting evaluation and removal., Type: Evaluate and Treat, Start: 01/16/23, Urgent, Instructions: THUY - possible skin cancer on... Problem List/Past Medical History Ongoing Anal fissure [...] ischemic left MCA stroke Insomnia Kidney disease Long-term current use of insulin Lumbar post-laminectomy [...] hyperglycemia Vitamin D deficiency Word finding difficulty Procedure/Surgical History ???Colonoscopy Biopsy (11/02/2022)???Colonoscopy (01/21/2019)???Back class???Bladder [...] Oxygen Therapy, See instructions PEN NEEDLES MIS [id number], See Instructions ProAir HFA 90 mcg/inh inhalation [...] formulation 03/19/2020 Recorded Comments : Unit: Unknown Health Unit Supervisor: [employer] zoster vaccine, inactivated 02/20/2020 Recorded Comments : Unit: Unknown influenza virus vaccine, inactivated 03/19/2019 Recorded tetanus/diphth/pertuss (Tdap) adult/adol 09/28/2015 Recorded pneumococcal 13-valent conjugate vaccine 09/28/2015 Recorded Comments : Unit: Unknown zoster vaccine live 10/02/2012 Recorded Comments : Unit: Unknown pneumococcal 23-polyvalent vaccine 09/27/2012 Recorded Comments : Unit: Unknown Novel [id number], all formulation 06/03/2009 Recorded Comments : Unit: Unknown Td(adult) unspecified formulation 11/04/2008 Recorded pneumococcal 23-polyvalent vaccine 07/21/2005 Recorded Comments : Unit: Unknown Electronically Signed on 01/16/23 10:33 AM Lamar Lemon MD Patient Care team information Care Team Personnel Name: Wilmar Licea DO Position: Physician Member Role: Primary Care Physician Address: Address: [address] [place] [id number] [place] Care Team Related Persons Name: DAVE DOWNING Address: Home
--- OUTSIDE RECORDS SUMMARY | 2023-04-19 15:52 | XMS_ITS | Continuity of Care Document ---
Author Name Unknown Organization [facility] Address [address] [place] [address] Care Team Providers Care Inseamer Name Role Phone GrabieloliviaBianca Primary Care Physician Encounter [id number] [facility] NBR [id number] Date(s): 11/02/22 - 11/02/[address] [address]- Encounter Diagnosis Hematochezia(Discharge Diagnosis) - 11/02/22 History of diverticulitis(Discharge Diagnosis) - 11/02/22 Discharge Disposition: Home or Self Care Attending Physician: Maximino Zhao MD Admitting Physician: Maximino Zhao MD Referring Physician: Maximino Zhao MD Allergies, Adverse Reactions, Alerts Substance Reaction Severity Status Adhesive Bandage Rash Moderate Active Bee Stings Unknown Unknown Active copper containing compounds Rash Mild Active Dust Unknown Active Assessment and Plan Future Appointments Functional Status 11/02/22 ADLs Independent Family Member Travel History No recent t ravel Recent Travel History No recent travel Other exposure to Infectious Disease Non e 10/26/22 Living Situation Home independently Immunizations Given and Recorded Vaccine Date Status [...] 23-polyvalent vaccine 8 07/21/05 Marcello rded Novel [id number], all formulation 9 06/03/09 Recorded Td(adult) unspecified formulation 11/04/08 Recorde d 1Result Comment: Unit: Unknown 2Result Comment: Unit: Unknown 3Result Comment: Unit: Unknown 4Result Comment: Unit: Unknown 5Result Comment: Unit: Unknown 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 6Result Comment: Unit: Unknown 7Result Comment: Unit: Unknown 8Result Comment: Unit: Unknown 9Result Comment: Unit: Unknown Medications amLODIPine 10 mg oral tablet 10 mg = 1 tab, Oral, Daily, # 90 tab, 3 Refill(s), Pharmacy: [facility] #[id number], 162.56, cm, 07/15/22 17:52:00 EST, Height/Length Dosing, 95.71, kg, 07/15/22 17:52:00 EST, Weight Dosing Start Date: 08/18/22 Stop Date: 08/13/23 Status: Ordered amoxicillin 0 Refill(s) Start Date: 10/26/22 Status: Ordered aspirin 81 mg oral delayed [...] cholesterol, # 90 tab, 0 Refill(s), Pharmacy: [facility] #[id number], 162.56, cm, 07/15/22 17:52:00 EST, Height/Length Dosing, 95.71, kg, 07/15/22 17:52:00 EST, Weight Dosing Start Date: 10/18/22 Status: Ordered Centrum Silver oral tablet 1 tab, Oral, Daily, # 90 tab, 0 Refill(s) Start Date: 09/03/22 Stop Date: 12/02/22 Status: Ordered clopidogrel 75 mg oral tablet See Instructions, take one tablet by mouth one time daily, # 90 tab, 3 Refill(s), Pharmacy: [facility] #[id number], 162.56, cm, 07/15/22 17:52:00 EST, [...] Daily, # 90 cap, 3 Refill(s), Pharmacy: [facility] #[id number], 162.56, cm, 07/15/22 17:52:00 EST, [...] min, # 4,000 mL, 0 Refill(s), Pharmacy: [facility] #[id number], 163, cm, 06/11/22 9:55:00 EST, Height/Length Dosing, 93.89, kg, 06/11/22 9:55:00 EST, Weight Dosing Start Date: 07/12/22 Stop Date: 07/13/22 Status: Ordered lactulose 10 g/15 mL oral syrup See Instructions, PRN as needed for constipation, 15-30 mL Oral Daily 30 days, # 500 mL, 3 Refill(s), Pharmacy: [facility], 163, cm, 06/11/22 9:55:00 EST, Height/Length Dosing, 93.89, kg,06/11/22 9:55:00 EST, Weight Dosing Start Date: 06/24/22 Status: Ordered Lantus Solostar Pen 100 units/mL subcutaneous solution 28 units, Subcutaneous, Daily, # 3 mL, 0 Refill(s) Start Date: 10/24/22 Status: Ordered lisinopril 40 mg oral tablet 40 mg = 1 tab, Oral, every evening, # 90 tab, 3 Refill(s), Pharmacy: [facility] #[id number], 163, cm, 06/11/22 9:55:00 EST, Height/Length Dosing, 93.89, kg, 06/11/22 9:55:00 EST, Weight Dosing Start Date: 07/11/22 Stop Date: 07/06/23 Status: Ordered MetFORMIN (Eqv-Glucophage XR) 500 mg oral tablet, extended release See Instructions, TAKE ONE TABLET BY MOUTH TWICE DAILY , # 180 tab, 3 Refill(s), Pharmacy: [facility] #[id number], 162.56, cm, 07/15/22 17:52:00 EST, [...] Date: 09/03/22 Status: Ordered PEN NEEDLES MIS [id number] PEN NEEDLES MIS [id number], See Instructions, BID with insulin, 0 Refill(s) [...] Active Depression Confirmed Active Diverticulitis Confirmed Active Dyspnea on exertion 1 Confirmed Active Other fatigue Confirmed Active H/O: [...] 3 Temperature Temporal Artery [36-38 Deg C] 36.3 Deg C (11/02/22 9:00 AM) 36.3 Deg C (11/02/22 8:26 AM) 36.4 Deg C (11/02/22 6:57 AM) Temperature Temporal Artery (DegF) [97.3-100 Deg F] 97.34 Deg F (11/02/22 8:26 AM) Peripheral Pulse Rate [60-100 bpm] 57 bpm *LOW* (11/02/22 9:00 AM) 63 bpm (11/02/22 8:49 AM) 68 bpm (11/02/22 8:34 AM) Heart Rate Monitored [60-100 bpm] 68 bpm (11/02/22 6:57 AM) Respiratory Rate [12-24 br/min] 16 br/min (11/02/22 6:57 AM) Blood Pressure [90-140/60-90 mmHg] 135/94mmHg (11/02/22 9:00 AM) 176/67mmHg *HI* (11/02/22 8:49 AM) 137/68mmHg (11/02/22 8:34 AM) Mean Arterial Pressure, Cuff [65-140 mmHg] 108 mmHg (11/02/22 9:00 AM) 103 mmHg (11/02/22 8:49 AM) 91 mmHg (11/02/22 8:34 AM) Mean Arterial Pressure Cuff 104 mmHg (11/02/22 9:00 AM) 87 mmHg (11/02/22 8:34 AM) 90 mmHg (11/02/22 8:26 AM) Weight 93.440 kg (10/26/22 9:32 AM) Weight Dosing 93.440 kg (10/26/22 9:32 AM) Weight Estimated 95.71 kg (10/26/22 9:32 AM) Height 165.100 cm (10/26/22 9:32 AM) Height/Length Dosing 165.100 cm (10/26/22 9:32 AM) Social History Social History Type Response Tobacco Never tobacco user T obacco Use:. Sex Hospital Discharge Instructions Patient Education 11/02/2022 07:28:56 Anal Fissure, Adult Anal Fissure, Adult An anal fissure is a small tear or crack in the tissue of the anus. Bleeding from a fissure usuallystops on its own within a few minutes. However, bleeding will often occur again with each bowel movement until the fissure heals. What are the causes? This condition is usually caused by passing a large or hard stool (feces). Other causes include: ??? Constipation. ??? Frequent diarrhea. ??? Inflammatory bowel disease (Crohn's disease or ulcerative colitis). ??? Childbirth. ??? Infections. ??? Anal sex. What are the signs or symptoms? Symptoms of this condition include: ??? Bleeding from the rectum. ??? Small amounts of blood seen on your stool, on the toilet paper, or in the toilet after a bowel movement. The blood coats the outside of the stool and is not mixed with the stool. ??? Painful bowel movements. ??? Itching or irritation around the anus. How is this diagnosed? A health care provider may diagnose this condition by closely examining the anal area. An anal fissure can usually be seen with careful inspection. In some cases, a rectal exam may be performed, or ashort tube (anoscope) may be used to examine the anal canal. How is this treated? Initial treatment for this condition may include: ??? Taking steps to avoid constipation. This may include making changes to your diet, such as increasing your intake of fiber or fluid. ??? Taking fiber supplements. These supplements can soften your stool to help make bowel movements easier. Your health care provider may also prescribe a stool softener if your stool is hard. ??? Taking sitz baths. This may help to heal the tear. ??? Using medicated creams or ointments. These may be prescribed to lessen discomfort. Treatments that are sometimes used if initial treatments do not work well or if the condition is more severe may include: ??? Botulinum injection. ??? Surgery to repair the fissure. Follow these instructions at home: Eating and drinking ??? Avoid foods that may cause constipation, such as bananas, milk, and other dairy products. ??? Eat all fruits, except bananas. ??? Drink enough fluid to keep your urine pale yellow. ??? Eat foods that are high in fiber, such as beans, whole grains, and fresh fruits and vegetables. General instructions ??? Take sqen-hor-mghliov and prescription medicines only as told by your health care provider. ??? Use creams or ointments only as told by your health care provider. ??? Keep the anal area clean and dry. ??? Take sitz baths as told by your health care provider. Do not use soap in the sitz baths. ??? Keep all follow-up visits as told by your health care provider. This is important. Contact a health care provider if you have: ??? More bleeding. ??? A fever. ??? Diarrhea that is mixed with blood. ??? Pain that continues. ??? Ongoing problems that are getting worse rather than better. Summary ??? An anal fissure is a small tear or crack in the tissue of the anus. This condition is usually caused by passing a large or hard stool (feces). Other causes include constipation and frequent diarrhea. ??? Initial treatment for this condition may include taking steps to avoid constipation, such as increasing your intake of fiber or fluid. ??? Follow instructions for care as told by your health care provider. ??? Contact your health care provider if you have more bleeding or your problem is getting worse rather than better. ??? Keep all follow-up visits as told by your health care provider. This is important. This information is not intended to replace advice given to you by your health care provider. Make sure you discuss any questions you have with your health care provider. Document Revised: 11/01/2018 Document Reviewed: 11/01/2018 ensembli Patient Education ?? 2021 [facility]. 11/02/2022 07:28:54 Diverticulosis Diverticulosis Diverticulosis is a condition that develops when small pouches (diverticula) form in the wall of the large intestine (colon). The colon is where water is absorbed and stool (feces) is formed. The pouches form when the inside layer of the colon pushes through weak spots in the outer layers of the colon. You may have a few pouches or many of them. The pouches usually do not cause problems unless they become inflamed or infected. When this happens, the condition is called diverticulitis. What are the causes? The cause of this condition is not known. What increases the risk? The following factors may make you more likely to develop this condition: ??? Being older than age 60. Your risk for this condition increases with age. Diverticulosis is rare among people younger than age 30. By age 80, many people have it. ??? Eating a low-fiber diet. ??? Having frequent constipation. ??? Being overweight. ??? Not getting enough exercise. ??? Smoking. ??? Taking qsnn-qkl-xpyjcmp pain medicines, like aspirin and ibuprofen. ??? Having a family history of diverticulosis. What are the signs or symptoms? In most people, there are no symptoms of this condition. If you do have symptoms, they may include: ??? Bloating. ??? Cramps in the abdomen. ??? Constipation or diarrhea. ??? Pain in the lower left side of the abdomen. How is this diagnosed? Because diverticulosis usually has no symptoms, it is most often diagnosed during an exam for othercolon problems. The condition may be diagnosed by: ??? Using a flexible scope to examine the colon (colonoscopy). ??? Taking an X-ray of the colon after dye has been put into the colon (barium enema). ??? Having a CT scan. How is this treated? You may not need treatment for this condition. Your health care provider may recommend treatment toprevent problems. You may need treatment if you have symptoms or if you previously had diverticulitis. Treatment may include: ??? Eating a high-fiber diet. ??? Taking a fiber supplement. ??? Taking a live bacteria supplement (probiotic). ??? Taking medicine to relax your colon. Follow these instructions at home: Medicines ??? Take pzas-aep-dqusksr and prescription medicines only as told by your health care provider. ??? If told by your health care provider, take a fiber supplement or probiotic. Constipation prevention Your condition may cause constipation. To prevent or treat constipation, you may need to: ??? Drink enough fluid to keep your urine pale yellow. ??? Take rfxd-veu-dnzgmfe or prescription medicines. ??? Eat foods that are high in fiber, such as beans, whole grains, and fresh fruits and vegetables. ??? Limit foods that are high in fat and processed sugars, such as fried or sweet foods. General instructions ??? Try not to strain when you have a bowel movement. ??? Keep all follow-up visits as told by your health care provider. This is important. Contact a health care provider if you: ??? Have pain in your abdomen. ??? Have bloating. ??? Have cramps. ??? Have not had a bowel movement in 3 days. Get help right away if: ??? Your pain gets worse. ??? Your bloating becomes very bad. ??? You have a fever or chills, and your symptoms suddenly get worse. ??? You vomit. ??? You have bowel movements that are bloody or black. ??? You have bleeding from your rectum. Summary ??? Diverticulosis is a condition that develops when small pouches (diverticula) form in the wall of the large intestine (colon). ??? You may have a few pouches or many of them. ??? This condition is most often diagnosed during an exam for other colon problems. ??? Treatment may include increasing the fiber in your diet, taking supplements, or taking medicines. This information is not intended to replace advice given to you by your health care provider. Make sure you discuss any questions you have with your health care provider. Document Revised: 12/19/2019 Document Reviewed: 12/19/2019 ensembli Patient Education ?? 2021 [facility]. 11/02/2022 07:28:53 Colon Polyps Colon Polyps Colon polyps are tissue growths inside the colon, which is part of the large intestine. They are one of the types of polyps that can grow in the body. A polyp may be a round bump or a mushroom-shapedgrowth. You could have one polyp or more than one. Most colon polyps are noncancerous (benign). However, some colon polyps can become cancerous over time. Finding and removing the polyps early can help prevent this. What are the causes? The exact cause of colon polyps is not known. What increases the risk? The following factors may make you more likely to develop this condition: ??? Having a family history of colorectal cancer or colon polyps. ??? Being older than 45 years of age. ??? Being younger than 45 years of age and having a significant family history of colorectal canceror colon polyps or a genetic condition that puts you at higher risk of getting colon polyps. ??? Having inflammatory bowel disease, such as ulcerative colitis or Crohn's disease. ??? Having certain conditions passed from parent to child (hereditary conditions), such as: ??? Familial adenomatous polyposis (FAP). ??? Khalil syndrome. ??? Turcot syndrome. ??? Peutz???Jeghers syndrome. ??? MUTYH-associated polyposis (MAP). ??? Being overweight. ??? Certain lifestyle factors. These include smoking cigarettes, drinking too much alcohol, not getting enough exercise, and eating a diet that is high in fat and red meat and low in fiber. ??? Having had childhood cancer that was treated with radiation of the abdomen. What are the signs or symptoms? Many times, there are no symptoms. If you have symptoms, they may include: ??? Blood coming from the rectum during a bowel movement. ??? Blood in the stool (feces). The blood may be bright red or very dark in color. ??? Pain in the abdomen. ??? A change in bowel habits, such as constipation or diarrhea. How is this diagnosed? This condition is diagnosed with a colonoscopy. This is a procedure in which a lighted, flexible scope is inserted into the opening between the buttocks (anus) and then passed into the colon to examine the area. Polyps are sometimes found when a colonoscopy is done as part of routine cancer screening tests. How is this treated? This condition is treated by removing any polyps that are found. Most polyps can be removed during a colonoscopy. Those polyps will then be tested for cancer. Additional treatment may be needed depending on the results of testing. Follow these instructions at home: Eating and drinking ??? Eat foods that are high in fiber, such as fruits, vegetables, and whole grains. ??? Eat foods that are high in calcium and vitamin D, such as milk, cheese, yogurt, eggs, liver, fish, and broccoli. ??? Limit foods that are high in fat, such as fried foods and desserts. ??? Limit the amount of red meat, precooked or cured meat, or other processed meat that you eat, such as hot dogs, sausages, bryson, or meat loaves. ??? Limit sugary drinks. Lifestyle ??? Maintain a healthy weight, or lose weight if recommended by your health care provider. ??? Exercise every day or as told by your health care provider. ??? Do not use any products that contain nicotine or tobacco, such as cigarettes, e-cigarettes, andchewing tobacco. If you need help quitting, ask your health care provider. ??? Do not drink alcohol if: ??? Your health care provider tells you not to drink. ??? You are , may be , or are planning to become . ??? If you drink alcohol: ??? Limit how much you use to: ??? 0???1 drink a day for women. ??? 0???2 drinks a day for men. ??? Know how much alcohol is in your drink. In the [place] one drink equals one 12 oz bottle of beer (355 mL), one 5 oz glass of wine (148 mL), or one 1?? oz glass of hard liquor (44 mL). General instructions ??? Take gzlp-cxr-apqoeuf and prescription medicines only as told by your health care provider. ??? Keep all follow-up visits. This is important. This includes having regularly scheduled colonoscopies. Talk to your health care provider about when you need a colonoscopy. Contact a health care provider if: ??? You have new or worsening bleeding during a bowel movement. ??? You have new or increased blood in your stool. ??? You have a change in bowel habits. ??? You lose weight for no known reason. Summary ??? Colon polyps are tissue growths inside the colon, which is part of the large intestine. They are one type of polyp that can grow in the body. ??? Most colon polyps are noncancerous (benign), but some can become cancerous over time. ??? This condition is diagnosed with a colonoscopy. ??? This condition is treated by removing any polyps that are found. Most polyps can be removed during a colonoscopy. This information is not intended to replace advice given to you by your health care provider. Make sure you discuss any questions you have with your health care provider. Document Revised: 09/09/2020 Document Reviewed: 09/09/2020 ensembli Patient Education ?? 2021 [facility]. 11/02/2022 07:28:51 Colonoscopy, Adult, Care After Colonoscopy, Adult, Care After This sheet gives you information about how to care for yourself after your procedure. Your health care provider may also give you more specific instructions. If you have problems or questions, contact your health care provider. What can I expect after the procedure? After the procedure, it is common to have: ??? A small amount of blood in your stool for 24 hours after the procedure. ??? Some gas. ??? Mild cramping or bloating of your abdomen. Follow these instructions at home: Eating and drinking ??? Drink enough fluid to keep your urine pale yellow. ??? Follow instructions from your health care provider about eating or drinking restrictions. ??? Resume your normal diet as instructed by your health care provider. Avoid heavy or fried foods that are hard to digest. Activity ??? Rest as told by your health care provider. ??? Avoid sitting for a long time without moving. Get up to take short walks every 1???2 hours. This is important to improve blood flow and breathing. Ask for help if you feel weak or unsteady. ??? Return to your normal activities as told by your health care provider. Ask your health care provider what activities are safe for you. Managing cramping and bloating ??? Try walking around when you have cramps or feel bloated. ??? Apply heat to your abdomen as told by your health care provider. Use the heat source that your health care provider recommends, such as a moist heat pack or a heating pad. ??? Place a towel between your skin and the heat source. ??? Leave the heat on for 20???30 minutes. ??? Remove the heat if your skin turns bright red. This is especially important if you are unable to feel pain, heat, or cold. You may have a greater risk of getting burned. General instructions ??? If you were given a sedative during the procedure, it can affect you for several hours. Do not drive or operate machinery until your health care provider says that it is safe. ??? For the first 24 hours after the procedure: ??? Do not sign important documents. ??? Do not drink alcohol. ??? Do your regular daily activities at a slower pace than normal. ??? Eat soft foods that are easy to digest. ??? Take nqqg-rso-jcoftzq and prescription medicines only as told by your health care provider. ??? Keep all follow-up visits as told by your health care provider. This is important. Contact a health care provider if: ??? You have blood in your stool 2???3 days after the procedure. Get help right away if you have: ??? More than a small spotting of blood in your stool. ??? Large blood clots in your stool. ??? Swelling of your abdomen. ??? Nausea or vomiting. ??? A fever. ??? Increasing pain in your abdomen that is not relieved with medicine. Summary ??? After the procedure, it is common to have a small amount of blood in your stool. You may also have mild cramping and bloating of your abdomen. ??? If you were given a sedative during the procedure, it can affect you for several hours. Do not drive or operate machinery until your health care provider says that it is safe. ??? Get help right away if you have a lot of blood in your stool, nausea or vomiting, a fever, or increased pain in your abdomen. This information is not intended to replace advice given to you by your health care provider. Make sure you discuss any questions you have with your health care provider. Document Revised: 05/15/2020 Document Reviewed: 12/16/2019 ensembli Patient Education ?? 2021 [facility]. Discharge instructions * Kelly De La Cruz: PERFORM Event Display: Discharge Instructions Authored Date: [id number] LEWIS STEVIE KELLY Mauricio :1940 Age:82 years Sex:Female Visit Date:11/02/2022 Primary Care Physician: [facility] Discharge Instructions We would like to thank you for allowing us to assist you with your healthcare needs. The following includes patient education materials and information regarding your injury/illness. Your Next Steps Discharge Orders Discharge Patient Instructions, You may experience some gas cramps and abdominal bloating Discharge Patient Instructions, Cramping and abdominal bloating should subside in 1 hour or so Discharge Patient Instructions, Passing gas rectally and belching is normal Discharge Patient Instructions, A light first meal may feel better in your stomach Discharge Patient Instructions, You may resume your normal activity in 24 hours Discharge Patient Instructions, It is important that a responsible adult drive you home today Discharge Patient Instructions, Do not sign any contracts, make any major decisions, or drive or operate machinery for 24 hours Discharge Patient Instructions, You should not be responsible for the care of others Discharge Patient Instructions, Avoid alcohol, tranquilizers, sleeping pills, or cold medicines for24 hours Discharge Patient Instructions, Call or come to emergency department if having unusual pain or severe abdominal pain Discharge Patient Instructions, Call or come to emergency department if vomiting blood or having black bowel movements, rectal bleeding or passing blood clots Discharge Patient Instructions, Call or come to emergency department for dizziness Discharge Patient Instructions, Call or come to emergency department chest pain, or shortness of breath Discharge Patient Instructions, Call or come to emergency department for fever greater than 100 ??F Discharge Patient Instructions, Call with any additional questions or concerns Scheduled Future Appointments Monday 10:30 AM EDT ?? Medications What How Much When Why Instructions Next Dose Changed DME RESP Oxygen Therapy (DME Oxygen Therapy) See instructions pt uses as needed for ALMARAZ@ 2lpm ?? Unchanged acetaminophen (Tylenol Extra Strength 500 mg oral tablet) 1 tab Oral (given by mouth) Every 6 hours as needed for not specified Duration: 90 Days Unchanged albuterol (ProAir HFA 90 mcg/ inh inhalation aerosol) 2 Puffs Inhale (breathe in) Every 6 hours as needed for as needed for wheezing Unchanged amLODIPine (amLODIPine 10 mg oral tablet) 1 tab Oral (given by mouth) Every day Hypertension Duration: 90 Days Unchanged amoxicillin left eyelid infection Unchanged aspirin (aspirin 81 mg oral delayed release tablet) 1 tab Oral (given by mouth) Every day as needed for stroke prevention Duration: 90 Days Unchanged atenolol (atenolol 50 mg oral tablet) 1 tab Oral (given by mouth) Every day Duration: 90 Days Unchanged atorvastatin (atorvastatin 80 mg oral tablet) See instructions take 1 tablet by mouth Once a day at supper for cholesterol ?? Unchanged clopidogrel (clopidogrel 75 mg oral tablet) See instructions take one tablet by mouth one time daily ?? Unchanged colchicine (colchicine 0.6 mg oral tablet) 1/2 tab Oral (given by mouth) Every day as needed for not specified Duration: 90 Days Unchanged DULoxetine (DULoxetine 60 mg oral delayed release capsule) 1 Capsules Oral (given by mouth) Every day Duration: 90 Days Unchanged Durable Medical Equipment for Prescription (OneTouch Delica Lanceta Fine - Miscellaneous)See instructions Unchanged Durable Medical Equipment for Prescription (OneTouch Ultra Blue - Strip) See instructions Unchanged Durable Medical Equipment for Prescription (Oxygen Therapy) See instructions 2 liters by nasal cannula continuous concentrator / ??portable gas Start Date: 2020, Notes:Dr. Alexander Dx codes : R06.81 and Z86.73 ?? Unchanged furosemide (furosemide 20 mg oral tablet) 1 tab Oral (given by mouth) 2 times a day Duration: 90 Days Unchanged gabapentin (gabapentin 400 mg oral capsule) 1 Capsules Oral (given by mouth) 3 times a day Duration: 90 Days Unchanged glucagon (Glucagon Emergency Kit for Low Blood Sugar 1 mg injection) See instructions Unchanged insulin glargine (Lantus Solostar Pen 100 units/ mL subcutaneous solution) 28 Units Subcutaneous (under the skin) Every day Unchanged lactulose (lactulose 10 g/ 15 mL oral syrup) See instructions 15-30 mL Oral Daily 30 days, As needed for as needed for constipation ?? Unchanged lisinopril (lisinopril 40 mg oral tablet) 1 tab Oral (given by mouth) Every evening Duration: 90 Days Unchanged metFORMIN (MetFORMIN (Eqv-Glucophage XR) 500 mg oral tablet, extended release) See instructions TAKE ONE TABLET BY MOUTH TWICE DAILY ?? Unchanged multivitamin with minerals (Centrum Silver oral tablet) 1 tab Oral (given by mouth) Every day Duration: 90 Days Unchanged nitroglycerin (nitroglycerin 0.3 mg sublingual tablet) See instructions Unchanged Other Prescription (ONETOUCH ULTRA STRP) See instructions Check blood glucose bid and as needed ?? Unchanged Other Prescription (PEN NEEDLES MIS [id number]) See instructions BID with insulin ?? Unchanged polyethylene glycol 3350 with electrolytes (GoLYTELY oral powder for reconstitution) 240 Milliliters Oral (given by mouth) Every 10 minutes Diverticulitis Constipation Hematochezia Change in bowel habit Duration: 1 Days Unchanged traZODone (traZODone 100 mg oral tablet) 1 tab Oral (given by mouth) Every night at bedtime Duration: 90 Days Your Summary Your Care Team Admitting Physician - Cece GENAO, Maximino Attending Physician - Maximino Zhao MD Primary Care Physician - Bianca Morris Referring Physician - Cece GENAO, Maximino Your Diagnosis Hematochezia History of diverticulitis Problems Ongoing - Any problem that you are currently receiving treatment for. Acute ischemic left MCA stroke Atypical chest pain Bilateral sensory hearing loss Carpal tunnel syndrome of right wrist Cervical spondylosis with radiculopathy Change in bowel habit Chronic kidney disease, stage 3 unspecified Chronic pain Cognitive impairment Constipation Constipation Deafness in right ear Depression Diverticulitis Dyspnea on exertion Failed back syndrome of [...] Type 2 diabetes mellitus with unspecified complications Procedures Performed ???Colonoscopy Biopsy (11/02/2022) Discharge Vitals Temperature??(Temporal Artery) 97.3 ??F (36.3 ??C) Heart Rate??(Peripheral) 63 Respiratory Rate?? 16 Blood Pressure?? 176/67?? Allergies Adhesive Bandage??(Rash) copper containing compounds??(Rash) Bee Stings??(Unknown) Dust Education Materials Anal Fissure, Adult An anal fissure is a small tear or crack in the tissue of the anus. Bleeding from a fissure usuallystops on its own within a few minutes. However, bleeding will often occur again with each bowel movement until the fissure heals. What are the causes? This condition is usually caused by passing a large or hard stool (feces). Other causes include: ? Constipation. ? Frequent diarrhea. ? Inflammatory bowel disease (Crohn's disease or ulcerative colitis). ? Childbirth. ? Infections. ? Anal sex. What are the signs or symptoms? Symptoms of this condition include: ? Bleeding from the rectum. ? Small amounts of blood seen on your stool, on the toilet paper, or in the toilet after a bowel movement. The blood coats the outside of the stool and is not mixed with the stool. ? Painful bowel movements. ? Itching or irritation around the anus. How is this diagnosed? A health care provider may diagnose this condition by closely examining the anal area. An anal fissure can usually be seen with careful inspection. In some cases, a rectal exam may be performed, or ashort tube (anoscope) may be used to examine the anal canal. How is this treated? Initial treatment for this condition may include: ? Taking steps to avoid constipation. This may include making changes to your diet, such as increasing your intake of fiber or fluid. ? Taking fiber supplements. These supplements can soften your stool to help make bowel movements easier. Your health care provider may also prescribe a stool softener if your stool is hard. ? Taking sitz baths. This may help to heal the tear. ? Using medicated creams or ointments. These may be prescribed to lessen discomfort. Treatments that are sometimes used if initial treatments do not work well or if the condition is more severe may include: ? Botulinum injection. ? Surgery to repair the fissure. Follow these instructions at home: Eating and drinking ? Avoid foods that may cause constipation, such as bananas, milk, and other dairy products. ? Eat all fruits, except bananas. ? Drink enough fluid to keep your urine pale yellow. ? Eat foods that are high in fiber, such as beans, whole grains, and fresh fruits and vegetables. General instructions ? Take ufrh-cgk-ypbpjkt and prescription medicines only as told by your health care provider. ? Use creams or ointments only as told by your health care provider. ? Keep the anal area clean and dry. ? Take sitz baths as told by your health care provider. Do not use soap in the sitz baths. ? Keep all follow-up visits as told by your health care provider. This is important. Contact a health care provider if you have: ? More bleeding. ? A fever. ? Diarrhea that is mixed with blood. ? Pain that continues. ? Ongoing problems that are getting worse rather than better. Summary ? An anal fissure is a small tear or crack in the tissue of the anus. This condition is usually caused by passing a large or hard stool (feces). Other causes include constipation and frequent diarrhea. ? Initial treatment for this condition may include taking steps to avoid constipation, such as increasing your intake of fiber or fluid. ? Follow instructions for care as told by your health care provider. ? Contact your health care provider if you have more bleeding or your problem is getting worse ratherthan better. ? Keep all follow-up visits as told by your health care provider. This is important. This information is not intended to replace advice given to you by your health care provider. Make sure you discuss any questions you have with your health care provider. Document Revised: 11/01/2018 Document Reviewed: 11/01/2018 [employer] Patient Education ?? 2021 [employer] Diverticulosis Diverticulosis is a condition that develops when small pouches (diverticula) form in the wall of the large intestine (colon). The colon is where water is absorbed and stool (feces) is formed. The pouches form when the inside layer of the colon pushes through weak spots in the outer layers of the colon. You may have a few pouches or many of them. The pouches usually do not cause problems unless they become inflamed or infected. When this happens, the condition is called diverticulitis. What are the causes? The cause of this condition is not known. What increases the risk? The following factors may make you more likely to develop this condition: ? Being older than age 60. Your risk for this condition increases with age. Diverticulosis is rare among people younger than age 30. By age 80, many people have it. ? Eating a low-fiber diet. ? Having frequent constipation. ? Being overweight. ? Not getting enough exercise. ? Smoking. ? Taking qlpg-khv-hdydopw pain medicines, like aspirin and ibuprofen. ? Having a family history of diverticulosis. What are the signs or symptoms? In most people, there are no symptoms of this condition. If you do have symptoms, they may include: ? Bloating. ? Cramps in the abdomen. ? Constipation or diarrhea. ? Pain in the lower left side of the abdomen. How is this diagnosed? Because diverticulosis usually has no symptoms, it is most often diagnosed during an exam for othercolon problems. The condition may be diagnosed by: ? Using a flexible scope to examine the colon (colonoscopy). ? Taking an X-ray of the colon after dye has been put into the colon (barium enema). ? Having a CT scan. How is this treated? You may not need treatment for this condition. Your health care provider may recommend treatment toprevent problems. You may need treatment if you have symptoms or if you previously had diverticulitis. Treatment may include: ? Eating a high-fiber diet. ? Taking a fiber supplement. ? Taking a live bacteria supplement (probiotic). ? Taking medicine to relax your colon. Follow these instructions at home: Medicines ? Take mori-dlr-tbtjsfo and prescription medicines only as told by your health care provider. ? If told by your health care provider, take a fiber supplement or probiotic. Constipation prevention Your condition may cause constipation. To prevent or treat constipation, you may need to: ? Drink enough fluid to keep your urine pale yellow. ? Take pxfi-okg-sjndcpt or prescription medicines. ? Eat foods that are high in fiber, such as beans, whole grains, and fresh fruits and vegetables. ? Limit foods that are high in fat and processed sugars, such as fried or sweet foods. General instructions ? Try not to strain when you have a bowel movement. ? Keep all follow-up visits as told by your health care provider. This is important. Contact a health care provider if you: ? Have pain in your abdomen. ? Have bloating. ? Have cramps. ? Have not had a bowel movement in 3 days. Get help right away if: ? Your pain gets worse. ? Your bloating becomes very bad. ? You have a fever or chills, and your symptoms suddenly get worse. ? You vomit. ? You have bowel movements that are bloody or black. ? You have bleeding from your rectum. Summary ? Diverticulosis is a condition that develops when small pouches (diverticula) form in the wall of the large intestine (colon). ? You may have a few pouches or many of them. ? This condition is most often diagnosed during an exam for other colon problems. ? Treatment may include increasing the fiber in your diet, taking supplements, or taking medicines. This information is not intended to replace advice given to you by your health care provider. Make sure you discuss any questions you have with your health care provider. Document Revised: 12/19/2019 Document Reviewed: 12/19/2019 [employer] Patient Education ?? 2021 [employer] Colon Polyps Colon polyps are tissue growths inside the colon, which is part of the large intestine. They are one of the types of polyps that can grow in the body. A polyp may be a round bump or a mushroom-shapedgrowth. You could have one polyp or more than one. Most colon polyps are noncancerous (benign). However, some colon polyps can become cancerous over time. Finding and removing the polyps early can help prevent this. What are the causes? The exact cause of colon polyps is not known. What increases the risk? The following factors may make you more likely to develop this condition: ? Having a family history of colorectal cancer or colon polyps. ? Being older than 45 years of age. ? Being younger than 45 years of age and having a significant family history of colorectal cancer or colon polyps or a genetic condition that puts you at higher risk of getting colon polyps. ? Having inflammatory bowel disease, such as ulcerative colitis or Crohn's disease. ? Having certain conditions passed from parent to child (hereditary conditions), such as: ? Familial adenomatous polyposis (FAP). ? Khalil syndrome. ? Turcot syndrome. ? Peutz???Jeghers syndrome. ? MUTYH-associated polyposis (MAP). ? Being overweight. ? Certain lifestyle factors. These include smoking cigarettes, drinking too much alcohol, not gettingenough exercise, and eating a diet that is high in fat and red meat and low in fiber. ? Having had childhood cancer that was treated with radiation of the abdomen. What are the signs or symptoms? Many times, there are no symptoms. If you have symptoms, they may include: ? Blood coming from the rectum during a bowel movement. ? Blood in the stool (feces). The blood may be bright red or very dark in color. ? Pain in the abdomen. ? A change in bowel habits, such as constipation or diarrhea. How is this diagnosed? This condition is diagnosed with a colonoscopy. This is a procedure in which a lighted, flexible scope is inserted into the opening between the buttocks (anus) and then passed into the colon to examine the area. Polyps are sometimes found when a colonoscopy is done as part of routine cancer screening tests. How is this treated? This condition is treated by removing any polyps that are found. Most polyps can be removed during a colonoscopy. Those polyps will then be tested for cancer. Additional treatment may be needed depending on the results of testing. Follow these instructions at home: Eating and drinking ? Eat foods that are high in fiber, such as fruits, vegetables, and whole grains. ? Eat foods that are high in calcium and vitamin D, such as milk, cheese, yogurt, eggs, liver, fish, and broccoli. ? Limit foods that are high in fat, such as fried foods and desserts. ? Limit the amount of red meat, precooked or cured meat, or other processed meat that you eat, such as hot dogs, sausages, bryson, or meat loaves. ? Limit sugary drinks. Lifestyle ? Maintain a healthy weight, or lose weight if recommended by your health care provider. ? Exercise every day or as told by your health care provider. ? Do not use any products that contain nicotine or tobacco, such as cigarettes, e- cigarettes, and chewing tobacco. If you need help quitting, ask your health care provider. ? Do not drink alcohol if: ? Your health care provider tells you not to drink. ? You are , may be , or are planning to become . ? If you drink alcohol: ? Limit how much you use to: ? 0???1 drink a day for women. ? 0???2 drinks a day for men. ? Know how much alcohol is in your drink. In the [place] one drink equals one 12 oz bottle of beer (355mL), one 5 oz glass of wine (148 mL), or one 1?? oz glass of hard liquor (44 mL). General instructions ? Take srgc-wnz-elwqtfb and prescription medicines only as told by your health care provider. ? Keep all follow-up visits. This is important. This includes having regularly scheduled colonoscopies. Talk to your health care provider about when you need a colonoscopy. Contact a health care provider if: ? You have new or worsening bleeding during a bowel movement. ? You have new or increased blood in your stool. ? You have a change in bowel habits. ? You lose weight for no known reason. Summary ? Colon polyps are tissue growths inside the colon, which is part of the large intestine. They are one type of polyp that can grow in the body. ? Most colon polyps are noncancerous (benign), but some can become cancerous over time. ? This condition is diagnosed with a colonoscopy. ? This condition is treated by removing any polyps that are found. Most polyps can be removed during a colonoscopy. This information is not intended to replace advice given to you by your health care provider. Make sure you discuss any questions you have with your health care provider. Document Revised: 09/09/2020 Document Reviewed: 09/09/2020 [employer] Patient Education ?? 2021 [employer] Colonoscopy, Adult, Care After This sheet gives you information about how to care for yourself after your procedure. Your health care provider may also give you more specific instructions. If you have problems or questions, contact your health care provider. What can I expect after the procedure? After the procedure, it is common to have: ? A small amount of blood in your stool for 24 hours after the procedure. ? Some gas. ? Mild cramping or bloating of your abdomen. Follow these instructions at home: Eating and drinking ? Drink enough fluid to keep your urine pale yellow. ? Follow instructions from your health care provider about eating or drinking restrictions. ? Resume your normal diet as instructed by your health care provider. Avoid heavy or fried foods thatare hard to digest. Activity ? Rest as told by your health care provider. ? Avoid sitting for a long time without moving. Get up to take short walks every 1???2 hours. This isimportant to improve blood flow and breathing. Ask for help if you feel weak or unsteady. ? Return to your normal activities as told by your health care provider. Ask your health care provider what activities are safe for you. Managing cramping and bloating ? Try walking around when you have cramps or feel bloated. ? Apply heat to your abdomen as told by your health care provider. Use the heat source that your health care provider recommends, such as a moist heat pack or a heating pad. ? Place a towel between your skin and the heat source. ? Leave the heat on for 20???30 minutes. ? Remove the heat if your skin turns bright red. This is especially important if you are unable to feel pain, heat, or cold. You may have a greater risk of getting burned. General instructions ? If you were given a sedative during the procedure, it can affect you for several hours. Do not drive or operate machinery until your health care provider says that it is safe. ? For the first 24 hours after the procedure: ? Do not sign important documents. ? Do not drink alcohol. ? Do your regular daily activities at a slower pace than normal. ? Eat soft foods that are easy to digest. ? Take pzsd-kmc-lnjnkgr and prescription medicines only as told by your health care provider. ? Keep all follow-up visits as told by your health care provider. This is important. Contact a health care provider if: ? You have blood in your stool 2???3 days after the procedure. Get help right away if you have: ? More than a small spotting of blood in your stool. ? Large blood clots in your stool. ? Swelling of your abdomen. ? Nausea or vomiting. ? A fever. ? Increasing pain in your abdomen that is not relieved with medicine. Summary ? After the procedure, it is common to have a small amount of blood in your stool. You may also have mild cramping and bloating of your abdomen. ? If you were given a sedative during the procedure, it can affect you for several hours. Do not drive or operate machinery until your health care provider says that it is safe. ? Get help right away if you have a lot of blood in your stool, nausea or vomiting, a fever, or increased pain in your abdomen. This information is not intended to replace advice given to you by your health care provider. Make sure you discuss any questions you have with your health care provider. Document Revised: 05/15/2020 Document Reviewed: 12/16/2019 [employer] Patient Education ?? 2021 [facility]. Patient Name:KELLY HOLLEY I have received this information and my questions have been answered. 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 Physical Exam Well-developed well-nourished white female no acute distress Lungs: Clear to auscultation bilaterally Heart: Regular rhythm S1-S2 Abdomen: Soft nontender Assessment/Plan 1.??Hematochezia??K92.1 Colonoscopy today. 2.??History of diverticulitis??Z87.19 Problem List/Past Medical History Ongoing Acute ischemic left MCA stroke Atypical chest pain Bilateral sensory hearing loss Carpal tunnel syndrome of right wrist Cervical spondylosis with radiculopathy Change in bowel habit Chronic kidney disease, stage 3 unspecified Chronic pain Cognitive impairment Constipation Constipation Deafness in right ear Depression Diverticulitis Dyspnea on exertion Failed back syndrome of [...] manipulation of joint of knee Medications Inpatient No active inpatient medications Home amLODIPine 10 mg oral tablet, 10 mg= 1 tab, Oral, Daily, 3 refills amoxicillin aspirin 81 mg oral delayed release tablet, 81 mg= 1 tab, Oral, Daily, PRN atenolol 50 mg oral tablet, 50 mg= 1 tab, Oral, Daily atorvastatin 80 mg oral tablet, See Instructions Centrum Silver oral tablet, 1 tab, Oral, [...] Oxygen Therapy, See instructions PEN NEEDLES MIS [id number], See Instructions ProAir HFA 90 mcg/inh inhalation [...] formulation 03/19/2020 Recorded Comments : Unit: Unknown 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 [employer]: [employer] zoster vaccine, inactivated 02/20/2020 Recorded Comments : Unit: Unknown influenza virus vaccine, inactivated 03/19/2019 Recorded tetanus/diphth/pertuss (Tdap) adult/adol 09/28/2015 Recorded pneumococcal 13-valent conjugate vaccine 09/28/2015 Recorded Comments : Unit: Unknown zoster vaccine live 10/02/2012 Recorded Comments : Unit: Unknown pneumococcal 23-polyvalent vaccine 09/27/2012 Recorded Comments : Unit: Unknown Novel [id number], all formulation 06/03/2009 Recorded Comments : Unit: Unknown Td(adult) unspecified formulation 11/04/2008 Recorded pneumococcal 23-polyvalent vaccine 07/21/2005 Recorded Comments : Unit: Unknown Electronically Signed on 11/02/22 07:23 AM Maximino Zhao MD Patient Care team information Care Team Personnel Name: Bianca Morris Position: Physician Member Role: Primary Care Physician Address: Address: [address] [place] [address] [address] [place] [address]- Care Team Related Persons Name: DAVE DOWNING Address: Home
--- OUTSIDE RECORDS SUMMARY | 2023-04-19 15:52 | XMS_ITS | Continuity of Care Document ---
Author Name Unknown Organization [facility] Address [address] [place] [address] Care Team Providers Care Leather Whitener Name Role Phone Wilmar Licea DO Primary Care Physician Encounter [facility] NBR [id number] Date(s): 04/03/23 - 04/12/[address] [id number]- Encounter Diagnosis Right sided abdominal pain(Discharge Diagnosis) - 04/03/23 Small bowel obstruction(Discharge Diagnosis) - 04/03/23 JONN (acute kidney injury)(Discharge Diagnosis) - 04/03/23 Diabetes(Discharge Diagnosis) - 04/04/23 HTN (hypertension)(Discharge Diagnosis) - 04/04/23 H/O: gout(Discharge Diagnosis) - 04/04/23 Syncope(Discharge Diagnosis) - 04/10/23 Diarrhea(Discharge Diagnosis) - 04/10/23 Weakness(Discharge Diagnosis) - 04/10/23 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) - Acidosis, unspecified(Final) - Acute kidney failure, unspecified(Final) - Dehydration(Final) - Anorexia(Final) - Sensorineural hearing loss, bilateral(Final) - Essential (primary) hypertension(Final) - Unspecified urinary incontinence(Final) - Pure hypercholesterolemia, unspecified(Final) - Depression, unspecified(Final) - Atrial premature depolarization(Final) - Other disorders of plasma-protein metabolism, not elsewhere classified(Final) - Elevation of levels of liver transaminase levels(Final) - Orthostatic hypotension(Final) - 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) - custodial (current) use of aspirin(Final) - roasterman (current) use of insulin(Final) - Bee allergy status(Final) - Other nonmedicinal substance allergy status(Final) - Other specified postprocedural states(Final) - Personal history of transient ischemic attack (TIA), 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) - custodial (current) use of oral hypoglycemic drugs(Final) - Personal history of other diseases of the musculoskeletal system and connective tissue(Final) - 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) - Personal history of colonic polyps(Final) - Body mass index [BMI] 34.0-34.9, adult(Final) - Discharge Disposition: Discharge/Transfer to [facility] Attending Physician: Frankie Barrow MD Admitting Physician: Frankie Barrow MD Allergies, Adverse Reactions, Alerts Substance Reaction Severity Status Adhesive Bandage Rash Moderate Active Bee Stings Unknown Unknown Active copper containing compounds Rash Mild Active Dust Unknown Active Assessment and Plan Future Appointments Future Scheduled Tests Laboratory* Comprehensive Metabolic Panel 09/08/23 * Lipid Panel 09/08/23 * Hgb A1c 09/08/23 Functional Status 04/12/23 ADLs Minimal assistance Activity Status ADL Up to toilet, Bed in chair position, HOB elevated Assistive Device Walker Lunch Percent 85 Personal Care Provided Barrier cream, Diaper/Brief changed, Lotion, Partial bath 04/12/23 Breakfast Percent 80 04/11/23 Living Environment Home Environment *ADL: Independent Performed By: Francisco Moffett PT, DPT 04/10/2023 *Cognitive-Communication Skills: Independent Performed By: Francisco Moffett PT, DPT 04/10/2023 *Instrumental ADL: Independent Performed By: Francisco Moffett PT, DPT 04/10/2023 *Mobility: Independent Performed By: Francisco Moffett PT, DPT 04/10/2023 Devices/Equipment at Home: Oxygen Performed By: Cheryl Marie 04/05/2023 Special Services/Community Resources: None Performed By: Cheryl Marie 04/05/2023 Lives In: Single level home Performed By: Candace Stoner 04/03/2023 Lives With: Significant other Performed By: Candace Stoner 04/03/2023 Living Situation: Home independently Performed By: Candace Stoner 04/03/2023 Patient's Responsibilities: Caregiver for child/parent/spouse, Caregiver for pet, Driving, change management, Hobbies/Play/Sports, Home management, Housework, Laundry, Meal preparation, Shopping, Social participation, Yard work Performed By: Candace Stoner 04/03/2023 Lives In Single level home Lives With Significant other Living Situation Home independently Patient's Responsibilities Rehab Persona l ADL Prior ADL Status Independent Prior Mobility Status Independent Prior Instrumental ADL Level Independent Prior Cognitive-Communication Skills Ind ependent 04/10/23 Dinner Percent 75 Evening Snack Percent 100 04/07/23 Anti-Embolism Device Activity: In place Anti-Embolism Site Condition: No complic ations 04/06/23 Ambulation Patient Effort Fair 04/05/23 Home Equipment Oxygen 1 Special Services and Community Resources None 04/03/23 Home Barriers External stairs Patient's Responsibilities Caregiver for child/parent/spouse, Caregiver for pet, Driving, change management, Hobbies/Play/Sports, Home management, Housework, Laundry, Meal preparation, Shopping, Social participation, Yard work 04/03/23 Family Member Travel History No recent t ravel Recent Travel History No recent travel Other exposure to Infectious Disease Non e 1Result Comment: Pt has home oxygen 2L via nasal cannula 26/12 through [facility] Immunizations Given and Recorded Vaccine Date Status [...] 10/02/12 Recorded pneumococcal 23-polyvalent vaccine 7 09/27/12 Marecllo rded pneumococcal 23-polyvalent vaccine 8 07/21/05 Marcello rded Novel [id number], all formulation 9 06/03/09 Recorded Td(adult) unspecified formulation 11/04/08 Recorde d 1Result Comment: Unit: Unknown 2Result Comment: Unit: Unknown 3Result Comment: Unit: Unknown 4Result Comment: Unit: Unknown 5Result Comment: Unit: 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[employer] 6Result Comment: Unit: Unknown 7Result Comment: Unit: Unknown 8Result Comment: Unit: Unknown 9Result Comment: Unit: Unknown Medications amLODIPine 10 mg =, Oral, Daily Start Date: 04/03/23 Status: Ordered aspirin 81 mg oral delayed [...] tablet 80 mg = 1 tab, Oral, With Evening Meal, # 90 tab, 3 Refill(s), Pharmacy: [facility] #[id number], 165, cm, 01/12/23 7:52:00 EDT, Height/Length Dosing, 94, kg, 01/12/23 7:52:00 EDT, Weight Dosing Start Date: 01/18/23 Status: Ordered Bd Pen Needle/Milena/Ultra-Fine/32g X 4mm Mis Embe Bd Pen Needle/Milena/Ultra-Fine/32g X 4mm Mis Embe, See Instructions, use one needle once daily, # 100 unknown unit, 3 Refill(s), Pharmacy: [facility] #[id number], E11.9, KX, 165.1, cm, 10/26/22 [...] Daily, # 90 tab, 3 Refill(s), Pharmacy: [facility] #[id number], 162.56, cm, 07/15/22 17:52:00 EST, [...] Daily, # 90 cap, 3 Refill(s), Pharmacy: [facility] #[id number], 162.56, cm, 07/15/22 17:52:00 EST, [...] TID, # 90 cap, 0 Refill(s), Pharmacy: [facility] #[id number], 165, cm, 01/12/23 7:52:00 EDT, Height/Length Dosing, 94, kg, 01/12/23 7:52:00 EDT, Weight Dosing Start Date: 03/06/23 Status: Ordered Glucagon Emergency Kit for Low Blood Sugar 1 mg injection See Instructions, 0 Refill(s) Start Date: 09/03/22 Status: Ordered Lantus Solostar Pen 100 units/mL subcutaneous solution 28 units, Subcutaneous, Daily, # 3 mL, 0 Refill(s) Start Date: 10/24/22 Status: Ordered lisinopril 40 mg oral tablet 40 mg = 1 tab, Oral, every evening, # 90 tab, 3 Refill(s), Pharmacy: [facility] #[id number], 163, cm, 06/11/22 9:55:00 EST, Height/Length Dosing, 93.89, kg, 06/11/22 9:55:00 EST, Weight Dosing Start Date: 07/11/22 Stop Date: 07/06/23 Status: Ordered MetFORMIN (Eqv-Glucophage XR) 500 mg oral tablet, extended release 500 mg = 1 tab, Oral, BID, # 180 tab, 3 Refill(s), Pharmacy: [facility] #[id number], 162.56, cm, 07/15/22 17:52:00 EST, [...] Date: 09/03/22 Status: Ordered PEN NEEDLES MIS [id number] PEN NEEDLES MIS [id number], See Instructions, BID with insulin, 0 Refill(s) Start Date: 06/05/22 Status: Ordered ProAir HFA 90 mcg/inh inhalation aerosol 2 puffs, Inhale, every 6 hr, PRN as needed for wheezing, # 8.5 g, 0 Refill(s) Start Date: 09/03/22 Status: Ordered traZODone 100 mg oral tablet 100 mg = 1 tab, Oral, every night at bedtime, # 90 tab, 4 Refill(s), Pharmacy: [facility] #[id number],165, cm, 01/12/23 7:52:00 EDT, Height/Length Dosing, 94, kg, 01/12/23 7:52:00 EDT, Weight Dosing Start Date: 03/09/23 Status: Ordered Tylenol Extra Strength 500 mg oral tablet 500 mg = 1 tab, Oral, every 6 hr, PRN not specified, # 360 tab, 0 Refill(s) Start Date: 09/03/22 Stop Date: 12/02/22 Status: Ordered Mental Status 04/10/23 Eye Opening Response Yoko Spontaneous ly Best Verbal Response [place] Oriented Best Motor Response [place] Obeys comman ds Yoko Coma Score 15 Problem List Condition Confirmation [...] Procedure Date Related Diagnosis Body Site Status Laparascopy 1 04/07/23 Completed Colonoscopy Biopsy 2 11/02/22 Comp leted Colonoscopy 01/20/19 Completed Back class 3 Completed Bladder care 4 Completed Mastoidectomy Completed Surgery 5 Completed Surgical manipulation of joint of knee Completed 1auto-populated from documented surgical case 2auto-populated from documented surgical case 3surgery lower back 4surgery 5shoulder and elbow Results Laboratory List Name Date Glucose POCT 04/12/23 SARS-CoV-2 (COVID-19) PCR ([facility]) (C OVID 19 ([facility])) 04/12/23 Glucose POCT 04/12/23 Glucose POCT 04/12/23 Clostridium Difficile ([facility]) (C dif f ([facility])) 04/10/23 Urinalysis with Micro if Indicated and C ulture if Indicated 04/10/23 .Manual Differential (LTTL) 04/10/23 Blood Gas Venous 04/10/23 CBC w/ Diff 04/10/23 Troponin-I High Sensitivity 04/10/23 Comprehensive Metabolic Panel (CMP) 04/10 Troponin-I High Sensitivity 04/10/23 Basic Metabolic Panel (BMP) 04/09/23 Automated Diff 04/08/23 Basic Metabolic Panel (BMP) 04/08/23 CBC w/ Diff 04/08/23 Automated Diff 04/07/23 CBC w/ Diff 04/07/23 Automated Diff 04/06/23 Magnesium Level 04/06/23 CBC w/ Diff 04/05/23 Magnesium Level 04/05/23 Magnesium Level 04/04/23 Lactic Acid 04/03/23 Lactic Acid 04/03/23 Urinalysis Microscopic 04/03/23 Urinalysis with Micro if Indicated and C ulture if Indicated 04/03/23 Troponin-I High Sensitivity (High Sensit ivityTroponin-I) 04/03/23 BNP 04/03/23 Comprehensive Metabolic Panel (CMP) 03/07 Lactic Acid 04/03/23 Lipase Level 04/03/23 Most recent to oldest [Reference Range]: 1 2 3 WBC [4.8-10.8 K/mcL] 10.4 K/mcL (04/10/23 2:30 AM) 6.3 K/mcL (04/08/23 8:38 AM) 6.4 K/mcL (04/07/23 8:47 AM) RBC [4.20-5.40 Million/mcL] 4.13 Million/mcL *LOW* (04/10/23 2:30 AM) 4.13 Million/mcL *LOW* (04/08/23 8:38 AM) 4.30 Million/mcL (04/07/23 8:47 AM) Segs Man 57 *NA* (04/10/23 2:30 AM) Lymph Man [20.5-51.1 %] 14.0 % *LOW* (04/10/23 2:30 AM) Neutro Auto [42.2-75.2 %] 58.3 % (04/08/23 8:38 AM) 64.9 % (04/07/23 8:47 AM) 66.3 % (04/06/23 6:30 AM) Lymph Auto [20.5-51.1 %] 26.6 % (04/08/23 8:38 AM) 21.0 % (04/07/23 8:47 AM) 20.4 % *LOW* (04/06/23 6:30 AM) Dickenson Auto [1.7-9.3 %] 10.5 % *HI* (04/08/23 8:38 AM) 11.1 % *HI* (04/07/23 8:47 AM) 10.7 % *HI* (04/06/23 6:30 AM) Basophil Auto [0.0-0.8 %] 0.6 % (04/08/23 8:38 AM) 0.6 % (04/07/23 8:47 AM) 0.7 % (04/06/23 6:30 AM) Dickenson Man [1.7-9.3 %] 6.0 % (04/10/23 2:30 AM) Eos Man [0.00-3.00 %] 1.00 % (04/10/23 2:30 AM) BUN [8-26 mg/dL] 27 mg/dL *HI* (04/10/23 12:10 AM) 28 mg/dL *HI* (04/09/23 4:10 AM) 27 mg/dL *HI* (04/08/23 8:38 AM) Glucose POC 149 *NA* (04/12/23 2:57 PM) 189 *NA* (04/12/23 8:56 AM) 165 *NA* (04/12/23 3:01 AM) UA Color [Yellow] Yellow (04/10/23 4:20 AM) Yellow (04/03/23 10:23 AM) UA WBC [0-3] 0-3 (04/03/23 10:23 AM) Glucose Level [74-106 mg/dL] 147 mg/dL *HI* (04/10/23 12:10 AM) 129 mg/dL *HI* (04/09/23 4:10 AM) 115 mg/dL *HI* (04/08/23 8:38 AM) Lymph, Atyp Man 4 % *NA* (04/10/23 2:30 AM) Potassium Level [3.5-5.1 mmol/L] 3.8 mmol/L (04/10/23 12:10 AM) 3.6 mmol/L (04/09/23 4:10 AM) 4.0 mmol/L (04/08/23 8:38 AM) Baso Absolute [0.0-0.2 K/mcL] 0.0 K/mcL (04/08/23 8:38 AM) 0.0 K/mcL (04/07/23 8:47 AM) 0.0 K/mcL (04/06/23 6:30 AM) MCV [81.0-99.0 fL] 96.9 fL (04/10/23 2:30 AM) 97.6 fL (04/08/23 8:38 AM) 97.7 fL (04/07/23 8:47 AM) UA Urobilinogen [0.2] 0.2 (04/10/23 4:20 AM) 0.2 (04/03/23 10:23 AM) RBC Morph [Normal] Normal (04/10/23 2:30 AM) UA Hyal Cast [0-3] 0-3 (04/03/23 10:23 AM) UA Bili [Negative] Negative (04/10/23 4:20 AM) Negative (04/03/23 10:23 AM) CO2 Total Venous [22.0-26.0 mmol/L] 27.3 mmol/L *HI* (04/10/23 2:30 AM) UA Ketones [Negative] Negative (04/10/23 4:20 AM) Negative (04/03/23 10:23 AM) HCO3 Venous [22.0-29.0 mmol/L] 26.3 mmol/L (04/10/23 2:30 AM) AST [15-41 IntlUnit/L] 66 IntlUnit/L *HI* (04/10/23 12:10 AM) 25 IntlUnit/L (04/03/23 8:10 AM) ALT [14-54 IntlUnit/L] 74 IntlUnit/L *HI* (04/10/23 12:10 AM) 17 IntlUnit/L (04/03/23 8:10 AM) MCHC [32.0-37.0 g/dL] 32.8 g/dL (04/10/23 2:30 AM) 32.3 g/dL (04/08/23 8:38 AM) 32.1 g/dL (04/07/23 8:47 AM) Osmolality [275-295 mOsm/kg] 276 mOsm/kg (04/10/23 12:10 AM) 281 mOsm/kg (04/09/23 4:10 AM) 287 mOsm/kg (04/08/23 8:38 AM) Sodium Level [134-143 mmol/L] 134 mmol/L (04/10/23 12:10 AM) 137 mmol/L (04/09/23 4:10 AM) 141 mmol/L (04/08/23 8:38 AM) UA RBC [0-3] 0-3 (04/03/23 10:23 AM) UA Leuk Est [Negative] Negative (04/10/23 4:20 AM) Negative (04/03/23 10:23 AM) Lymph Absolute [1.2-3.4 K/mcL] 1.7 K/mcL (04/08/23 8:38 AM) 1.3 K/mcL (04/07/23 8:47 AM) 1.4 K/mcL (04/06/23 6:30 AM) UA Nitrite [Negative] Negative (04/10/23 4:20 AM) Negative (04/03/23 10:23 AM) UA Glucose [Negative] Negative (04/10/23 4:20 AM) Negative (04/03/23 10:23 AM) Hct [37.0-47.0 %] 40.0 % (04/10/23 2:30 AM) 40.3 % (04/08/23 8:38 AM) 42.0 % (04/07/23 8:47 AM) UA Bacteria [None Seen] 2+ *ABN* (04/03/23 10:23 AM) Lipase Level [18-51 unit/L] 22 unit/L 1 (04/03/23 8:10 AM) Calcium Level [8.9-10.3 mg/dL] 7.7 mg/dL *LOW* (04/10/23 12:10 AM) 7.8 mg/dL *LOW* (04/09/23 4:10 AM) 8.2 mg/dL *LOW* (04/08/23 8:38 AM) Dickenson Absolute [0.1-0.6 K/mcL] 0.7 K/mcL *HI* (04/08/23 8:38 AM) 0.7 K/mcL *HI* (04/07/23 8:47 AM) 0.8 K/mcL *HI* (04/06/23 6:30 AM) Albumin Level [3.5-5.0 g/dL] 2.4 g/dL *LOW* (04/10/23 12:10 AM) 3.4 g/dL *LOW* (04/03/23 8:10 AM) Protein Total [6.5-8.1 g/dL] 5.5 g/dL *LOW* (04/10/23 12:10 AM) 7.2 g/dL (04/03/23 8:10 AM) UA Protein [Negative] Trace *ABN* (04/10/23 4:20 AM) 100 *ABN* (04/03/23 10:23 AM) MCH [27.0-31.0 pg] 31.7 pg *HI* (04/10/23 2:30 AM) 31.5 pg *HI* (04/08/23 8:38 AM) 31.4 pg *HI* (04/07/23 8:47 AM) Magnesium Level [1.8-2.5 mg/dL] 2.0 mg/dL (04/06/23 6:30 AM) 2.4 mg/dL (04/05/23 5:58 AM) 1.7 mg/dL *LOW* (04/04/23 6:10 AM) Neutro Absolute [1.4-6.5 K/mcL] 3.6 K/mcL (04/08/23 8:38 AM) 4.1 K/mcL (04/07/23 8:47 AM) 4.7 K/mcL (04/06/23 6:30 AM) Bilirubin Total [0.2-1.2 mg/dL] 0.9 mg/dL (04/10/23 12:10 AM) 1.0 mg/dL (04/03/23 8:10 AM) Hgb [12.0-16.0 g/dL] 13.1 g/dL (04/10/23 2:30 AM) 13.0 g/dL (04/08/23 8:38 AM) 13.5 g/dL (04/07/23 8:47 AM) Alk Phos [38-130 IntlUnit/L] 121 IntlUnit/L (04/10/23 12:10 AM) 88 IntlUnit/L (04/03/23 8:10 AM) UA Blood [Negative] Negative (04/10/23:20 AM) Negative (04/03/23 10:23 AM) MPV [7.4-10.4 fL] 9.7 fL (04/10/23:30 AM) 9.8 fL (04/08/23 8:38 AM) 9.8 fL (04/07/23 8:47 AM) pCO2 Manuelito [42.0-53.0 mmHg] 33.0 mmHg *LOW* (04/10/23 2:30 AM) UA Mucous [None Seen] Present *ABN* (04/03/23 10: AM) Band Man 18 % *NA* (04/10/23 2:30 AM) UA Spec Grav [1.001-1.030] 1.020 (04/10/23 4:20 AM) >=1.030 *NA* (04/03/23 10:23 AM) Platelets [130-400 K/mcL] 253 K/mcL (04/10/23 2:30 AM) 218 K/mcL (04/08/23 8:38 AM) 228 K/mcL (04/07/23 8:47 AM) CO2 [22-32 mmol/L] 23 mmol/L (04/10/23 12:10 AM) 28 mmol/L (04/09/23 4:10 AM) 29 mmol/L (04/08/23 8:38 AM) Eos Absolute [0.0-0.2 K/mcL] 0.2 K/mcL (04/08/23 8:38 AM) 0.1 K/mcL (04/07/23 8:47 AM) 0.1 K/mcL (04/06/23 6:30 AM) Lactic Acid Lvl [0.5-2.2 mmol/L] 1.4 mmol/L (04/03/23 2:39 PM) 2.2 mmol/L (04/03/23 11:14 AM) 2.4 mmol/L *HI* (04/03/23 8:10 AM) UA Squam Epithelial [0-3] 0-3 (04/03/23 10:23 AM) UA pH [5.00-9.00] 5.50 (04/10/23 4:20 AM) 5.50 (04/03/23 10:23 AM) pH Manuelito [7.32-7.43 pH unit(s)] 7.51 pH unit(s) *HI* (04/10/23 2:30 AM) BNP [<=100 pg/mL] 171 pg/mL *HI* (04/03/23 8:10 AM) UA Appear [Clear] Clear (04/10/23 4:20 AM) Slightly Cloudy *ABN* (04/03/23 10:23 AM) Chloride Level [98-111 mmol/L] 104 mmol/L (04/10/23 12:10 AM) 103 mmol/L (04/09/23 4:10 AM) 103 mmol/L (04/08/23 8:38 AM) RDW-CV [11.5-14.5 %] 13.2 % (04/10/23 2:30 AM) 13.2 % (04/08/23 8:38 AM) 13.2 % (04/07/23 8:47 AM) A/G Ratio [1.0-2.5 g/dL] 0.8 g/dL *LOW* (04/10/23 12:10 AM) 0.9 g/dL *LOW* (04/03/23 8:10 AM) BUN/Creat Ratio [8.0-20.0] 30.0 *HI* (04/10/23 12:10 AM) 29.5 *HI* (04/09/23 4:10 AM) 31.4 *HI* (04/08/23 8:38 AM) Globulin [2.3-3.5 g/dL] 3.1 g/dL (04/10/23 12:10 AM) 3.8 g/dL *HI* (04/03/23 8:10 AM) Imm Gran Absolute [0.00-0.02 K/mcL] 0.01 K/mcL (04/08/23 8:38 AM) 0.01 K/mcL (04/07/23 8:47 AM) 0.01 K/mcL (04/06/23 6:30 AM) Imm Gran Auto [0.0-0.5 %] 0.2 % (04/08/23 8:38 AM) 0.2 % (04/07/23 8:47 AM) 0.1 % (04/06/23 6:30 AM) Toxigenic C.diff (C Diff/Epi)-[facility] NEGATIVE *NA* (04/10/23 4:20 AM) Slide Review Man Diff (04/10/23 2:30 AM) Not Indicated (04/08/23 8:38 AM) Not Indicated (04/05/23 5:58 AM) UA Culture Ind?. [No] Yes (04/03/23 10:23 AM) Urine Srce Clean Catch (04/10/23 4:20 AM) Clean Catch (04/03/23 10:23 AM) Abs Baso Man [0.0-0.2 K/mcL] 0.0 K/mcL (04/10/23 2:30 AM) Abs Eos Man [0.0-0.2 K/mcL] 0.1 K/mcL (04/10/23 2:30 AM) Abs Lymph Man [1.2-3.4 K/mcL] 1.5 K/mcL (04/10/23 2:30 AM) Abs Dickenson Man [0.1-0.6 K/mcL] 0.6 K/mcL (04/10/23 2:30 AM) Abs Neut Man [1.4-6.5 K/mcL] 7.8 K/mcL *HI* (04/10/23 2:30 AM) UA Trans Epi [None Seen] 0-3 *ABN* (04/03/23 10:23 AM) 027 (C Diff/Epi) -[facility] PRESUMPTIVE NEGATIVE *NA* (04/10/23 4:20 AM) SARS-CoV-2 (COVID-19) PCR ([facility]) [Negative] Negative (04/12/23 9:31 AM) Creatinine Level [0.44-1.00 mg/dL] 0.90 mg/dL (04/10/23 12:10 AM) 0.95 mg/dL (04/09/23 4:10 AM) 0.86 mg/dL (04/08/23 8:38 AM) Plt Estimation Normal (04/10/23 2:30 AM) Troponin-I HS [<=12 ng/L] 7 ng/L 2 (04/10/23 2:30 AM) 6 ng/L 3 (04/10/23 12:10 AM) 8 ng/L 4 (04/03/23 9:50 AM) Anion Gap [3.0-12.0] 7.0 (04/10/23 12:10 AM) 6.0 (04/09/23 4:10 AM) 9.0 (04/08/23 8:38 AM) Baso Man [0.0-0.8 %] 0.0 % (04/10/23 2:30 AM) Eos, Auto [0.00-3.00 %] 3.80 % *HI* (04/08/23 8:38 AM) 2.20 % (04/07/23 8:47 AM) 1.80 % (04/06/23 6:30 AM) eGFR CKD-EPI [>=60 mL/min/1.73 m2] 63 mL/min/1.73 m2 (04/10/23 2:30 AM) 59 mL/min/1.73 m2 *LOW* (04/09/23 4:10 AM) 67 mL/min/1.73 m2 (04/08/23 8:38 AM) 1Interpretive Data: Q-spsiwp-b-benzoquinone imine (meabolite of Acetaminophen) will generate erroneously low lipase results in samples for patients that have taken toxic doses of acetaminophen. 2Interpretive Data: [place] ACCESS high-sensitivity Troponin I (hsTNI) 99 percentile cutoffs forhealthy adults are 12 ng/L or less for females and 20 ng/L or less for males. SERIAL MEASUREMENT IS HIGHLY RECOMMENDED for the diagnosis or exclusion of Acute Coronary Syndromes(ACS). Please refer to the High-Sensitivity Troponin Algorithm 2022 for guidance. As with all markers of cardiac injury, elevations of hsTnI do not in and of themselves indicate thepresence of an ischemic mechanism. Many other disease states can be associated with elevations via mechanisms different from those that cause injury in patients with ACS. These include trauma (contusion, ablation, pacing); congestive heart failure; pulmonary embolism; kidney failure; and myocarditis. Clinical judgement is necessary to distinguish patients who have ischemic heart disease from those who do not. 3Interpretive Data: [place] ACCESS high-sensitivity Troponin I (hsTNI) 99 percentile cutoffs forhealthy adults are 12 ng/L or less for females and 20 ng/L or less for males. SERIAL MEASUREMENT IS HIGHLY RECOMMENDED for the diagnosis or exclusion of Acute Coronary Syndromes(ACS). Please refer to the High-Sensitivity Troponin Algorithm 2022 for guidance. As with all markers of cardiac injury, elevations of hsTnI do not in and of themselves indicate thepresence of an ischemic mechanism. Many other disease states can be associated with elevations via mechanisms different from those that cause injury in patients with ACS. These include trauma (contusion, ablation, pacing); congestive heart failure; pulmonary embolism; kidney failure; and myocarditis. Clinical judgement is necessary to distinguish patients who have ischemic heart disease from those who do not. 4Interpretive Data: [place] ACCESS high-sensitivity Troponin I (hsTNI) 99 percentile cutoffs forhealthy adults are 12 ng/L or less for females and 20 ng/L or less for males. SERIAL MEASUREMENT IS HIGHLY RECOMMENDED for the diagnosis or exclusion of Acute Coronary Syndromes(ACS). Please refer to the High-Sensitivity Troponin Algorithm 2022 for guidance. As with all markers of cardiac injury, elevations of hsTnI do not in and of themselves indicate thepresence of an ischemic mechanism. Many other disease states can be associated with elevations via mechanisms different from those that cause injury in patients with ACS. These include trauma (contusion, ablation, pacing); congestive heart failure; pulmonary embolism; kidney failure; and myocarditis. Clinical judgement is necessary to distinguish patients who have ischemic heart disease from those who do not. Orders for Microbiology Reports Name Date Urine Culture 04/03/23 Microbiology Reports TEST:Urine Culture STATUS:Auth (Verified) BODY SITE: SOURCE:Urine, Clean Catch COLLECTED DATE/TIME:04/03/23 10:23 AM FINAL REPORT >100,000 cfu/ml Klebsiella pneumoniae ORGANISM:Klebsiella pneumoniae Susceptibilty: Klebsiella pneumoniae Tested Drug LAVONNE Dilution LAVONNE Interpretati on Trimethoprim/Sulfa <=20 S Nitrofurantoin 64 I Gentamicin <=1 S Ertapenem <=0.5 S Ciprofloxacin <=0.25 S Ceftriaxone <=1 S Cefazolin <=4 S Ampicillin R Amoxicillin/Clavulanate <=2 S Radiology Reports * Exam Date Time Procedure Performing Provider Status 04/07/23 7:47 AM XR Abdomen 2 Views Fiordaliza Dos Santos; Auth (Verified) Notes: (XR Abdomen 2 Views) Reason For Exam: Gastrograffin Challenge XR Abdomen 2 Views EXAM DESCRIPTION: XR Abdomen 2 Views 04/07/2023 INDICATION: GASTROGRAFFIN CHALLENGE TECHNIQUE: AP supine and upright views of the abdomen were obtained following NG tube administration of 100 cc of Gastrografin for a Gastrografin challenge. COMPARISON: Flat and upright views of the abdomen from 04/05/2023 IMPRESSION: NG tube extends into the stomach region Multiple dilated loops of small bowel throughout the abdomen with scattered air-fluid levels consistent with mid-distal small bowel obstruction. Gastrografin opacification of multiple small bowel loops. No Gastrografin extension into the colon is identified. No evidence of free intraperitoneal air. Mild bilateral pleural effusions are suspected. JOB #: [id number] Final Signed by: Alverto Xiao MD Signed (Electronic Signature): 04/07/2023 8:22 am * Exam Date Time Procedure Performing Provider Status 04/05/23 11:21 AM XR Chest 1 View Suzette Williamson (Verified) Notes: (XR Chest 1 View) Reason For Exam: NG placement XR Chest 1 View EXAM DESCRIPTION: XR Chest 1 View 04/05/2023 INDICATION: NG PLACEMENT COMPARISON: 04/03/2023 IMPRESSION: NG tube extends into the distal stomach region. Reduced lung volumes consistent with expiratory technique. Mild bilateral interstitial infiltrates which may reflect interstitial pulmonary edema or interstitial pneumonitis. No focal consolidation Normal cardiomediastinal contour. No significant pleural effusion or pneumothorax. Dilated loops of small bowel in the upper abdomen as described on routine radiographs of the abdomen from earlier today. JOB #: [id number] Final Signed by: Alverto Xiao MD Signed (Electronic Signature): 04/05/2023 1:11 pm * Exam Date Time Procedure Performing Provider Status 04/05/23 8:27 AM XR Abdomen 2 Views DomainUser, Joyce ed; Auth (Verified) Notes: (XR Abdomen 2 Views) Reason For Exam: SBO XR Abdomen 2 Views EXAM DESCRIPTION: XR Abdomen 2 Views 04/05/2023 INDICATION: SBO COMPARISON: 04/04/2023 IMPRESSION: Multiple dilated loops of small bowel throughout the abdomen with air-fluid levels. No colonic dilatation. Findings are consistent with mid-distal small bowel obstruction. Degree of small-bowel dilatation appears slightly worse since prior study. No colonic dilatation. Gastrografin remains within the stomach and small bowel loops in the left mid abdomen without significant progression since Gastrografin small bowel challenge study from 04/04/2023. Right hemidiaphragm partly excluded from the upright view. No findings to suggest free intraperitoneal air. JOB #: [id number] Final Signed by: Alverto Xiao MD Signed (Electronic Signature): 04/05/2023 8:39 am * Exam Date Time Procedure Performing Provider Status 04/04/23 5:02 PM XR Small Bowel Follow Through Domain[employer] ser, Generated; Auth (Verified) Notes: (XR Small Bowel Follow Through) Reason For Exam: SBO XR Small Bowel Follow Through EXAM DESCRIPTION: XR Small Bowel Follow Through 04/04/2023 INDICATION: SBO TECHNIQUE: A Gastrografin small bowel challenge study was performed. AP radiographs of the abdomen were obtained approximately 6 hours following oral administration of 100 cc of Gastrografin. COMPARISON: CT abdomen/pelvis examination from 04/03/2023 IMPRESSION: Retained Gastrografin within the stomach with Gastrografin opacification of proximal and mid small bowel loops in the left mid abdomen. No Gastrografin identified in the colon. Multiple dilated loops of small bowel with air-fluid level formation consistent with mid-distal small bowel obstruction as described on recent CT examination. No colonic dilatation. JOB #: [id number] Final Signed by: Alverto Xiao MD Signed (Electronic Signature): 04/04/2023 5:04 pm * Exam Date Time Procedure Performing Provider Status 04/03/23 10:[address] Abdomen and Pelvi s w/ Contrast Diogo Arcos; Odette (Verified) Notes: (CT Abdomen and Pelvis w/ Contrast) Reason For Exam: right abd pain, diarrhea CT Abdomen and Pelvis w/ Contrast EXAM DESCRIPTION: CT Abdomen and Pelvis w/ Contrast 04/03/2023 INDICATION: RIGHT ABD PAIN, DIARRHEA TECHNIQUE: All CT scans at this facility use at least one of these dose optimization techniques: Automated exposure control; mA and/or kV adjustment per patient size (includes targeted exams where dose is matched to clinical indication); or iterative reconstruction. Technique: Axial CT images of the abdomen/pelvis with IV contrast administration 100 cc of Isovue-300 contrast was utilized COMPARISON: 06/11/2022 and 05/30/2022 FINDINGS: No focal hepatic lesion. Normal enhancement of the main hepatic veins and main portal vein. Normal spleen size without focal mass The gallbladder appears distended. Mild punctate gallbladder wall calcifications versus tiny gallstones. Adrenal glands and pancreas appear within normal limits No focal renal mass, hydronephrosis or perinephric fluid collection on either side No pelvic mass identified with apparent prior hysterectomy Normal caliber abdominal aorta with atherosclerotic calcifications No retroperitoneal adenopathy in the abdomen or pelvis. Multiple mildly dilated loops of small bowel in the mid-lower abdomen with scattered small bowel air-fluid levels consistent with mid-distal small bowel obstruction. Distal small bowel loops are nondilated with no colonic dilatation. Transition point appears to be in the lower mid abdomen. Mild free fluid in the abdomen and pelvis. No free air. Scattered colonic diverticula with no definite colonic mesenteric inflammatory stranding. Appendix not identified. The visualized lung bases are clear. No suspicious regional osseous lesions. IMPRESSION: Mid-distal small bowel obstruction. No free intraperitoneal air Mild ascites in the abdomen and pelvis. The gallbladder appears mildly distended. Mild punctate gallbladder wall calcifications versus tiny gallstones. JOB #: [id number] Final Signed by: Alverto Xiao MD Signed (Electronic Signature): 04/03/2023 10:29 am * Exam Date Time Procedure Performing Provider Status 04/03/23 8:47 AM XR Chest 2 Views [facility] (Verified) Notes: (XR Chest 2 Views) Reason For Exam: sob XR Chest 2 Views EXAM DESCRIPTION: XR Chest 2 Views 04/03/2023 INDICATION: SOB COMPARISON: 07/15/2022 IMPRESSION: No focal infiltrate or pulmonary edema with mild subsegmental atelectasis or scarring in the left lung base Normal cardiomediastinal contour. No pleural effusion or pneumothorax Spondylotic changes of the dorsal spine. Stable dense nodule in the right lung base most consistent with granuloma. JOB #: [id number] Final Signed by: Alverto Xiao MD Signed (Electronic Signature): 04/03/2023 8:50 am Vital Signs Most recent to oldest [Reference Range]: 1 2 3 Temperature Oral [35.8-37.3 Deg C] 36.7 Deg C (04/12/23 2:48 PM) 36.6 Deg C (04/12/23 7:55 AM) 36.8 Deg C (04/12/23 3:12 AM) Temperature Oral (DegF) [96.4-99.1 Deg F] 98.06 Deg F (04/12/23 2:48 PM) 98.42 Deg F (04/11/23 3:18 PM) Temperature Temporal Artery [36-38 Deg C] 36.3 Deg C (04/11/23 11:04 AM) 36.0 Deg C (04/11/23 7:59 AM) 35.9 Deg C *LOW* (04/11/23 3:25 AM) Temperature Temporal Artery (DegF) [97.3-100 Deg F] 97.34 Deg F (04/11/23 11:04 AM) 96.8 Deg F *LOW* (04/11/23 7:59 AM) 97.16 Deg F *LOW* (04/10/23 8:36 PM) Peripheral Pulse Rate [60-100 bpm] 80 bpm (04/12/23 2:48 PM) 92 bpm (04/12/23 7:55 AM) 78 bpm (04/12/23 3:12 AM) Heart Rate Monitored [60-100 bpm] 73 bpm (04/10/23 8:36 PM) 85 bpm (04/10/23 3:30 PM) 81 bpm (04/04/23 3:40 PM) Respiratory Rate [12-24 br/min] 20 br/min (04/12/23 2:48 PM) 20 br/min (04/12/23 7:55 AM) 20 br/min (04/12/23 3:12 AM) Blood Pressure [90-140/60-90 mmHg] 152/72mmHg *HI* (04/12/23 2:48 PM) 152/73mmHg *HI* (04/12/23 7:55 AM) 160/71mmHg *HI* (04/12/23 3:12 AM) Mean Arterial Pressure, Cuff [70-110 mmHg] 101 mmHg (04/12/23 3:12 AM) 90 mmHg (04/11/23 7:39 PM) 82 mmHg (04/11/23 11:04 AM) Mean Arterial Pressure Cuff 105 mmHg (04/07/23 5:45 PM) 105 mmHg (04/07/23 5:20 PM) 105 mmHg (04/07/23 5:10 PM) Blood Pressure Location Left arm (04/12/23 2:48 PM) Left arm (04/12/23 7:55 AM) Left arm (04/12/23 3:12 AM) Blood Pressure Method Automatic (04/12/23 2:48 PM) Automatic (04/12/23 7:55 AM) Automatic (04/12/23 3:12 AM) Oxygen Therapy Frequency Of Use LTC Continuous (04/12/23 2:48 PM) Continuous (04/12/23 1:25 PM) Continuous (04/12/23 7:55 AM) Weight 100.3 kg (04/12/23 4:58 AM) 99.9 kg (04/11/23 3:25 AM) 99.7 kg (04/10/23 6:52 AM) Weight Dosing 92.53 kg (04/03/23 8:27 AM) Height 165.1 cm (04/03/23 1:52 PM) 165.100 cm (04/03/23 7:49 AM) Height/Length Dosing 165.100 cm (04/03/23 8:27 AM) BSA Measured 2.07 m2 (04/03/23 1:52 PM) BSA Estimated 0 m2 (04/03/23 1:52 PM) Body Mass Index 34.34 kg/m2 (04/03/23 1:52 PM) 34.000 kg/m2 (04/03/23 7:49 AM) Social History Social History Type Response Tobacco Never tobacco user T obacco Use:. Sex Hospital Discharge Instructions Patient Education 04/12/2023 08:55:14 Bowel Obstruction Bowel Obstruction A bowel obstruction is a blockage in the small or large bowel. The bowel is also called the intestine. It is a long tube that connects the stomach to the anus. When a person eats and drinks, food andfluids go from the mouth to the stomach to the small bowel. This is where most of the nutrients in the food and fluids are absorbed. After the small bowel, material passes through the large bowel for further absorption until any leftover material leaves the body as stool (feces) through the anus during a bowel movement. A bowel obstruction will prevent food and fluids from passing through the bowel as they normally doduring digestion. The bowel can become partially or completely blocked. If this condition is not treated, it can be dangerous because the bowel could rupture. What are the causes? Common causes of this condition include: ??? Scar tissue in the body (adhesions) from previous surgery or treatment with high-energy X-rays (radiation). ??? Recent surgery. This may cause the movements of the bowel to slow down and cause food to block the intestine. ??? Inflammatory bowel disease, such as Crohn's disease or diverticulitis. ??? Growths or tumors. ??? A bulging organ or tissue (hernia). ??? Twisting of the bowel (volvulus). ??? A swallowed object (foreign body). ??? Slipping of a part of the bowel into another part (intussusception). What are the signs or symptoms? Symptoms of this condition include: ??? Pain in the abdomen. Depending on the degree of obstruction, pain may be: ??? Mild or severe. ??? Dull cramping or sharp pain. ??? In one area or in the entire abdomen. ??? Nausea and vomiting. Vomit may be greenish or a yellow bile color. ??? Bloating in the abdomen. ??? Constipation. ??? Being unable to pass gas. ??? Frequent belching. ??? Diarrhea. This may occur if the obstruction is partial and runny stool is able to leak around the obstruction. How is this diagnosed? This condition may be diagnosed based on: ??? A physical exam. ??? Your medical history. ??? Exams to look into the small intestine or the large intestine (endoscopy or colonoscopy). ??? Imaging tests of the abdomen or pelvis, such as X-ray or CT scan. ??? Blood or urine tests. How is this treated? Treatment for this condition depends on the cause and severity of the problem. Treatment may include: ??? Fluids and pain medicines that are given through an IV. Your health care provider may tell you not to eat or drink if you have nausea or vomiting. ??? A clear liquid diet. You may be asked to consume a clear liquid diet for several days. This allows the bowel to rest. ??? Placement of a small tube (nasogastric tube) through the nose, down the throat, and into the stomach. This may relieve pain, discomfort, and nausea by removing blocked air and fluids from the stomach. It can also help the obstruction clear up faster. ??? Surgery. This may be required if other treatments do not work. Surgery may be required for: ??? Bowel obstruction from a hernia. This can be an emergency procedure. ??? Scar tissue that causes frequent or severe obstructions. Follow these instructions at home: Medicines ??? Take txle-hlu-ljwoxgp and prescription medicines only as told by your health care provider. ??? If you were prescribed an antibiotic medicine, take it as told by your health care provider. Donot stop taking the antibiotic even if you start to feel better. General instructions ??? Follow instructions from your health care provider about eating and drinking restrictions. You may need to avoid solid foods and drink only clear liquids until your condition improves. ??? Return to your normal activities as told by your health care provider. Ask your health care provider what activities are safe for you. ??? Rest as told by your health care provider. ??? Avoid sitting for a long time without moving. Get up to take short walks every 1???2 hours. This is important to improve blood flow and breathing. Ask for help if you feel weak or unsteady. ??? Keep all follow-up visits. This is important. How is this prevented? After having a bowel obstruction, you are more likely to have another. You may do the following things to prevent another obstruction: ??? If you have a long-term (chronic) disease, pay attention to your symptoms and contact your health care provider if you have questions or concerns. ??? Avoid becoming constipated. You may need to take these actions to prevent or treat constipation: ??? Drink enough fluid to keep your urine pale yellow. ??? Take qpwd-efz-jihihpl or prescription medicines. ??? Eat foods that are high in fiber, such as beans, whole grains, and fresh fruits and vegetables. ??? Limit foods that are high in fat and processed sugars, such as fried or sweet foods. ??? Stay active. Exercise for 30 minutes or more, 5 or more days each week. Ask your health care provider which exercises are safe for you. ??? Avoid stress. Find ways to reduce stress, such as meditation, exercise, or taking time for activities that relax you. ??? Instead of eating three large meals each day, eat three small meals with three small snacks. ??? Work with a dietitian to make a healthy meal plan that works for you. ??? Do not use any products that contain nicotine or tobacco. These products include cigarettes, chewing tobacco, and vaping devices, such as e-cigarettes. If you need help quitting, ask your health care provider. Contact a health care provider if: ??? You have a fever. ??? You have chills. Get help right away if: ??? You have increased pain or cramping. ??? You vomit blood. ??? You have uncontrolled vomiting or nausea. ??? You cannot drink fluids because of vomiting or pain. ??? You become confused. ??? You begin feeling very thirsty (dehydrated). ??? You have severe bloating. ??? You feel extremely weak or you faint. Summary ??? A bowel obstruction is a blockage in the small or large bowel. ??? A bowel obstruction will prevent food and fluids from passing through the bowel as they normally do during digestion. ??? Treatment for this condition depends on the cause and severity of the problem. It may include fluids and pain medicines through an IV, a simple diet, a nasogastric tube, or surgery. ??? Follow instructions from your health care provider about eating restrictions. You may need to avoid solid foods and consume only clear liquids until your condition improves. This information is not intended to replace advice given to you by your health care provider. Make sure you discuss any questions you have with your health care provider. Document Revised: 07/04/2021 Document Reviewed: 07/04/2021 Elsevier Patient Education ?? 2022 [employer]. Follow Up Care 04/03/2023 07:49:22 With:Zach Lazo MD Address: [facility] [address] [place], [place] [id number]- When:05/10/2023 08:30:00 Discharge instructions * Zach Lazo MD: PERFORM Event Display: Discharge Instructions Authored Date: [id number] ARNOLD KELLY CEJA :1940 Age:82 years Sex:Female Visit Date:04/03/2023 Primary Care Physician: Wilmar Licea, Hospital Discharge Instructions We would like to thank you for allowing us to assist you with your healthcare needs. The following includes patient education materials and information regarding your injury/illness. Your Next Steps Instructions From Your Care Team Activity: ?Resume your usual activity. ?Lift no more than 10 pounds until your follow up appointment. ?? Diet: ?Advance to previous diet as tolerated. ?? Medications: ?Continue your regular medications ?Prescription given to patient:??none ?Last dose of pain ??medication given at hospital:?Over the counter medications: Tylenol and/or Ibuprofen every 6 hours when needed for pain. ?Last dose of over the counter medication given at the hospital: ?? Dressing: ?Your incision is closed with glue (derma herrera) DO NOT pick or scrub at it. ?Apply ice pack over dressing site for 20 mins on/20 mins off for the first several days. ?? Special Instructions: ?You may take a shower after 24 hours. ?No bathing, soaking or swimming for 2 weeks. ?You may drive after ALL pain medications are stopped. ?? YOU SHOULD CALL YOUR DOCTOR??AT ??FOR ANY OF THE FOLLOWING ?Fever of 101 or higher. ?Pain that does not lessen with the pain medication prescribed. ?Cloudy or foul smelling drainage from the incision. ?Redness, warmth and firmness around the incision. ?Increased numbness or tingling. ?Bleeding or continuous oozing that saturates the bandage and does not stop after applying pressure to incision for 20 minutes. ?Increased swelling of fingers or toes, or severe tightness of bandage not relieved with elevation of limb above the level of your heart. ?Pale blue or cold fingers/toes or nail beds as compared with the opposite side. ?? IF UNABLE TO REACH YOUR DOCTOR GO TO YOUR NEAREST EMERGENCY ROOM ?? Recommended Treatments for Opioid Induced Constipation ?? Dosage Schedule Drug Brand Names Dose Daily Senna-docusate 8.5-5mg per tablet Senokot 2 tablets by mouth 2 times per day (Hold for loose stool) As Needed Magnesium Hydroxide Milk of Magnesia 30mL by mouth 2 times per day as needed As Needed Polyethylene Glycol Miralax 17 grams dissolved in 8 ounces of water, juice or tea once daily as needed As Needed Bisacodyl?? Dulcolax 10mg by mouth once a day as needed for constipation As Needed Phosphate enema Fleet enema 120mL rectally once a day as needed for constipation As Needed Magnesium citrate ?? 150 to 300 mL (1.745g/30mL solution) by mouth once a day as needed for constipation ? Patient/Responsible constitution party signature:? Date/Time: ?? RN signature: ? Date/Time: ?? This document was electronically generated via computerized provider work order clerk (CPOE) by the ordering physician,??Zach Lazo MD Discharge Orders Discharge Activity Restrictions, No Heavy Lifting Discharge Bathing Instructions, okay to shower Scheduled Future Appointments Monday 10:30 AM EST ?? With: KAILEY Mason Where: [facility] Otolaryngology Status: Confirmed Follow Up Appointments Follow Up with??Zach Lazo MD When:??05/10/2023 09:30 AM EST Where: [facility] [address] [place] [id number] The Following Services Have Been Arranged for You Special Services and Community Resources - None Medications What How Much When Instructions Next Dose Changed atorvastatin (atorvastatin 80 mg oral tablet) 1 tab Oral (given by mouth) With Evening Meal Changed clopidogrel (clopidogrel 75 mg oral tablet) 1 tab Oral (given by mouth) Every day Changed metFORMIN (MetFORMIN (Eqv-Glucophage XR) 500 mg oral tablet, extended release) 1 tab Oral (given by mouth) 2 times a day Unchanged acetaminophen (Tylenol Extra Strength 500 mg oral tablet) 1 tab Oral (given by mouth) Every 6 hours as needed for not specified Duration: 90 Days Unchanged albuterol (ProAir HFA 90 mcg/ inh inhalation aerosol) 2 Puffs Inhale (breathe in) Every 6 hours as needed for as needed for wheezing Unchanged amLODIPine 10 Milligrams Oral (given by mouth) Every day Unchanged aspirin (aspirin 81 mg oral delayed release tablet) 1 tab Oral (given by mouth) Every day as needed for stroke prevention Duration: 90 Days Unchanged atenolol (atenolol 50 mg oral tablet) 1 tab Oral (given by mouth) Every day Duration: 90 Days Unchanged calcitriol (calcitriol 0.25 mcg oral capsule) 1 Capsules Oral (given by mouth) Every day Unchanged colchicine (colchicine 0.6 mg oral tablet) 1/2 tab Oral (given by mouth) Every day as needed for not specified Duration: 90 Days Unchanged DME RESP Oxygen Therapy (DME Oxygen Therapy) See instructions pt uses as needed for ALMARAZ@ 2lpm ?? Unchanged DULoxetine (DULoxetine 60 mg oral [...] by mouth) 3 times a day Unchanged glucagon (Glucagon Emergency Kit for Low Blood Sugar 1 mg injection) See instructions Unchanged insulin glargine (Lantus Solostar Pen 100 units/ mL subcutaneous solution) 28 Units Subcutaneous (under the skin) Every day Unchanged lisinopril (lisinopril 40 mg oral tablet) 1 tab Oral (given by mouth) Every evening Duration: 90 Days Unchanged multivitamin with minerals (Centrum Silver oral tablet) 1 tab Oral (given by mouth) Every day Duration: 90 Days Unchanged nitroglycerin (nitroglycerin 0.3 mg sublingual tablet) See instructions Unchanged Other Prescription (Bd Pen Needle/ Milena/ Ultra-Fine/ 32g X 4mm Mis Embe) See instructions use one needle once daily ?? Unchanged Other Prescription (ONETOUCH ULTRA STRP) See instructions Check blood glucose bid and as needed ?? Unchanged Other Prescription (PEN NEEDLES MIS [id number]) See instructions BID with insulin ?? Unchanged traZODone (traZODone 100 mg oral tablet) 1 tab Oral (given by mouth) Every night at bedtime Your Summary Your Care Team Admitting Physician - Frankie Barrow MD Attending Physician - Frankie Barrow MD Primary Care Physician - Wilmar Licea, DO Your Diagnosis Small bowel obstruction Right sided abdominal pain JONN (acute kidney injury) Diabetes HTN (hypertension) H/O: gout Syncope Diarrhea Weakness Problems Ongoing - Any problem that you are currently receiving treatment for. Anal fissure Atypical chest pain Bilateral sensory [...] are no longer receiving treatment for. Acute ischemic left MCA stroke Acute renal failure superimposed on stage 3 chronic kidney disease Carpal tunnel syndrome Cervical radiculopathy Cervical radiculopathy Disorder of cervical spine History of vitamin D deficiency Other chronic pain Type 2 diabetes mellitus with unspecified complications Procedures Performed ???Laparascopy (04/07/2023) Tests Performed/Pending .Manual Differential (LTTL) Automated Diff Blood Gas Venous BMP BNP C diff (GeneXpert) CBC w/ Diff CMP COVID 19 (GeneXpert)?-- Results Pending -- Glucose POCT High SensitivityTroponin-I Lactic Acid Lipase Level Magnesium Level Troponin-I High Sensitivity Urinalysis Microscopic Urinalysis with Micro if Indicated and Culture if Indicated CT Abdomen and Pelvis w/ Contrast XR Abdomen 2 Views XR Chest 1 View XR Chest 2 Views XR Small Bowel Follow Through Discharge Vitals Temperature??(Oral) 98.2 ??F (36.8 ??C) Heart Rate??(Peripheral) 78 Respiratory Rate?? 20 Blood Pressure?? 160/71?? Weight?? 221.16 lb (100.3 kg) Allergies Adhesive Bandage??(Rash) copper containing compounds??(Rash) Bee Stings??(Unknown) Dust Education Materials Bowel Obstruction A bowel obstruction is a blockage in the small or large bowel. The bowel is also called the intestine. It is a long tube that connects the stomach to the anus. When a person eats and drinks, food andfluids go from the mouth to the stomach to the small bowel. This is where most of the nutrients in the food and fluids are absorbed. After the small bowel, material passes through the large bowel for further absorption until any leftover material leaves the body as stool (feces) through the anus during a bowel movement. A bowel obstruction will prevent food and fluids from passing through the bowel as they normally doduring digestion. The bowel can become partially or completely blocked. If this condition is not treated, it can be dangerous because the bowel could rupture. What are the causes? Common causes of this condition include: ? Scar tissue in the body (adhesions) from previous surgery or treatment with high-energy X-rays (radiation). ? Recent surgery. This may cause the movements of the bowel to slow down and cause food to block the intestine. ? Inflammatory bowel disease, such as Crohn's disease or diverticulitis. ? Growths or tumors. ? A bulging organ or tissue (hernia). ? Twisting of the bowel (volvulus). ? A swallowed object (foreign body). ? Slipping of a part of the bowel into another part (intussusception). What are the signs or symptoms? Symptoms of this condition include: ? Pain in the abdomen. Depending on the degree of obstruction, pain may be: ? Mild or severe. ? Dull cramping or sharp pain. ? In one area or in the entire abdomen. ? Nausea and vomiting. Vomit may be greenish or a yellow bile color. ? Bloating in the abdomen. ? Constipation. ? Being unable to pass gas. ? Frequent belching. ? Diarrhea. This may occur if the obstruction is partial and runny stool is able to leak around the obstruction. How is this diagnosed? This condition may be diagnosed based on: ? A physical exam. ? Your medical history. ? Exams to look into the small intestine or the large intestine (endoscopy or colonoscopy). ? Imaging tests of the abdomen or pelvis, such as X-ray or CT scan. ? Blood or urine tests. How is this treated? Treatment for this condition depends on the cause and severity of the problem. Treatment may include: ? Fluids and pain medicines that are given through an IV. Your health care provider may tell you not to eat or drink if you have nausea or vomiting. ? A clear liquid diet. You may be asked to consume a clear liquid diet for several days. This allows the bowel to rest. ? Placement of a small tube (nasogastric tube) through the nose, down the throat, and into the stomach. This may relieve pain, discomfort, and nausea by removing blocked air and fluids from the stomach. It can also help the obstruction clear up faster. ? Surgery. This may be required if other treatments do not work. Surgery may be required for: ? Bowel obstruction from a hernia. This can be an emergency procedure. ? Scar tissue that causes frequent or severe obstructions. Follow these instructions at home: Medicines ? Take cahm-npf-fvypwnn and prescription medicines only as told by your health care provider. ? If you were prescribed an antibiotic medicine, take it as told by your health care provider. Do notstop taking the antibiotic even if you start to feel better. General instructions ? Follow instructions from your health care provider about eating and drinking restrictions. You may need to avoid solid foods and drink only clear liquids until your condition improves. ? Return to your normal activities as told by your health care provider. Ask your health care provider what activities are safe for you. ? Rest as told by your health care provider. ? Avoid sitting for a long time without moving. Get up to take short walks every 1???2 hours. This isimportant to improve blood flow and breathing. Ask for help if you feel weak or unsteady. ? Keep all follow-up visits. This is important. How is this prevented? After having a bowel obstruction, you are more likely to have another. You may do the following things to prevent another obstruction: ? If you have a long-term (chronic) disease, pay attention to your symptoms and contact your health care provider if you have questions or concerns. ? Avoid becoming constipated. You may need to take these actions to prevent or treat constipation: ? Drink enough fluid to keep your urine pale yellow. ? Take vkvk-erq-ptwkswl or prescription medicines. ? Eat foods that are high in fiber, such as beans, whole grains, and fresh fruits and vegetables. ? Limit foods that are high in fat and processed sugars, such as fried or sweet foods. ? Stay active. Exercise for 30 minutes or more, 5 or more days each week. Ask your health care provider which exercises are safe for you. ? Avoid stress. Find ways to reduce stress, such as meditation, exercise, or taking time for activities that relax you. ? Instead of eating three large meals each day, eat three small meals with three small snacks. ? Work with a dietitian to make a healthy meal plan that works for you. ? Do not use any products that contain nicotine or tobacco. These products include cigarettes, chewing tobacco, and vaping devices, such as e-cigarettes. If you need help quitting, ask your health careprovider. Contact a health care provider if: ? You have a fever. ? You have chills. Get help right away if: ? You have increased pain or cramping. ? You vomit blood. ? You have uncontrolled vomiting or nausea. ? You cannot drink fluids because of vomiting or pain. ? You become confused. ? You begin feeling very thirsty (dehydrated). ? You have severe bloating. ? You feel extremely weak or you faint. Summary ? A bowel obstruction is a blockage in the small or large bowel. ? A bowel obstruction will prevent food and fluids from passing through the bowel as they normally doduring digestion. ? Treatment for this condition depends on the cause and severity of the problem. It may include fluids and pain medicines through an IV, a simple diet, a nasogastric tube, or surgery. ? Follow instructions from your health care provider about eating restrictions. You may need to avoidsolid foods and consume only clear liquids until your condition improves. This information is not intended to replace advice given to you by your health care provider. Make sure you discuss any questions you have with your health care provider. Document Revised: 07/04/2021 Document Reviewed: 07/04/2021 [employer] Patient Education ?? 2022 [employer] Patient/[employer]orer [employer] Signature Patient Name:KELLY HOLLEY I have received this information and my questions have been answered. Patient/[employer] Name: Patient/[employer] Signature: Relationship to Patient: Witness Name/Signature: Date: Electronically Signed on: 04/12/2023 09:56 ESTSigned by:VIRGEN metrology manager Note * Verito Humphrey: PERFORM Event Display: Case Management Note Authored Date: [id number] EKG study * Event Display: Telemetry Strips Physician Emergency department Note * Maximino Muniz, DO: PERFORM Event Display: ED Note Physician Authored Date: [id number] ARNOLD KELLY CEJA :1940 Age:82 years Sex:Female Visit Date:04/03/2023 Primary Care Physician: Wilmar Licea DO 9:10 AM: Signout from overnight ED attending.?? In summary, this is an 82-year-old female who presents emergency department with persistent abdominal discomfort primarily right-sided and diarrhea.?? She for started with diarrhea on Monday and had multiple episodes of loose stool since then.?? She denies any hematochezia or melena.?? She describes pain diffusely in the right side of her abdomen which is ikzrgblc-cm-gehous.?? Her abdominal surgeries include hysterectomy, appendectomy, bladder sling, section.?? Laboratory results revealed an elevated white blood cell count with lactic acidosis.?? CT abdomen/pelvis is pending.?? Patient was treated with intravenous fluids, Zofran, and IV Tylenol. ?? CT abdomen/pelvis demonstrated findings concerning for middle-distal small bowel obstruction.?? No free intraperitoneal air.?? Mild ascites in the abdomen and pelvis was noted.?? The gallbladder was slightly distended with multiple gallbladder wall calcifications versus tiny gallstones. ?? Consulted with general surgery (Dr. Lazo) who accepted the patient to the surgical service.??Please see surgical admission history and physical examination. Electronically Signed on 04/03/23 08:16 PM Maximino Muniz, DO * Sinan Bee MD: PERFORM Event Display: ED Note Physician Authored Date: [id number] KELLY HOLLEY :1940 Age:82 years Sex:Female Visit Date:04/03/2023 Primary Care Physician: Wilmar Licea DO Basic Information Time Seen: Sinan Bee MD / 04/03/2023 08:45 Chief Complaint Diarrhea on Monday after fishing all day, felt okay Monday, Monday had multiple loose BM's. Has had nausea throughout the weekend and began vomiting this AM. Pt clutching RIGHT side of abdomen, reports cramping all over RIGHT side and into middle chest. History Of Present Illness: 82-year-old female presents the ER complaining of abdominal pain and diarrhea. ??The patient statesshe started with diarrhea on Monday??and had multiple episodes of loose stool since then.?? She says the stool was??not black or bloody.?? Abdominal pain has persisted and she developed nausea and vomiting over the past 24 hours. ??She now comes in for evaluation. ??She was the pain diffusely in the right side of her abdomen which is moderate to severe. ??Denies any chest pain, shortness of breath or cough. ??No urinary symptoms.?? She has not been able to keep down any fluids at home??and feels lightheaded and weak. ??No recent sick contacts. Review of Systems: CONSTITUTIONAL:??No fevers or chills. EYES:??No change in vision. ENT:??No sore throat. ??No headache. ??No neck pain. CARDIOVASCULAR:??No chest pain, palpitations or passing out episodes. RESPIRATORY:??No cough, shortness of breath or hemoptysis. :??No change in urination. SKIN:??No rash. NEUROLOGIC:??No focal numbness or weakness. LYMPH:??No swelling. ?? Review of systems otherwise as stated in HPI Physical Exam Vitals & Measurements T:??36.4?C ??(Oral)?? HR:??75??(Peripheral)?? RR:??18?? BP:??188/91?? SpO2:??96%?? HT:??165.100??cm?? WT:??92.53??kg?? BMI:??34.000?? O2 Therapy:??Room air?? GENERAL:??Awake and alert. ??Moderate discomfort. HEENT:??Normocephalic, atraumatic. ??Mucous membranes are dry. NECK:??Supple. ??Nontender. HEART:??Regular rate and rhythm. ??S1 and S2. LUNGS:??Clear to auscultation bilaterally. ??No respiratory distress. ABDOMEN:??Soft, moderate diffuse tenderness worse in the right upper and right lower quadrants.?? No guarding or rebound. BACK:??Normal to inspection and nontender. ??No CVA tenderness. EXTREMITIES:??Nontender and without edema. NEUROLOGIC:??Awake, alert, and oriented x3. ??Motor and sensory grossly intact. SKIN:??Warm and dry. VASCULAR:??Radial 2+ bilaterally. Medical Decision Making: Right-sided abdominal pain, diarrhea. ??The patient is afebrile nontoxic- appearing but??quite tender on abdominal exam. ??She appears significantly dehydrated as well. ??Laboratory studies have been sent and are notable for elevated white count and lactic acidosis.?? CT of the abdomen pelvis has been ordered and is pending.?? Treatment has been initiated with IV fluids, Zofran, and IV Tylenol.?? Differential is wide and includes diverticulitis and colitis. ??She has had previous appendectomy.??The patient will be signed at shift change to Dr. Muniz at 0900 for reevaluation and appropriatedisposition. Procedure No Qualifying Data Assessment/Plan 1.??Right sided abdominal pain??R10.9 Orders: Sodium Chloride 0.9% 1,000 mL, Total Volume (mL): 1,000, 1,000 mL, Soln-IV, IV Bolus, 999 mL/hr, Order Duration: 1 times, Start Date: 04/03/23 8:46:00 EDT, Stop Date: 04/03/23 9:45:00 EDT, 92.53 kg, Populate Charting Weight From Order, 2.06, m2 BNP, Blood, Stat, 04/03/23 8:26:00 EDT, Once, Nurse collect CT Abdomen and Pelvis w/ Contrast, 04/03/23 8:47:00 EDT, Stat, Reason: right abd pain, diarrhea, Transport Mode: Stretcher Lactic Acid, Blood, RT, 04/03/23 11:10:00 EDT, Once, Lab Collect Troponin-I High Sensitivity, Blood, Stat, 04/03/23 9:26:00 EDT, Once, Nurse collect Urinalysis with Micro if Indicated and Culture if Indicated, Urine, Stat Collect, 04/03/23 8:26:00 EDT, Once, Nurse collect, Print Label Medication Reconciliation Unchanged acetaminophen (Tylenol Extra Strength 500 mg oral tablet)1 tab Oral (given by mouth) every 6 hours as needed not specified for 90 Days. ?? albuterol (ProAir HFA 90 mcg/inh inhalation aerosol)2 Puffs Inhale (breathe in) every 6 hours as needed as needed for wheezing. ?? amLODIPine (amLODIPine 5 mg oral tablet)1 tab Oral (given by mouth) every day. ?? aspirin (aspirin 81 mg oral delayed release tablet)1 tab Oral (given by mouth) every day as needed stroke prevention for 90 Days. ?? atenolol (atenolol 50 mg oral tablet)1 tab Oral (given by mouth) every day for 90 Days. ?? atorvastatin (atorvastatin 80 mg oral tablet)take 1 tablet by mouth Once a day at supper for cholesterol. Refills: 3. ?? calcitriol (calcitriol 0.25 mcg oral capsule)1 Capsules Oral (given by mouth) every day. ?? clopidogrel (clopidogrel 75 mg oral tablet)take one tablet by mouth one time daily. Refills: 3. ?? colchicine (colchicine 0.6 mg oral tablet)1/2 tab Oral (given by mouth) every day as needed not specified for 90 Days. ?? DME RESP Oxygen Therapy (DME Oxygen Therapy)pt uses as needed for ALMARAZ@ 2lpm. ?? DULoxetine (DULoxetine 60 mg oral delayed release capsule)1 Capsules Oral (given by mouth) every day for 90 Days. Refills: 3. ?? Durable Medical Equipment for Prescription (OneTouch Delica Lanceta Fine - Miscellaneous)See instructions. ?? Durable Medical Equipment for Prescription (OneTouch Ultra Blue - Strip)See instructions. ?? Durable Medical Equipment for Prescription (Oxygen Therapy)See instructions. 2 liters by nasal cannula continuous concentrator / portable gas Start Date: 09/09/2020, Notes: Dr. Alexander NPI [id number] codes : R06.81 and Z86.73. ?? furosemide (furosemide 20 mg oral tablet)1 tab Oral (given by mouth) 2 times a day for 90 Days. ?? gabapentin (gabapentin 400 mg oral capsule)1 Capsules Oral (given by mouth) 3 times a day. Refills:0. ?? glucagon (Glucagon Emergency Kit for Low Blood Sugar 1 mg injection) ?? insulin glargine (Lantus Solostar Pen 100 units/mL subcutaneous solution)28 Units Subcutaneous (under the skin) every day. ?? lactulose (lactulose 10 g/15 mL oral syrup)15-30 mL Oral Daily 30 days; as needed as needed for constipation. Refills: 3. ?? lisinopril (lisinopril 40 mg oral tablet)1 tab Oral (given by mouth) every evening for 90 Days. Refills: 3. ?? metFORMIN (MetFORMIN (Eqv-Glucophage XR) 500 mg oral tablet, extended release)TAKE ONE TABLET BY MOUTH TWICE DAILY. Refills: 3. ?? multivitamin with minerals (Centrum Silver oral tablet)1 tab Oral (given by mouth) every day for 90Days. ?? nitroglycerin (nitroglycerin 0.3 mg sublingual tablet) ?? Other Prescription (Bd Pen Needle/Milena/Ultra-Fine/32g X 4mm Mis Embe)use one needle once daily. Refills: 3. ?? Other Prescription (ONETOUCH ULTRA STRP)Check blood glucose bid and as needed. ?? Other Prescription (PEN NEEDLES MIS [id number])BID with insulin. ?? polyethylene glycol 3350 with electrolytes (GoLYTELY oral powder for reconstitution)240 MillilitersOral (given by mouth) every 10 minutes for 1 Days. Refills: 0. ?? traZODone (traZODone 100 mg oral tablet)1 tab Oral (given by mouth) every night at bedtime. Refills: 4. Problem List/Past Medical History Ongoing Anal fissure [...] Given Sodium Chloride 0.9%, 1000 mL, IV Bolus acetaminophen, 1000 mg, IV Piggyback ondansetron, 4 mg, IV Push Allergies Adhesive Bandage??(Rash) copper containing compounds??(Rash) Bee Stings??(Unknown) Dust Social History Alcohol Current, 1-2 times per week Electronic Cigarette/Vaping Electronic Cigarette Use: Never. Substance Use Never Tobacco Never tobacco user Tobacco Use:. Family History Cancer: Mother. Cardiovascular disease: Father. Diabetes mellitus: Sister. Hypertension: Father. Ovarian cancer: Mother. Stroke: Sister. Daughter: History is negative Daughter: History is negative Son: History is negative Diagnostic Results XR Chest 2 Views 04/03/2023 08:52 EDT XR Chest 2 Views ?? 04/03/23 08:50:39 EXAM DESCRIPTION: XR Chest 2 Views ?? 04/03/2023 ?? INDICATION: SOB ?? COMPARISON: 07/15/2022 ?? IMPRESSION: No focal infiltrate or pulmonary edema with mild subsegmental atelectasis or scarring in the left lung base ?? Normal cardiomediastinal contour. ?? No pleural effusion or pneumothorax ?? Spondylotic changes of the dorsal spine. ?? Stable dense nodule in the right lung base most consistent with granuloma. ? JOB #: [id number] Electronically Signed By: ?? Signed By: Alverto Xiao MD ECG Normal sinus rhythm at 72. ??No acute injury pattern. Lab Results CBC and Differential?? LATEST RESULTS?? HISTORICAL RESULTS?? WBC?? 04/03/23 08:10?? 17.5 ??High?? 07/16/22?? 9.1?? RBC?? 04/03/23 08:10?? 5.14?? 07/16/22?? 3.51 ??Low?? Hgb?? 04/03/23 08:10?? 16.0?? 07/16/22?? 11.2 ??Low?? Hct?? 04/03/23 08:10?? 47.9 ??High?? 07/16/22?? 33.9 ??Low?? MCV?? 04/03/23 08:10?? 93.2?? 07/16/22?? 96.6?? MCH?? 04/03/23 08:10?? 31.1 ??High?? 07/16/22?? 31.9 ??High?? MCHC?? 04/03/23 08:10?? 33.4?? 07/16/22?? 33.0?? RDW-CV?? 04/03/23 08:10?? 12.7?? 07/16/22?? 12.5?? Platelets?? 04/03/23 08:10?? 321?? 07/16/22?? 197?? MPV?? 04/03/23 08:10?? 10.2?? 07/16/22?? 10.4?? Neutro Auto?? 04/03/23 08:10?? 83.1 ??High?? 07/16/22?? 59.0?? Lymph Auto?? 04/03/23 08:10?? 12.7 ??Low?? 07/16/22?? 31.0?? Dickenson Auto?? 04/03/23 08:10?? 3.3?? 07/16/22?? 7.0?? Eos, Auto?? 04/03/23 08:10?? 0.00?? 07/16/22?? 2.30?? Basophil Auto?? 04/03/23 08:10?? 0.2?? 07/16/22?? 0.3?? Imm Gran Auto?? 04/03/23 08:10?? 0.7 ??High?? 07/16/22?? 0.4?? Neutro Absolute?? 04/03/23 08:10?? 14.6 ??High?? 07/16/22?? 5.4?? Lymph Absolute?? 04/03/23 08:10?? 2.2?? 07/16/22?? 2.8?? Dickenson Absolute?? 04/03/23 08:10?? 0.6?? 07/16/22?? 0.6?? Eos Absolute?? 04/03/23 08:10?? 0.0?? 07/16/22?? 0.2?? Baso Absolute?? 04/03/23 08:10?? 0.0?? 07/16/22?? 0.0?? Imm Gran Absolute?? 04/03/23 08:10?? 0.13 ??High?? 07/16/22?? 0.04? Routine Chemistry?? LATEST RESULTS?? HISTORICAL RESULTS?? Sodium Level?? 04/03/23 08:10?? 138?? 09/28/22?? 136?? Potassium Level?? 04/03/23 08:10?? 4.4?? 09/28/22?? 4.3?? Chloride Level?? 04/03/23 08:10?? 103?? 09/28/22?? 97 ??Low?? CO2?? 04/03/23 08:10?? 22?? 09/28/22?? 32?? Alk Phos?? 04/03/23 08:10?? 88?? 09/28/22?? 109?? AST?? 04/03/23 08:10?? 25?? 09/28/22?? 19?? ALT?? 04/03/23 08:10?? 17?? 09/28/22?? 22?? BUN?? 04/03/23 08:10?? 27 ??High?? 09/28/22?? 25?? Glucose Level?? 04/03/23 08:10?? 222 ??High?? 09/28/22?? 104?? Creatinine Level?? 04/03/23 08:10?? 1.09 ??High?? 09/28/22?? 1.13 ??High?? BUN/Creat Ratio?? 04/03/23 08:10?? 24.8 ??High?? 09/28/22?? 22.1 ??High?? eGFR CKD-EPI?? 04/03/23 08:10?? 50 ??Low?? 09/28/22?? 48 ??Low?? Calcium Level?? 04/03/23 08:10?? 9.2?? 09/28/22?? 9.3?? Protein Total?? 04/03/23 08:10?? 7.2?? 09/28/22?? 7.0?? Albumin Level?? 04/03/23 08:10?? 3.4 ??Low?? 09/28/22?? 3.7?? Globulin?? 04/03/23 08:10?? 3.8 ??High?? 09/28/22?? 3.3?? A/G Ratio?? 04/03/23 08:10?? 0.9 ??Low?? 09/28/22?? 1.1?? Bilirubin Total?? 04/03/23 08:10?? 1.0?? 09/28/22?? 0.5?? Anion Gap?? 04/03/23 08:10?? 13.0 ??High?? 09/28/22?? 7.0?? Lactic Acid Lvl?? 04/03/23 08:10?? 2.4 ??High?? 06/11/22?? 1.9?? Lipase Level?? 04/03/23 08:10?? 22?? 06/11/22?? 30?? Osmolality?? 04/03/23 08:10?? 288?? 09/28/22?? 277? Cardiac Isoenzymes?? LATEST RESULTS?? Troponin-I HS?? 04/03/23 08:10?? 8? Electronically Signed on 04/03/23 09:27 AM Sinan Bee MD Nutrition and dietetics Progress note * Shelley Johnson: PERFORM Event Display: Nutrition Note Authored Date: [id number] Assessment and Monitoring Nutrition Follow Up ?? 82 yo F admit with abdominal pain and dx SBO on 04/03. Surgery last week laparoscopic ??lysis. has return of bowel function over the weekend and upgraded to Regular diet. reports weakness, may be discharged to short term rehab. appetite improving, ate some of breakfast, disliked some food but just some foods aren't tasting good to her. she has no pain/discomfort after eating. fair to good acceptance of ensure enlive. says it's too sweet- can try homemade shake. has less protein but may be more palatable. ordering pretty complete meals as well. enc good pos/fluids. no weight change noted. Monitoring Nutrition Goals ?? labs wnl skin w/o open areas weight maintainance Pos >75% of meals/supplements Nutrition Interventions Continue Regular diet with protein shakes enc good pos/fluids weights Anthropometrics/Estimated Needs Magxqm76.9 kg(Recorded: 04/11/2023 03:25 EST) Kcbjxi248.1 cm(Recorded: 04/03/2023 13:52 EDT) Body Mass Index34.34 kg/m2(Recorded: 04/03/2023 13:52 EDT) Reason for Visit abdominal pain Problem List/Past Medical History Ongoing Anal fissure [...] diabetes mellitus with unspecified complications Procedure/Surgical History ???Laparascopy (04/07/2023)???Colonoscopy Biopsy (11/02/2022)???Colonoscopy (01/21/2019)???Back class???Bladder care???Mastoidectomy???Surgery???Surgical manipulation of joint of knee Social History Alcohol Current, 1-2 times per week Electronic Cigarette/Vaping Electronic Cigarette Use: Never. Substance Use Never Tobacco Never tobacco user Tobacco Use:. Family History Cancer: Mother. Cardiovascular disease: Father. Diabetes mellitus: Sister. Hypertension: Father. Ovarian cancer: Mother. Stroke: Sister. Daughter: History is negative Daughter: History is negative Son: History is negative Diet Orders Diet Order, 04/10/23 11:32:00 EST, Regular Allergies Adhesive Bandage??(Rash) copper containing compounds??(Rash) Bee Stings??(Unknown) Dust Nutrition Lab Results Test Name Test Result Date/Time WBC 10.4 K/mcL 04/10/2023 02:30 EST Hgb 13.1 g/dL 04/10/2023 02:30 EST Hct 40.0 % 04/10/2023 02:30 EST MCV 96.9 fL 04/10/2023 02:30 EST Platelets 253 K/mcL 04/10/2023 02:30 EST Sodium Level 134 mmol/L 04/10/2023 00:10 EST Potassium Level 3.8 mmol/L 04/10/2023 00:10 EST Chloride Level 104 mmol/L 04/10/2023 00:10 EST CO2 23 mmol/L 04/10/2023 00:10 EST Alk Phos 121 IntlUnit/L 04/10/2023 00:10 EST ALT 74 IntlUnit/L 04/10/2023 00:10 EST BUN 27 mg/dL 04/10/2023 00:10 EST Glucose Level 147 mg/dL 04/10/2023 00:10 EST Creatinine Level 0.90 mg/dL 04/10/2023 00:10 EST Albumin Level 2.4 g/dL 04/10/2023 00:10 EST Bilirubin Total 0.9 mg/dL 04/10/2023 00:10 EST Magnesium Level 2.0 mg/dL 04/06/2023 06:30 EDT Medications Inpatient acetaminophen, 1000 mg= 100 mL, IV Piggyback, every 6 hr (dinesh) albuterol, 180 mcg= 2 puffs, Inhale, every 6 hr, PRN amLODIPine, 10 mg= 2 tab, Oral, Daily aspirin 81 mg oral delayed release tablet, 81 mg= 1 tab, Oral, Daily atenolol, 50 mg= 2 tab, Oral, Daily atorvastatin, 80 mg= 4 tab, Oral, With Evening Meal calcitriol 0.25 mcg oral capsule, 0.25 mcg= 1 cap, Oral, Daily Dextrose 50% injection, 25 g= 50 mL, IV Push, As Directed diphenoxylate-atropine 2.5 mg-0.025 mg oral tablet, 1 tab, Oral, Daily DULoxetine, 60 mg= 2 cap, Oral, Daily gabapentin, 400 mg= 1 cap, Oral, TID glucagon, 1 mg= 1 EA, Subcutaneous, As Directed heparin, 5000 units= 1 mL, Subcutaneous, every 12 hr insulin aspart Sliding Scale - Low Dose, Insulin Aspart Sliding Scale See Comments, Subcutaneous, every 6 hr naloxone, 0.1 mg= 0.25 mL, IV Push, every 5 min, PRN ondansetron, 4 mg= 1 tab, Oral, every 6 hr, PRN pantoprazole, 40 mg= 1 EA, IV Push, Daily traZODone, 100 mg= 2 tab, Oral, every evening Home amLODIPine, 10 mg, Oral, Daily aspirin 81 mg oral delayed release tablet, 81 mg= 1 tab, Oral, Daily, PRN atenolol 50 mg oral tablet, 50 mg= 1 tab, Oral, Daily atorvastatin 80 mg oral tablet, 80 mg= 1 tab, Oral, With Evening Meal, 3 refills Bd Pen Needle/Milena/Ultra-Fine/32g X 4mm Mis Embe, See Instructions, 3 refills calcitriol 0.25 mcg oral capsule, 0.25 mcg= 1 cap, Oral, Daily Centrum Silver oral tablet, 1 tab, Oral, Daily clopidogrel 75 mg oral tablet, 75 mg= 1 tab, Oral, Daily, 3 refills colchicine 0.6 mg oral tablet, [...] Blood Sugar 1 mg injection, See Instructions Lantus Solostar Pen 100 units/mL subcutaneous solution, 28 units, Subcutaneous, Daily lisinopril 40 mg oral tablet, 40 mg= 1 tab, Oral, every evening, 3 refills MetFORMIN (Eqv-Glucophage XR) 500 mg oral tablet, extended release, 500 mg= 1 tab, Oral, BID nitroglycerin 0.3 mg sublingual tablet, See Instructions OneTouch Delica Lanceta Fine - Miscellaneous, See instructions ONETOUCH ULTRA STRP, See Instructions OneTouch Ultra Blue - Strip, See instructions Oxygen Therapy, See instructions PEN NEEDLES MIS [id number], See Instructions ProAir HFA 90 mcg/inh inhalation aerosol, 2 puffs, Inhale, every 6 hr, PRN traZODone 100 mg oral tablet, 100 mg= 1 tab, Oral, every night at bedtime, 4 refills Tylenol Extra Strength 500 mg oral tablet, 500 mg= 1 tab, Oral, every 6 hr, PRN Electronically Signed on 04/11/23 11:38 AM Couture, Shelley * Couture, Shelley: PERFORM Event Display: Nutrition Note Authored Date: [id number] Assessment and Monitoring 82 yo F admit with abdominal pain. Dx: SBO. Continues to be NPO with??NGT with drainage. plan to goto OR today for exploratory surgery. Monitor for finding and if able to advance diet. may need artificial nutrition in unable to advance. has been ~ 5 days with NPO. on??IV LR. BS WNL,??on SSI.?Monitoring. ?? Diagnosis: ?? inadequate oral intake r/t inability to consume enough calories as evidenced by NPO status d/t SBO, N/V. Nutrition Goals ?? POs >75% of meals labs wnl skin w/o open areas advance diet as able No s/sx hyper,hypoglycemia ?? Nutrition Interventions ?? NPO w/ NG for decompression labs LR fluids Anthropometrics/Estimated Needs Utacym97.5 kg(Recorded: 04/07/2023 06:31 EDT) Tytkhx169.1 cm(Recorded: 04/03/2023 13:52 EDT) Body Mass Index34.34 kg/m2(Recorded: 04/03/2023 13:52 EDT) Reason for Visit abdominal pain Problem List/Past Medical History Ongoing Anal fissure [...] History is negative Son: History is negative Diet Orders Diet Order, 04/03/23 12:29:00 EDT, NPO, Okay for sips of water and ice chips Allergies Adhesive Bandage??(Rash) copper containing compounds??(Rash) Bee Stings??(Unknown) Dust Nutrition Lab Results Test Name Test Result Date/Time WBC 6.4 K/mcL 04/07/2023 08:47 EDT Hgb 13.5 g/dL 04/07/2023 08:47 EDT Hct 42.0 % 04/07/2023 08:47 EDT MCV 97.7 fL 04/07/2023 08:47 EDT Platelets 228 K/mcL 04/07/2023 08:47 EDT Sodium Level 141 mmol/L 04/07/2023 08:47 EDT Potassium Level 3.7 mmol/L 04/07/2023 08:47 EDT Chloride Level 98 mmol/L 04/07/2023 08:47 EDT CO2 32 mmol/L 04/07/2023 08:47 EDT Alk Phos 88 IntlUnit/L 04/03/2023 08:10 EDT ALT 17 IntlUnit/L 04/03/2023 08:10 EDT BUN 34 mg/dL 04/07/2023 08:47 EDT Glucose Level 123 mg/dL 04/07/2023 08:47 EDT Creatinine Level 1.04 mg/dL 04/07/2023 08:47 EDT Albumin Level 3.4 g/dL 04/03/2023 08:10 EDT Bilirubin Total 1.0 mg/dL 04/03/2023 08:10 EDT Magnesium Level 2.0 mg/dL 04/06/2023 06:30 EDT Medications Inpatient acetaminophen, 1000 mg= 100 mL, IV Piggyback, every 6 hr (dinesh) albuterol, 180 mcg= 2 puffs, Inhale, every 6 hr, PRN Ancef, 2 g= 50 mL, IV Piggyback, PREOP Dextrose 50% injection, 25 g= 50 mL, IV Push, As Directed glucagon, 1 mg= 1 EA, Subcutaneous, As Directed heparin, 5000 units= 1 mL, Subcutaneous, every 12 hr insulin aspart Sliding Scale - Low Dose, Insulin Aspart Sliding Scale See Comments, Subcutaneous, every 6 hr ketorolac, 15 mg= 1 mL, IV Push, every 6 hr, PRN Lactated Ringers Injection 1,000 mL, 1000 mL, IV Lactated Ringers Injection 1,000 mL, 1000 mL, IV metoprolol tartrate 1 mg/mL injectable solution, 2.5 mg= 2.5 mL, IV Push, every 6 hr (dinesh) morphine, 4 mg= 1 mL, IV, every 2 hr, PRN naloxone, 0.1 mg= 0.25 mL, IV Push, every 5 min, PRN ondansetron, 4 mg= 2 mL, IV Push, every 6 hr, PRN ondansetron, 4 mg= 1 tab, Oral, every 6 hr, PRN pantoprazole, 40 mg= 1 EA, IV Push, Daily prochlorperazine, 5 mg= 1 mL, IV Push, every 4 hr, PRN prochlorperazine, 10 mg= 2 tab, Oral, every 6 hr, PRN prochlorperazine, 25 mg= 1 supp, VA, every 12 hr, PRN Home amLODIPine, 10 mg, Oral, Daily aspirin 81 mg oral delayed release tablet, 81 mg= 1 tab, Oral, Daily, PRN atenolol 50 mg oral tablet, 50 mg= 1 tab, Oral, Daily atorvastatin 80 mg oral tablet, See Instructions, 3 refills Bd Pen Needle/Milena/Ultra-Fine/32g X 4mm Mis Embe, See Instructions, 3 refills calcitriol 0.25 mcg oral capsule, 0.25 mcg= 1 cap, Oral, Daily Centrum Silver oral tablet, 1 tab, Oral, [...] Blood Sugar 1 mg injection, See Instructions Lantus Solostar Pen 100 units/mL subcutaneous solution, [...] Oxygen Therapy, See instructions PEN NEEDLES MIS [id number], See Instructions ProAir HFA 90 mcg/inh inhalation aerosol, 2 puffs, Inhale, every 6 hr, PRN traZODone 100 mg oral tablet, 100 mg= 1 tab, Oral, every night at bedtime, 4 refills Tylenol Extra Strength 500 mg oral tablet, 500 mg= 1 tab, Oral, every 6 hr, PRN Electronically Signed on 04/07/23 02:16 PM Shelley Johnson * Alex, Shelley: PERFORM Event Display: Nutrition Note Authored Date: [id number] Assessment and Monitoring ?? Reason for Referral:??nutrition lucia score probable inadequate ? Nutrition Assessment: ?? 82 yo F admit with abdominal pain. Dx: SBO. attempted to see patient a couple times but busy. will??try to see later this afternoon. Referral sent d/t??poor nutrition lucia score- r/t NPO. Initiallyadmit w/o N/V-??but yesterday and today N/V.??Plan to have NG??placed, failed Gastrografin. IVF. not much intakes/none since Monday it looks like. if unable to advance diet within the next few days,??consider starting??artificial nutrition.??Weight 96kg, BMI 34.3kg/m2.??looking at weight trend- pretty stable over the past year, likely not malnourished at this time. Skin intact. labs noted.? Hx of T2DM- on SSI right now. Monitoring. ? Monitor/Evaluation:?? Nutrition Diagnosis inadequate oral intake r/t inability to consume enough calories as evidenced by NPO status d/t SBO,N/V. Nutrition Goals POs >75% of meals labs wnl skin w/o open areas advance diet as able No s/sx hyper,hypoglycemia - Nutrition Interventions NPO w/ NG for decompression labs LR fluids Anthropometrics/Estimated Needs Xdeblc73.4 kg(Recorded: 04/05/2023 02:50 EDT) Ckdsqv275.1 cm(Recorded: 04/03/2023 13:52 EDT) Body Mass Index34.34 kg/m2(Recorded: 04/03/2023 13:52 EDT) Estimated Energy Needs: 1920-2400kcal (20-25kcal/kg actual BW) Estimated Fluid Needs: 1920-2400ml (1ml/kcal) Estimated Protein Needs: 77-96g (.8-1.0g/kg actual BW) Reason for Visit abdominal pain Problem List/Past Medical History Ongoing Anal fissure [...] History is negative Son: History is negative Diet Orders Diet Order, 04/03/23 12:29:00 EDT, NPO, Okay for sips of water and ice chips Allergies Adhesive Bandage??(Rash) copper containing compounds??(Rash) Bee Stings??(Unknown) Dust Nutrition Lab Results Test Name Test Result Date/Time WBC 12.3 K/mcL 04/05/2023 05:58 EDT Hgb 14.4 g/dL 04/05/2023 05:58 EDT Hct 43.8 % 04/05/2023 05:58 EDT MCV 95.8 fL 04/05/2023 05:58 EDT Platelets 276 K/mcL 04/05/2023 05:58 EDT Sodium Level 137 mmol/L 04/05/2023 05:58 EDT Potassium Level 4.1 mmol/L 04/05/2023 05:58 EDT Chloride Level 99 mmol/L 04/05/2023 05:58 EDT CO2 28 mmol/L 04/05/2023 05:58 EDT Alk Phos 88 IntlUnit/L 04/03/2023 08:10 EDT ALT 17 IntlUnit/L 04/03/2023 08:10 EDT BUN 34 mg/dL 04/05/2023 05:58 EDT Glucose Level 188 mg/dL 04/05/2023 05:58 EDT Creatinine Level 1.19 mg/dL 04/05/2023 05:58 EDT Albumin Level 3.4 g/dL 04/03/2023 08:10 EDT Bilirubin Total 1.0 mg/dL 04/03/2023 08:10 EDT Magnesium Level 2.4 mg/dL 04/05/2023 05:58 EDT Medications Inpatient acetaminophen, 1000 mg= 100 mL, IV Piggyback, every 6 hr ([facility]) albuterol, 180 mcg= 2 puffs, Inhale, every 6 hr, PRN amLODIPine, 10 mg= 2 tab, Oral, Daily atenolol, 50 mg= 2 tab, Oral, Daily Dextrose 50% injection, 25 g= 50 mL, IV Push, As Directed glucagon, 1 mg= 1 EA, Subcutaneous, As Directed heparin, 5000 units= 1 mL, Subcutaneous, every 8 hr ([facility]) hydrALAZINE, 10 mg= 0.5 mL, IV, every 4 hr, PRN insulin aspart Sliding Scale - Low Dose, Insulin Aspart Sliding Scale See Comments, Subcutaneous, every 6 hr ketorolac, 15 mg= 1 mL, IV Push, every 6 hr, PRN LR 1,000 mL, 1000 mL, IV morphine, 4 mg= 1 mL, IV, every 2 hr, PRN naloxone, 0.1 mg= 0.25 mL, IV Push, every 5 min, PRN ondansetron, 4 mg= 2 mL, IV Push, every 6 hr, PRN ondansetron, 4 mg= 1 tab, Oral, every 6 hr, PRN prochlorperazine, 5 mg= 1 mL, IV Push, every 4 hr, PRN prochlorperazine, 10 mg= 2 tab, Oral, every 6 hr, PRN prochlorperazine, 25 mg= 1 supp, VA, every 12 hr, PRN Home amLODIPine, 10 mg, Oral, Daily aspirin 81 mg oral delayed release tablet, 81 mg= 1 tab, Oral, Daily, PRN atenolol 50 mg oral tablet, 50 mg= 1 tab, Oral, Daily atorvastatin 80 mg oral tablet, See Instructions, 3 refills Bd Pen Needle/Milena/Ultra-Fine/32g X 4mm Mis Embe, See Instructions, 3 refills calcitriol 0.25 mcg oral capsule, 0.25 mcg= 1 cap, Oral, Daily Centrum Silver oral tablet, 1 tab, Oral, [...] Blood Sugar 1 mg injection, See Instructions Lantus Solostar Pen 100 units/mL subcutaneous solution, [...] Oxygen Therapy, See instructions PEN NEEDLES MIS [id number], See Instructions ProAir HFA 90 mcg/inh inhalation aerosol, 2 puffs, Inhale, every 6 hr, PRN traZODone 100 mg oral tablet, 100 mg= 1 tab, Oral, every night at bedtime, 4 refills Tylenol Extra Strength 500 mg oral tablet, 500 mg= 1 tab, Oral, every 6 hr, PRN Electronically Signed on 04/05/23 10:56 AM Shelley Johnson Progress note * Zach Lazo MD: PERFORM Event Display: Progress Note - Physician Authored Date: [id number] KELLY HOLLEY :1940 Age:82 years Sex:Female Visit Date:04/03/2023 Primary Care Physician: Wilmar Licea, DO Subjective No acute events overnight Tolerating regular diet Pain adequately controlled Working with physical therapy, limited activity yesterday due to??orthostatic hypotension??which issince improved. Afebrile, hemodynamically normal on??home O2 Objective Vitals & Measurements T:??36.3?C ??(Temporal Artery)?? TMIN:??35.9?C ??(Temporal Artery)?? TMAX:??36.3?C ??(Temporal Artery)?? HR:??91??(Peripheral)?? RR:??22?? BP:??143/52?? SpO2:??92%?? WT:??99.9??kg?? Pain Score:??0?? O2 Flow Rate:??4?? O2 Therapy:??Nasal cannula?? Physical Exam General: No acute distress, pleasant, conversant CV: RRR Pulmonary: Regular breathing rate and effort??on 2 L nasal cannula Abdomen: Soft, obese,??appropriately tender, well-healing laparoscopic incisions Assessment/Plan 1.??Small bowel obstruction??K56.609 Kelly Ceja is an 82-year-old woman POD #4 s/p laparoscopic lysis of adhesion for??small bowelobstruction. ??She has had return of bowel function and is tolerating a regular diet.?? She had orthostatic hypotension postoperatively which has since improved. ??She is??deconditioned from her hospitalization and??baseline comorbidities and would benefit from??ongoing physical therapy. ??She has elected to??transition to acute rehab stay prior to??eventual discharge home. ??This is a reasonableplan. ??We will??case management is working on??acute rehab placement. ??We will continue to??work on??PT and rehab prior to discharge when available. 2.??Right sided abdominal pain??R10.9 3.??JONN (acute kidney injury)??N17.9 4.??Diabetes??E11.9 5.??HTN (hypertension)??I10 6.??H/O: gout??Z87.39 7.??Syncope??R55 8.??Diarrhea??R19.7 9.??Weakness??R53.1 Electronically Signed on 04/11/23 12:44 PM Zach Lazo MD * Kyle Potter MD: PERFORM, MODIFY Event Display: Progress Note - Physician Authored Date: [id number] ARNOLD KELLY CEJA :1940 Age:82 years Sex:Female Visit Date:04/03/2023 Primary Care Physician: Wilmar Licea, DO Subjective Chief complaint???postoperative day 3??laparoscopic lysis of adhesions to relieve SBO Patient feels??weak all over??but is nonfocal.?? She does not feel like she can??be discharged due to weakness.?? She had a syncopal episode??while on the toilet??and blacked out??last night.?? She has no nausea or vomiting and wants to eat more??solid food.?? She has been moving her bowels profusely??but a C. difficile was negative.?? She has no other??specific complaints??and seems to be in good spirits. Objective Vitals & Measurements T:??36.6?C ??(Temporal Artery)?? TMIN:??36.1?C ??(Temporal Artery)?? TMAX:??36.6?C ??(Temporal Artery)?? HR:??84??(Peripheral)?? RR:??20?? BP:??157/67?? SpO2:??94%?? WT:??99.7??kg?? Pain Score:??4?? O2 Flow Rate:??3?? O2 Therapy:??Nasal cannula?? Physical Exam General alert pleasant conversant??weak appearing but in no acute distress HEENT exam head normocephalic atraumatic sclera nonicteric Heart regular rate rhythm Lungs clear bilaterally Abdomen soft nontender nondistended incisions well approximated no erythema purulence fluctuance tenderness Skin no jaundice Extremities no edema Lab Results Reviewed in computer??personally Assessment/Plan 1.??Small bowel obstruction??K56.609 Postoperative day 3??status post laparoscopic adhesional lysis-generally making??slow but satisfactory??progress.?? Advance diet??to regular.?? Physical therapy assessment.?? Discharge planning??aside from syncopal episode.?? We will talk to hospitalist about this.?? 2.??Right sided abdominal pain??R10.9 Resolved 3.??JONN (acute kidney injury)??N17.9 Appreciate hospitalist help with management 4.??Diabetes??E11.9 Sliding scale, appreciate hospitalist help with management 5.??HTN (hypertension)??I10 Appreciate hospitalist help with management 6.??H/O: gout??Z87.39 Appreciate hospitalist help with management 7.??Syncope??R55 Appreciate hospitalist help with management 8.??Diarrhea??R19.7 Diarrhea likely reactive??due to relief of bowel obstruction as C. difficile negative.?? Lomotil asneeded. Electronically Signed on 04/10/23 09:43 AM Kyle Potter MD * Brenda Armas, BUDGET DIRECTOR: PERFORM, MODIFY, MODIFY, MODIFY, MODIFY, MODIFY Event Display: Progress Note - Physician Authored Date: [id number] ARNOLD KELLY CEJA :1940 Age:82 years Sex:Female Visit Date:04/03/2023 Primary Care Physician: Wilmar Licea, DO Around 0 I was called to patient???s room for evaluation of altered level of consciousness. Justprior, patient was observed by nursing staff ambulating normally to the toilet. She rang out from the bathroom utilizing the call system. Staff responded and found her on the toilet, minimally responsive, with a pulse. Wearing O2 cannula, sats low 90s. She had had a large loose light brown stool. Glucose was 164. She was transferred to wheelchair then into bed. Systolic blood pressure 90. HR 70s and regular.? In about 10-15 minutes she was more alert and able to respond to questioning, though still lethargic and somewhat bothered by questioning. SBP 127, HR 72. Denies chest pain. Endorses some abdominal pain.? EKG demonstrated a sinus rhythm with occ PACs. No acute JESUS. ? Labs revealed no leukocytosis, no anemia. Normal electrolytes and renal function. Bun/Cr ratio 30. Mildly elevated transaminases with a normal TBili. Hypoalbuminemia 2.4. Calcium 7.7 that corrects to9.0. Initial troponin 6, 1 hour hence 7. VBG pH 7.51 CO2 38.? She was given 1L of crystalloid fluid and placed on telemetry.? I suspect this was a vasovagal syncope, particularly as she recovered quickly. There is no troponemia, chest pain, or ECG changes, so unlikely ACS. No seizure activity. Possibly orthostatic in the setting of dehydration. ?? Would recommend checking orthostatic vital signs in the morning when she is more awake and alert. No systemic signs of infection, but would recommend obtaining stool for C-diff and checking a urinalysis. ?? Dr. Barrow was updated on this event. ?? Electronically Signed on 04/10/23 06:28 AM Brenda Armas APRN * Wu Blanca MD: PERFORM Event Display: Progress Note - Physician Authored Date: Patient with another??syncopal episode??very brief??earlier today??well with physical therapy and. ??She went from laying down??to sitting??and??in the route to standing??had lost consciousness for about a minute or so.?? At time blood pressure was taken it was normal. ??She was on telemetry at thetime??and there was no arrhythmias??during the actual moment.?? She feels better now 2.?? She had negative troponins already??not indicated to recheck those.?? Additionally she did have an echocardiogram??2020??with no??aortic stenosis??and this is a chronic??disease so would not anticipate she canhave this now. ??Echocardiogram will be deferred as well. ??Favor??82 years old sick patient with??multiple days in the hospital??now nearly a week.?? We??talked talked with staffing we will try to get her??sitting upright little bit more for longer periods prior to working with physical therapy. Electronically Signed on 04/10/23 05:00 PM Wu Blanca MD History and physical note * Zach Lazo MD: PERFORM Event Display: History and Physical Authored Date: [id number] KELLY HOLLEY :1940 Age:82 years Sex:Female Visit Date:04/03/2023 Primary Care Physician: Wilmar Licea DO Chief Complaint Diarrhea on Monday after fishing all day, felt okay Monday, Monday had multiple loose BM's. Has had nausea throughout the weekend and began vomiting this AM. Pt clutching RIGHT side of abdomen, reports cramping all over RIGHT side and into middle chest. History of Present Illness Kelly Ceja??is an 82-year-old woman who presented to the emergency department this morning with complaints of 24 hours of??right-sided abdominal pain.?? Kelly states that she was in her usual state of health prior to the onset of??pain in her right??abdomen??Monday morning.?? She has had little to eat or drink??since the onset of her pain. ??This morning, she drank a glass of water??and had??an episode of bilious vomiting.?She otherwise denies nausea or other episodes of vomiting.?? She??states that she has not had pain like this before.?? She had no recent fevers or chills. ??She denies chest pains or shortness of breath.?Her last bowel movement was this morning. ??She reports small soft stool. ??She reports decreased flatus. ??She denies belching. ??She had??multiple episodes of diarrhea on Monday, but reports no other significant changes in her bowel habits.?? She she has a known history of diverticulosis??and chronic constipation.?? Her last colonoscopy was in November.?? She denies other significant changes in her health.?? She has not taken her medications since yesterday morning. Review of Systems A 10 point review of systems was completed. ??Notable findings are documented above. Physical Exam Vitals & Measurements T:??36.4?C ??(Oral)?? HR:??77??(Peripheral)?? HR:??77??(Monitored)?? RR:??20?? BP:??160/74?? SpO2:??90%?? HT:??165.100??cm?? WT:??92.53??kg?? BMI:??34.000?? O2 Flow Rate:??2?? O2 Therapy:??Nasal cannula?? General: No acute distress, pleasant, conversant CV: RRR Pulmonary:??Regular breathing rate and effort on 2 L nasal cannula??(uses home O2 as needed)?? Abdomen: Soft, obese,??mildly tender to deep palpation in the right side with out rebound pain or involuntary guarding Extremities:??Trace lower extremity edema Skin: Intact,??no rashes Neuro:??Hard of hearing??otherwise intact Assessment/Plan 1.??Small bowel obstruction??K56.609 [facility]??Brenna??is an 82-year-old woman who presents with 24 hours of right- sided abdominal pain, anorexia, and??an episode of vomiting??with CT findings consistent with small bowel obstruction.??She has had multiple prior abdominal surgeries??and a history of??diverticulitis. ??I see no activeintra-abdominal inflammatory condition.?? I suspect her obstruction is likely due to her intra-abdominal adhesions. ??As such, recommend??conservative management.?? In the absence of persistent nausea or vomiting, would not recommend??NG tube placement at this time. ??I suspect that she has a partial obstruction based on her reported??continued small amount of flatus.?? Plan to ??treat conservatively with bowel rest, IV fluid resuscitation, and serial abdominal exams.?She may benefit from a Gastrografin challenge tomorrow??morning. ??We will continue to hold her Plavix??for now.?Kelly demonstrated good understanding and agreement with this plan. Ordered: PSO Place in Observation, Observation, Observation, Zach Lazo MD, 04/03/23 12:18:00 EDT, 04/03/23 12:18:00 EDT, 04/03/23 12:18:00 EDT, 1 midnight or less ?? 2.??Right sided abdominal pain??R10.9 ?? 3.??JONN (acute kidney injury)??N17.9 ?? Orders: acetaminophen, 1,000 mg = 100 mL, IV Piggyback, Injection, every 6 hr, Administer over: 0.3 hr, First Dose: 04/03/23 13:00:00 EDT, Routine, 400 mL/hr albuterol, 180 mcg = 2 puffs, Inhale, Aerosol, every 6 hr, PRN wheezing, First Dose: 04/03/23 12:30:00 EDT, Routine amLODIPine, 10 mg = 2 tab, Oral, Tab, Daily, First Dose: 04/04/23 9:00:00 EDT, Routine atenolol, 50 mg = 2 tab, Oral, Tab, Daily, First Dose: 04/04/23 9:00:00 EDT, Routine heparin, 5,000 units = 1 mL, Subcutaneous, Injection, every 8 hr (dinesh), First Dose: 04/03/23 14:00:00 EDT, Routine LR 1,000 mL, Total Volume (mL): 1,000, 1,000 mL, Soln-IV, IV, 100 mL/hr, Order Duration: 30 days, Start Date: 04/03/23 12:33:00 EDT, Stop Date: 05/03/23 12:32:00 EST, 92.53 kg, Populate Charting Weight From Order, 2.06, m2 morphine, 2 mg = 1 mL, IV Push, Injection, every 3 hr, PRN pain, severe, First Dose: 04/03/23 12:29:00 EDT, Routine naloxone, 0.1 mg = 0.25 mL, IV Push, Injection, every 5 min, PRN other (see comment), First Dose: 04/03/23 12:29:00 EDT, Routine ondansetron, 4 mg = 2 mL, IV Push, Vial, every 6 hr, PRN nausea/vomiting, First Dose: 04/03/23 12:29:00 EDT, Routine ondansetron, 4 mg = 1 tab, Oral, Tab-Dis, every 6 hr, PRN nausea/vomiting, First Dose: 04/03/23 12:29:00 EDT, Routine prochlorperazine, 25 mg = 1 supp, VA, Supp, every 12 hr, PRN nausea/vomiting, First Dose: 04/03/23 12:29:00 EDT, Routine prochlorperazine, 5 mg = 1 mL, IV Push, Vial, every 4 hr, PRN nausea/vomiting, First Dose: 04/03/2312:29:00 EDT, Routine prochlorperazine, 10 mg = 2 tab, Oral, Tab, every 6 hr, PRN nausea/vomiting, First Dose: 04/03/23 12:29:00 EDT, Routine Ambulate, 04/03/23 12:29:00 EDT, Stop date 04/03/23 12:29:00 EDT Basic Metabolic Panel, Blood, Routine, 04/03/23 12:30:00 EDT, Daily, for 3 days, Lab Collect CBC w/ Diff, Blood, Routine, 04/03/23 12:30:00 EDT, Daily, for 3 days, Lab Collect Diet Order, 04/03/23 12:29:00 EDT, NPO, Okay for sips of water and ice chips Incentive Spirometry Nursing, 04/03/23 12:29:00 EDT Intake and Output, 04/03/23 12:29:00 EDT, every 12 hr (dinesh), q shift, 04/03/23 21:00:00 EDT Magnesium Level, Blood, Routine, 04/03/23 12:30:00 EDT, Daily, for 3 days, Lab Collect Oxygen Therapy, SpO2 goal 92% or greater, Stop date 04/03/23 12:29:00 EDT, Zach Lazo MD Patient Condition, 04/03/23 12:29:00 EDT, Condition Good/ Stable Pulse Oximetry, 04/03/23 12:29:00 EDT, Constant order, with alarms Resuscitation Status, 04/03/23 12:29:00 EDT, Full Code Sequential Compression Devices (SCD's), 04/03/23 12:29:00 EDT, Constant Order, 04/03/23 12:29:00 EDT Sequential Compression Devices (SCD's), 04/03/23 12:29:00 EDT, Constant Order, 04/03/23 12:29:00 EDT Up ad Becka, 04/03/23 12:29:00 EDT, Constant Order, at nurse's discretion, 04/03/23 12:29:00 EDT Vital Signs, 04/03/23 12:29:00 EDT, every 4 hr (dinesh) Weight, 04/04/23 5:00:00 EDT, every 24 hr XR Abdomen 2 Views, 04/05/23 7:00:00 EDT, In AM, Reason: SBO, Transport Mode: Wheelchair Problem List/Past Medical History Ongoing Anal fissure [...] manipulation of joint of knee Medications Inpatient acetaminophen, 1000 mg= 100 mL, IV Piggyback, every 6 hr albuterol, 180 mcg= 2 puffs, Inhale, every 6 hr, PRN amLODIPine, 10 mg= 2 tab, Oral, Daily atenolol, 50 mg= 2 tab, Oral, Daily heparin, 5000 units= 1 mL, Subcutaneous, every 8 hr (dinesh) LR 1,000 mL, 1000 mL, IV morphine, 2 mg= 1 mL, IV Push, every 3 hr, PRN naloxone, 0.1 mg= 0.25 mL, IV Push, every 5 min, PRN ondansetron, 4 mg= 2 mL, IV Push, every 6 hr, PRN ondansetron, 4 mg= 1 tab, Oral, every 6 hr, PRN prochlorperazine, 5 mg= 1 mL, IV Push, every 4 hr, PRN prochlorperazine, 10 mg= 2 tab, Oral, every 6 hr, PRN prochlorperazine, 25 mg= 1 supp, VA, every 12 hr, PRN Home amLODIPine, 10 mg, Oral, Daily aspirin 81 mg oral delayed release tablet, 81 mg= 1 tab, Oral, Daily, PRN atenolol 50 mg oral tablet, 50 mg= 1 tab, Oral, Daily atorvastatin 80 mg oral tablet, See Instructions, 3 refills Bd Pen Needle/Milena/Ultra-Fine/32g X 4mm Mis Embe, See Instructions, 3 refills calcitriol 0.25 mcg oral capsule, 0.25 mcg= 1 cap, Oral, Daily Centrum Silver oral tablet, 1 tab, Oral, [...] Oxygen Therapy, See instructions PEN NEEDLES MIS [id number], See Instructions ProAir HFA 90 mcg/inh inhalation [...] formulation 03/19/2020 Recorded Comments : Unit: 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[employer] zoster vaccine, inactivated 02/20/2020 Recorded Comments : Unit: Unknown influenza virus vaccine, inactivated 03/19/2019 Recorded tetanus/diphth/pertuss (Tdap) adult/adol 09/28/2015 Recorded pneumococcal 13-valent conjugate vaccine 09/28/2015 Recorded Comments : Unit: Unknown zoster vaccine live 10/02/2012 Recorded Comments : Unit: Unknown pneumococcal 23-polyvalent vaccine 09/27/2012 Recorded Comments : Unit: Unknown Novel [id number], all formulation 06/03/2009 Recorded Comments : Unit: Unknown Td(adult) unspecified formulation 11/04/2008 Recorded pneumococcal 23-polyvalent vaccine 07/21/2005 Recorded Comments : Unit: Unknown Lab Results Test Name Test Result Date/Time WBC 17.5 K/mcL 04/03/2023 08:10 EDT RBC 5.14 Million/mcL 04/03/2023 08:10 EDT Hgb 16.0 g/dL 04/03/2023 08:10 EDT Hct 47.9 % 04/03/2023 08:10 EDT MCV 93.2 fL 04/03/2023 08:10 EDT MCH 31.1 pg 04/03/2023 08:10 EDT MCHC 33.4 g/dL 04/03/2023 08:10 EDT RDW-CV 12.7 % 04/03/2023 08:10 EDT Platelets 321 K/mcL 04/03/2023 08:10 EDT MPV 10.2 fL 04/03/2023 08:10 EDT Neutro Auto 83.1 % 04/03/2023 08:10 EDT Lymph Auto 12.7 % 04/03/2023 08:10 EDT Dickenson Auto 3.3 % 04/03/2023 08:10 EDT Eos, Auto 0.00 % 04/03/2023 08:10 EDT Basophil Auto 0.2 % 04/03/2023 08:10 EDT Imm Gran Auto 0.7 % 04/03/2023 08:10 EDT Neutro Absolute 14.6 K/mcL 04/03/2023 08:10 EDT Lymph Absolute 2.2 K/mcL 04/03/2023 08:10 EDT Dickenson Absolute 0.6 K/mcL 04/03/2023 08:10 EDT Eos Absolute 0.0 K/mcL 04/03/2023 08:10 EDT Baso Absolute 0.0 K/mcL 04/03/2023 08:10 EDT Imm Gran Absolute 0.13 K/mcL 04/03/2023 08:10 EDT Sodium Level 138 mmol/L 04/03/2023 08:10 EDT Potassium Level 4.4 mmol/L 04/03/2023 08:10 EDT Chloride Level 103 mmol/L 04/03/2023 08:10 EDT CO2 22 mmol/L 04/03/2023 08:10 EDT Alk Phos 88 IntlUnit/L 04/03/2023 08:10 EDT AST 25 IntlUnit/L 04/03/2023 08:10 EDT ALT 17 IntlUnit/L 04/03/2023 08:10 EDT BUN 27 mg/dL 04/03/2023 08:10 EDT Glucose Level 222 mg/dL 04/03/2023 08:10 EDT Creatinine Level 1.09 mg/dL 04/03/2023 08:10 EDT BUN/Creat Ratio 24.8 04/03/2023 08:10 EDT eGFR CKD-EPI 50 mL/min/1.73 m2 04/03/2023 08:10 EDT Calcium Level 9.2 mg/dL 04/03/2023 08:10 EDT Protein Total 7.2 g/dL 04/03/2023 08:10 EDT Albumin Level 3.4 g/dL 04/03/2023 08:10 EDT Globulin 3.8 g/dL 04/03/2023 08:10 EDT A/G Ratio 0.9 g/dL 04/03/2023 08:10 EDT Bilirubin Total 1.0 mg/dL 04/03/2023 08:10 EDT Anion Gap 13.0 04/03/2023 08:10 EDT Lactic Acid Lvl 2.2 mmol/L 04/03/2023 11:14 EDT Lactic Acid Lvl 2.4 mmol/L 04/03/2023 08:10 EDT Lipase Level 22 unit/L 04/03/2023 08:10 EDT Osmolality 288 mOsm/kg 04/03/2023 08:10 EDT BNP 171 pg/mL 04/03/2023 08:10 EDT Troponin-I HS 8 ng/L 04/03/2023 09:50 EDT Troponin-I HS 8 ng/L 04/03/2023 08:10 EDT Urine Srce Clean Catch 04/03/2023 10:23 EDT UA Color YELLOW. 04/03/2023 10:23 EDT UA Appear SL CLOUDY 04/03/2023 10:23 EDT UA Glucose NEGATIVE 04/03/2023 10:23 EDT UA Bili NEGATIVE 04/03/2023 10:23 EDT UA Ketones NEGATIVE 04/03/2023 10:23 EDT UA Spec Grav >=1.030 04/03/2023 10:23 EDT UA Blood NEGATIVE 04/03/2023 10:23 EDT UA pH 5.50 04/03/2023 10:23 EDT UA Protein 100 04/03/2023 10:23 EDT UA Urobilinogen 0.2 04/03/2023 10:23 EDT UA Nitrite NEGATIVE 04/03/2023 10:23 EDT UA Leuk Est NEGATIVE 04/03/2023 10:23 EDT UA Culture Ind?. Yes 04/03/2023 10:23 EDT UA WBC 0-3 04/03/2023 10:23 EDT UA RBC 0-3 04/03/2023 10:23 EDT UA Squam Epithelial 0-3 04/03/2023 10:23 EDT UA Trans Epi 0-3 04/03/2023 10:23 EDT UA Mucous Present 04/03/2023 10:23 EDT UA Bacteria 2+ 04/03/2023 10:23 EDT UA Hyal Cast 0-3 04/03/2023 10:23 EDT Diagnostic Results X-Ray: ?? XR Chest 2 Views ?? 04/03/23 08:50:39 EXAM DESCRIPTION: XR Chest 2 Views ?? 04/03/2023 ?? INDICATION: SOB ?? COMPARISON: 07/15/2022 ?? IMPRESSION: No focal infiltrate or pulmonary edema with mild subsegmental atelectasis or scarring in the left lung base ?? Normal cardiomediastinal contour. ?? No pleural effusion or pneumothorax ?? Spondylotic changes of the dorsal spine. ?? Stable dense nodule in the right lung base most consistent with granuloma. ? JOB #: [id number] ?? Signed By: Alverto Xiao MD Computed Tomography: ?? CT Abdomen and Pelvis w/ Contrast ?? 04/03/23 10:29:33 EXAM DESCRIPTION: CT Abdomen and Pelvis w/ Contrast ?? 04/03/2023 ?? INDICATION: RIGHT ABD PAIN, DIARRHEA ?? TECHNIQUE: All CT scans at this facility use at least one of these dose optimization techniques: Automated exposure control; mA and/or kV adjustment per patient size (includes targeted exams where dose is matched to clinical indication); or iterative reconstruction. ?? Technique: Axial CT images of the abdomen/pelvis with IV contrast administration ?? 100 cc of Isovue-300 contrast was utilized ?? COMPARISON: 06/11/2022 and 05/30/2022 ?? FINDINGS: No focal hepatic lesion. Normal enhancement of the main hepatic veins and main portal vein. ?? Normal spleen size without focal mass ?? The gallbladder appears distended. Mild punctate gallbladder wall calcifications versus tiny gallstones. ?? Adrenal glands and pancreas appear within normal limits ?? No focal renal mass, hydronephrosis or perinephric fluid collection on either side ?? No pelvic mass identified with apparent prior hysterectomy ?? Normal caliber abdominal aorta with atherosclerotic calcifications ?? No retroperitoneal adenopathy in the abdomen or pelvis. ?? Multiple mildly dilated loops of small bowel in the mid-lower abdomen with scattered small bowel air-fluid levels consistent with mid-distal small bowel obstruction. Distal small bowel loops are nondilated with no colonic dilatation. Transition point appears to be in the lower mid abdomen. Mild free fluid in the abdomen and pelvis. No free air. Scattered colonic diverticula with no definite colonic mesenteric inflammatory stranding. Appendix not identified. ?? The visualized lung bases are clear. No suspicious regional osseous lesions. ?? IMPRESSION: Mid-distal small bowel obstruction. No free intraperitoneal air ?? Mild ascites in the abdomen and pelvis. ?? The gallbladder appears mildly distended. Mild punctate gallbladder wall calcifications versus tiny gallstones. ? JOB #: [id number] ?? Signed By: Alverto Xiao MD Electronically Signed on 04/03/23 12:45 PM Zach Lazo MD Discharge summary * Zach Lazo MD: PERFORM Event Display: Discharge Summary Authored Date: [id number] ARNOLD KELLY CEJA :1940 Age:82 years Sex:Female Visit Date:04/03/2023 Primary Care Physician: Wilmar Licea, DO Admission Information Kelly Arnold??Brenna??is an 82-year-old woman who presents with 24 hours of right- sided abdominal pain, anorexia, and??an episode of vomiting??with CT findings consistent with small bowel obstruction.??She has had multiple prior abdominal surgeries??and a history of??diverticulitis. ??I see no activeintra-abdominal inflammatory condition.?? I suspect her obstruction is likely due to her intra-abdominal adhesions. ??As such, recommend??conservative management.?? In the absence of persistent nausea or vomiting, would not recommend??NG tube placement at this time. ??I suspect that she has a partial obstruction based on her reported??continued small amount of flatus.?? Plan to ??treat conservatively with bowel rest, IV fluid resuscitation, and serial abdominal exams.?She may benefit from a Gastrografin challenge tomorrow??morning. ??We will continue to hold her Plavix??for now.?? [1] Hospital Course Kelly was admitted and treated with bowel rest and IV fluid resuscitation.?? Her mild JONN responded well to fluid resuscitation. ??Her??abdominal pain and distention persisted. ??She??was no longer passing stool or flatus. ??By hospital day #2, she had recurrent??vomiting and??a nasogastric tube was inserted. ??This resulted in a large volume of bilious output. ??She had improvement in her abdominal pain??and nausea.?She had radiographic evidence of persistent small bowel obstruction on serial abdominal x-rays.?? She had persistent high NG tube output. ??On hospital day #5, she was taken to the operating room for laparoscopic lysis of adhesions.?? Her nasogastric tube was removed on postoperative day #1, and her diet was advanced to clears.?? She tolerated this well. ??She had??returnof bowel function by POD #2.?? She had an episode of syncope on POD #3.?? Physical therapy assessedher over the next 2 days and??recommended??ongoing PT and rehab.?? Kelly was agreeable with this pl an. ??Arrangements were made for transfer to acute rehab??for which she was appropriate for transfer on POD #5. Significant Findings Adhesive small bowel obstruction Procedures and Treatment Provided Laparoscopic lysis of adhesions??04/07/2023 Physical Exam Vitals & Measurements T:??36.8?C ??(Oral)?? TMIN:??36.3?C ??(Temporal Artery)?? TMAX:??37.1?C ??(Oral)?? HR:??78??(Peripheral)?? RR:??20?? BP:??160/71?? SpO2:??97%?? WT:??100.3??kg?? Pain Score:??0?? O2 Flow Rate:??3?? O2 Therapy:??Nasal cannula?? General: No acute distress, pleasant, conversant CV: RRR Pulmonary: Regular breathing rate and effort Abdomen: Soft,??appropriately tender, nondistended Extremities: No edema Procedure/Surgical History ???Laparascopy (04/07/2023)???Colonoscopy Biopsy (11/02/2022)???Colonoscopy (01/21/2019)???Back class???Bladder care???Mastoidectomy???Surgery???Surgical manipulation of joint of knee Social History Alcohol Current, 1-2 times per week Electronic Cigarette/Vaping Electronic Cigarette Use: Never. Substance Use Never Tobacco Never tobacco user Tobacco Use:. Diagnostic Results X-Ray: ?? XR Abdomen 2 Views ?? 04/07/23 08:22:51 EXAM DESCRIPTION: XR Abdomen 2 Views ?? 04/07/2023 ?? INDICATION: GASTROGRAFFIN CHALLENGE ?? TECHNIQUE: AP supine and upright views of the abdomen were obtained following NG tube administration of 100 cc of Gastrografin for a Gastrografin challenge. ?? COMPARISON: Flat and upright views of the abdomen from 04/05/2023 ?? IMPRESSION: NG tube extends into the stomach region ?? Multiple dilated loops of small bowel throughout the abdomen with scattered air-fluid levels consistent with mid-distal small bowel obstruction. Gastrografin opacification of multiple small bowel loops. No Gastrografin extension into the colon is identified. ?? No evidence of free intraperitoneal air. ?? Mild bilateral pleural effusions are suspected. ? JOB #: [id number] Electronically Signed By: ?? Signed By: Alverto Xiao MD ?? XR Chest 1 View ?? 04/05/23 13:11:36 EXAM DESCRIPTION: XR Chest 1 View ?? 04/05/2023 ?? INDICATION: NG PLACEMENT ?? COMPARISON: 04/03/2023 ?? IMPRESSION: NG tube extends into the distal stomach region. ?? Reduced lung volumes consistent with expiratory technique. Mild bilateral interstitial infiltrates which may reflect interstitial pulmonary edema or interstitial pneumonitis. No focal consolidation ?? Normal cardiomediastinal contour. ?? No significant pleural effusion or pneumothorax. ?? Dilated loops of small bowel in the upper abdomen as described on routine radiographs of the abdomen from earlier today. ? JOB #: [id number] Electronically Signed By: ?? Signed By: Alverto Xiao MD ?? Discharge Plan Discharge to inpatient rehab. ??Continue regular home diet. 1.??Small bowel obstruction??K56.609 [facility] Brenna??is an 82-year-old woman POD #5 s/p laparoscopic lysis of adhesions for adhesive small bowel obstruction. ??She is recovered well postoperatively with??full return of bowel function.??She is tolerating her regular home diet. ??She is??deconditioned from her hospital stay and baseline comorbidities. ??Recommend??acute rehabilitation stay for ongoing physical therapy.?? She is appropriate for discharge to rehab today. 2.??Right sided abdominal pain??R10.9 3.??JONN (acute kidney injury)??N17.9 4.??Diabetes??E11.9 5.??HTN (hypertension)??I10 6.??H/O: gout??Z87.39 7.??Syncope??R55 8.??Diarrhea??R19.7 9.??Weakness??R53.1 Orders: ibuprofen, 400 mg = 2 tab, Oral, Tab, every 6 hr for 30 days, PRN pain, First Dose: 04/11/23 16:09:00 EST, Stop Date: 05/11/23 16:08:00 EST, Physician Stop, Routine Discharge Activity Restrictions, No Heavy Lifting Discharge Bathing Instructions, okay to shower Discharge Patient, 04/12/23 9:48:00 EST Transfer to Another Facility, 04/12/23 9:48:00 EST, Transfer to Rehabilitation Facility All Diagnoses This Visit Small bowel obstruction Right sided abdominal pain JONN (acute kidney injury) Diabetes HTN (hypertension) H/O: gout Syncope Diarrhea Weakness Patient Instructions Activity: ?Resume your usual activity. ?Lift no more than 10 pounds until your follow up appointment. ?? Diet: ?Advance to previous diet as tolerated. ?? Medications: ?Continue your regular medications ?Prescription given to patient:??none ?Last dose of pain ??medication given at hospital:?Over the counter medications: Tylenol and/or Ibuprofen every 6 hours when needed for pain. ?Last dose of over the counter medication given at the hospital: ?? Dressing: ?Your incision is closed with glue (derma herrera) DO NOT pick or scrub at it. ?Apply ice pack over dressing site for 20 mins on/20 mins off for the first several days. ?? Special Instructions: ?You may take a shower after 24 hours. ?No bathing, soaking or swimming for 2 weeks. ?You may drive after ALL pain medications are stopped. ?? YOU SHOULD CALL YOUR DOCTOR??AT ??FOR ANY OF THE FOLLOWING ?Fever of 101 or higher. ?Pain that does not lessen with the pain medication prescribed. ?Cloudy or foul smelling drainage from the incision. ?Redness, warmth and firmness around the incision. ?Increased numbness or tingling. ?Bleeding or continuous oozing that saturates the bandage and does not stop after applying pressure to incision for 20 minutes. ?Increased swelling of fingers or toes, or severe tightness of bandage not relieved with elevation of limb above the level of your heart. ?Pale blue or cold fingers/toes or nail beds as compared with the opposite side. ?? IF UNABLE TO REACH YOUR DOCTOR GO TO YOUR NEAREST EMERGENCY ROOM ?? Recommended Treatments for Opioid Induced Constipation ?? Dosage Schedule Drug Brand Names Dose Daily Senna-docusate 8.5-5mg per tablet Senokot 2 tablets by mouth 2 times per day (Hold for loose stool) As Needed Magnesium Hydroxide Milk of Magnesia 30mL by mouth 2 times per day as needed As Needed Polyethylene Glycol Miralax 17 grams dissolved in 8 ounces of water, juice or tea once daily as needed As Needed Bisacodyl?? Dulcolax 10mg by mouth once a day as needed for constipation As Needed Phosphate enema Fleet enema 120mL rectally once a day as needed for constipation As Needed Magnesium citrate ?? 150 to 300 mL (1.745g/30mL solution) by mouth once a day as needed for constipation ? Patient/Responsible constitution party signature:? Date/Time: ?? RN signature: ? Date/Time: ?? This document was electronically generated via computerized provider work order clerk (CPOE) by the ordering physician,??Zach Lazo MD Patient Education Bowel Obstruction Follow Up With When Contact Information Zach Lazo MD 05/10/2023 09:30 AM [facility] [address] [place], [place] [id number]- Additional Instructions: Medication Reconciliation Changed atorvastatin (atorvastatin 80 mg oral tablet)1 tab Oral (given by mouth) With Evening Meal. Refills: 3. ?? clopidogrel (clopidogrel 75 mg oral tablet)1 tab Oral (given by mouth) every day. Refills: 3. ?? metFORMIN (MetFORMIN (Eqv-Glucophage XR) 500 mg oral tablet, extended release)1 tab Oral (given by mouth) 2 times a day. Refills: 3. ?? Unchanged acetaminophen (Tylenol Extra Strength 500 mg oral tablet)1 tab Oral (given by mouth) every 6 hours as needed not specified for 90 Days. ?? albuterol (ProAir HFA 90 mcg/inh inhalation aerosol)2 Puffs Inhale (breathe in) every 6 hours as needed as needed for wheezing. ?? [id number] Milligrams Oral (given by mouth) every day. ?? aspirin (aspirin 81 mg oral delayed release tablet)1 tab Oral (given by mouth) every day as needed stroke prevention for 90 Days. ?? atenolol (atenolol 50 mg oral tablet)1 tab Oral (given by mouth) every day for 90 Days. ?? calcitriol (calcitriol 0.25 mcg oral capsule)1 Capsules Oral (given by mouth) every day. ?? colchicine (colchicine 0.6 mg oral tablet)1/2 tab Oral (given by mouth) every day as needed not specified for 90 Days. ?? DME RESP Oxygen Therapy (DME Oxygen Therapy)pt uses as needed for ALMARAZ@ 2lpm. ?? DULoxetine (DULoxetine 60 mg oral delayed release capsule)1 Capsules Oral (given by mouth) every day for 90 Days. Refills: 3. ?? Durable Medical Equipment for Prescription (OneTouch Delica Lanceta Fine - Miscellaneous)See instructions. ?? Durable Medical Equipment for Prescription (OneTouch Ultra Blue - Strip)See instructions. ?? Durable Medical Equipment for Prescription (Oxygen Therapy)See instructions. 2 liters by nasal cannula continuous concentrator / portable gas Start Date: 09/09/2020, Notes: Dr. Alexander NPI [id number] codes : R06.81 and Z86.73. ?? furosemide (furosemide 20 mg oral tablet)1 tab Oral (given by mouth) 2 times a day for 90 Days. ?? gabapentin (gabapentin 400 mg oral capsule)1 Capsules Oral (given by mouth) 3 times a day. Refills:0. ?? glucagon (Glucagon Emergency Kit for Low Blood Sugar 1 mg injection) ?? insulin glargine (Lantus Solostar Pen 100 units/mL subcutaneous solution)28 Units Subcutaneous (under the skin) every day. ?? lisinopril (lisinopril 40 mg oral tablet)1 tab Oral (given by mouth) every evening for 90 Days. Refills: 3. ?? multivitamin with minerals (Centrum Silver oral tablet)1 tab Oral (given by mouth) every day for 90Days. ?? nitroglycerin (nitroglycerin 0.3 mg sublingual tablet) ?? Other Prescription (Bd Pen Needle/Milena/Ultra-Fine/32g X 4mm Mis Embe)use one needle once daily. Refills: 3. ?? Other Prescription (ONETOUCH ULTRA STRP)Check blood glucose bid and as needed. ?? Other Prescription (PEN NEEDLES MIS [id number])BID with insulin. ?? traZODone (traZODone 100 mg oral tablet)1 tab Oral (given by mouth) every night at bedtime. Refills: 4. [1]??H & P; Zach Lazo MD 04/03/2023 12:44 EDT Electronically Signed on 04/12/23 10:03 AM Zach Lazo MD Reviewed by: Wilmar Licea DO Patient Care team information Care Team Personnel Name: Wilmar Licea DO Position: Physician Member Role: Primary Care Physician Address: Address: [address] [place] [address] [place] Name: Sinan Bee MD Position: Physician Member Role: ED Physician Address: Address: [address] [place] [address] Name: Maximino Muniz DO Position: Physician Member Role: Physician Address: Address: [address] [place] [address] Name: Nico Arias Position: Nurse Member Role: ED Nurse Care Team Related Persons Name: DAVE DOWNING
--- OUTSIDE RECORDS SUMMARY | 2023-04-19 15:52 | XMS_ITS | Continuity of Care Document ---
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 Name Role Phone Wilmar Licea DO Primary Care Physician [phone] Encounter [facility] NBR [id number] Date(s): 02/15/23 - 02/15/[address] [address] Encounter Diagnosis Unspecified abnormal findings in urine(Final) - Discharge Disposition: Home or Self Care Attending Physician: Perla Still PA-C Admitting Physician: Perla Still PA-C Referring Physician: Perla Still PA-C Allergies, Adverse Reactions, [...] 23-polyvalent vaccine 8 07/21/05 Marcello rded Novel [id number], all formulation 9 06/03/09 Recorded Td(adult) unspecified formulation 11/04/08 Recorde d 1Result Comment: Unit: Unknown 2Result Comment: Unit: Unknown 3Result Comment: Unit: Unknown 4Result Comment: Unit: Unknown 5Result Comment: Unit: Unknown [employer]: [employer] 6Result Comment: Unit: Unknown 7Result Comment: Unit: Unknown 8Result Comment: Unit: Unknown 9Result Comment: Unit: Unknown Medications amLODIPine 10 mg oral tablet 10 mg = 1 tab, Oral, Daily, # 90 tab, 3 Refill(s), Pharmacy: [id number], 162.56, cm, 07/15/22 17:52:00 EST, [...] cholesterol, # 90 tab, 3 Refill(s), Pharmacy: [facility] #[id number], 165, cm, 01/12/23 7:52:00 EDT, Height/Length Dosing, 94, kg, 01/12/23 7:52:00 EDT, Weight Dosing Start Date: 01/18/23 Status: Ordered Bd Pen Needle/Milena/Ultra-Fine/32g X 4mm Mis Embe Bd Pen Needle/Milena/Ultra-Fine/32g X 4mm Mis Embe, See Instructions, use one needle once daily, # 100 unknown unit, 3 Refill(s), Pharmacy: [id number], E11.9, KX, 165.1, cm, 10/26/22 [...] hr, # 15 cap, 0 Refill(s), Pharmacy: [id number], 165, cm, 01/12/23 7:52:00 EDT, Height/Length Dosing, 94, kg, 01/12/23 7:52:00 EDT, Weight Dosing Start Date: 02/16/23 Stop Date: 02/21/23 Status: Ordered clopidogrel 75 mg oral tablet See Instructions, take one tablet by mouth one time daily, # 90 tab, 3 Refill(s), Pharmacy: [id number], 162.56, cm, 07/15/22 17:52:00 EST, [...] Daily, # 90 cap, 3 Refill(s), Pharmacy: [id number], 162.56, cm, 07/15/22 17:52:00 EST, [...] min, # 4,000 mL, 0 Refill(s), Pharmacy: [id number], 163, cm, 06/11/22 9:55:00 EST, [...] evening, # 90 tab, 3 Refill(s), Pharmacy: [id number], 163, cm, 06/11/22 9:55:00 EST, Height/Length Dosing, 93.89, kg, 06/11/22 9:55:00 EST, Weight Dosing Start Date: 07/11/22 Stop Date: 07/06/23 Status: Ordered MetFORMIN (Eqv-Glucophage XR) 500 mg oral tablet, extended release See Instructions, TAKE ONE TABLET BY MOUTH TWICE DAILY, # 180 tab, 3 Refill(s), Pharmacy: [id number], 162.56, cm, 07/15/22 17:52:00 EST, [...] Date: 09/03/22 Status: Ordered PEN NEEDLES MIS [id number] PEN NEEDLES MIS [id number], See Instructions, BID with insulin, 0 Refill(s) [...] lower back 3surgery 4shoulder and elbow Results Orders for Microbiology Reports Name Date Urine Culture 02/15/23 Microbiology Reports TEST:Urine Culture STATUS:Order in Progress BODY SITE: SOURCE:Urine, Clean Catch COLLECTED DATE/TIME:02/15/23 11:30 AM PRELIMINARY REPORT >100,000 cfu/ml Gram Negative Bacilli Presumptive Proteus mirabilis Identification and susceptibility to follow. <10,000 cfu/ml Gram Negative Bacilli #2 Social History Social History Type Response Tobacco Never tobacco user T obacco Use:. Sex Patient Care team information Care Team Personnel Name: Wilmar Licea DO Position: Physician Member Role: Primary Care Physician Address: Address: [address] [place] [phone] [place] Care Team Related Persons Name: DAVE DOWNING
--- OUTSIDE RECORDS SUMMARY | 2023-04-19 15:52 | XMS_ITS | Continuity of Care Document ---
Author Name Unknown Organization [facility] Ambulatory Clinics Address [address] [place] [address] Care Team Providers Care Histologic Aide Name Role Phone Keo Cruz DO Primary Care Physician Encounter [facility] NBR [phone] Date(s): 06/24/22 - 06/24/22 [facility] Ambulatory [facility] [address], [place] [address] Encounter Diagnosis Constipation(Discharge Diagnosis) - 06/24/22 Hematochezia(Discharge Diagnosis) - 06/24/22 Discharge Disposition: Home or Self Care Attending Physician: Ellie Cardona APRN Allergies, Adverse Reactions, Alerts No Known Medication Allergies Substance Reaction Severity Status Adhesive Bandage Unknown Unknown Active Bee Stings Unknown Unknown Active Dust Unknown Active Assessment and Plan Future Appointments Functional Status 06/24/22 Other exposure to Infectious Disease Non e [...] 23-polyvalent vaccine 8 07/21/05 Marcello rded Novel [id number], all formulation 9 06/03/09 Recorded Td(adult) unspecified formulation 11/04/08 Recorde d 1Result Comment: Unit: Unknown 2Result Comment: Unit: Unknown 3Result Comment: Unit: Unknown 4Result Comment: Unit: Unknown 5Result Comment: Unit: Unknown 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[employer] 6Result Comment: Unit: Unknown 7Result Comment: Unit: [...] # 20 tab, 0 Refill(s), Pharmacy: [id number], 162.65, cm, 05/30/22 8:22:00 EST, [...] 0 Refill(s) Start Date: 06/05/22 Status: Ordered lactulose 10 g/15 mL oral syrup See Instructions, PRN as needed for constipation, 15-30 mL Oral Daily 30 days, # 500 mL, 3 Refill(s), Pharmacy: [facility], 163, cm, 06/11/22 9:55:00 [...] # 30 tab, 0 Refill(s), Pharmacy: [facility] #[id number], 162.65, cm, 05/30/22 8:22:00 EST, Height/Length Dosing, 97.52, kg, 05/30/22 8:23:00 EST, Weight Dosing Start Date: 05/30/22 Stop Date: 06/09/22 Status: Ordered ONETOUCH ULTRA STRP ONETOUCH ULTRA STRP, See Instructions, Check blood glucose bid and as needed, # 200 strip, 0 Refill(s) Start Date: 06/05/22 Status: Ordered PEN NEEDLES MIS [id number] PEN NEEDLES MIS [id number], See Instructions, BID with insulin, 0 Refill(s) [...] 1 Temperature Tympanic [36.6-37.9 Deg C] 3 6.2 Deg C *LOW* (06/24/22 10:50 AM) Apical Heart Rate [60-100 bpm] 71 bpm (06/24/22 10:50 AM) Blood Pressure [90-140/60-90 mmHg] 122/7 6mmHg (06/24/22 10:50 AM) Weight 95.8 kg (06/24/22 10:50 AM) Weight Measured (lbs) 211.203 lb (06/24/22 10:50 AM) Social History Social History Type Response Tobacco Never tobacco user T obacco Use:. Sex Physician Outpatient Note * Ellie Cardona APRN: PERFORM Event Display: Office Clinic Note Physician Authored Date: [id number] LEWIS MICHELLE HUBBARD :1940 Age:81 years Sex:Female Visit Date:06/24/2022 Primary Care Physician: Keo Cruz DO Chief Complaint Diverticulosis and constipation History of Present Illness Patient is an 81-year-old female here today at the request of Dr. Cruz??for??diverticulitis and constipation. ??This is an initial consult.?? Patient's been to the emergency room twice in the past month. ??Diagnosed with diverticulitis and constipation.?? She states she has intermittent chronic constipation??chronically.?? She states is gotten worse??since going to the emergency room.?? Inthe beginning she had hematochezia. ??Denies any at this time.?? She has several [place] form 1 stools daily. ??She is taking MiraLAX??twice daily. ??She is tried suppositories without relief.?? Denies any abdominal pain, nausea, vomiting, diarrhea,??or melena. ??Weight and appetite is stable. ??Denies pyrosis, dyspepsia,??dysphagia or globus sensation. ?? She describes a moderate fiber diet. ?? States having 1 prior episode of diverticulitis years ago. ?? Patient uses oxygen 2lnc. ?? On 05/30/2022 CT scan of the abdomen and pelvis with contrast??showed diverticulitis??of the sigmoid colon. ?? Patient had a colonoscopy in??2018 showing??extensive left-sided diverticulosis??and internal hemorrhoids.02 Review of Systems Pertinent positives and negatives are discussed in HPI. Physical Exam Vitals & Measurements T:??36.2?C ??(Tympanic)?? HR:??71??(Apical)?? BP:??122/76?? SpO2:??96%?? WT:??95.8??kg?? General: Well-nourished well-developed??female??in no acute distress. HEENT: Head is normocephalic, trachea midline, and no cervical lymphadenopathy. Respiratory: Respirations are even and unlabored. ??Lungs are clear to auscultation. Cardiovascular: Regular rate and rhythm with S1 and S2. Abdomen: Positive bowel sounds x4 quadrants, no masses, no guarding, no tenderness. ??No hepatosplenomegaly. ??Abdomen is soft. Skin: Warm, dry, and pink. Neurological: Alert and oriented x3, speech is clear and gait is steady. Psychological: Pleasant, calm and cooperative. Assessment/Plan 1.??Constipation??K59.00 Patient with worsening constipation. ??Colonoscopy of 2019 was unremarkable??other than severe diverticulosis and internal hemorrhoids.?? Recommend MiraLAX twice daily. ??Continue Metamucil??and Colace.?? Will start with lactulose 10 to 20 mg daily. ??Will see patient back in 2 weeks. ??Advised to call??if she is struggling between constipation and diarrhea??in the meantime.?? Given this is worsening constipation??and she is having hematochezia??recommend colonoscopy once her bowels are regular.?? Will need??to??discuss with anesthesia whether??she is safe to have procedures here??or she be better??served at a tertiary center. 2.??Hematochezia??K92.1 As above. Orders: lactulose 10 g/15 mL oral syrup, See Instructions, PRN as needed for constipation, 15-30 mL Oral Daily 30 days, # 500 mL, 3 Refill(s), Pharmacy: [facility], 163, cm, 06/11/22 9:55:00 EST,Height/Length Dosing, 93.89, kg, 06/11/22 9:55:00 EST, Weight Dosing Follow-up Appointment Request [id number], *Est. 07/08/22 +/- 2 days, Future Order, f/u constipation, In [facility], [facility] Voice recognition software utilized which may result in minor client associate error. 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[employer] zoster vaccine, inactivated 02/20/2020 Recorded Comments : Unit: Unknown influenza virus vaccine, inactivated 03/19/2019 Recorded tetanus/diphth/pertuss (Tdap) adult/adol 09/28/2015 Recorded pneumococcal 13-valent conjugate vaccine 09/28/2015 Recorded Comments : Unit: Unknown zoster vaccine live 10/02/2012 Recorded Comments : Unit: Unknown pneumococcal 23-polyvalent vaccine 09/27/2012 Recorded Comments : Unit: Unknown Novel [id number], all formulation 06/03/2009 Recorded Comments : Unit: Unknown Td(adult) unspecified formulation 11/04/2008 Recorded pneumococcal 23-polyvalent vaccine 07/21/2005 Recorded Comments : Unit: Unknown Electronically Signed on 06/24/22 12:01 PM Ellie Cardona APRN Patient Care team information Personnel Name: Keo Cruz DO Address: Address: [address] [place] [id number]
--- OUTSIDE RECORDS SUMMARY | 2023-04-19 15:52 | XMS_ITS | Continuity of Care Document ---
Author Name Unknown Organization 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 Phone Keo Cruz DO Primary Care Physician Encounter LTTL_MT FIN NBR [id number] Date(s): 06/11/22 - 06/11/[address] [id number]- Encounter Diagnosis Constipation(Discharge Diagnosis) - 06/11/22 Hypomagnesemia(Discharge Diagnosis) - 06/11/22 Discharge Disposition: Home or Self Care Attending Physician: Maximino Muniz DO Admitting Physician: Maximino Muniz DO Allergies, Adverse Reactions, Alerts No Known Medication Allergies Substance Reaction Severity Status Adhesive Bandage Unknown Unknown Active Bee Stings Unknown Unknown Active Dust Unknown Active Assessment and Plan Future Appointments Functional Status 06/11/22 Other exposure to Infectious Disease Non e [...] 23-polyvalent vaccine 8 07/21/05 Marcello rded Novel [id number], all formulation 9 06/03/09 Recorded Td(adult) unspecified formulation 11/04/08 Recorde d 1Result Comment: Unit: Unknown 2Result Comment: Unit: Unknown 3Result Comment: Unit: Unknown 4Result Comment: Unit: Unknown 5Result Comment: Unit: Unknown 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: [employer] 6Result Comment: Unit: Unknown 7Result Comment: Unit: [...] hr, # 20 tab, 0 Refill(s), Pharmacy: [id number], 162.65, cm, 05/30/22 8:22:00 EST, [...] TID, # 30 tab, 0 Refill(s), Pharmacy: [facility] #[id number], 162.65, cm, 05/30/22 8:22:00 EST, Height/Length Dosing, 97.52, kg, 05/30/22 8:23:00 EST, Weight Dosing Start Date: 05/30/22 Stop Date: 06/09/22 Status: Ordered ONETOUCH ULTRA STRP ONETOUCH ULTRA STRP, See Instructions, Check blood glucose bid and as needed, # 200 strip, 0 Refill(s) Start Date: 06/05/22 Status: Ordered PEN NEEDLES MIS [id number] PEN NEEDLES MIS [id number], See Instructions, BID with insulin, 0 Refill(s) Start Date: 06/05/22 Status: Ordered traZODone 100 mg oral tablet 100 mg = 1 tab, Oral, every night at bedtime, # 90 tab, 0 Refill(s) Start Date: 06/05/22 Stop Date: 09/02/22 Status: Ordered Mental Status 06/11/22 Eye Opening Response [place] Spontaneous ly Best Verbal Response [place] Oriented Best Motor Response [place] Obeys comman ds [place] Coma Score 15 Problem List Condition Confirmation [...] Confirmed Active Word finding difficulty Confirmed Active Results Laboratory List Name Date Lipase Level 06/11/22 CBC w/ Diff 06/11/22 Comprehensive Metabolic Panel (CMP) Lactic Acid 06/11/22 Magnesium Level 06/11/22 Automated Diff 06/11/22 Most recent to oldest [Reference Range]: 1 WBC [4.8-10.8 K/mcL] 7.6 K/mcL (06/11/22 10:09 AM) RBC [4.20-6.10 Million/mcL] 4.20 Million /mcL (06/11/22 10:09 AM) Neutro Auto [42.2-75.2 %] 66.0 % (06/11/22 10:09 AM) Lymph Auto [20.5-51.1 %] 23.7 % (06/11/22 10:09 AM) Whatcom Auto [1.7-9.3 %] 7.3 % (06/11/22 10:09 AM) Basophil Auto [0.0-0.8 %] 0.5 % (06/11/22 10:09 AM) BUN [8-26 mg/dL] 23 mg/dL (06/11/22 10:09 AM) Glucose Level [74-106 mg/dL] 188 mg/dL *HI* (06/11/22 10:09 AM) Potassium Level [3.5-5.1 mmol/L] 4.2 mmo l/L (06/11/22 10:09 AM) Baso Absolute [0.0-0.2 K/mcL] 0.0 K/mcL (06/11/22 10:09 AM) MCV [80.0-99.0 fL] 96.4 fL (06/11/22 10:09 AM) AST [15-41 IntlUnit/L] 47 IntlUnit/L *HI* (06/11/22 10:09 AM) ALT [14-54 IntlUnit/L] 62 IntlUnit/L *HI* (06/11/22 10:09 AM) MCHC [32.0-36.0 g/dL] 31.9 g/dL *LOW* (06/11/22 10:09 AM) Osmolality [275-295 mOsm/kg] 275 mOsm/kg (06/11/22 10:09 AM) Sodium Level [134-143 mmol/L] 133 mmol/L *LOW* (06/11/22 10:09 AM) Lymph Absolute [1.2-3.4 K/mcL] 1.8 K/mcL (06/11/22 10:09 AM) Hct [37.0-52.0 %] 40.5 % (06/11/22 10:09 AM) Lipase Level [18-51 unit/L] 30 unit/L (06/11/22 10:45 AM) Calcium Level [8.9-10.3 mg/dL] 9.0 mg/dL (06/11/22 10:09 AM) Whatcom Absolute [0.1-0.6 K/mcL] 0.6 K/mcL (06/11/22 10:09 AM) Albumin Level [3.5-5.0 g/dL] 3.5 g/dL (06/11/22 10:09 AM) Protein Total [6.5-8.1 g/dL] 6.8 g/dL (06/11/22 10:09 AM) MCH [27.0-31.0 pg] 30.7 pg (06/11/22 10:09 AM) Magnesium Level [1.8-2.5 mg/dL] 1.5 mg/d L *LOW* (06/11/22 10:09 AM) Neutro Absolute [1.4-6.5 K/mcL] 5.0 K/mc L (06/11/22 10:09 AM) Bilirubin Total [0.2-1.2 mg/dL] 0.5 mg/d L (06/11/22 10:09 AM) Hgb [12.0-18.0 g/dL] 12.9 g/dL (06/11/22 10:09 AM) Alk Phos [38-130 IntlUnit/L] 68 IntlUnit /L (06/11/22 10:09 AM) MPV [7.4-10.4 fL] 9.3 fL (06/11/22 10:09 AM) Platelets [130-400 K/mcL] 334 K/mcL (06/11/22 10:09 AM) CO2 [22-32 mmol/L] 25 mmol/L (06/11/22 10:09 AM) Eos Absolute [0.0-0.2 K/mcL] 0.2 K/mcL (06/11/22 10:09 AM) Lactic Acid Lvl [0.5-2.2 mmol/L] 1.9 mmo l/L (06/11/22 10:09 AM) eGFR Non-AA 40 *NA* (06/11/22 10:09 AM) eGFR AA 40 *NA* (06/11/22 10:09 AM) Chloride Level [98-111 mmol/L] 99 mmol/L (06/11/22 10:09 AM) RDW-CV [11.5-14.5 %] 12.3 % (06/11/22 10:09 AM) A/G Ratio 1.1 *NA* (06/11/22 10:09 AM) BUN/Creat Ratio [8.0-20.0] 17.4 (06/11/22 10:09 AM) Globulin 3.3 *NA* (06/11/22 10:09 AM) Imm Gran Absolute 0.02 *NA* (06/11/22 10:09 AM) Imm Gran Auto [0.0-0.5 %] 0.3 % (06/11/22 10:09 AM) Creatinine Level [0.44-1.00 mg/dL] 1.32 mg/dL *HI* (06/11/22 10:09 AM) Anion Gap [3.0-12.0] 9.0 (06/11/22 10:09 AM) Eos, Auto [0.00-3.00 %] 2.20 % (06/11/22 10:09 AM) Radiology Reports * Exam Date Time Procedure Performing Provider Status 06/11/22 11:[address] Abdomen and Pelvis w/ Contrast Simran Saez; Odette (Verified) Notes: (CT Abdomen and Pelvis w/ Contrast) Reason For Exam: abd pain, hx of diverticulitis, on antibiotics, continued pain and bloody stools CT Abdomen and Pelvis w/ Contrast PROCEDURE INFORMATION: Exam: CT Abdomen And Pelvis With Contrast Exam date and time: 06/11/2022 10:35 AM Age: 81 years old Clinical indication: Abdominal pain; Patient HX: Constipation; Additional info: Abd pain, HX of diverticulitis, on antibiotics, continued pain and bloody stools TECHNIQUE: Imaging protocol: Computed tomography of the abdomen and pelvis with contrast. Radiation optimization: All CT scans at this facility use at least one of these dose optimization techniques: automated exposure control; mA and/or kV adjustment per patient size (includes targeted exams where dose is matched to clinical indication); or iterative reconstruction. Contrast material: 300; Contrast volume: 100 ml; Contrast route: INTRAVENOUS (IV); COMPARISON: CT ABD/PELVIS W CONTRAST 05/30/2022 9:47 AM FINDINGS: Liver: Normal. No mass. Gallbladder and bile ducts: Normal. No calcified stones. No ductal dilation. Pancreas: Normal. No ductal dilation. Spleen: Normal. No splenomegaly. Adrenal glands: Normal. No mass. Kidneys and ureters: Normal. No hydronephrosis. Stomach and bowel: Overall improvement of distal sigmoid diverticulitis, with mild continued bowel wall thickening and adjacent inflammatory changes. No perforation or drainable collection. Appendix: No evidence of appendicitis. Intraperitoneal space: Unremarkable. No free air. No significant fluid collection. Vasculature: Unremarkable. No abdominal aortic aneurysm. Lymph nodes: Unremarkable. No enlarged lymph nodes. Urinary bladder: Unremarkable as visualized. Reproductive: Unremarkable as visualized. Bones/joints: Unremarkable. No acute fracture. Soft tissues: Unremarkable. IMPRESSION: Overall improvement of distal sigmoid diverticulitis, with mild continued bowel wall thickening and adjacent inflammatory changes. No perforation or drainable collection. THIS DOCUMENT HAS BEEN ELECTRONICALLY SIGNED BY SILVANA MITCHELL MD on 06/11/2022 11:28 AM Final Signed by: Silvana Mitchell MD Signed (Electronic Signature): 06/11/2022 11:28 am Vital Signs Most recent to oldest [Reference Range]: 1 2 Temperature Temporal Artery [36-38 Deg C ] 36.5 Deg C (06/11/22 9:33 AM) Peripheral Pulse Rate [60-100 bpm] 64 bp m (06/11/22 1:18 PM) 75 bpm (06/11/22 9:33 AM) Respiratory Rate [12-24 br/min] 20 br/mi n (06/11/22 9:33 AM) Blood Pressure [90-140/60-90 mmHg] 127/7 1mmHg (06/11/22 1:18 PM) 171/76mmHg *HI* (06/11/22 9:33 AM) Weight Dosing 93.89 kg (06/11/22 9:55 AM) Weight Estimated 93.89 kg (06/11/22 9:33 AM) Height/Length Dosing 163.000 cm (06/11/22 9:55 AM) Height/Length Estimated 163.000 cm (06/11/22 9:33 AM) Social History Social History Type Response Tobacco Never tobacco user T obacco Use:. Sex Hospital Discharge Instructions Patient Education 06/11/2022 11:23:11 Hypomagnesemia Hypomagnesemia Hypomagnesemia is a condition in which the level of magnesium in the blood is low. Magnesium is a mineral that is found in many foods. It is used in many different processes in the body. Hypomagnesemia can affect every organ in the body. In severe cases, it can cause life-threatening problems. What are the causes? This condition may be caused by: ??? Not getting enough magnesium in your diet. ??? Malnutrition. ??? Problems with absorbing magnesium from the intestines. ??? Dehydration. ??? Alcohol abuse. ??? Vomiting. ??? Severe or chronic diarrhea. ??? Some medicines, including medicines that make you urinate more (diuretics). ??? Certain diseases, such as kidney disease, diabetes, celiac disease, and overactive thyroid. What are the signs or symptoms? Symptoms of this condition include: ??? Loss of appetite. ??? Nausea and vomiting. ??? Involuntary shaking or trembling of a body part (tremor). ??? Muscle weakness. ??? Tingling in the arms and legs. ??? Sudden tightening of muscles (muscle spasms). ??? Confusion. ??? Psychiatric issues, such as depression, irritability, or psychosis. ??? A feeling of fluttering of the heart. ??? Seizures. These symptoms are more severe if magnesium levels drop suddenly. How is this diagnosed? This condition may be diagnosed based on: ??? Your symptoms and medical history. ??? A physical exam. ??? Blood and urine tests. How is this treated? Treatment depends on the cause and the severity of the condition. It may be treated with: ??? A magnesium supplement. This can be taken in pill form. If the condition is severe, magnesium is usually given through an IV. ??? Changes to your diet. You may be directed to eat foods that have a lot of magnesium, such as green leafy vegetables, peas, beans, and nuts. ??? Stopping any intake of alcohol. Follow these instructions at home: ??? Make sure that your diet includes foods with magnesium. Foods that have a lot of magnesium in them include: ??? Green leafy vegetables, such as spinach and broccoli. ??? Beans and peas. ??? Nuts and seeds, such as almonds and sunflower seeds. ??? Whole grains, such as whole grain bread and fortified cereals. ??? Take magnesium supplements if your health care provider tells you to do that. Take them as directed. ??? Take ffvr-jbn-yhjljud and prescription medicines only as told by your health care provider. ??? Have your magnesium levels monitored as told by your health care provider. ??? When you are active, drink fluids that contain electrolytes. ??? Avoid drinking alcohol. ??? Keep all follow-up visits as told by your health care provider. This is important. Contact a health care provider if: ??? You get worse instead of better. ??? Your symptoms return. Get help right away if you: ??? Develop severe muscle weakness. ??? Have trouble breathing. ??? Feel that your heart is racing. Summary ??? Hypomagnesemia is a condition in which the level of magnesium in the blood is low. ??? Hypomagnesemia can affect every organ in the body. ??? Treatment may include eating more foods that contain magnesium, taking magnesium supplements, and not drinking alcohol. ??? Have your magnesium levels monitored as told by your health care provider. This information is not intended to replace advice given to you by your health care provider. Make sure you discuss any questions you have with your health care provider. Document Revised: 08/04/2021 Document Reviewed: 10/22/2020 [email or web address] Patient Education ?? 2021 [employer]. 06/11/2022 11:22:59 Constipation, Adult Constipation, Adult Constipation is when a person has fewer than three bowel movements in a week, has difficulty havinga bowel movement, or has stools (feces) that are dry, hard, or larger than normal. Constipation maybe caused by an underlying condition. It may become worse with age if a person takes certain medicines and does not take in enough fluids. Follow these instructions at home: Eating and drinking ??? Eat foods that have a lot of fiber, such as beans, whole grains, and fresh fruits and vegetables. ??? Limit foods that are low in fiber and high in fat and processed sugars, such as fried or sweet foods. These include [place] guine[place] fries, hamburgers, cookies, candies, and soda. ??? Drink enough fluid to keep your urine pale yellow. General instructions ??? Exercise regularly or as told by your health care provider. Try to do 150 minutes of moderate exercise each week. ??? Use the bathroom when you have the urge to go. Do not hold it in. ??? Take hgog-rhi-tyeerir and prescription medicines only as told by your health care provider. This includes any fiber supplements. ??? During bowel movements: ??? Practice deep breathing while relaxing the lower abdomen. ??? Practice pelvic floor relaxation. ??? Watch your condition for any changes. Let your health care provider know about them. ??? Keep all follow-up visits as told by your health care provider. This is important. Contact a health care provider if: ??? You have pain that gets worse. ??? You have a fever. ??? You do not have a bowel movement after 4 days. ??? You vomit. ??? You are not hungry or you lose weight. ??? You are bleeding from the opening between the buttocks (anus). ??? You have thin, pencil-like stools. Get help right away if: ??? You have a fever and your symptoms suddenly get worse. ??? You leak stool or have blood in your stool. ??? Your abdomen is bloated. ??? You have severe pain in your abdomen. ??? You feel dizzy or you faint. Summary ??? Constipation is when a person has fewer than three bowel movements in a week, has difficulty having a bowel movement, or has stools (feces) that are dry, hard, or larger than normal. ??? Eat foods that have a lot of fiber, such as beans, whole grains, and fresh fruits and vegetables. ??? Drink enough fluid to keep your urine pale yellow. ??? Take mjyc-xfh-zdpluiv and prescription medicines only as told by your health care provider. This includes any fiber supplements. This information is not intended to replace advice given to you by your health care provider. Make sure you discuss any questions you have with your health care provider. Document Revised: 04/08/2020 Document Reviewed: 04/08/2020 [email or web address] Patient Education ?? 2021 [employer]. Follow Up Care 06/11/2022 09:33:43 With:Follow-up with your primary care Address: When:1 week Comments:Follow-up with your primary care as needed, they will be able to reevaluate if necessaryReturn to ED if concernsContact your??primary care??to discuss GI referral and appointment Physician Emergency department Note * KAILEY Cooper: PERFORM Event Display: ED Note Physician Authored Date: [id number] MICHELLE HOLLEY :1940 Age:81 years Sex:Female Visit Date:06/11/2022 Primary Care Physician: Keo Cruz DO Basic Information Time Seen: KAILEY Cooper / 06/11/2022 09:50 Chief Complaint C/O constipation for last few weeks. Recently diagnosed with diverticulitis. Still taking flagyl. Pt reports bloody stool. When asked to describe, pt provided a paper towel with stool from the morning - no visible blood noted. Diffuse abd pain, afebrile. History Of Present Illness: Patient is a 81-year-old female who is an oxygen dependent COPD who??presents with her normal oxygen demand??she is having increased abdominal discomfort and what she states is constipation.?? Patient is concerned that she attempted??a fleets enema yesterday and had??what she felt was??bloody stool She states that she has had minimal production of stool over the last several weeks.?? She was seenhere in the emergency department??in late May and diagnosed with diverticulitis??and given appropriate??antibiotic treatment. ?? She has had a follow-up with her primary care who recommended??stool softener??and increasing hydration to help with bowel movements.?? She notes that this continues??to feel bloated and is concernedwith the lack of??stool production and for these reasons she presents for further evaluation??she co ntinues take her antibiotics appropriately continues to take her normal medications appropriately. ??Patient has had no fever chills nausea or vomiting??and otherwise is at her baseline. Review of Systems: Abdominal pain is stated HPI Physical Exam Vitals & Measurements T:??36.5?C ??(Temporal Artery)?? HR:??64??(Peripheral)?? RR:??20?? BP:??127/71?? SpO2:??96%?? HT:??163.000??cm?? WT:??93.89??kg??(Estimated)?? Pain Score:??5?? O2 Therapy:??Room air?? Patient alert oriented age-appropriate well-nourished nontoxic Normocephalic atraumatic Neck supple nontender EOM intact, PERRLA, sclera nonicteric Clear to auscultation bilaterally Regular rate and rhythm no murmurs Abdominal exam reveals normal bowel sounds, negative rebound tenderness, negative psoas sign, mild tenderness primarily??right upper quadrant??without any ecchymosis or??edema to abdomen Normal gait and station, normal strength all extremities Appropriate mood and affect Medical Decision Making: CT is reported as below Laboratory evaluation is reported below and patient is found to have low magnesium. ??This was replaced here in the emergency department.?? Patient??remains afebrile and pain is well controlled with??without significant intervention.?? I have discussed with her at length detailed discharge plan and she understands and agrees as below. Procedure No Qualifying Data Assessment/Plan 1.??Constipation??K59.00 She will be discharged she has contacted her primary care already and has a referral in the works for GI specialist. ??She will contact??them on Monday to discuss further??investigation in this regard. She will restart her MiraLAX as there is not a significant heavy stool burden however there is somein the distal colon. ??I do not believe she is obstipated Patient will continue her other medications as prescribed She will finish her antibiotics as prescribed Patient understands aspects of today's visit is able to eat while here in the emergency department and??agrees with discharge plan. 2.??Hypomagnesemia??E83.42 Orders: Discharge Patient, 06/11/22 12:21:00 EST Patient Education Hypomagnesemia Constipation, Adult Follow Up With When Contact Information Follow-up with your primary care Within 1 week Additional Instructions: Follow-up with your primary care as needed, they will be able to reevaluate if necessary Return to ED if concerns Contact your??primary care??to discuss GI referral and appointment Medication Reconciliation Unchanged amLODIPine (amLODIPine 5 mg oral tablet)1 tab Oral (given by mouth) every day for 90 Days. ?? atenolol (atenolol 50 [...] by mouth) 3 times a day. ?? insulin glargine (Lantus Solostar Pen 100 units/mL subcutaneous solution)32 Units Subcutaneous (under the skin) every day for 90 Days. ?? lisinopril (lisinopril 40 mg oral tablet)1 tab Oral (given by mouth) every day. ?? metFORMIN (MetFORMIN (Eqv-Glucophage XR) 500 mg oral tablet, extended release)1 tab Oral (given by mouth) 2 times a day for 90 Days. ?? metroNIDAZOLE (metroNIDAZOLE 500 mg oral tablet)1 tab Oral (given by mouth) 3 times a day for 10 Days. Refills: 0. ?? Other Prescription (InTownUCH ULTRA STRP)Check blood glucose bid and as needed. ?? Other Prescription (PEN NEEDLES MIS [id number])BID with insulin. ?? traZODone (traZODone 100 mg [...] Type 2 diabetes mellitus with unspecified complications Medication Administration Given magnesium sulfate, 1 g, IV Piggyback Allergies Adhesive Bandage??(Unknown) Bee Stings??(Unknown) Dust No Known Medication Allergies Social History Electronic Cigarette/Vaping Electronic Cigarette Use: Never. Tobacco Never tobacco user Tobacco Use:. Diagnostic Results CT Abdomen and Pelvis w/ Contrast 06/11/2022 11:[address] Abdomen and Pelvis w/ Contrast ?? 06/11/22 10:35:28 PROCEDURE INFORMATION: Exam: CT Abdomen And Pelvis With Contrast Exam date and time: 06/11/2022 10:35 AM Age: 81 years old Clinical indication: Abdominal pain; Patient HX: Constipation; Additional info: Abd pain, HX of diverticulitis, on antibiotics, continued pain and bloody stools ?? TECHNIQUE: Imaging protocol: Computed tomography of the abdomen and pelvis with contrast. Radiation optimization: All CT scans at this facility use at least one of these dose optimization techniques: automated exposure control; mA and/or kV adjustment per patient size (includes targeted exams where dose is matched to clinical indication); or iterative reconstruction. Contrast material: 300; Contrast volume: 100 ml; Contrast route: INTRAVENOUS (IV); ?? COMPARISON: CT ABD/PELVIS W CONTRAST 05/30/2022 9:47 AM ?? FINDINGS: Liver: Normal. No mass. Gallbladder and bile ducts: Normal. No calcified stones. No ductal dilation. Pancreas: Normal. No ductal dilation. Spleen: Normal. No splenomegaly. Adrenal glands: Normal. No mass. Kidneys and ureters: Normal. No hydronephrosis. Stomach and bowel: Overall improvement of distal sigmoid diverticulitis, with mild continued bowel wall thickening and adjacent inflammatory changes. No perforation or drainable collection. Appendix: No evidence of appendicitis. ?? Intraperitoneal space: Unremarkable. No free air. No significant fluid collection. Vasculature: Unremarkable. No abdominal aortic aneurysm. Lymph nodes: Unremarkable. No enlarged lymph nodes. Urinary bladder: Unremarkable as visualized. Reproductive: Unremarkable as visualized. Bones/joints: Unremarkable. No acute fracture. Soft tissues: Unremarkable. ?? IMPRESSION: Overall improvement of distal sigmoid diverticulitis, with mild continued bowel wall thickening and adjacent inflammatory changes. No perforation or drainable collection. ? THIS DOCUMENT HAS BEEN ELECTRONICALLY SIGNED BY SILVANA MITCHELL MD on 06/11/2022 11:28 AM ?? Signed By: Silvana Mitchell MD Lab Results CBC and Differential?? LATEST RESULTS?? HISTORICAL RESULTS?? WBC?? 06/11/22 10:09?? 7.6?? 05/30/22?? 16.0 ??High?? RBC?? 06/11/22 10:09?? 4.20?? 05/30/22?? 4.37?? Hgb?? 06/11/22 10:09?? 12.9?? 05/30/22?? 13.8?? Hct?? 06/11/22 10:09?? 40.5?? 05/30/22?? 41.8?? MCV?? 06/11/22 10:09?? 96.4?? 05/30/22?? 95.7?? MCH?? 06/11/22 10:09?? 30.7?? 05/30/22?? 31.6 ??High?? MCHC?? 06/11/22 10:09?? 31.9 ??Low?? 05/30/22?? 33.0?? RDW-CV?? 06/11/22 10:09?? 12.3?? 05/30/22?? 12.3?? Platelets?? 06/11/22 10:09?? 334?? 05/30/22?? 285?? MPV?? 06/11/22 10:09?? 9.3?? 05/30/22?? 9.8?? Neutro Auto?? 06/11/22 10:09?? 66.0?? 05/30/22?? 77.5 ??High?? Lymph Auto?? 06/11/22 10:09?? 23.7?? 05/30/22?? 14.5 ??Low?? Whatcom Auto?? 06/11/22 10:09?? 7.3?? 05/30/22?? 7.1?? Eos, Auto?? 06/11/22 10:09?? 2.20?? 05/30/22?? 0.30?? Basophil Auto?? 06/11/22 10:09?? 0.5?? 05/30/22?? 0.2?? Imm Gran Auto?? 06/11/22 10:09?? 0.3?? 05/30/22?? 0.4?? Neutro Absolute?? 06/11/22 10:09?? 5.0?? 05/30/22?? 12.4 ??High?? Lymph Absolute?? 06/11/22 10:09?? 1.8?? 05/30/22?? 2.3?? Whatcom Absolute?? 06/11/22 10:09?? 0.6?? 05/30/22?? 1.1 ??High?? Eos Absolute?? 06/11/22 10:09?? 0.2?? 05/30/22?? 0.0?? Baso Absolute?? 06/11/22 10:09?? 0.0?? 05/30/22?? 0.0?? Imm Gran Absolute?? 06/11/22 10:09?? 0.02?? 05/30/22?? 0.07? Routine Chemistry?? LATEST RESULTS?? HISTORICAL RESULTS?? Sodium Level?? 06/11/22 10:09?? 133 ??Low?? 05/30/22?? 134?? Potassium Level?? 06/11/22 10:09?? 4.2?? 05/30/22?? 4.4?? Chloride Level?? 06/11/22 10:09?? 99?? 05/30/22?? 97 ??Low?? CO2?? 06/11/22 10:09?? 25?? 05/30/22?? 25?? Alk Phos?? 06/11/22 10:09?? 68?? 05/30/22?? 87?? AST?? 06/11/22 10:09?? 47 ??High?? 05/30/22?? 34?? ALT?? 06/11/22 10:09?? 62 ??High?? 05/30/22?? 35?? BUN?? 06/11/22 10:09?? 23?? 05/30/22?? 25?? Glucose Level?? 06/11/22 10:09?? 188 ??High?? 05/30/22?? 191 ??High?? Creatinine Level?? 06/11/22 10:09?? 1.32 ??High?? 05/30/22?? 0.99?? BUN/Creat Ratio?? 06/11/22 10:09?? 17.4?? 05/30/22?? 25.3 ??High?? eGFR AA?? 06/11/22 10:09?? 40?? 05/30/22?? 57?? eGFR Non-AA?? 06/11/22 10:09?? 40?? 05/30/22?? 57?? Calcium Level?? 06/11/22 10:09?? 9.0?? 05/30/22?? 9.4?? Protein Total?? 06/11/22 10:09?? 6.8?? 05/30/22?? 7.4?? Albumin Level?? 06/11/22 10:09?? 3.5?? 05/30/22?? 3.4 ??Low?? Globulin?? 06/11/22 10:09?? 3.3?? 05/30/22?? 4.0?? A/G Ratio?? 06/11/22 10:09?? 1.1?? 05/30/22?? 0.8?? Bilirubin Total?? 06/11/22 10:09?? 0.5?? 05/30/22?? 0.9?? Anion Gap?? 06/11/22 10:09?? 9.0?? 05/30/22?? 12.0?? Lactic Acid Lvl?? 06/11/22 10:09?? 1.9? Lipase Level?? 06/11/22 10:45?? 30? Magnesium Level?? 06/11/22 10:09?? 1.5 ??Low? Osmolality?? 06/11/22 10:09?? 275?? 05/30/22?? 278? Electronically Signed on 06/11/22 03:09 PM [facility]AI[facility] Emergency department Discharge instructions * KAILEY Cooper: PERFORM Event Display: ED Discharge Information Authored Date: [id number] LEWIS MICHELLE HUBBARD :1940 Age:81 years Sex:Female Visit Date:06/11/2022 Primary Care Physician: Keo Cruz DO Discharge Instructions We would like to thank you for allowing us to assist you with your healthcare needs. The following includes patient education materials and information regarding your injury/illness. Diagnosis from Today's Visit Constipation Hypomagnesemia Discharge Vitals Temperature??(Temporal Artery) 97.7 ??F (36.5 ??C) Heart Rate??(Peripheral) 75 Respiratory Rate?? 20 Blood Pressure?? 171/76?? Height?? 64.17 in (163.000 cm) Weight??(Estimated) 207.03 lb (93.89 kg) Allergies Adhesive Bandage??(Unknown) Bee Stings??(Unknown) Dust No Known Medication Allergies What to Do Next Instructions from Your Care Team Restart??your MiraLAX??1-2 capfuls daily until healthy bowel movement, increase your??oral intake in regards to??solid foods??as desired Follow with primary care??and GI as scheduled. You Need to Schedule the Following Appointments Follow Up with??Follow-up with your primary care When:??Within 1 week Why: Follow-up with your primary care as needed, they will be able to reevaluate if necessary Return to ED if concerns Contact your??primary care??to discuss GI referral and appointment Upcoming Scheduled Appointments Monday 9:00 AM EST ?? You were treated today on an emergency [...] What How Much When Instructions Next Dose Unchanged amLODIPine (amLODIPine 5 mg oral tablet) [...] day at supper for cholesterol ?? Unchanged ciprofloxacin (Cipro 500 mg oral tablet) 1 tab Oral (given by mouth) Every 12 hours Duration: 10 Days Unchanged clopidogrel (clopidogrel 75 mg oral tablet) 1 tab Oral (given by mouth) Every day Duration: 90 Days Unchanged DULoxetine (DULoxetine 60 mg oral delayed release capsule) 1 Capsules Oral (given by mouth) Every day Duration: 90 Days Unchanged furosemide (furosemide 20 mg oral tablet) 1 tab Oral (given by mouth) 2 times a day Duration: 90 Days Unchanged gabapentin (gabapentin 400 mg oral capsule) 1 Capsules Oral (given by mouth) 3 times a day Unchanged insulin glargine (Lantus Solostar Pen 100 units/ mL subcutaneous solution) 32 Units Subcutaneous (under the skin) Every day Duration: 90 Days Unchanged lisinopril (lisinopril 40 mg oral tablet) 1 tab Oral (given by mouth) Every day Unchanged metFORMIN (MetFORMIN (Eqv-Glucophage XR) 500 mg oral tablet, extended release) 1 tab Oral (given by mouth) 2 times a day Duration: 90 Days Unchanged metroNIDAZOLE (metroNIDAZOLE 500 mg oral tablet) 1 tab Oral (given by mouth) 3 times a day Duration: 10 Days Unchanged Other Prescription (ONETOUCH ULTRA STRP) See instructions Check blood glucose bid and as needed ?? Unchanged Other Prescription (PEN NEEDLES MIS [id number]) See instructions BID with insulin ?? Unchanged traZODone (traZODone 100 mg oral tablet) 1 tab Oral (given by mouth) Every night at bedtime Duration: 90 Days Education Materials Hypomagnesemia Hypomagnesemia is a condition in which the level of magnesium in the blood is low. Magnesium is a mineral that is found in many foods. It is used in many different processes in the body. Hypomagnesemia can affect every organ in the body. In severe cases, it can cause life-threatening problems. What are the causes? This condition may be caused by: ? Not getting enough magnesium in your diet. ? Malnutrition. ? Problems with absorbing magnesium from the intestines. ? Dehydration. ? Alcohol abuse. ? Vomiting. ? Severe or chronic diarrhea. ? Some medicines, including medicines that make you urinate more (diuretics). ? Certain diseases, such as kidney disease, diabetes, celiac disease, and overactive thyroid. What are the signs or symptoms? Symptoms of this condition include: ? Loss of appetite. ? Nausea and vomiting. ? Involuntary shaking or trembling of a body part (tremor). ? Muscle weakness. ? Tingling in the arms and legs. ? Sudden tightening of muscles (muscle spasms). ? Confusion. ? Psychiatric issues, such as depression, irritability, or psychosis. ? A feeling of fluttering of the heart. ? Seizures. These symptoms are more severe if magnesium levels drop suddenly. How is this diagnosed? This condition may be diagnosed based on: ? Your symptoms and medical history. ? A physical exam. ? Blood and urine tests. How is this treated? Treatment depends on the cause and the severity of the condition. It may be treated with: ? A magnesium supplement. This can be taken in pill form. If the condition is severe, magnesium is usually given through an IV. ? Changes to your diet. You may be directed to eat foods that have a lot of magnesium, such as green leafy vegetables, peas, beans, and nuts. ? Stopping any intake of alcohol. Follow these instructions at home: ? Make sure that your diet includes foods with magnesium. Foods that have a lot of magnesium in them include: ? Green leafy vegetables, such as spinach and broccoli. ? Beans and peas. ? Nuts and seeds, such as almonds and sunflower seeds. ? Whole grains, such as whole grain bread and fortified cereals. ? Take magnesium supplements if your health care provider tells you to do that. Take them as directed. ? Take hbix-iuo-whbkucl and prescription medicines only as told by your health care provider. ? Have your magnesium levels monitored as told by your health care provider. ? When you are active, drink fluids that contain electrolytes. ? Avoid drinking alcohol. ? Keep all follow-up visits as told by your health care provider. This is important. Contact a health care provider if: ? You get worse instead of better. ? Your symptoms return. Get help right away if you: ? Develop severe muscle weakness. ? Have trouble breathing. ? Feel that your heart is racing. Summary ? Hypomagnesemia is a condition in which the level of magnesium in the blood is low. ? Hypomagnesemia can affect every organ in the body. ? Treatment may include eating more foods that contain magnesium, taking magnesium supplements, and not drinking alcohol. ? Have your magnesium levels monitored as told by your health care provider. This information is not intended to replace advice given to you by your health care provider. Make sure you discuss any questions you have with your health care provider. Document Revised: 08/04/2021 Document Reviewed: 10/22/2020 [employer] Patient Education ?? 2021 [employer] Constipation, Adult Constipation is when a person has fewer than three bowel movements in a week, has difficulty havinga bowel movement, or has stools (feces) that are dry, hard, or larger than normal. Constipation maybe caused by an underlying condition. It may become worse with age if a person takes certain medicines and does not take in enough fluids. Follow these instructions at home: Eating and drinking ? Eat foods that have a lot of fiber, such as beans, whole grains, and fresh fruits and vegetables. ? Limit foods that are low in fiber and high in fat and processed sugars, such as fried or sweet foods. These include equ[place] guine[place] fries, hamburgers, cookies, candies, and soda. ? Drink enough fluid to keep your urine pale yellow. General instructions ? Exercise regularly or as told by your health care provider. Try to do 150 minutes of moderate exercise each week. ? Use the bathroom when you have the urge to go. Do not hold it in. ? Take mxco-hme-bajiogc and prescription medicines only as told by your health care provider. This includes any fiber supplements. ? During bowel movements: ? Practice deep breathing while relaxing the lower abdomen. ? Practice pelvic floor relaxation. ? Watch your condition for any changes. Let your health care provider know about them. ? Keep all follow-up visits as told by your health care provider. This is important. Contact a health care provider if: ? You have pain that gets worse. ? You have a fever. ? You do not have a bowel movement after 4 days. ? You vomit. ? You are not hungry or you lose weight. ? You are bleeding from the opening between the buttocks (anus). ? You have thin, pencil-like stools. Get help right away if: ? You have a fever and your symptoms suddenly get worse. ? You leak stool or have blood in your stool. ? Your abdomen is bloated. ? You have severe pain in your abdomen. ? You feel dizzy or you faint. Summary ? Constipation is when a person has fewer than three bowel movements in a week, has difficulty havinga bowel movement, or has stools (feces) that are dry, hard, or larger than normal. ? Eat foods that have a lot of fiber, such as beans, whole grains, and fresh fruits and vegetables. ? Drink enough fluid to keep your urine pale yellow. ? Take uczq-vtx-rdmzaqf and prescription medicines only as told by your health care provider. This includes any fiber supplements. This information is not intended to replace advice given to you by your health care provider. Make sure you discuss any questions you have with your health care provider. Document Revised: 04/08/2020 Document Reviewed: 04/08/2020 [employer] Patient Education ?? 2021 [employer] Tests Performed Radiology CT Abdomen and Pelvis w/ Contrast 06/11/2022 11:29 EST Medications and Immunizations Administered Given magnesium sulfate, 1 g, IV Piggyback Lab Test Name Test Result Date/Time WBC 7.6 K/mcL 06/11/2022 10:09 EST RBC 4.20 Million/mcL 06/11/2022 10:09 EST Hgb 12.9 g/dL 06/11/2022 10:09 EST Hct 40.5 % 06/11/2022 10:09 EST MCV 96.4 fL 06/11/2022 10:09 EST MCH 30.7 pg 06/11/2022 10:09 EST MCHC 31.9 g/dL 06/11/2022 10:09 EST RDW-CV 12.3 % 06/11/2022 10:09 EST Platelets 334 K/mcL 06/11/2022 10:09 EST MPV 9.3 fL 06/11/2022 10:09 EST Neutro Auto 66.0 % 06/11/2022 10:09 EST Lymph Auto 23.7 % 06/11/2022 10:09 EST Whatcom Auto 7.3 % 06/11/2022 10:09 EST Eos, Auto 2.20 % 06/11/2022 10:09 EST Basophil Auto 0.5 % 06/11/2022 10:09 EST Imm Gran Auto 0.3 % 06/11/2022 10:09 EST Neutro Absolute 5.0 K/mcL 06/11/2022 10:09 EST Lymph Absolute 1.8 K/mcL 06/11/2022 10:09 EST Whatcom Absolute 0.6 K/mcL 06/11/2022 10:09 EST Eos Absolute 0.2 K/mcL 06/11/2022 10:09 EST Baso Absolute 0.0 K/mcL 06/11/2022 10:09 EST Imm Gran Absolute 0.02 06/11/2022 10:09 EST Sodium Level 133 mmol/L 06/11/2022 10:09 EST Potassium Level 4.2 mmol/L 06/11/2022 10:09 EST Chloride Level 99 mmol/L 06/11/2022 10:09 EST CO2 25 mmol/L 06/11/2022 10:09 EST Alk Phos 68 IntlUnit/L 06/11/2022 10:09 EST AST 47 IntlUnit/L 06/11/2022 10:09 EST ALT 62 IntlUnit/L 06/11/2022 10:09 EST BUN 23 mg/dL 06/11/2022 10:09 EST Glucose Level 188 mg/dL 06/11/2022 10:09 EST Creatinine Level 1.32 mg/dL 06/11/2022 10:09 EST BUN/Creat Ratio 17.4 06/11/2022 10:09 EST eGFR AA 40 06/11/2022 10:09 EST eGFR Non-AA 40 06/11/2022 10:09 EST Calcium Level 9.0 mg/dL 06/11/2022 10:09 EST Protein Total 6.8 g/dL 06/11/2022 10:09 EST Albumin Level 3.5 g/dL 06/11/2022 10:09 EST Globulin 3.3 06/11/2022 10:09 EST A/G Ratio 1.1 06/11/2022 10:09 EST Bilirubin Total 0.5 mg/dL 06/11/2022 10:09 EST Anion Gap 9.0 06/11/2022 10:09 EST Lactic Acid Lvl 1.9 mmol/L 06/11/2022 10:09 EST Lipase Level 30 unit/L 06/11/2022 10:45 EST Magnesium Level 1.5 mg/dL 06/11/2022 10:09 EST Osmolality 275 mOsm/kg 06/11/2022 10:09 EST Patient/Merchandise Manager Signature Patient Name:MICHELLE HOLLEY I have received this information and my questions have been answered. Patient/Merchandise Manager Name: Patient/Merchandise Manager Signature: Relationship to Patient: Witness Name/Signature: Date: Electronically Signed on: 06/11/2022 12:23 ESTSigned by:AB CT Abdomen and Pelvis W contrast IV * Silvana Mitchell MD: VERIFY, VERIFY Event Display: Report PROCEDURE INFORMATION: Exam: CT Abdomen And Pelvis With Contrast Exam date and time: 06/11/2022 10:35 AM Age: 81 years old Clinical indication: Abdominal pain; Patient HX: Constipation; Additional info: Abd pain, HX of diverticulitis, on antibiotics, continued pain and bloody stools TECHNIQUE: Imaging protocol: Computed tomography of the abdomen and pelvis with contrast. Radiation optimization: All CT scans at this facility use at least one of these dose optimization techniques: automated exposure control; mA and/or kV adjustment per patient size (includes targeted exams where dose is matched to clinical indication); or iterative reconstruction. Contrast material: 300; Contrast volume: 100 ml; Contrast route: INTRAVENOUS (IV); COMPARISON: CT ABD/PELVIS W CONTRAST 05/30/2022 9:47 AM FINDINGS: Liver: Normal. No mass. Gallbladder and bile ducts: Normal. No calcified stones. No ductal dilation. Pancreas: Normal. No ductal dilation. Spleen: Normal. No splenomegaly. Adrenal glands: Normal. No mass. Kidneys and ureters: Normal. No hydronephrosis. Stomach and bowel: Overall improvement of distal sigmoid diverticulitis, with mild continued bowel wall thickening and adjacent inflammatory changes. No perforation or drainable collection. Appendix: No evidence of appendicitis. Intraperitoneal space: Unremarkable. No free air. No significant fluid collection. Vasculature: Unremarkable. No abdominal aortic aneurysm. Lymph nodes: Unremarkable. No enlarged lymph nodes. Urinary bladder: Unremarkable as visualized. Reproductive: Unremarkable as visualized. Bones/joints: Unremarkable. No acute fracture. Soft tissues: Unremarkable. IMPRESSION: Overall improvement of distal sigmoid diverticulitis, with mild continued bowel wall thickening and adjacent inflammatory changes. No perforation or drainable collection. THIS DOCUMENT HAS BEEN ELECTRONICALLY SIGNED BY SILVANA MITCHELL MD on 06/11/2022 11:28 AM Final Signed by: Silvana Mitchell MD Signed (Electronic Signature): 06/11/2022 11:28 am Patient Care team information Personnel Name: Keo Cruz DO Address: Address: [address] [place] [id number] [place]
--- OUTSIDE RECORDS SUMMARY | 2023-04-19 15:53 | XMS_ITS | Patient Health Record ---
Author Name Unknown [facility] Address [address] [place] [address] Care Team Providers Care Enrobing Machine Corder Name Role Phone ROSALINA FLORES DO Primary Care Provider Charmaine ninibello ColbyamandaTalha bolanos [phone] ALLERGIES Allergen (clinical drug ingredient) Drug/Non Drug Allergy documented on EMR Reaction Allergy Type Onset Date Status Adhesive Tape (uncoded) Unknown Allergy Active Bee stings (uncoded) Unknown Allergy Active dust (uncoded) Unknown Allergy Activ e REASON FOR REFERRAL No Information MEDICATIONS Medication SIG (Take, Route, Frequency, Duration) Notes Start Date End Date Status Lotrisone 0.05%-1% 1 arturo applied topically 2 times a day 12/24/2019 Active Acetaminophen 500 MG 1 capsule as needed Orally every 6 hrs Active Nice 3 500 500 MG 1 capsule Orally Twice a day for 30 day(s) Magared omega-3 Krill oil Not-Taking DOK 100 MG 1 capsule as needed Orally Once a day for 30 day(s) Not-Taking Ecotrin 325 MG 1 tablet Orally Once a day for 30 day(s) Not-Taking Diclofenac Sodium & Benzalk Cl 1 & 0.13 % as directed Combination Active Gabapentin 400 MG 1 capsule Orally Three times a day Active traZODone HCl 100 MG 1 tablet at bedtime Orally Once a day for 30 day(s) Active Lisinopril-hydroCHLOR Othiazide 20-25 MG 1 tablet Orally Once a day for 30 day(s) Not-Taking Colchicine 0.6 MG 1 capsule Orally Once a day for 30 day(s) Not-Taking BD Pen Needle Milena U/F 32G X 4 MM as directed Active Artificial Tears 0.1-0.3 % as directed Ophthalmic Unkown dosing Active -TEST STRIPS as directed as directed Active Tylenol Extra Strength 500 MG 1 tablet as needed Orally every 6 hrs Active Centrum Silver - as directed Orally Active ZyrTEC Allergy 10 MG 1 tablet Orally Once a day for 30 day(s) Not-Taking Ezetimibe 10 MG 1 tablet Orally Once a day for 30 day(s) Not-Taking Diclofenac Sodium 1 % as directed Transdermal Not-Taking Docusate Sodium 100 MG 1 capsule as needed Orally three times a day Active DULoxetine HCl 60 MG 1 capsule Orally Once a day for 30 day(s) Active Nitroglycerin 0.3 MG as directed Sublingual Active Glucagon Emergency 1 MG as directed Injection Active HumaLOG Mix 75/25 KwikPen (75-25) 100 UNIT/ML as directed Subcutaneous Active Atenolol 50 MG 1 tablet Orally Once a day for 30 day(s) Active Atorvastatin Calcium 40 MG 1 tablet Orally Once a day for 30 day(s) Active Metamucil 48.57 % as directed Orally Active ProAir HFA 108 (90 Base) MCG/ACT 2 puffs as needed Inhalation every 6 hrs Active -LANCETS ( ONE TOUCH) to test blood glucose bid and prn Active SOCIAL HISTORY Tobacco Use: Social History Observation Description Date Details (start date - stop date) Never Smoker NA - NA Sex Assigned At : Social History Observation Description Sex Assigned At Unknown SMOKING Question Answer Notes Are you a: nonsmoker PROBLEMS Problem Type ICD Code Onset Dates Problem Status W/U Status Risk SNOMED Code Notes Problem Vitamin D deficiency (E55.9) Active confirmed Vitamin D deficiency (21220374) Problem Gout (M10.9) Active confirmed Gout (905 13388) L 1st MTPJ Problem Hypertension (I10) Active confirmed Hypertension (77161697) Problem Carpal tunnel syndrome of right wrist (G56.01) Active confirmed Carpal tunnel syndrome of right wrist (816336144367981 ) Problem Hallux rigidus of left foot (M20.22) Active confirmed Acquired hallux rigidus (2994851) Problem Type 2 diabetes mellitus with hyperglycemia (E11.65) Active confirmed Hyperglycemia due to type 2 diabetes mellitus (470469148646322 ) Problem 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) Active confirmed Neurologic complication of diabetes mellitus (772208786) Problem Other chronic pain (G89.29) Active confirmed Chronic pain (06311696) Problem Cognitive impairment (R41.89) Active confirmed Cognitive impairment (141662049) Problem Cervical spondylosis with radiculopathy (M47.22) Active confirmed Cervical spondylosis without myelopathy (006553053) PLAN OF TREATMENT No Information Insurance Providers Payer Name Payer Address Payer Phone Subscriber Number Group Number Insured Name Patient Relationship to Insured Coverage Start Date Coverage End Date [employer]PLETE [address] [address] [place] [address] [id number] MICHELLE HOLLEY Self - patient is the insured [facility] [address] [place], [place] [id number] [phone] [id number] MICHELLE HOLLEY Self - patient is the insured [place] [employer] [place], [place] [id number] MICHELLE HOLLEY Self - patient is the insured [place] [address] MICHELLE HOLLEY Self - patient is the insured MEDICAL (GENERAL) HISTORY Medical History History ICD Code Diabetes mellitus type 2 arthritis chronic pain bowel problems depression headaches hearing loss hypertension high cholexterol kidney disease carpal tunneal Fibromyalgia High cholesterol Surgical History Surgery Date(Month/Year) mastoid bladder surgeries (several) right shoulder arthroscopy Left knee arthroplasty Right TKA lower back surgery Cataract removal Lens implant right elbow x2 Hospitalization History Reason Date(Month/Year) Infection S/P Knee surgery
--- OUTSIDE RECORDS SUMMARY | 2023-04-19 15:53 | XMS_ITS | Continuity of Care Document ---
Author Name Unknown Organization [facility] Address [address] [place] [address] Care Team Providers Care Director Of Architecture Name Role Phone Wilmar Licea DO Primary Care Physician [phone] Encounter [facility] NBR [id number] Date(s): 01/12/23 - 01/12/[address] [id number] Encounter Diagnosis Bitten or stung by nonvenomous insect and other nonvenomous arthropods, initial encounter(Discharge Diagnosis) - 01/12/23 Tick bite of ear(Discharge Diagnosis) - 01/12/23 Anterior cervical lymphadenopathy(Discharge Diagnosis) - 01/12/23 Discharge Disposition: Home or Self Care Attending Physician: Maximino Muniz DO Admitting Physician: Maximino Muniz DO Allergies, Adverse Reactions, Alerts Substance Reaction Severity Status Adhesive Bandage Rash Moderate Active Bee Stings Unknown Unknown Active copper containing compounds Rash Mild Active Dust Unknown Active Assessment and Plan Future Appointments Functional Status 01/12/23 Other exposure to Infectious Disease Non e [...] 23-polyvalent vaccine 8 07/21/05 Marcello rded Novel [id number], all formulation 9 06/03/09 Recorded Td(adult) unspecified formulation 11/04/08 Recorde d 1Result Comment: Unit: Unknown 2Result Comment: Unit: Unknown 3Result Comment: Unit: Unknown 4Result Comment: Unit: Unknown 5Result Comment: Unit: Unknown Registered Diet Technician: [employer]Plan[employer] 6Result Comment: Unit: Unknown 7Result Comment: Unit: Unknown 8Result Comment: Unit: Unknown 9Result Comment: Unit: Unknown Medications amLODIPine 10 mg oral tablet 10 mg = 1 tab, Oral, Daily, # 90 tab, 3 Refill(s), Pharmacy: [id number], 162.56, cm, 07/15/22 17:52:00 EST, [...] cholesterol, # 90 tab, 0 Refill(s), Pharmacy: [facility] #[id number], 162.56, cm, 07/15/22 17:52:00 EST, Height/Length Dosing, 95.71, kg, 07/15/22 17:52:00 EST, Weight Dosing Start Date: 10/18/22 Status: Ordered Bd Pen Needle/Milena/Ultra-Fine/32g X 4mm Mis Embe Bd Pen Needle/Milena/Ultra-Fine/32g X 4mm Mis Embe, See Instructions, use one needle once daily, # 100 unknown unit, 3 Refill(s), Pharmacy: [id number], E11.9, KX, 165.1, cm, 10/26/22 [...] daily, # 90 tab, 3 Refill(s), Pharmacy: [id number], 162.56, cm, 07/15/22 17:52:00 EST, [...] Daily, # 90 cap, 3 Refill(s), Pharmacy: [id number], 162.56, cm, 07/15/22 17:52:00 EST, [...] min, # 4,000 mL, 0 Refill(s), Pharmacy: [id number], 163, cm, 06/11/22 9:55:00 EST, Height/Length Dosing, 93.89, kg, 06/11/22 9:55:00 EST, Weight Dosing Start Date: 07/12/22 Stop Date: 07/13/22 Status: Ordered lactulose 10 g/15 mL oral syrup See Instructions, PRN as needed for constipation, 15-30 mL Oral Daily 30 days, # 500 mL, 3 Refill(s), Pharmacy: [facility], 163, cm, 06/11/22 9:55:00 EST, Height/Length Dosing, 93.89, kg,06/11/22 9:55:00 EST, Weight Dosing Start Date: 06/24/22 Status: Ordered Lantus Solostar Pen 100 units/mL subcutaneous solution 28 units, Subcutaneous, Daily, # 3 mL, 0 Refill(s) Start Date: 10/24/22 Status: Ordered lisinopril 40 mg oral tablet 40 mg = 1 tab, Oral, every evening, # 90 tab, 3 Refill(s), Pharmacy: [id number], 163, cm, 06/11/22 9:55:00 EST, Height/Length Dosing, 93.89, kg, 06/11/22 9:55:00 EST, Weight Dosing Start Date: 07/11/22 Stop Date: 07/06/23 Status: Ordered MetFORMIN (Eqv-Glucophage XR) 500 mg oral tablet, extended release See Instructions, TAKE ONE TABLET BY MOUTH TWICE DAILY, # 180 tab, 3 Refill(s), Pharmacy: [id number], 162.56, cm, 07/15/22 17:52:00 EST, [...] Date: 09/03/22 Status: Ordered PEN NEEDLES MIS [id number] PEN NEEDLES MIS [id number], See Instructions, BID with insulin, 0 Refill(s) [...] [36-38 Deg C ] 36.2 Deg C (01/12/23 7:41 AM) Peripheral Pulse Rate [60-100 bpm] 71 bp m (01/12/23 7:41 AM) Respiratory Rate [12-24 br/min] 16 br/mi n (01/12/23 7:41 AM) Blood Pressure [90-140/60-90 mmHg] 157/8 6mmHg *HI* (01/12/23 7:41 AM) Weight Dosing 94.00 kg (01/12/23 7:52 AM) Weight Estimated 94.00 kg (01/12/23 7:41 AM) Height/Length Dosing 165.000 cm (01/12/23 7:52 AM) Height/Length Estimated 165.000 cm (01/12/23 7:41 AM) Social History Social History Type Response Tobacco Never tobacco user T obacco Use:. Sex Hospital Discharge Instructions Patient Education 01/12/2023 07:37:48 Tick Bite Information, Adult, [id number] Tick Bite Information, Adult Ticks are insects that can bite. Most ticks live in shrubs and grassy areas. They climb onto peopleand animals that go by. Then they bite. Some ticks carry germs that can make you sick. How can I prevent tick bites? Take these steps: Use insect repellent ??? Use an insect repellent that has 20% or higher of the ingredients DEET, picaridin, or OS8433. Follow the instructions on the label. Put it on: ??? Bare skin. ??? The tops of your boots. ??? Your pant legs. ??? The ends of your sleeves. ??? If you use an insect repellent that has the ingredient permethrin, follow the instructions on the label. Put it on: ??? Clothing. ??? Boots. ??? Supplies or outdoor gear. ??? Tents. When you are outside ??? Wear long sleeves and long pants. ??? Wear light-colored clothes. ??? Tuck your pant legs into your socks. ??? Stay in the middle of the trail. Do not touch the bushes. ??? Avoid walking through long grass. ??? Check for ticks on your clothes, hair, and skin often while you are outside. Before going inside your house, check your clothes, skin, head, neck, armpits, waist, groin, and joint areas. When you go indoors ??? Check your clothes for ticks. Dry your clothes in a dryer on high heat for 10 minutes or more. If clothes are damp, additional time may be needed. ??? Wash your clothes right away if they need to be washed. Use hot water. ??? Check your pets and outdoor gear. ??? Shower right away. ??? Check your body for ticks. Do a full body check using a mirror. What is the right way to remove a tick? Remove the tick from your skin as soon as possible. Do not remove the tick with your bare fingers. ??? To remove a tick that is crawling on your skin: ??? Go outdoors and brush the tick off. ??? Use tape or a lint roller. ??? To remove a tick that is bitin. Wash your hands. 2. If you have latex gloves, put them on. 3. Use tweezers, curved forceps, or a tick-removal tool to grasp the tick. Grasp the tick as close to your skin and as close to the tick's head as possible. 4. Gently pull up until the tick lets go. ??? Try to keep the tick's head attached to its body. ??? Do not twist or jerk the tick. ??? Do not squeeze or crush the tick. Do not try to remove a tick with heat, alcohol, petroleum jelly, or fingernail congolese. What should I do after taking out a tick? Throw away the tick. Do not crush a tick with your fingers. ??? Clean the bite area and your hands with soap and water, rubbing alcohol, or an iodine wash. ??? If an antiseptic cream or ointment is available, apply a small amount to the bite area. ??? Wash and disinfect any instruments that you used to remove the tick. How should I get rid of a live tick? To dispose of a live tick, use one of these methods: ??? Place the tick in rubbing alcohol. ??? Place the tick in a bag or container you can close tightly. ??? Wrap the tick tightly in tape. ??? Flush the tick down the toilet. Contact a doctor if: ??? You have symptoms, such as: ??? A fever or chills. ??? A red rash that makes a eastern shoshone (bull's-eye rash) in the bite area. ??? Redness and swelling where the tick bit you. ??? Headache. ??? Pain in a muscle, joint, or bone. ??? Being more tired than normal. ??? Trouble walking or moving your legs. ??? Numbness in your legs. ??? Tender and swollen lymph glands. ??? A part of a tick breaks off and gets stuck in your skin. Get help right away if: ??? You cannot remove a tick. ??? You cannot move (have paralysis) or feel weak. ??? You are feeling worse or have new symptoms. ??? You find a tick that is biting you and filled with blood. This is important if you are in an area where diseases from ticks are common. Summary ??? Ticks may carry germs that can make you sick. ??? To prevent tick bites wear long sleeves, long pants, and light colors. Use insect repellent. Follow the instructions on the label. ??? If the tick is biting, do not try to remove it with heat, alcohol, petroleum jelly, or fingernail congolese. ??? Use tweezers, curved forceps, or a tick-removal tool to grasp the tick. Gently pull up until the tick lets go. Do not twist or jerk the tick. Do not squeeze or crush the tick. ??? If you have symptoms, contact a doctor. This information is not intended to replace advice given to you by your health care provider. Make sure you discuss any questions you have with your health care provider. Document Revised: 05/18/2020 Document Reviewed: 05/18/2020 [employer] Patient Education ?? 2022 [employer]. Follow Up Care 01/12/2023 07:41:39 With:Wilmar Licea DO Address: [address] [place] [phone] When:1 week Comments:You have??suffered from a tick bite to your ear.?? I covered you with antibiotics prophylactically 200 mg of doxycycline.?? This should help prevent any developing Lyme disease. ??He also have some what is called lymphadenopathy (swollen lymph nodes in the left anterior cervical chain). ??This can be reactive from that the wound in your ear??or it could represent something more??significant. ??Please watch as the wound of your ear heals to see if this??lymph node tenderness stops. ??If not you really should have this reevaluated by your primary care physician.?? Return to the emergency department any new or worsening symptoms or for any concerns you may have. Emergency department Discharge instructions * Maximino Muniz DO: PERFORM Event Display: ED Discharge Information Authored Date: [id number] LEWIS MICHELLE HUBBARD :1940 Age:82 years Sex:Female Visit Date:01/12/2023 Primary Care Physician: Wilmar Licea DO Discharge Instructions We would like to thank you for allowing us to assist you with your healthcare needs. The following includes patient education materials and information regarding your injury/illness. Diagnosis from Today's Visit Tick bite of ear Anterior cervical lymphadenopathy Bitten or stung by nonvenomous insect and other nonvenomous arthropods, initial encounter Discharge Vitals Temperature??(Temporal Artery) 97.2 ??F (36.2 ??C) Heart Rate??(Peripheral) 71 Respiratory Rate?? 16 Blood Pressure?? 157/86?? Height?? 64.96 in (165.000 cm) Weight??(Estimated) 207.27 lb (94.00 kg) Allergies Adhesive Bandage??(Rash) copper containing compounds??(Rash) Bee Stings??(Unknown) Dust What to Do Next You Need to Schedule the Following Appointments Follow Up with??Wilmar Licea, DO When:??Within 1 week Why: You have??suffered from a tick bite to your ear.?? I covered you with antibiotics prophylactically 200 mg of doxycycline.?? This should help prevent any developing Lyme disease. ??He also have some what is called lymphadenopathy (swollen lymph nodes in the left anterior cervical chain). ??Thiscan be reactive from that the wound in your ear??or it could represent something more??significant.??Please watch as the wound of your ear heals to see if this??lymph node tenderness stops. ??If notyou really should have this reevaluated by your primary care physician.?? Return to the emergency department any new or worsening symptoms or for any concerns you may have. Where: [address] [place] [address] Upcoming Scheduled Appointments 2022 11:00 AM EDT ?? With: Wilmar Licea, DO Where: [facility] Primary Care [facility] [address] [place] [address]- Status: Confirmed You were treated today on an emergency [...] Emergency Department. Medications What How Much When Why Instructions Next Dose Unchanged acetaminophen (Tylenol Extra Strength 500 mg [...] Every day Hypertension Duration: 90 Days Unchanged aspirin (aspirin 81 mg oral delayed [...] ?? Unchanged Other Prescription (PEN NEEDLES MIS [id number]) See instructions BID with insulin ?? Unchanged polyethylene glycol 3350 with electrolytes (GoLYTELY oral powder for reconstitution) 240 Milliliters Oral (given by mouth) Every 10 minutes Diverticulitis Constipation Hematochezia Change in bowel habit Duration: 1 Days Unchanged traZODone (traZODone 100 mg oral tablet) 1 tab Oral (given by mouth) Every night at bedtime Duration: 90 Days Education Materials Tick Bite Information, Adult Ticks are insects that can bite. Most ticks live in shrubs and grassy areas. They climb onto peopleand animals that go by. Then they bite. Some ticks carry germs that can make you sick. How can I prevent tick bites? Take these steps: Use insect repellent ? Use an insect repellent that has 20% or higher of the ingredients DEET, picaridin, or BG8319. Follow the instructions on the label. Put it on: ? Bare skin. ? The tops of your boots. ? Your pant legs. ? The ends of your sleeves. ? If you use an insect repellent that has the ingredient permethrin, follow the instructions on the label. Put it on: ? Clothing. ? Boots. ? Supplies or outdoor gear. ? Tents. When you are outside ? Wear long sleeves and long pants. ? Wear light-colored clothes. ? Tuck your pant legs into your socks. ? Stay in the middle of the trail. Do not touch the bushes. ? Avoid walking through long grass. ? Check for ticks on your clothes, hair, and skin often while you are outside. Before going inside your house, check your clothes, skin, head, neck, armpits, waist, groin, and joint areas. When you go indoors ? Check your clothes for ticks. Dry your clothes in a dryer on high heat for 10 minutes or more. If clothes are damp, additional time may be needed. ? Wash your clothes right away if they need to be washed. Use hot water. ? Check your pets and outdoor gear. ? Shower right away. ? Check your body for ticks. Do a full body check using a mirror. What is the right way to remove a tick? Remove the tick from your skin as soon as possible. Do not remove the tick with your bare fingers. ? To remove a tick that is crawling on your skin: ? Go outdoors and brush the tick off. ? Use tape or a lint roller. ? To remove a tick that is bitin.?? Wash your hands. 2.?? If you have latex gloves, put them on. 3.?? Use tweezers, curved forceps, or a tick-removal tool to grasp the tick. Grasp the tick as close to your skin and as close to the tick's head as possible. 4.?? Gently pull up until the tick lets go. ? Try to keep the tick's head attached to its body. ? Do not twist or jerk the tick. ? Do not squeeze or crush the tick. Do not try to remove a tick with heat, alcohol, petroleum jelly, or fingernail congolese. What should I do after taking out a tick? Throw away the tick. Do not crush a tick with your fingers. ? Clean the bite area and your hands with soap and water, rubbing alcohol, or an iodine wash. ? If an antiseptic cream or ointment is available, apply a small amount to the bite area. ? Wash and disinfect any instruments that you used to remove the tick. How should I get rid of a live tick? To dispose of a live tick, use one of these methods: ? Place the tick in rubbing alcohol. ? Place the tick in a bag or container you can close tightly. ? Wrap the tick tightly in tape. ? Flush the tick down the toilet. Contact a doctor if: ? You have symptoms, such as: ? A fever or chills. ? A red rash that makes a eastern shoshone (bull's-eye rash) in the bite area. ? Redness and swelling where the tick bit you. ? Headache. ? Pain in a muscle, joint, or bone. ? Being more tired than normal. ? Trouble walking or moving your legs. ? Numbness in your legs. ? Tender and swollen lymph glands. ? A part of a tick breaks off and gets stuck in your skin. Get help right away if: ? You cannot remove a tick. ? You cannot move (have paralysis) or feel weak. ? You are feeling worse or have new symptoms. ? You find a tick that is biting you and filled with blood. This is important if you are in an area where diseases from ticks are common. Summary ? Ticks may carry germs that can make you sick. ? To prevent tick bites wear long sleeves, long pants, and light colors. Use insect repellent. Followthe instructions on the label. ? If the tick is biting, do not try to remove it with heat, alcohol, petroleum jelly, or fingernail congolese. ? Use tweezers, curved forceps, or a tick-removal tool to grasp the tick. Gently pull up until the tick lets go. Do not twist or jerk the tick. Do not squeeze or crush the tick. ? If you have symptoms, contact a doctor. This information is not intended to replace advice given to you by your health care provider. Make sure you discuss any questions you have with your health care provider. Document Revised: 05/18/2020 Document Reviewed: 05/18/2020 [employer] Patient Education ?? 2022 [employer] Tests Performed Medications and Immunizations Administered Given doxycycline, 200 mg, Oral Patient/Tripe Cooker Signature Patient Name:MICHELLE HOLLEY I have received this information and my questions have been answered. Patient/Tripe Cooker Name: Patient/Tripe Cooker Signature: Relationship to Patient: Witness Name/Signature: Date: Electronically Signed on: 01/12/2023 08:39 EDTSigned by:SUJIT Patient Care team information Care Team Personnel Name: Wilmar Licea DO Position: Physician Member Role: Primary Care Physician Address: Address: [address] [place] [phone] Name: Maximino Muniz DO Position: Physician Member Role: Admitting Physician Address: Address: [address] [place] [phone] Name: Verean Gar I Position: Nurse Member Role: ED Nurse Care Team Related Persons Name: DAVE DOWNING Address: Home
[2023-04-19 16:18] LABS: HCT 39.4 % (36.0-46.0); MCH 31.6 pg (27.0-33.0); MCV 96 fL (80-95); MPV 9.1 fL (8.0-11.0); Platelet Count 513 10^3/uL (130-400); RBC 4.11 10^6/uL (3.93-5.22); RDW-SD 49.9 fL; WBC 11.16 10^3/uL (4.4-10.8)
== END 2023-04-19 15:48 | disposition home or self-care (01) ==
LOC: LBN 15:47
PROVIDERS: PCP Nurse Practitioner Family; Visit Provider Nurse Practitioner Adult Health
DX: E11.9 Type 2 diabetes mellitus without complications (principal); N17.9 Acute kidney failure, unspecified; R53.1 Weakness
CPT/HCPCS: 85027

== ENCOUNTER → 2024-01-17 15:12 | Outpatient (BNVA) | payer MEDICARE, SELFPAY | PROVIDERS: PCP Family Medicine; Referring Provider Family Medicine; Visit Provider Podiatrist | DX: E11.42 Type 2 diabetes mellitus with diabetic polyneuropathy (principal); I70.203 Unspecified atherosclerosis of native arteries of extremities, bilateral legs; B35.1 Tinea unguium; L60.3 Nail dystrophy; I87.2 Venous insufficiency (chronic) (peripheral); R60.0 Localized edema | CPT/HCPCS: 11719; 11720; 99204 ==

== ENCOUNTER → 2024-03-20 10:23 | Outpatient (BNVA) | payer MEDICARE, SELFPAY | PROVIDERS: PCP Family Medicine; Referring Provider Family Medicine; Visit Provider Physical Therapy Assistant ==